=== PATIENT | female | born 1945 | race Caucasian/White ===

== ENCOUNTER 2019-05-28 02:42 | Emergency (ER) | payer MEDICARE ==
[2019-05-28 02:49] VITALS: BP 101/64; PULSE 94; RESP 16; TEMP 97.6
--- NOTE | 2019-05-28 02:57 | ED ---
General Adult HPI <Gwen Worthington - Last Filed: 05/28/19 04:07> - General Source: EMS Mode of arrival: EMS Limitations: physical limitation <Maria Del Rosario Caro - Last Filed: 05/28/19 04:51> - General Chief complaint: Extremity Injury, Lower Stated complaint: Back, lt hip pain Time Seen by Provider: 05/28/19 02:57 - History of Present Illness Initial comments: 73-year-old female patient presents to the emergency department today for evaluation of left lower back pain that radiates on the left leg. Patient states she has degenerative disc disease and multiple herniated disks. Does have a history of sciatica. Patient states her symptoms have been worsening over the last week. Patient does admit to driving from [place] 2 weeks ago. Patient was seen at urgent care and given a prescription for Robaxin and has been taking Aleve which has not been helping. Patient states the pain woke her from sleep and is very difficult to get out of bed. States that she does have numbness to the left lower leg but this is not new for her. She denies any saddle anesthesia or loss of bowel or bladder control. Denies any new injuries to the back. Patient states her symptoms are consistent with her chronic back pain but little worse than usual. She denies any fever or chills. Denies any calf pain or tenderness. Patient is currently being treated for urinary tract infection with Bactrim. Patient denies any recent rash, shortness breath, chest pain, abdominal pain, nausea, vomiting, diarrhea, constipation, back pain, numbness, tingling, dizziness, weakness, hematuria, dysuria, urinary urgency, urinary frequency, headache, visual changes, or any other complaints. (Daphney Worthington) - Related Data Home Medications Medication Instructions Recorded Confirmed Furosemide [Lasix] 20 mg PO DAILY 05/28/19 05/28/19 Methocarbamol [Robaxin] 1,000 mg PO QID 05/28/19 05/28/19 Omeprazole 20 mg PO 05/28/19 Sulfamethox-Tmp 800-160Mg [Bactrim 1 tab PO Q12HR 05/28/19 05/28/19 DS 800-160 mg] Previous Rx's Medication Instructions Recorded Fluconazole [Diflucan] 150 mg PO DAILY #2 tab 05/28/19 predniSONE 50 mg PO DAILY #5 tablet 05/28/19 Allergies Allergy/AdvReac Type Severity Reaction Status Date / Time No Known Allergies Allergy Verified 05/28/19 02:53 Review of Systems ROS Other: All systems not noted in ROS Statement are negative. <Gwen Worthington M - Last Filed: 05/28/19 04:07> ROS Other: All systems not noted in ROS Statement are negative. <Maria Del Rosario Caro P - Last Filed: 05/28/19 04:51> ROS Statement: Those systems with pertinent positive or pertinent negative responses have been documented in the HPI. Past Medical History Additional Past Medical History / Comment(s): BREAST CA History of Any Multi-Drug Resistant Organisms: None Reported Additional Past Surgical History / Comment(s): TONSILECTOMY, TUBAL LIGATION Smoking Status: Never smoker Past Alcohol Use History: Occasional Past Drug Use History: None Reported <Maria Del Rosario Caro - Last Filed: 05/28/19 04:51> General Exam General appearance: alert, in no apparent distress, other (Physical well- developed, well-nourished elderly female patient in no acute distress. Vital signs upon presentation are temperature 97.6F, pulse 94, respirations 16, blood pressure 101/64, pulse ox 95% on room air.) Eye exam: Present: normal appearance, PERRL, EOMI. Absent: scleral icterus, conjunctival injection, periorbital swelling ENT exam: Present: normal exam, normal oropharynx, mucous membranes moist Respiratory exam: Present: normal lung sounds bilaterally. Absent: respiratory distress, wheezes, rales, rhonchi, stridor Cardiovascular Exam: Present: regular rate, normal rhythm, normal heart sounds. Absent: systolic murmur, diastolic murmur, rubs, gallop, clicks GI/Abdominal exam: Present: soft, normal bowel sounds. Absent: distended, tenderness, guarding, rebound, rigid Extremities exam: Present: normal inspection, full ROM, normal capillary refill, other (Pedal pulses 2+ and equal bilaterally. Skin to the lower external is pink, warm, dry. No edema.). Absent: tenderness, pedal edema, joint swelling, calf tenderness Back exam: Present: normal inspection, tenderness (Left lower back tenderness). Absent: vertebral tenderness Neurological exam: Present: alert, oriented X3, CN II-XII intact Psychiatric exam: Present: normal affect, normal mood Skin exam: Present: warm, dry, intact, normal color. Absent: rash <Gwen Worthington - Last Filed: 05/28/19 04:07> Limitations: physical limitation <Maria Del Rosario Caro - Last Filed: 05/28/19 04:51> Course Vital Signs 05/28/19 02:44 Temperature 97.6 F Pulse Rate 94 Respiratory 16 Rate Blood Pressure 101/64 O2 Sat by Pulse 95 Oximetry Medical Decision Making <Gwen Worthington - Last Filed: 05/28/19 04:07> <Maria Del Rosario Caro P - Last Filed: 05/28/19 04:51> - Medical Decision Making 73-year-old female patient presented to the emergency department today for evaluation of left low back pain with radiation down the left leg. Patient is no concerning symptoms for cauda equina. She is neurologically intact with no focal deficits. Physical examination is otherwise unremarkable. Patient symptoms are consistent with acute on chronic low back pain with sciatica. Patient will be started on a steroid regimen for 5 days. She is urged to continue taking her anti-inflammatory muscle relaxer. She'll be given a starter pack for Tylenol with codeine. Patient is currently taking Bactrim for urinary tract infection. She is reporting symptoms of yeast infection, she'll be given a prescription for Diflucan. She is instructed to follow-up with her primary care physician for recheck as soon as possible. Return parameters were discussed in detail. She verbalizes understanding and agrees with this plan. (Gwen Worthington) I was available for consultation in the emergency department. The history and physical exam were done by the midlevel provider. I was consulted for this holly sorto's care. I reviewed the case with the midlevel provider and based on their presentation of the patient, I agree with the assessment, medical decision making and plan of care as documented. Chart was dictated using And[employer] dictation software. Attempts were made to correct any dictation errors however some typographical errors may persist. (Maria Del Rosario Caro) Disposition Is patient prescribed a controlled substance at d/c from ED?: No Time of Disposition: 03:25 <Gwen Worthington - Last Filed: 05/28/19 04:07> <Maria Del Rosario Caro P - Last Filed: 05/28/19 04:51> Clinical Impression: Acute exacerbation of chronic low back pain, Sciatica Disposition: HOME SELF-CARE Condition: Good Instructions (If sedation given, give patient instructions): Sciatica (ED), Chronic Back Pain (DC) Additional Instructions: Take medications as directed. Continue all medications as prescribed. Follow up with her primary care physician for recheck this as possible. Return to the emergency department immediately for any new, worsening, or concerning symptoms. Prescriptions: Fluconazole [Diflucan] 150 mg PO DAILY #2 tab predniSONE 50 mg PO DAILY #5 tablet Referrals: Nonstaff,Physician [Primary Care Provider] - 1-2 days
[2019-05-28] MEDS ORDERED: HYDROcodone/APAP 5-325MG 1 EACH TAB PO STA (03:23)
[2019-05-28] MEDS ORDERED: methylPREDNISolone SOD SUCCI 125 MG/2 ML VIAL IM ONE (03:23)
[2019-05-28] MEDS ORDERED: DIAZEPAM 5 MG/ML 2 ML INJ IM ONE (03:23)
[2019-05-28] MEDS ORDERED: ACET/COD 300 MG/30 MG STARTER PACK 6 TAB BTL PO STA (03:25)
== END 2019-05-28 04:10 | disposition home or self-care (01) ==
LOC: EC 02:42
DX: M54.42 Lumbago with sciatica, left side (principal); N39.0 Urinary tract infection, site not specified; B37.9 Candidiasis, unspecified; Z79.899 Other long term (current) drug therapy; Z85.3 Personal history of malignant neoplasm of breast; Z87.39 Personal history of other diseases of the musculoskeletal system and connective tissue
CPT/HCPCS: 99283; 96372 ×2; J2930; J3360

== ENCOUNTER 2019-05-29 11:48 | Inpatient (IN) | payer MEDICARE ==
[2019-05-29] MEDS ORDERED: ONDANSETRON 4 MG/2 ML VIAL IVP STA (12:16)
[2019-05-29] MEDS ORDERED: MORPHINE SULFATE 4 MG/ML SYRINGE IVP STA (12:16)
[2019-05-29 12:37] LABS: Basophils % (A) 0 %; Eosinophils # (A) 0.1 k/uL (0-0.7); Eosinophils % (A) 1 %; HGB 13.8 gm/dL (11.4-16.0); Lymphocytes # (A) 0.9 k/uL (1.0-4.8); Lymphocytes % (A) 8 %; MCH 32.7 pg (25.0-35.0); MCHC 32.9 g/dL (31.0-37.0); MCV 99.4 fL (80.0-100.0); Mean Platelet Volume 6.7; Monocytes # (A) 0.2 k/uL (0-1.0); Monocytes % (A) 2 %; Neutrophils # (A) 11.2 k/uL (1.3-7.7); Neutrophils % (A) 89 %; Platelet Count 382 k/uL (150-450); RBC 4.23 m/uL (3.80-5.40); RDW 14.3 % (11.5-15.5); WBC 12.6 k/uL (3.8-10.6)
[2019-05-29 12:47] LABS: Albumin 4.6 g/dL (3.5-5.0); Potassium 4.9 mmol/L (3.5-5.1); Total Bilirubin 0.7 mg/dL (0.2-1.3); Total Protein 7.2 g/dL (6.3-8.2)
--- NOTE | 2019-05-29 12:48 | ED ---
Back Pain HPI - General Chief Complaint: Back Pain/Injury Stated Complaint: BACK PAIN Time Seen by Provider: 05/29/19 12:06 Source: patient, EMS, RN notes reviewed Mode of arrival: EMS Limitations: physical limitation - History of Present Illness Initial Comments: 73-year-old female presents emergency Department with chief complaint of back pain. Patient has chronic back pain and which she's had MRI in October showing evidence of L3-L4 herniated disc. Patient was seen by a surgeon in [place] who did not recommend surgery given her age, weight. Patient states that she was placed on tramadol states that she did not like taking it was not helping so she just takes Aleve which helped just as much. She denies any bowel bladder incontinence or retention. Patient states that she has been up in [place] 4 almost 2 weeks and the pain started feeling days ago. Patient was seen in emergency room was given steroids, Valium and [place]. Patient was discharged and told codeine. Patient was also taking Robaxin from urgent care. She denies any abdominal pain this time. Patient does have leg swelling which she states she usually does but is slightly worsened usual. Patient is currently on Bactrim for UTI. She denies any fevers or chills. - Related Data Home Medications Medication Instructions Recorded Confirmed Furosemide [Lasix] 20 mg PO DAILY 05/28/19 05/28/19 Methocarbamol [Robaxin] 1,000 mg PO QID 05/28/19 05/28/19 Omeprazole 20 mg PO 05/28/19 Sulfamethox-Tmp 800-160Mg [Bactrim 1 tab PO Q12HR 05/28/19 05/28/19 DS 800-160 mg] Previous Rx's Medication Instructions Recorded Fluconazole [Diflucan] 150 mg PO DAILY #2 tab 05/28/19 predniSONE 50 mg PO DAILY #5 tablet 05/28/19 Allergies Allergy/AdvReac Type Severity Reaction Status Date / Time No Known Allergies Allergy Verified 05/29/19 12:02 Review of Systems ROS Statement: Those systems with pertinent positive or pertinent negative responses have been documented in the HPI. ROS Other: All systems not noted in ROS Statement are negative. Past Medical History Additional Past Medical History / Comment(s): BREAST CA, back pain History of Any Multi-Drug Resistant Organisms: None Reported Additional Past Surgical History / Comment(s): TONSILECTOMY, TUBAL LIGATION Past Psychological History: No Psychological Hx Reported Smoking Status: Never smoker Past Alcohol Use History: Occasional Past Drug Use History: None Reported General Exam Limitations: physical limitation General appearance: alert, in no apparent distress Head exam: Present: atraumatic, normocephalic, normal inspection Eye exam: Present: normal appearance, PERRL, EOMI. Absent: scleral icterus, conjunctival injection, periorbital swelling ENT exam: Present: normal exam, mucous membranes moist Neck exam: Present: normal inspection. Absent: tenderness, meningismus, lymphadenopathy Respiratory exam: Present: normal lung sounds bilaterally. Absent: respiratory distress, wheezes, rales, rhonchi, stridor Cardiovascular Exam: Present: regular rate, normal rhythm, normal heart sounds. Absent: systolic murmur, diastolic murmur, rubs, gallop, clicks GI/Abdominal exam: Present: soft, normal bowel sounds. Absent: distended, tenderness, guarding, rebound, rigid Extremities exam: Present: pedal edema, other (Pulses are equal bilaterally lower extremities full range of motion) Back exam: Present: tenderness, paraspinal tenderness, vertebral tenderness. Absent: full ROM Neurological exam: Present: alert, oriented X3, CN II-XII intact, reflexes normal. Absent: motor sensory deficit Skin exam: Present: warm, dry, intact, normal color. Absent: rash Course Vital Signs 05/29/19 11:59 Temperature 97.9 F Pulse Rate 110 H Respiratory 18 Rate Blood Pressure 141/64 O2 Sat by Pulse 97 Oximetry Medical Decision Making - Medical Decision Making 73-year-old female presented for low back pain, leg swelling, generalized not feeling well. Patient's found to have acute renal failure she reports no history of renal failure states that she's had normal daily function on her previous lab work. Patient has a GFR of 25, creatinine greater than 2. Patient does have a history of urinary tract infection recently placed on Bactrim. Patient will be discontinued off Bactrim placed on Rocephin. She'll be admitted for his nephrology consult, and control for her back. - Lab Data Result diagrams: 05/29/19 12:29 05/29/19 12:29 Lab Results 05/29/19 05/29/19 05/29/19 Range/Units 12:29 12:29 12:29 WBC 12.6 H (3.8-10.6) k/uL RBC 4.23 (3.80-5.40) m/uL Hgb 13.8 (11.4-16.0) gm/dL Hct 42.0 (34.0-46.0) % MCV 99.4 (80.0-100.0) fL MCH 32.7 (25.0-35.0) pg MCHC 32.9 (31.0-37.0) g/dL RDW 14.3 (11.5-15.5) % Plt Count 382 (150-450) k/uL Neutrophils % 89 % Lymphocytes % 8 % Monocytes % 2 % Eosinophils % 1 % Basophils % 0 % Neutrophils # 11.2 H (1.3-7.7) k/uL Lymphocytes # 0.9 L (1.0-4.8) k/uL Monocytes # 0.2 (0-1.0) k/uL Eosinophils # 0.1 (0-0.7) k/uL Basophils # 0.0 (0-0.2) k/uL Sodium 135 L (137-145) mmol/L Potassium 4.9 (3.5-5.1) mmol/L Chloride 100 (98-107) mmol/L Carbon Dioxide 16 L (22-30) mmol/L Anion Gap 19 mmol/L BUN 59 H (7-17) mg/dL Creatinine 2.22 H (0.52-1.04) mg/dL Est GFR (CKD-EPI)AfAm 24 (>60 ml/min/1.73 sqM) Est GFR (CKD-EPI)NonAf 21 (>60 ml/min/1.73 sqM) Glucose 205 H (74-99) mg/dL Calcium 10.0 (8.4-10.2) mg/dL Total Bilirubin 0.7 (0.2-1.3) mg/dL AST 54 H (14-36) U/L ALT 39 (9-52) U/L Alkaline Phosphatase 81 (38-126) U/L NT-Pro-B Natriuret Pep 209 pg/mL Total Protein 7.2 (6.3-8.2) g/dL Albumin 4.6 (3.5-5.0) g/dL Urine Color Urine Appearance (Clear) Urine pH (5.0-8.0) Ur Specific [place] (1.001-1.035) Urine Protein (Negative) Urine Glucose (UA) (Negative) Urine Ketones (Negative) Urine Blood (Negative) Urine Nitrite (Negative) Urine Bilirubin (Negative) Urine Urobilinogen (<2.0) mg/dL Ur Leukocyte Esterase (Negative) Urine RBC (0-5) /hpf Ur Squamous Epith Cells (0-4) /hpf Amorphous Sediment (None) /hpf Hyaline Casts (0-2) /lpf 05/29/19 Range/Units 14:48 WBC (3.8-10.6) k/uL RBC (3.80-5.40) m/uL Hgb (11.4-16.0) gm/dL Hct (34.0-46.0) % MCV (80.0-100.0) fL MCH (25.0-35.0) pg MCHC (31.0-37.0) g/dL RDW (11.5-15.5) % Plt Count (150-450) k/uL Neutrophils % % Lymphocytes % % Monocytes % % Eosinophils % % Basophils % % Neutrophils # (1.3-7.7) k/uL Lymphocytes # (1.0-4.8) k/uL Monocytes # (0-1.0) k/uL Eosinophils # (0-0.7) k/uL Basophils # (0-0.2) k/uL Sodium (137-145) mmol/L Potassium (3.5-5.1) mmol/L Chloride (98-107) mmol/L Carbon Dioxide (22-30) mmol/L Anion Gap mmol/L BUN (7-17) mg/dL Creatinine (0.52-1.04) mg/dL Est GFR (CKD-EPI)AfAm (>60 ml/min/1.73 sqM) Est GFR (CKD-EPI)NonAf (>60 ml/min/1.73 sqM) Glucose (74-99) mg/dL Calcium (8.4-10.2) mg/dL Total Bilirubin (0.2-1.3) mg/dL AST (14-36) U/L ALT (9-52) U/L Alkaline Phosphatase (38-126) U/L NT-Pro-B Natriuret Pep pg/mL Total Protein (6.3-8.2) g/dL Albumin (3.5-5.0) g/dL Urine Color Yellow Urine Appearance Cloudy H (Clear) Urine pH 6.5 (5.0-8.0) Ur Specific [place] 1.018 (1.001-1.035) Urine Protein Trace H (Negative) Urine Glucose (UA) Negative (Negative) Urine Ketones Negative (Negative) Urine Blood Negative (Negative) Urine Nitrite Negative (Negative) Urine Bilirubin Negative (Negative) Urine Urobilinogen <2.0 (<2.0) mg/dL Ur Leukocyte Esterase Large H (Negative) Urine RBC 3 (0-5) /hpf Ur Squamous Epith Cells 7 H (0-4) /hpf Amorphous Sediment Rare H (None) /hpf Hyaline Casts 7 H (0-2) /lpf Disposition Clinical Impression: Acute renal failure, Acute exacerbation of chronic low back pain, UTI (urinary tract infection) Disposition: ADMITTED IP TO THIS [facility] Condition: Fair Referrals: Raul Hannah MD [Primary Care Provider] - 1-2 days
--- NOTE | 2019-05-29 13:17 | XR ---
EXAMINATION TYPE: XR lumbosacral spine min 4V DATE OF EXAM: 05/29/2019 CLINICAL HISTORY: Acute on chronic low back pain TECHNIQUE: Frontal, lateral, and oblique images of the lumbar spine are obtained. COMPARISON: None FINDINGS: There is a mild dextroscoliosis of the lumbar spine. There are 5 lumbar type vertebral bod ies identified. Vertebral body heights are maintained of the lumbar spine. Grade 1 anterolisthesis is seen of L4 on L5 with multilevel intervertebral disc space narrowing, facet arthropathy, endplate sc lerosis, and anterior osteophytes. Extensive atherosclerosis of the abdominal aorta is incidentally s een as well as cholecystectomy clips. The oblique images demonstrate neural foraminal narrowing at L3-L4 and L4-5 on the right and at L2-L3 on the left, at least mild. IMPRESSION: 1. No acute fracture of the lumbar spine. 2. Grade 1 anterolisthesis of L4 on L5, dextroscoliosis, and advanced multilevel degenerative disc di sease of the lumbar spine.
[2019-05-29 15:02] LABS: Amorphous Sediment,Urine Rare /hpf; Appearance,Urine Cloudy (Clear); Bilirubin,Urine Negative (Negative); Blood,Urine Negative (Negative); Color,Urine Yellow; Glucose,Urine (UA) Negative (Negative); Hyaline Casts,Urine 7 /lpf (0-2); Ketones,Urine Negative (Negative); Leukocyte Esterase,Urine Large (Negative); Nitrite,Urine Negative (Negative); PH, Urine 6.5 (5.0-8.0); Protein,Urine Trace (Negative); RBC,Urine 3 /hpf (0-5); Specific Gravity,Urine 1.018 (1.001-1.035); Squamous Epithelial Cell,Urine 7 /hpf (0-4); Urobilinogen,Urine <2.0 mg/dL (<2.0); WBC,Urine 19 /hpf (0-5)
[2019-05-29] MEDS ORDERED: cefTRIAXone IN SWFI 1,000 MG/10 ML SYRINGE IVP STA (15:03)
[2019-05-29] MEDS ORDERED: ONDANSETRON 4 MG/2 ML VIAL IVP PRN (15:05)
[2019-05-29] MEDS ORDERED: NALOXONE 0.4 MG/ML 1 ML VIAL IV PRN (15:05)
[2019-05-29] MEDS ORDERED: ACETAMINOPHEN TAB 325 MG TAB PO PRN (15:05)
[2019-05-29] MEDS: SODIUM CHLORIDE 0.9% 1,000 ML IV SCH (15:16)
[2019-05-29] MEDS: MORPHINE SULFATE 4 MG/ML SYRINGE IV PRN ×2 (18:16→22:13)
[2019-05-29] MEDS ORDERED: DEXTROSE 5% IN WATER 1,000 ML with SODIUM BICARB (1 MEQ/ML) 150 ML IV ONE (19:27)
--- NOTE | 2019-05-29 20:46 | XR ---
EXAMINATION: XR chest 1V portable DATE AND TIME: 05/29/2019 8:35 PM CLINICAL INDICATION: PHH; B/L L/E edema TECHNIQUE: AP upright portable COMPARISON: None FINDINGS: The overlying soft tissues are prominent. Lungs appear to be clear. The pleural spaces are negative. The cardiac silhouette is not enlarged. The remainder of the mediastinal silhouette is unremarkable. The skeletal structures and soft tissues are negative for acute findings. IMPRESSION: NO ACUTE PROCESS.
[2019-05-29] MEDS ORDERED: NYSTAT-TRIAMCIN 100,000-0.1 UNIT/GM-% CREAM 30 GM TUBE TOPICAL SCH (21:00)
--- NOTE | 2019-05-29 21:50 | US ---
EXAMINATION TYPE: US kidneys/renal and bladder DATE OF EXAM: 05/29/2019 COMPARISON: NONE CLINICAL HISTORY: UTI. HTN. EXAM MEASUREMENTS: Right Kidney: 8.1 x 4.5 x 4.5 cm Left Kidney: 8.7 x 4.4 x 5.3 cm Limited due to body habitus and patient's inability to be in proper position during exam. Right Kidney: No hydronephrosis or masses seen Left Kidney: No hydronephrosis or masses seen Bladder: Limited. appears anechoic Bilateral Jets seen: no IMPRESSION: No acute process.
[2019-05-29] MEDS: TRIAMCINOLONE 0.1% CREAM 80 GM TUBE TOPICAL SCH (22:21)
[2019-05-29] MEDS: NYSTATIN 100,000UNIT/GM CREAM 30 GM TUBE TOPICAL SCH (22:21)
--- NOTE | 2019-05-29 23:00 | P.HPIM ---
History of Present Illness H&P Date: 05/29/19 Chief Complaint: Back pain Agent is a 73-year-old male with a known history of chronic lower back pain, L3- L4 or herniated disc, left-sided sciatic nerve pain, right breast cancer status post lumpectomy/radiation, hypertension and hyperlipidemia and obstructive sleep apnea came to ER with complaints of lower back pain. Patient also having trickling sensation with urination and feeling off urgency. Patient has been having headaches these symptoms since May 25 and was seen by her primary care physician Dr. Hannah. Patient was started on antibiotics in the form of Bactrim which is she has been taking since then. Patient is also having worsening leg swelling for the past 3 or 4 days. Denied any fever or chills. No complaints of abdominal pain. No nausea vomiting or diarrhea. Patient usually does have leg swelling which improves overnight after sleep but this time patient has been having leg swelling continuously. Denied any chest pain or shortness of breath. No headache or dizziness or lightheadedness. Denied any bladder or bowel incontinence. Patient lives in [place] and is visiting family in [place] currently. Patient has chronic back pain and which she's had MRI in October showing evidence of L3-L4 herniated disc. Patient was seen by a surgeon in [place] who did not recommend surgery given her age, weight. Patient states that she was pl aced on tramadol states that she did not like taking it was not helping so she just takes Aleve which helped just as much. Patient states that she was seen in the ER due to her back pain recently and was given steroids, Valium and [place]. She is also taking Robaxin from urgent care. Sodium 135 BUN 55 and creatinine 2.22 WBC 12.6. Urinalysis showed cloudy, large leukocyte esterase and 19 WBCs. Albumin 4.6 BNP 209 Chest x-ray, lumbar spine x-ray showed no acute process. No fracture or dislocation. Ultrasound kidneys showed no acute process. Review of Systems Constitutional: Patient denies any fever or chills . No generalized weakness or weight loss. Abdomen: Patient denied nausea vomiting and diarrhea and abdominal pain. Cardiovascular: Patient denies any chest pain or short of breath no palpitations. Leg swelling. Respiratory: patient denied any cough is from production. No shortness of breath Neurologic: Patient denied any numbness or tingling headache. Musculoskeletal: Patient denies any complaints of joint swelling or deformity. Lower back pain. Skin: Negative Psychiatric: Negative Endocrine: No heat or cold intolerance. No recent weight gain. Genitourinary: No dysuria or hematuria. All other 14 point ROS negative except the above Past Medical History Past Medical History: Cancer, GERD/Reflux, Hyperlipidemia, Hypertension, Osteoarthritis (OA) Additional Past Medical History / Comment(s): Chronic lower back pain, L3-L4 herniated disc, L sided sciatica, bilateral leg edema, current UTI, R breast cancer with lumpectomy/radiation, bronchitis, sinus problems, beginning of bilateral cataracts. History of Any Multi-Drug Resistant Organisms: None Reported Past Surgical History: Cholecystectomy, Tonsillectomy, Tubal Ligation Additional Past Surgical History / Comment(s): Colonoscopy Past Anesthesia/Blood Transfusion Reactions: No Reported Reaction Smoking Status: Never smoker - Past Family History Father Additional Family Medical History / Comment(s): Father at the age of 53 yrs from "broken heart" 6 weeks after the of his son. Mother Additional Family Medical History / Comment(s): Mother at the age of 61 pt believes from a brain tumor. Medications and Allergies Home Medications Medication Instructions Recorded Confirmed Type Furosemide [Lasix] 20 mg PO DAILY 05/28/19 05/29/19 History Omeprazole 20 mg PO DAILY 05/28/19 05/29/19 History Sulfamethox-Tmp 800-160Mg [Bactrim 1 tab PO Q12HR 05/28/19 05/29/19 History DS 800-160 mg] predniSONE 50 mg PO DAILY #5 tablet 05/28/19 05/29/19 Rx Allopurinol [Zyloprim] 300 mg PO DAILY 05/29/19 05/29/19 History Baclofen [Lioresal] 10 mg PO DAILY 05/29/19 05/29/19 History Fluconazole [Diflucan] 150 mg PO DIRECTED 05/29/19 05/29/19 History Lisinopril-Hctz 20-12.5 mg 1 tab PO DAILY 05/29/19 05/29/19 History [Zestoretic 20-12.5] Loratadine [Claritin] 10 mg PO DAILY 05/29/19 05/29/19 History Multivitamins, Thera [Multivitamin 1 tab PO DAILY 05/29/19 05/29/19 History (formulary)] NIFEdipine [Procardia XL] 60 mg PO DAILY 05/29/19 05/29/19 History [place]-Red 1 tab PO DAILY 05/29/19 05/29/19 History Allergies Allergy/AdvReac Type Severity Reaction Status Date / Time No Known Allergies Allergy Verified 05/29/19 15:18 Physical Exam Vitals: Vital Signs Temp Pulse Resp BP Pulse Ox 05/29/19 16:47 78 17 135/91 97 05/29/19 11:59 97.9 F 110 H 18 141/64 97 Intake and Output 05/29/19 05/29/19 05/29/19 06:59 14:59 22:59 Other: Weight 108.862 kg PHYSICAL EXAMINATION: Patient is lying in the bed comfortably, no acute distress, awake alert and oriented.. HEENT: Normocephalic. Neck is supple. Pupils reactive. Nostrils clear. Oral cavity is moist. Ears reveal no drainage. Neck reveals no JVD, carotid bruits, or thyromegaly. CHEST EXAMINATION: Trachea is central. Symmetrical expansion. Bibasilar diminished air entry. Lung love clear to auscultation and percussion. CARDIAC: Normal S1, S2 with no gallops. No murmurs ABDOMEN: Soft. Distended, obese. Bowel sounds normal. No organomegaly. No abdominal bruits. Extremities: 2+ bilateral edema. No clubbing or cyanosis Neurologically awake, alert, oriented x3 with well-coordinated movements. No focal deficits noted Skin: No rash or skin lesions. Psychiatric: Coperative. Nonsuicidal Musculoskeletal: No joint swelling or deformity. Normal range of motion. Results CBC & Chem 7: 05/29/19 12:29 05/29/19 12:29 Labs: Abnormal Lab Results - Last 24 Hours (Table) 05/29/19 05/29/19 05/29/19 Range/Units 12:29 12:29 14:48 WBC 12.6 H (3.8-10.6) k/uL Neutrophils # 11.2 H (1.3-7.7) k/uL Lymphocytes # 0.9 L (1.0-4.8) k/uL Sodium 135 L (137-145) mmol/L Carbon Dioxide 16 L (22-30) mmol/L BUN 59 H (7-17) mg/dL Creatinine 2.22 H (0.52-1.04) mg/dL Glucose 205 H (74-99) mg/dL AST 54 H (14-36) U/L Urine Appearance Cloudy H (Clear) Urine Protein Trace H (Negative) Ur Leukocyte Esterase Large H (Negative) Urine WBC 19 H (0-5) /hpf Ur Squamous Epith Cells 7 H (0-4) /hpf Amorphous Sediment Rare H (None) /hpf Hyaline Casts 7 H (0-2) /lpf Thrombosis Risk Factor Assmnt - DVT/VTE Prophylaxis DVT/VTE Prophylaxis: Pharmacologic Prophylaxis ordered - Choose All That Apply Any of the Below Risk Factors Present?: Yes Each Factor Represents 1 point: Obesity (BMI >25), Swollen legs (current) Other Risk Factors: Yes Each Risk Factor Represents 2 Points: Malignancy Each Risk Factor Represents 3 Points: Age 75 years or older Other congenital or acquired thrombophilia - If yes, enter type in comment: No Thrombosis Risk Factor Assessment Total Risk Factor Score: 7 Thrombosis Risk Factor Assessment Level: High Risk Assessment and Plan Assessment: Acute urinary tract infection. Failed outpatient therapy Acute kidney injury with possible underlying chronic kidney disease. Possible antibiotic/Bactrim related Anion gap Metabolic acidosis Chronic lower back pain and left sciatica no pain. On narcotic pain medications and recent steroid use as well. Bilateral lower extremity edema. Likely due to venous stasis. Rule out DVT. History of right breast cancer with lumpectomy/radiation Hypertension Hyperlipidemia Obstructive sleep apnea Osteoarthritis Gout Previous history of UTIs DVT prophylaxis with heparin subcu Plan: Patient will be continued on antibiotics the form of ceftriaxone. Bactrim has been discontinued. Continue with IV hydration. Monitor renal function and urine culture report. Continue with home medications and pain management. Nephrology service will be consulted. PT OT. Further recommendations based on the clinical course. Prognosis is guarded. Time with Patient: Greater than 30
[2019-05-30] MEDS: NYSTATIN 100,000UNIT/GM CREAM 30 GM TUBE TOPICAL SCH ×2 (07:45→21:30)
[2019-05-30] MEDS: BACLOFEN 10 MG TAB PO SCH (07:45)
[2019-05-30] MEDS: ALLOPURINOL 300 MG TAB PO SCH (07:45)
[2019-05-30] MEDS: TRIAMCINOLONE 0.1% CREAM 80 GM TUBE TOPICAL SCH ×2 (07:45→21:30)
--- NOTE | 2019-05-30 08:36 | US ---
EXAMINATION TYPE: US venous doppler duplex LE DATE OF EXAM: 05/30/2019 8:30 AM COMPARISON: NONE CLINICAL HISTORY: Leg swelling. Bilateral leg pain and swelling SIDE PERFORMED: Bilateral TECHNIQUE: The lower extremity deep venous system is examined utilizing real time linear array sonog christopher with graded compression, doppler sonography and color-flow sonography. VESSELS IMAGED: External Iliac Vein (EIV) Common Femoral Vein Deep Femoral Vein Greater Saphenous Vein * Femoral Vein Popliteal Vein Small Saphenous Vein * Proximal Calf Veins (* superficial vessels) Grayscale, color doppler, spectral doppler imaging performed of the deep veins of the lower extremiti es. There is normal flow, compressibility, vascular waveforms. Right Leg: Appears negative for DVT Left Leg: Appears negative for DVT IMPRESSION: No sonographic sequela of deep venous thrombosis.
--- NOTE | 2019-05-30 10:08 | CONS ---
CONSULTATION REASON FOR CONSULT: Renal failure. HISTORY OF PRESENT ILLNESS: The patient is a 73-year-old female who was admitted to the hospital with complaints of weakness, not feeling well. She is currently being treated for a urinary tract infection. The patient stated that she has noticed increased lower extremity swelling. She had also had significant back pain, which brought her into the hospital. The patient was not able to move her right lower extremity. She also complained of numbness in her right leg. Previous MRI in October showed evidence of L3-L4 herniated disc. The patient has been evaluated by Orthopedic Surgery previously. Patient denied any history of kidney diseases. Her serum creatinine was 2.2 mg/dL. We do not have any previous labs available. Patient did admit to using a Aleve 2 tablets twice a day for a long time for back pain. Her blood pressure has been slightly on the lower side. The patient has had good urine output. PAST MEDICAL HISTORY: Chronic back pain, osteoarthritis, hyperlipidemia, hypertension, gastroesophageal reflux disease, history of right breast cancer, status post lumpectomy, radiation therapy, chronic lower extremity edema, sciatica, herniated disc in lumbar area. PAST SURGICAL HISTORY: Cholecystectomy, tonsillectomy, tubal ligation, colonoscopy. SOCIAL HISTORY: Negative for smoking, drug abuse, alcohol abuse. MEDICATIONS: Medications at home prior to admission included Lasix, omeprazole, Bactrim, prednisone, Zyloprim, Diflucan, Zestoretic, Claritin, multivitamins, Procardia, omega-3, Aleve. ALLERGIES: None. REVIEW OF SYSTEMS: As per HPI. Other systems negative. PHYSICAL EXAMINATION: On examination, patient is comfortable, awake, alert, oriented x3, not in any acute distress. Blood pressure was 130/53, heart rate 82 per minute. She is afebrile. EXAMINATION OF THE HEART: S1, S2. EXAMINATION OF THE LUNGS: Bilateral breath sounds are heard. Abdomen is soft, nontender. Examination of lower extremities shows edema 1+ bilaterally, worse in the right leg. RN AMBULATORY exam shows patient has difficulty moving her right lower extremity. LABS: Labs show sodium 135, potassium 4.9, CO2 of 16, BUN 59, serum creatinine 2.2, hemoglobin of 13.8 g/dL. UA shows WBCs of 19, leukocyte esterase large, trace protein, no blood. Chest x-ray from yesterday showed no acute process. Venous Dopplers from last night show no evidence of DVT. ASSESSMENT: 1. Acute kidney injury secondary to use of nonsteroidal anti-inflammatory agents, currently nonoliguric. We will maintain patient off of NSAIDs. I will check labs today and we can likely discontinue the IV bicarb. 2. Metabolic acidosis secondary to renal failure. Repeat labs today and DC bicarb depending on the lab. 3. Pyuria, rule out urinary tract infection. 4. Chronic back pain with herniated lumbar disc. 5. Sciatica with decreased movement right leg with previous evaluation by Orthopedic Surgery. 6. Rule out chronic kidney disease. PLAN: Avoid NSAIDs. Check labs today. DC bicarb drip if labs are better. Check ultrasound of the kidneys. Thank you for this consultation. We will continue to follow the patient with you during her hospitalization. MMODL / IJN: [id number] /
[2019-05-30 10:14] LABS: Basophils % (A) 0 %; Eosinophils # (A) 0.1 k/uL (0-0.7); Eosinophils % (A) 1 %; HCT 39.9 % (34.0-46.0); HGB 12.9 gm/dL (11.4-16.0); Lymphocytes # (A) 3.2 k/uL (1.0-4.8); Lymphocytes % (A) 27 %; MCH 32.8 pg (25.0-35.0); MCHC 32.3 g/dL (31.0-37.0); MCV 101.6 fL (80.0-100.0); Macrocytosis Slight; Mean Platelet Volume 6.8; Monocytes # (A) 0.7 k/uL (0-1.0); Monocytes % (A) 6 %; Neutrophils # (A) 7.8 k/uL (1.3-7.7); Neutrophils % (A) 65 %; Platelet Count 326 k/uL (150-450); RBC 3.93 m/uL (3.80-5.40); RDW 14.3 % (11.5-15.5)
[2019-05-30 10:26] LABS: Calcium 9.5 mg/dL (8.4-10.2); Potassium 5.4 mmol/L (3.5-5.1)
[2019-05-30] MEDS: SODIUM CHLORIDE 0.9% 1,000 ML IV SCH (11:57)
[2019-05-30] MEDS: MORPHINE SULFATE 4 MG/ML SYRINGE IV PRN (12:00)
[2019-05-30] MEDS: SODIUM BICARBONATE TAB 650 MG TAB PO SCH (21:29)
--- NOTE | 2019-05-31 01:56 | P.PN ---
Subjective Progress Note Date: 05/30/19 Principal diagnosis: Acute urinary tract infection Acute kidney injury Patient is a 73-year-old male with a known history of chronic lower back pain, L3-L4 or herniated disc, left-sided sciatic nerve pain, right breast cancer status post lumpectomy/radiation, hypertension and hyperlipidemia and obstructive sleep apnea came to ER with complaints of lower back pain. Patient also having trickling sensation with urination and feeling off urgency. Patient has been having headaches these symptoms since May 25 and was seen by her primary care physician Dr. Hannah. Patient was started on antibiotics in the form of Bactrim which is she has been taking since then. Patient is also having worsening leg swelling for the past 3 or 4 days. Denied any fever or chills. No complaints of abdominal pain. No nausea vomiting or diarrhea. Patient usually does have leg swelling which improves overnight after sleep but this time patient has been having leg swelling continuously. Denied any chest pain or shortness of breath. No headache or dizziness or lightheadedness. Denied a ny bladder or bowel incontinence. Patient lives in [place] and is visiting family in [place] currently. Patient has chronic back pain and which she's had MRI in October showing evidence of L3-L4 herniated disc. Patient was seen by a surgeon in [place] who did not recommend surgery given her age, weight. Patient states that she was placed on tramadol states that she did not like taking it was not helping so she just takes Aleve which helped just as much. Patient states that she was seen in the ER due to her back pain recently and was given steroids, Valium and [place]. She is also taking Robaxin from urgent care. Sodium 135 BUN 55 and creatinine 2.22 WBC 12.6. Urinalysis showed cloudy, large leukocyte esterase and 19 WBCs. Albumin 4.6 BNP 209 Chest x-ray, lumbar spine x-ray showed no acute process. No fracture or dislocation. Ultrasound kidneys showed no acute process. 05/30/2019 Patient is more awake and oriented today. Bilateral leg swelling is improved. No complains of chest pain or shortness of breath. Still having left sciatic pain. Otherwise renal function improved to creatinine level I.57. Bicarb level is improved as well. Nephrology is on board. Renal ultrasound showed no acute process and bilateral lower extremity duplex scan showed no DVT. No fever no chills. Urine culture is pending at this time. Patient is trying to participate in physical therapy. Discussed with the patient and her family at bedside in detail. Current medications reviewed. Active Medications Generic Name Dose Route Start Last Admin Trade Name Freq PRN Reason Stop Dose Admin Acetaminophen 650 mg 05/29/19 15:05 Tylenol Tab PO Q6HR PRN Mild Pain or Fever > 100.5 Hydrocodone Bitart/Acetaminophen 1 each 05/29/19 15:05 [place] 5-325 PO Q4HR PRN Moderate Pain Allopurinol 300 mg 05/30/19 09:00 05/30/19 07:45 Zyloprim PO 300 mg DAILY LAVELLE Administration Baclofen 10 mg 05/30/19 09:00 05/30/19 07:45 Lioresal PO 10 mg DAILY LAVELLE Administration Sodium Chloride 1,000 mls @ 50 mls/hr 05/29/19 15:15 05/30/19 11:57 Saline 0.9% IV 50 mls/hr .Q20H LAVELLE Administration Ceftriaxone Sodium 1 gm/ 50 mls @ 100 mls/hr 05/30/19 09:00 05/30/19 07:45 Sodium Chloride IVPB 100 mls/hr Q24HR LAVELLE Administration Morphine Sulfate 4 mg 05/29/19 15:05 05/30/19 12:00 Morphine Sulfate (Inj) IV 4 mg Q4HR PRN Administration Severe Pain Naloxone HCl 0.2 mg 05/29/19 15:05 Narcan IV Q2M PRN Opioid Reversal Nystatin 1 applic 05/29/19 21:00 05/30/19 21:30 Mycostatin Cream TOPICAL 1 applic BID LAVELLE Administration Ondansetron HCl 4 mg 05/29/19 15:05 Zofran IVP Q8HR PRN Nausea And Vomiting Sodium Bicarbonate 650 mg 05/30/19 21:00 05/30/19 21:29 Sodium Bicarbonate Tab PO 650 mg BID LAVELLE Administration Triamcinolone Acetonide 1 applic 05/29/19 21:00 05/30/19 21:30 Kenalog TOPICAL 1 applic BID LAVELLE Administration Objective - Vital Signs Vital signs: Vital Signs Temp 98.1 F 05/30/19 20:35 Pulse 90 05/30/19 20:35 Resp 16 05/30/19 20:35 BP 122/74 05/30/19 20:35 Pulse Ox 95 05/30/19 20:35 Intake & Output 05/30/19 05/30/19 05/31/19 06:59 18:59 06:59 Intake Total 350 Balance 350 Intake: Oral 350 Other: Voiding Method Toilet # Voids 1 3 1 - Exam PHYSICAL EXAMINATION: Patient is lying in the bed comfortably, no acute distress, awake alert and oriented.. HEENT: Normocephalic. Neck is supple. Pupils reactive. Nostrils clear. Oral cavity is moist. Ears reveal no drainage. Neck reveals no JVD, carotid bruits, or thyromegaly. CHEST EXAMINATION: Trachea is central. Symmetrical expansion. Bibasilar diminished air entry. Lung love clear to auscultation and percussion. CARDIAC: Normal S1, S2 with no gallops. No murmurs ABDOMEN: Soft. Bowel sounds normal. No organomegaly. No abdominal bruits. Extremities: Bilateral 1+ edema. No clubbing or cyanosis Neurologically awake, alert, oriented x3 with well-coordinated movements. No focal deficits noted Skin: No rash or skin lesions. Psychiatric: Coperative. Nonsuicidal Musculoskeletal: No joint swelling or deformity. Normal range of motion. - Labs CBC & Chem 7: 05/30/19 09:09 05/30/19 09:09 Labs: Abnormal Lab Results - Last 24 Hours (Table) 05/30/19 05/30/19 Range/Units 09:09 09:09 WBC 12.0 H (3.8-10.6) k/uL MCV 101.6 H (80.0-100.0) fL Neutrophils # 7.8 H (1.3-7.7) k/uL Sodium 135 L (137-145) mmol/L Potassium 5.4 H (3.5-5.1) mmol/L Chloride 96 L (98-107) mmol/L BUN 48 H (7-17) mg/dL Creatinine 1.57 H (0.52-1.04) mg/dL Glucose 123 H (74-99) mg/dL Microbiology - Last 24 Hours (Table) 05/29/19 14:48 Urine Culture - Final Urine,Voided Assessment and Plan Assessment: Acute urinary tract infection. Failed outpatient therapy Acute kidney injury with possible underlying chronic kidney disease. Possible antibiotic/Bactrim and NSAID related Anion gap Metabolic acidosis. Secondary to acute kidney injury. Improving Chronic lower back pain and left sciatica no pain. On narcotic pain medications and recent steroid use as well. Bilateral lower extremity edema. Likely due to venous stasis. Improved now. Ruled out DVT. History of right breast cancer with lumpectomy/radiation Hypertension Hyperlipidemia Obstructive sleep apnea Osteoarthritis Gout Previous history of UTIs DVT prophylaxis with heparin subcu Plan: Patient will be continued on antibiotics the form of ceftriaxone. Bactrim has been discontinued. Avoid NSAID use. Continue with IV hydration. Monitor renal function and urine culture report. Continue with home medications and pain management. Nephrology service is following. PT OT. Urine culture is pending. Further recommendations based on the clinical course. Prognosis is guarded. Time with Patient: Greater than 30
[2019-05-31] MEDS: HYDROcodone/APAP 5-325MG 1 EACH TAB PO PRN ×3 (02:48→15:41)
[2019-05-31 08:11] LABS: Basophils % (A) 0 %; Eosinophils # (A) 0.1 k/uL (0-0.7); Eosinophils % (A) 1 %; HGB 13.5 gm/dL (11.4-16.0); Lymphocytes # (A) 2.5 k/uL (1.0-4.8); Lymphocytes % (A) 26 %; MCH 33.7 pg (25.0-35.0); MCHC 33.7 g/dL (31.0-37.0); MCV 100.1 fL (80.0-100.0); Macrocytosis Slight; Mean Platelet Volume 7.1; Monocytes # (A) 0.8 k/uL (0-1.0); Monocytes % (A) 8 %; Neutrophils # (A) 5.9 k/uL (1.3-7.7); Neutrophils % (A) 62 %; Platelet Count 246 k/uL (150-450); RDW 15.1 % (11.5-15.5); WBC 9.4 k/uL (3.8-10.6)
[2019-05-31 08:24] LABS: Calcium 9.4 mg/dL (8.4-10.2); Potassium 5.3 mmol/L (3.5-5.1)
[2019-05-31] MEDS: SODIUM BICARBONATE TAB 650 MG TAB PO SCH ×2 (08:51→20:59)
[2019-05-31] MEDS: ALLOPURINOL 300 MG TAB PO SCH (08:51)
[2019-05-31] MEDS: BACLOFEN 10 MG TAB PO SCH (08:51)
[2019-05-31] MEDS: TRIAMCINOLONE 0.1% CREAM 80 GM TUBE TOPICAL SCH ×2 (08:56→20:59)
[2019-05-31] MEDS: NYSTATIN 100,000UNIT/GM CREAM 30 GM TUBE TOPICAL SCH ×2 (08:56→20:59)
[2019-05-31] MEDS: SODIUM CHLORIDE 0.9% 1,000 ML IV SCH (08:57)
[2019-05-31] MEDS ORDERED: FUROSEMIDE 10 MG/ML 4 ML VIAL IV STA (12:15)
--- NOTE | 2019-05-31 12:57 | PN ---
PROGRESS NOTE The patient is seen for followup for acute kidney injury. Her serum creatinine has improved. It is down to 1.2 to 1.03. The patient received IV fluids initially. She was admitted with difficulty in moving the right leg and chronic back pain. There was suspicion for underlying UTI. However, urine culture does not show any significant growth. The patient is maintained on empiric antibiotics. IV fluids are running at about 50 mL an hour. PHYSICAL EXAMINATION: On examination, blood pressure this morning 115/69, heart rate 79 per minute. Patient is afebrile. EXAMINATION OF THE HEART: S1 and S2. EXAMINATION OF THE LUNGS: Bilateral breath sounds are heard. Abdomen is soft, nontender, obese. Examination of the lower extremities shows edema 1+ bilaterally. The patient is not able to move her right lower extremity as well as the left. LABS: Labs show sodium 133, potassium 5.3, BUN 30, serum creatinine 1.03, hemoglobin 13.5 g/dL. UA shows trace protein, large leukocyte esterase, WBCs of 19. ASSESSMENT: 1. Acute kidney injury secondary to NSAIDs, currently improved. I will discontinue the IV fluids. The patient does have evidence of mild volume overload. She is advised to continue to avoid the use of NSAIDs and we will repeat labs in a.m. I will give her a dose of IV Lasix as well today. 2. Chronic back pain with herniated lumbar disc. 3. Possible underlying chronic kidney disease. 4. Metabolic acidosis secondary to renal failure, currently improved. 5. Mild hyperkalemia associated with chronic kidney disease and use of NSAIDs. PLAN: Lasix 40 IV x1. Maintain patient on oral diuretics as well as. Consider holding off on the calcium channel alfonso as outpatient given her lower extremity edema. Blood pressure is currently not high. Repeat labs in a.m.. MMODL / IJN: [id number] /
[2019-06-01] MEDS: HYDROcodone/APAP 5-325MG 1 EACH TAB PO PRN ×3 (02:02→21:04)
[2019-06-01] MEDS: SODIUM CHLORIDE 0.9% 1,000 ML IV SCH (05:23)
--- NOTE | 2019-06-01 08:52 | P.CNOR ---
<Jose Still - Last Filed: 06/01/19 08:48> History of Present Illness - [facility] Consult date: 06/01/19 Requesting physician: Odalys Katz Consult reason: low back pain, other (Inability to ambulate due to weakness) History of present illness: Patient is a very pleasant 73-year-old female who is seen and examined at bedside for further evaluation in regards to low back pain and bilateral lower extremity weakness with radiculopathy. Patient states she lives in [place] and traveled to [place] on 05/17/2019 to visit family. She had planned to travel back home to [place] yesterday, 05/31/2019. During her trip to visit family she began to experience exacerbation of low back pain, bilateral lower extremity weakness greater on the left than the right, and numbness in the bilateral lower extremities. She also states she's been unable to tell when she is going to urinate since this past 05/28/2019. She states her symptoms began to worsen on 05/28/2019 without known injury. She presented to the emergency department for further evaluation on 05/29/2019. She states she has been unable to ambulate due to lower extremity weakness. She is unable to perform any significant active range of motion of the ankles bilaterally. She is able to perform some hip flexion but has significant weakness while doing so. She also experiences low back pain which she states is greater on the left than the right. She is not experiencing any groin pain bilaterally. She does have a history of previously undergoing an MRI while in [place] in October 2018. She was seen and examined by a spine surgeon at that time who was not recommending surgical intervention at that time. She has been following with pain management and recently had an injection at the L3-4 level which did provide some control of her symptoms. She states she was scheduled for another injection in [place] on 06/06/2019. She states she did have one injection in her left hip as well as it was felt her symptoms may be stemming from her hip but this injection did not provide any significant improvement of her symptoms. During her admission to the emergency department she was found to have some swelling of bilateral lower extremities and was also being treated for urinary tract infection at that time. She was failing outpatient treatment for urinary tract infection and is currently receiving Rocephin 1 g IV piggyback every 24 hours per medicine. She is also being treated for acute renal injury per medicine. Nursing states patient is planned to be discharged to a rehabilitation facility pending insurance approval. Medicine placed consultation for further evaluation prior to discharge to rehab given the patient's significant weakness and difficulty ambulation. Patient states prior to the exacerbation of her symptoms she did ambulate with the assistance of a walker or a shopping cart and was able to am bulate significantly better with an aid. She does have a medical history which includes hyperlipidemia, hypertension, current urinary tract infection, bilateral lower extremity edema, history of right-sided breast cancer with lumpectomy/radiation, and history of chronic low back pain with left lower extremity radiculopathy. Past Medical History Past Medical History: Cancer, GERD/Reflux, Hyperlipidemia, Hypertension, Osteoarthritis (OA) Additional Past Medical History / Comment(s): Chronic lower back pain, L3-L4 herniated disc, L sided sciatica, bilateral leg edema, current UTI, R breast cancer with lumpectomy/radiation, bronchitis, sinus problems, beginning of bilateral cataracts. History of Any Multi-Drug Resistant Organisms: None Reported Past Surgical History: Cholecystectomy, Tonsillectomy, Tubal Ligation Additional Past Surgical History / Comment(s): Colonoscopy Past Anesthesia/Blood Transfusion Reactions: No Reported Reaction Smoking Status: Never smoker - Past Family History Father Additional Family Medical History / Comment(s): Father at the age of 53 yrs from "broken heart" 6 weeks after the of his son. Mother Additional Family Medical History / Comment(s): Mother at the age of 61 pt believes from a brain tumor. Medications and Allergies Home Medications Medication Instructions Recorded Confirmed Type Furosemide [Lasix] 20 mg PO DAILY 05/28/19 05/29/19 History Omeprazole 20 mg PO DAILY 05/28/19 05/29/19 History Allopurinol [Zyloprim] 300 mg PO DAILY 05/29/19 05/29/19 History Baclofen [Lioresal] 10 mg PO DAILY 05/29/19 05/29/19 History Lisinopril-Hctz 20-12.5 mg 1 tab PO DAILY 05/29/19 05/29/19 History [Zestoretic 20-12.5] Loratadine [Claritin] 10 mg PO DAILY 05/29/19 05/29/19 History Multivitamins, Thera [Multivitamin 1 tab PO DAILY 05/29/19 05/29/19 History (formulary)] NIFEdipine [Procardia XL] 60 mg PO DAILY 05/29/19 05/29/19 History Penhook-Red 1 tab PO DAILY 05/29/19 05/29/19 History Allergies Allergy/AdvReac Type Severity Reaction Status Date / Time No Known Allergies Allergy Verified 05/29/19 15:18 Physical Examination Physical exam: Patient is awake, alert, and oriented 3 Vital signs stable Good chest excursion with deep inspiration and expiration Examination of lumbar spine reveals skin is intact with no abrasions, lacerations, or bruises; no erythema, purulence or signs of infection Significant pain with palpation along the midline of the lower lumbar spine and left lumbosacral spine Dorsiflexion, plantarflexion, and extensor hallucis longus significantly weak bilaterally; patient is unable to perform any active range of motion of the bilateral ankles and toes bilaterally Lower extremity strength significantly weak Patient is able to perform some hip flexion in bilateral lower extremities with weakness greater on the left than the right No lower extremity hyperreflexia bilaterally Straight leg test negative bilateral lower extremities Negative Lasegue's test bilaterally No signs or symptoms of DVT; no calf pain No pain with internal and external rotation of the hips bilaterally Neurovascularly intact Results Pertinent studies: X-rays lumbosacral spine taken on 05/29/2019: Severe degenerative disc disease L2-S1; significant left-sided osteophytic spurring; evidence of anterior oste ophytic spurring; L4-5 spondylolisthesis; no evidence of vertebral body compression fracture; multilevel facet arthropathy; clips from previous cholecystectomy; evidence of neural foraminal narrowing on oblique imaging; extensive arthrosclerosis of the abdominal aorta - Labs Labs: H & H 05/29/19 05/30/19 05/31/19 Range/Units 12:29 09:09 07:41 Hgb 13.8 12.9 13.5 (11.4-16.0) gm/dL Hct 42.0 39.9 40.0 (34.0-46.0) % Result Diagrams: 05/31/19 07:41 05/31/19 07:41 Assessment and Plan Assessment: Assessment: Acute on chronic low back pain Bilateral lower extremity weakness greater on the left than the right Bilateral lower extremity radiculopathy Lumbar degenerative disc disease and facet arthropathy throughout L4-5 spondylolisthesis Neuroforaminal narrowing Osteophytic spurring Inability to ambulate due to weakness Current urinary tract infection on IV antibiotics Acute kidney failure History of hyperlipidemia, hypertension, bilateral lower extremity edema, and history of right-sided breast cancer with lumpectomy/radiation (1) Spondylolisthesis at L4-L5 level Current Visit: Yes Status: Acute Code(s): M43.16 - SPONDYLOLISTHESIS, LUMBAR REGION SNOMED Code(s): 790219551 (2) Lumbar degenerative disc disease Current Visit: Yes Status: Acute Code(s): M51.36 - OTHER INTERVERTEBRAL DISC DEGENERATION, LUMBAR REGION SNOMED Code(s): 51874248 (3) Lumbar facet arthropathy Current Visit: Yes Status: Acute Code(s): M47.816 - SPONDYLOSIS W/O MYELOPATHY OR RADICULOPATHY, LUMBAR REGION SNOMED Code(s): 954483180 (4) Osteophyte determined by x-ray Current Visit: Yes Status: Acute Code(s): M25.70 - OSTEOPHYTE, UNSPECIFIED JOINT SNOMED Code(s): 050570860775233 (5) Weakness of lower extremity Current Visit: Yes Status: Acute Code(s): R29.898 - OTH SYMPTOMS AND SIGNS INVOLVING THE MUSCULOSKELETAL SYSTEM SNOMED Code(s): 951885306 (6) Unable to ambulate Current Visit: Yes Status: Acute Code(s): R26.2 - DIFFICULTY IN WALKING, NOT ELSEWHERE CLASSIFIED SNOMED Code(s): 262867555 (7) History of hypertension Current Visit: Yes Status: Acute Code(s): Z86.79 - PERSONAL HISTORY OF OTHER DISEASES OF THE CIRCULATORY SYSTEM SNOMED Code(s): 201586801 (8) History of hyperlipidemia Current Visit: Yes Status: Acute Code(s): Z86.39 - PERSONAL HISTORY OF ENDO, NUTRITIONAL AND METABOLIC DISEASE SNOMED Code(s): 793964233 (9) History of edema Current Visit: Yes Status: Acute Code(s): Z87.898 - PERSONAL HISTORY OF OTHER SPECIFIED CONDITIONS SNOMED Code(s): 116971371 (10) History of breast cancer Current Visit: Yes Status: Acute Code(s): Z85.3 - PERSONAL HISTORY OF MALIGNANT NEOPLASM OF BREAST SNOMED Code(s): 145570396 (11) Acute exacerbation of chronic low back pain Current Visit: Yes Status: Acute Code(s): M54.5 - LOW BACK PAIN; G89.29 - OTHER CHRONIC PAIN SNOMED Code(s): 701786338 (12) Acute renal failure Current Visit: Yes Status: Acute Code(s): N17.9 - ACUTE KIDNEY FAILURE, UNSPECIFIED SNOMED Code(s): 86739490 (13) UTI (urinary tract infection) Current Visit: Yes Status: Acute Code(s): N39.0 - URINARY TRACT INFECTION, SITE NOT SPECIFIED SNOMED Code(s): 38503096 Plan: Plan: 1. After physical examination of the patient, reviewing of imaging, and further discussion with the patient and her history, we'll currently plan to obtain an MRI of the lumbar spine for further evaluation. Patient is known to have previously undergone an MRI in [place] in October 2018. She sought further evaluation with a spine surgeon who was not recommending surgical intervention at that time. She has been following with pain management. Since traveling to [place] to visit family she's had a significant exacerbation of her symptoms since this past 05/28/2019, without known injury. She has experiencing significant difficulty with ambulation and mobility. She has significant weakness in the bilateral lower extremities with numbness in the lower extremities. She also is experiencing acute on chronic left-sided low back pain. Reviewing of imaging does show significant degenerative changes throughout the lumbar spine with degenerative disc disease, facet arthropathy, and osteophytic spurring. There is evidence of spondylolisthesis at the L4-5 level. At this time, we will plan to obtain the MRI for further evaluation. We'll plan to follow up following MRI results to discuss further treatment options including the possibility of consultation with pain management, physical therapy, or even the possibility of surgical intervention. 2. Patient will continue to be seen in exam by medicine for her other medical diagnoses including current urinary tract infection 3. Patient is encouraged to continue working with physical therapy to increase mobility and ambulation 4. Patient is currently waiting for insurance approval for discharge to a rehabilitation facility Time with Patient: Greater than 30 (Including obtaining history, physical examination, reviewing of imaging, and dictation.) <Ronnie Evans - Last Filed: 06/01/19 22:06> Physical Examination Osteopathic Statement: *. No significant issues noted on an osteopathic structural exam other than those noted in the History and Physical/Consult. Results - Labs Labs: Abnormal Lab Results - Last 24 Hours (Table) 06/01/19 Range/Units 10:50 Sodium 134 L (137-145) mmol/L Chloride 96 L (98-107) mmol/L BUN 26 H (7-17) mg/dL Glucose 122 H (74-99) mg/dL H & H 05/29/19 05/30/19 05/31/19 Range/Units 12:29 09:09 07:41 Hgb 13.8 12.9 13.5 (11.4-16.0) gm/dL Hct 42.0 39.9 40.0 (34.0-46.0) % Result Diagrams: 05/31/19 07:41 06/01/19 10:50 Assessment and Plan Plan: The patient is seen and examined at bedside this evening. I reviewed the MRI report as well as images. I agree with the above dictation. The patient has been having severe weakness at her lower extremities which is new for her over the past week. She has been having difficulty with her voiding is likely having urinary retention. Her MRI shows a massive disc herniation at L3 4 extending from L2 to L4. His causing severe extensive stenosis centrally and at the bilateral neural foramen. This finding correlates with her lower extremity weakness. She has profound weakness with dorsal flexion plantarflexion bilaterally in her lower extremities. She essentially 0 out of 45 strength with dorsi flexion plantarflexion bilaterally. She has 0 out of 5 strength at the right with knee extension. 2 out of 5 hip flexion on the right. 3 out of 5 hip flexion on the left and 2 out of 5 knee extension on the left. Her thighs and calves soft nontender. She has some paresthesias. The patient will need urgent decompression laminectomy and discectomy L2-3 and L3 4 for her disc ration and severe stenosis with lower extremity weakness and radiculopathy. I discussed the nature of the surgery with her at length and wit h her family at bedside. She has acute weakness due to the herniation and requires urgent decompression. She just had food and we'll plan for surgery in the morning. I discussed the risks of her issues with her. I discussed the risk of her permanent nerve damage. I discussed the permanent weakness. I discussed the risks of permanent changes in bowel or bladder function. These would all be due to the herniation and stenosis. I discussed the risks of surgery itself including but limited to risk of bleeding risk of infection risk and need for further surgery risk of decreased loss of motion loss of function nerve damage dural tear as well as the fact that surgery may not alleviate her s ymptoms and she understands. She wishes to proceed with surgery as soon as possible. We will obtain informed consent for decompressive laminectomy discectomy L2-3 and L3 4. She'll be nothing by mouth after midnight tonight.
[2019-06-01] MEDS: SODIUM BICARBONATE TAB 650 MG TAB PO SCH (09:09)
[2019-06-01] MEDS: ALLOPURINOL 300 MG TAB PO SCH (09:09)
[2019-06-01] MEDS: BACLOFEN 10 MG TAB PO SCH (09:09)
[2019-06-01] MEDS: FUROSEMIDE 40 MG TAB PO SCH (09:09)
[2019-06-01] MEDS: NYSTATIN 100,000UNIT/GM CREAM 30 GM TUBE TOPICAL SCH ×2 (09:10→21:06)
[2019-06-01] MEDS: TRIAMCINOLONE 0.1% CREAM 80 GM TUBE TOPICAL SCH ×2 (09:10→21:06)
[2019-06-01 11:34] LABS: Calcium 9.4 mg/dL (8.4-10.2); Potassium 4.6 mmol/L (3.5-5.1)
[2019-06-01] MEDS ORDERED: DOCUSATE 283 MG/5 ML ENEMA RECTAL STA (11:54)
[2019-06-01] MEDS ORDERED: DOCUSATE 283 MG/5 ML ENEMA RECTAL PRN (11:54)
[2019-06-01] MEDS: POLYETHYLENE GLYCOL 3350 17 GM POWD.PACK PO SCH (12:11)
--- NOTE | 2019-06-01 12:52 | PN ---
PROGRESS NOTE Patient is seen for followup for acute kidney injury secondary to NSAIDs. Her renal function has improved. Creatinine is today down to 0.97 from peak of 2.2 on initial admission. The patient was admitted to the hospital with back pain and decreased movement in her right lower extremity. She has a history of significant lumbar degenerative joint disease and herniated disc. PHYSICAL EXAMINATION: On examination today, patient is comfortable. Blood pressure was 118/72, heart rate 83 per minute. She is afebrile. EXAMINATION OF THE HEART: S1, S2. EXAMINATION OF THE LUNGS: Bilateral breath sounds are heard. Abdomen is soft, nontender. Examination of lower extremities shows edema 1+ bilaterally. LABS: Labs show sodium 134, potassium 4.6, BUN 26, serum creatinine 0.97. ASSESSMENT: 1. Acute kidney injury secondary to NSAIDs, currently significantly improved. The patient received IV fluids initially, currently the fluids are discontinued. I gave her a dose of Lasix yesterday. We can maintain her on oral loop diuretic for now. 2. Mild volume overload with significant edema bilaterally. Maintain patient on oral diuretics. 3. Chronic back pain with herniated lumbar disc. 4. Metabolic acidosis secondary to renal failure, currently resolved. 5. Mild hyperkalemia associated with acute kidney injury and use of NSAIDs, currently resolved. PLAN: Maintain patient on oral loop diuretics. I will discontinue the sodium bicarb. The patient is advised to continue to avoid use of any nonsteroidal anti-inflammatory agents. MMODL / IJN: [id number] /
--- NOTE | 2019-06-01 18:55 | MR ---
EXAMINATION TYPE: MR lumbar spine wo con DATE OF EXAM: 06/01/2019 COMPARISON: HISTORY: Lower extremity weakness, LBP, Radiculopathy TECHNIQUE: Multiplanar, multisequence images of the lumbar spine were acquired. Lumbar vertebra have fairly normal alignment. There is degenerative disc space narrowing throughout t he lumbar spine. There is a large extradural mass in the spinal canal at the L3 level and L4 level an teriorly. This appears to be a large sequestered an extruded disc herniation from L4-5. The mass filemon ures 4.5 x 1.3 cm. There is resultant severe spinal stenosis. There is essentially complete occlusion of the spinal canal due to the large extruded disc herniation. There is mild posterior disc bulging at L3-4. There is moderate posterior disc herniation at L1 to on the left side and a lateral componen t of disc herniation with some mild impingement on the left-sided neural foramen at L2-3. There is al so bilateral neural foraminal narrowing at L3-4 due to disc space narrowing and disc bulging and fac et arthropathy. There is small posterior central disc herniation at L5-S1. There is rudimentary disc at S1-S2. S1 vertebra is transitional.: Impression This significant abnormality is a very large sequestered an extruded disc herniation in the spinal ca nal posterior to L4 and L3 vertebra with resultant severe spinal stenosis. There is multilevel sand system operator ior lumbar disc herniation as above.
--- NOTE | 2019-06-02 00:32 | P.PN ---
Subjective Progress Note Date: 05/31/19 Principal diagnosis: Acute urinary tract infection Acute kidney injury Patient is a 73-year-old male with a known history of chronic lower back pain, L3-L4 or herniated disc, left-sided sciatic nerve pain, right breast cancer status post lumpectomy/radiation, hypertension and hyperlipidemia and obstructive sleep apnea came to ER with complaints of lower back pain. Patient also having trickling sensation with urination and feeling off urgency. Patient has been having headaches these symptoms since May 25 and was seen by her primary care physician Dr. Hannah. Patient was started on antibiotics in the form of Bactrim which is she has been taking since then. Patient is also having worsening leg swelling for the past 3 or 4 days. Denied any fever or chills. No complaints of abdominal pain. No nausea vomiting or diarrhea. Patient usually does have leg swelling which improves overnight after sleep but this time patient has been having leg swelling continuously. Denied any chest pain or shortness of breath. No headache or dizziness or lightheadedness. Denied a ny bladder or bowel incontinence. Patient lives in [place] and is visiting family in [place] currently. Patient has chronic back pain and which she's had MRI in October showing evidence of L3-L4 herniated disc. Patient was seen by a surgeon in [place] who did not recommend surgery given her age, weight. Patient states that she was placed on tramadol states that she did not like taking it was not helping so she just takes Aleve which helped just as much. Patient states that she was seen in the ER due to her back pain recently and was given steroids, Valium and [place]. She is also taking Robaxin from urgent care. Sodium 135 BUN 55 and creatinine 2.22 WBC 12.6. Urinalysis showed cloudy, large leukocyte esterase and 19 WBCs. Albumin 4.6 BNP 209 Chest x-ray, lumbar spine x-ray showed no acute process. No fracture or dislocation. Ultrasound kidneys showed no acute process. 05/30/2019 Patient is more awake and oriented today. Bilateral leg swelling is improved. No complains of chest pain or shortness of breath. Still having left sciatic pain. Otherwise renal function improved to creatinine level I.57. Bicarb level is improved as well. Nephrology is on board. Renal ultrasound showed no acute process and bilateral lower extremity duplex scan showed no DVT. No fever no chills. Urine culture is pending at this time. Patient is trying to participate in physical therapy. Discussed with the patient and her family at bedside in detail. 05/31/2019 Patient denied any complaints of chest pain or shortness of breath. Renal function is much improved. Denied any complaints of dysuria or hematuria. Urine culture showed normal frantz. Patient is being continued on antibiotics the form of ceftriaxone. Otherwise patient is complaining of back pain and unable to get out of bed or stand. Patient says that she did have an MRI in 2018. Orthopedic surgery was consulted for evaluation. PTOT on board. Current medications reviewed. Active Medications Generic Name Dose Route Start Last Admin Trade Name Freq PRN Reason Stop Dose Admin Acetaminophen 650 mg 05/29/19 15:05 Tylenol Tab PO Q6HR PRN Mild Pain or Fever > 100.5 Hydrocodone Bitart/Acetaminophen 1 each 05/29/19 15:05 [place] 5-325 PO Q4HR PRN Moderate Pain Allopurinol 300 mg 05/30/19 09:00 05/30/19 07:45 Zyloprim PO 300 mg DAILY LAVELLE Administration Baclofen 10 mg 05/30/19 09:00 05/30/19 07:45 Lioresal PO 10 mg DAILY LAVELLE Administration Sodium Chloride 1,000 mls @ 50 mls/hr 05/29/19 15:15 05/30/19 11:57 Saline 0.9% IV 50 mls/hr .Q20H LAVELLE Administration Ceftriaxone Sodium 1 gm/ 50 mls @ 100 mls/hr 05/30/19 09:00 05/30/19 07:45 Sodium Chloride IVPB 100 mls/hr Q24HR LAVELLE Administration Morphine Sulfate 4 mg 05/29/19 15:05 05/30/19 12:00 Morphine Sulfate (Inj) IV 4 mg Q4HR PRN Administration Severe Pain Naloxone HCl 0.2 mg 05/29/19 15:05 Narcan IV Q2M PRN Opioid Reversal Nystatin 1 applic 05/29/19 21:00 05/30/19 21:30 Mycostatin Cream TOPICAL 1 applic BID LAVELLE Administration Ondansetron HCl 4 mg 05/29/19 15:05 Zofran IVP Q8HR PRN Nausea And Vomiting Sodium Bicarbonate 650 mg 05/30/19 21:00 05/30/19 21:29 Sodium Bicarbonate Tab PO 650 mg BID LAVELLE Administration Triamcinolone Acetonide 1 applic 05/29/19 21:00 05/30/19 21:30 Kenalog TOPICAL 1 applic BID LAVELLE Administration Objective - Vital Signs Vital signs: Vital Signs Temp 97.6 F 05/31/19 15:00 Pulse 91 05/31/19 15:00 Resp 16 05/31/19 15:15 BP 150/82 05/31/19 15:00 Pulse Ox 95 05/31/19 15:00 Intake & Output 05/30/19 05/31/19 05/31/19 18:59 06:59 18:59 Output Total 600 Balance -600 Output: Urine 600 Other: Voiding Method Toilet # Voids 3 3 - Exam PHYSICAL EXAMINATION: Patient is lying in the bed comfortably, no acute distress, awake alert and oriented.. HEENT: Normocephalic. Neck is supple. Pupils reactive. Nostrils clear. Oral cavity is moist. Ears reveal no drainage. Neck reveals no JVD, carotid bruits, or thyromegaly. CHEST EXAMINATION: Trachea is central. Symmetrical expansion. Bibasilar diminished air entry. Lung love clear to auscultation and percussion. CARDIAC: Normal S1, S2 with no gallops. No murmurs ABDOMEN: Soft. Bowel sounds normal. No organomegaly. No abdominal bruits. Extremities: Bilateral 1+ edema. No clubbing or cyanosis Neurologically awake, alert, oriented x3 with well-coordinated movements. No focal deficits noted Skin: No rash or skin lesions. Psychiatric: Coperative. Nonsuicidal Musculoskeletal: No joint swelling or deformity. Normal range of motion. - Labs CBC & Chem 7: 05/31/19 07:41 06/01/19 10:50 Labs: Abnormal Lab Results - Last 24 Hours (Table) 05/31/19 05/31/19 Range/Units 07:41 07:41 MCV 100.1 H (80.0-100.0) fL Sodium 133 L (137-145) mmol/L Potassium 5.3 H (3.5-5.1) mmol/L Chloride 96 L (98-107) mmol/L BUN 30 H (7-17) mg/dL Glucose 109 H (74-99) mg/dL Microbiology - Last 24 Hours (Table) 05/29/19 14:48 Urine Culture - Final Urine,Voided Assessment and Plan Assessment: Acute on chronic lower back pain. Acute urinary tract infection. Failed outpatient therapy. Culture showed normal frantz. Patient is already on Bactrim at home. Acute kidney injury with possible underlying chronic kidney disease. Possible antibiotic/Bactrim and NSAID related. Improved now Anion gap Metabolic acidosis. Secondary to acute kidney injury. Improving Chronic lower back pain and left sciatica no pain. On narcotic pain medications and recent steroid use as well. Bilateral lower extremity edema. Likely due to venous stasis. Improved now. Ruled out DVT. History of right breast cancer with lumpectomy/radiation Hypertension Hyperlipidemia Obstructive sleep apnea Osteoarthritis Gout Previous history of UTIs DVT prophylaxis with heparin subcu Plan: Patient will be continued on antibiotics the form of ceftriaxone. Bactrim has been discontinued. Avoid NSAID use. Continue with IV hydration. Monitor renal function and urine culture report. Orthopedic surgery was consulted due to lower back pain and patient is unable to get out of the bed. Continue with home medications and pain management. Nephrology service is following. PT OT. Urine culture is pending. Further recommendations based on the clinical course. Prognosis is guarded. Time with Patient: Greater than 30
--- NOTE | 2019-06-02 00:34 | P.PN ---
Subjective Progress Note Date: 06/01/19 Principal diagnosis: Acute urinary tract infection Acute kidney injury Patient is a 73-year-old male with a known history of chronic lower back pain, L3-L4 or herniated disc, left-sided sciatic nerve pain, right breast cancer status post lumpectomy/radiation, hypertension and hyperlipidemia and obstructive sleep apnea came to ER with complaints of lower back pain. Patient also having trickling sensation with urination and feeling off urgency. Patient has been having headaches these symptoms since May 25 and was seen by her primary care physician Dr. Hannah. Patient was started on antibiotics in the form of Bactrim which is she has been taking since then. Patient is also having worsening leg swelling for the past 3 or 4 days. Denied any fever or chills. No complaints of abdominal pain. No nausea vomiting or diarrhea. Patient usually does have leg swelling which improves overnight after sleep but this time patient has been having leg swelling continuously. Denied any chest pain or shortness of breath. No headache or dizziness or lightheadedness. Denied a ny bladder or bowel incontinence. Patient lives in [place] and is visiting family in [place] currently. Patient has chronic back pain and which she's had MRI in October showing evidence of L3-L4 herniated disc. Patient was seen by a surgeon in [place] who did not recommend surgery given her age, weight. Patient states that she was placed on tramadol states that she did not like taking it was not helping so she just takes Aleve which helped just as much. Patient states that she was seen in the ER due to her back pain recently and was given steroids, Valium and [place]. She is also taking Robaxin from urgent care. Sodium 135 BUN 55 and creatinine 2.22 WBC 12.6. Urinalysis showed cloudy, large leukocyte esterase and 19 WBCs. Albumin 4.6 BNP 209 Chest x-ray, lumbar spine x-ray showed no acute process. No fracture or dislocation. Ultrasound kidneys showed no acute process. 05/30/2019 Patient is more awake and oriented today. Bilateral leg swelling is improved. No complains of chest pain or shortness of breath. Still having left sciatic pain. Otherwise renal function improved to creatinine level I.57. Bicarb level is improved as well. Nephrology is on board. Renal ultrasound showed no acute process and bilateral lower extremity duplex scan showed no DVT. No fever no chills. Urine culture is pending at this time. Patient is trying to participate in physical therapy. Discussed with the patient and her family at bedside in detail. 05/31/2019 Patient denied any complaints of chest pain or shortness of breath. Renal function is much improved. Denied any complaints of dysuria or hematuria. Urine culture showed normal frantz. Patient is being continued on antibiotics the form of ceftriaxone. Otherwise patient is complaining of back pain and unable to get out of bed or stand. Patient says that she did have an MRI in 2018. Orthopedic surgery was consulted for evaluation. PTOT on board. 06/01/2019 Patient denied any compressive abdominal pain. Patient does have constipation and no bowel movement for the past 4 days. Stool softeners and laxatives will be added. Otherwise patient is unable to use bedpan or sit on the commode due to severe low back pain. MRI of the lumbar spine was ordered as per orthopedic surgery. Denied nausea vomiting or abdominal pain. renal function normalizes otherwise. urine culture showed no growth. Current medications reviewed. Active Medications Generic Name Dose Route Start Last Admin Trade Name Gregor PRN Reason Stop Dose Admin Acetaminophen 650 mg 05/29/19 15:05 Tylenol Tab PO Q6HR PRN Mild Pain or Fever > 100.5 Hydrocodone Bitart/Acetaminophen 1 each 05/29/19 15:05 [place] 5-325 PO Q4HR PRN Moderate Pain Allopurinol 300 mg 05/30/19 09:00 05/30/19 07:45 Zyloprim PO 300 mg DAILY LAVELLE Administration Baclofen 10 mg 05/30/19 09:00 05/30/19 07:45 Lioresal PO 10 mg DAILY LAVELLE Administration Sodium Chloride 1,000 mls @ 50 mls/hr 05/29/19 15:15 05/30/19 11:57 Saline 0.9% IV 50 mls/hr .Q20H LAVELLE Administration Ceftriaxone Sodium 1 gm/ 50 mls @ 100 mls/hr 05/30/19 09:00 05/30/19 07:45 Sodium Chloride IVPB 100 mls/hr Q24HR LAVELLE Administration Morphine Sulfate 4 mg 05/29/19 15:05 05/30/19 12:00 Morphine Sulfate (Inj) IV 4 mg Q4HR PRN Administration Severe Pain Naloxone HCl 0.2 mg 05/29/19 15:05 Narcan IV Q2M PRN Opioid Reversal Nystatin 1 applic 05/29/19 21:00 05/30/19 21:30 Mycostatin Cream TOPICAL 1 applic BID LAVELLE Administration Ondansetron HCl 4 mg 05/29/19 15:05 Zofran IVP Q8HR PRN Nausea And Vomiting Sodium Bicarbonate 650 mg 05/30/19 21:00 05/30/19 21:29 Sodium Bicarbonate Tab PO 650 mg BID LAVELLE Administration Triamcinolone Acetonide 1 applic 05/29/19 21:00 05/30/19 21:30 Kenalog TOPICAL 1 applic BID LAVELLE Administration Objective - Vital Signs Vital signs: Vital Signs Temp 97.4 F L 06/01/19 13:36 Pulse 90 06/01/19 13:36 Resp 18 06/01/19 15:09 BP 126/76 06/01/19 13:36 Pulse Ox 96 06/01/19 13:36 Intake & Output 05/31/19 06/01/19 06/01/19 18:59 06:59 18:59 Output Total 600 700 900 Balance -600 -700 -900 Output: Urine 600 700 900 Other: Voiding Method Incontinent # Voids 0 # Bowel Movements 0 - Exam PHYSICAL EXAMINATION: Patient is lying in the bed comfortably, no acute distress, awake alert and oriented.. HEENT: Normocephalic. Neck is supple. Pupils reactive. Nostrils clear. Oral cavity is moist. Ears reveal no drainage. Neck reveals no JVD, carotid bruits, or thyromegaly. CHEST EXAMINATION: Trachea is central. Symmetrical expansion. Bibasilar diminished air entry. Lung love clear to auscultation and percussion. CARDIAC: Normal S1, S2 with no gallops. No murmurs ABDOMEN: Soft. Bowel sounds normal. No organomegaly. No abdominal bruits. Extremities: Bilateral 1+ edema. No clubbing or cyanosis Neurologically awake, alert, oriented x3 with well-coordinated movements. No focal deficits noted Skin: No rash or skin lesions. Psychiatric: Coperative. Nonsuicidal Musculoskeletal: No joint swelling or deformity. Normal range of motion. - Labs CBC & Chem 7: 05/31/19 07:41 06/01/19 10:50 Labs: Abnormal Lab Results - Last 24 Hours (Table) 06/01/19 Range/Units 10:50 Sodium 134 L (137-145) mmol/L Chloride 96 L (98-107) mmol/L BUN 26 H (7-17) mg/dL Glucose 122 H (74-99) mg/dL Assessment and Plan Assessment: Acute on chronic lower back pain. Acute urinary tract infection. Failed outpatient therapy. Culture showed normal frantz. Patient is already on Bactrim at home. Acute kidney injury with possible underlying chronic kidney disease. Possible antibiotic/Bactrim and NSAID related. Improved now Anion gap Metabolic acidosis. Secondary to acute kidney injury. Improving Chronic lower back pain and left sciatica no pain. On narcotic pain medications and recent steroid use as well. Bilateral lower extremity edema. Likely due to venous stasis. Improved now. Ruled out DVT. History of right breast cancer with lumpectomy/radiation Hypertension Hyperlipidemia Obstructive sleep apnea Osteoarthritis Gout Previous history of UTIs DVT prophylaxis with heparin subcu Plan: Patient will be continued on antibiotics the form of ceftriaxone. Bactrim has been discontinued. Avoid NSAID use. Continue with IV hydration. Monitor renal function and urine culture report. Orthopedic surgery was consulted due to lower back pain and patient is unable to get out of the bed. Continue with home medications and pain management. Nephrology service is following. PT OT. Urine culture is pending. Further recommendations based on the clinical course. Prognosis is guarded. Time with Patient: Greater than 30
[2019-06-02] MEDS: MORPHINE SULFATE 4 MG/ML SYRINGE IV PRN (05:49)
[2019-06-02] MEDS ORDERED: BACITRACIN 50,000 UNIT, POLYMYXIN B 500,000 UNIT in SODIUM CHLORIDE 0.9% IRRIGATIO 1,00... IRRIGATION ONE (07:00)
[2019-06-02] MEDS ORDERED: ceFAZolin 3 GM in SODIUM CHLORIDE 0.9% 100 ML IVPB ONE (07:00)
[2019-06-02] MEDS: TRIAMCINOLONE 0.1% CREAM 80 GM TUBE TOPICAL SCH ×2 (07:10→21:26)
[2019-06-02] MEDS: FUROSEMIDE 40 MG TAB PO SCH (07:10)
[2019-06-02] MEDS: ALLOPURINOL 300 MG TAB PO SCH (07:10)
[2019-06-02] MEDS: NYSTATIN 100,000UNIT/GM CREAM 30 GM TUBE TOPICAL SCH ×2 (07:10→21:26)
[2019-06-02] MEDS: BACLOFEN 10 MG TAB PO SCH (07:10)
[2019-06-02] MEDS: POLYETHYLENE GLYCOL 3350 17 GM POWD.PACK PO SCH (07:10)
[2019-06-02] MEDS ORDERED: SUCCINYLCHOLINE CHLORIDE 100 MG/5 ML SYR IV ONE (10:02)
[2019-06-02] MEDS ORDERED: PHENYLEPHRINE-0.9% NACL SYG 1 MG/10 ML SYRINGE ONE (10:02)
[2019-06-02] MEDS ORDERED: fentaNYL (PF) 50 MCG/ML 2 ML AMP ONE (10:02)
[2019-06-02] MEDS ORDERED: PROPOFOL 10 MG/ML 20 ML VIAL IV ONE (10:02)
[2019-06-02] MEDS ORDERED: MIDAZOLAM 2 MG/2 ML VIAL ONE (10:02)
[2019-06-02] MEDS ORDERED: IV FLUID CONTINUATION 500 ML IV ONE (10:05)
--- NOTE | 2019-06-02 10:12 | P.PN ---
Subjective Patient is a 73-year-old male with a known history of chronic lower back pain, L3-L4 or herniated disc, left-sided sciatic nerve pain, right breast cancer status post lumpectomy/radiation, hypertension and hyperlipidemia and obstructive sleep apnea came to ER with complaints of lower back pain. Patient also having trickling sensation with urination and feeling off urgency. Patient has been having headaches these symptoms since May 25 and was seen by her primary care physician Dr. Hannah. Patient was started on antibiotics in the form of Bactrim which is she has been taking since then. Patient is also having worsening leg swelling for the past 3 or 4 days. Denied any fever or chills. No complaints of abdominal pain. No nausea vomiting or diarrhea. Patient usually does have leg swelling which improves overnight after sleep but this time patient has been having leg swelling continuously. Denied any chest pain or shortness of breath. No headache or dizziness or lightheadedness. Denied any bladder or bowel incontinence. Patient lives in [place] and is visiting family in [place] currently. Patient has chronic back pain and which she's had MRI in October showing evidence of L3-L4 herniated disc. Patient was seen by a surgeon in [place] who did not recommend surgery given her age, weight. Patient states that she was placed on tramadol states that she did not like taking it was not helping so she just takes Aleve which helped just as much. Patient states that she was seen in the ER due to her back pain recently and was given steroids, Valium and [place]. She is also taking Robaxin from urgent care. Sodium 135 BUN 55 and creatinine 2.22 WBC 12.6. Urinalysis showed cloudy, large leukocyte esterase and 19 WBCs. Albumin 4.6 BNP 209 Chest x-ray, lumbar spine x-ray showed no acute process. No fracture or disloc ation. Ultrasound kidneys showed no acute process. 05/30/2019 Patient is more awake and oriented today. Bilateral leg swelling is improved. No complains of chest pain or shortness of breath. Still having left sciatic pain. Otherwise renal function improved to creatinine level I.57. Bicarb level is improved as well. Nephrology is on board. Renal ultrasound showed no acute process and bilateral lower extremity duplex scan showed no DVT. No fever no chills. Urine culture is pending at this time. Patient is trying to participate in physical therapy. Discussed with the patient and her family at bedside in detail. 05/31/2019 Patient denied any complaints of chest pain or shortness of breath. Renal function is much improved. Denied any complaints of dysuria or hematuria. Urine culture showed normal frantz. Patient is being continued on antibiotics the form of ceftriaxone. Otherwise patient is complaining of back pain and unable to get out of bed or stand. Patient says that she did have an MRI in 2018. Orthopedic surgery was consulted for evaluation. PTOT on board. 06/01/2019 Patient denied any compressive abdominal pain. Patient does have constipation and no bowel movement for the past 4 days. Stool softeners and laxatives will be added. Otherwise patient is unable to use bedpan or sit on the commode due to severe low back pain. MRI of the lumbar spine was ordered as per orthopedic surgery. Denied nausea vomiting or abdominal pain. renal function normalizes otherwise. urine culture showed no growth. 06/02/2019 Patient is still complaining of from weakness in her both lower extremity for 2 days prior to admission to the hospital. She moved to [place] about 2 weeks ago in which she was walking using her walker, while bending forward. She had MRI of the lumbar spine showing spinal mass at L3 to L4 with disease and neuro foraminal encroachment. There is a pleasant spinal stenosis. Discussed the case with orthopedic team, patient is going for surgery today. She is hemodynamically stable, labs from today showing no leukocytosis with WBC 9.5K, hemoglobin 13.5. Platelets within normal limits at 246. Sodium 134, creatinine 0.9. Her liver enzymes not elevated. UA is suspicious for infection and patient is to ceftriaxone, however her urinalysis culture showing only normal frantz. Continue with pain management Review of systemsCONSTITUTIONAL: No fever, no malaise, no fatigue. HEENT: No recent visual problems or hearing problems. Denied any sore throat. CARDIOVASCULAR: No orthopnea, PND, no palpitations, no syncope. PULMONARY: No shortness of breath, no cough, no hemoptysis. GASTROINTESTINAL: No diarrhea, no nausea, no vomiting, no abdominal pain. Normoactive bowel sounds. -NEUROLOGICAL: No headaches, no numbness. She has weakness in both legs as above HEMATOLOGICAL: Denies any bleeding or petechiae. GENITOURINARY: Denies any burning micturition, frequency, or urgency. MUSCULOSKELETAL/RHEUMATOLOGICAL: Denies any joint pain, swelling. ENDOCRINE: Denies any polyuria or polydipsia. Medication: Tylenol 650 mg, or perineural 300 mg, baclofen 10 mg, ceftriaxone 1 g, Colace 283 mg, Lasix 40 mg, [place] 5-325 mg, morphine sulfate 4 mg, nystatin topical, Zofran 4 mg, MiraLAX 17 g, triamcinolone topical. Objective - Vital Signs Vital signs: Vital Signs Temp 97.8 F 06/02/19 05:30 Pulse 80 06/02/19 05:30 Resp 18 06/02/19 05:30 BP 97/59 06/02/19 05:30 Pulse Ox 98 06/02/19 05:30 Intake & Output 06/01/19 06/02/19 06/02/19 18:59 06:59 18:59 Intake Total 400 Output Total 900 2500 Balance -900 -2100 Intake: Oral 400 Output: Urine 900 2500 Uretheral (Lauren) 1200 Other: Voiding Method Incontinent Incontinent Indwelling Catheter # Voids 0 # Bowel Movements 0 1 - Exam GENERAL: The patient is alert and oriented x3, not in any acute distress. Well developed, well nourished. HEENT: Pupils are round and equally reacting to light. EOMI. No scleral icterus. No conjunctival pallor. Normocephalic, atraumatic. No pharyngeal erythema. No thyromegaly. CARDIOVASCULAR: S1 and S2 present. No murmurs, rubs, or gallops. PULMONARY: Chest is clear to auscultation, no wheezing or crackles. ABDOMEN: Soft, nontender, nondistended, normoactive bowel sounds. No palpable organomegaly. MUSCULOSKELETAL: No joint swelling or deformity. EXTREMITIES: No cyanosis, clubbing, or pedal edema. -NEUROLOGICAL: Gross neurological examination did not reveal any focal deficits. Bilateral lower extremity weakness, more on the right side. SKIN: No rashes. - Labs CBC & Chem 7: 05/31/19 07:41 06/01/19 10:50 Labs: Abnormal Lab Results - Last 24 Hours (Table) 06/01/19 Range/Units 10:50 Sodium 134 L (137-145) mmol/L Chloride 96 L (98-107) mmol/L BUN 26 H (7-17) mg/dL Glucose 122 H (74-99) mg/dL Assessment and Plan Assessment: Acute on chronic lower back pain. Preop evaluation for patient is going for decompression surgery and laminectomy by orthopedic team. Acute urinary tract infection. Failed outpatient therapy. Culture showed normal frantz. Patient is already on antibiotic Acute kidney injury with possible underlying chronic kidney disease. Possible antibiotic/Bactrim and NSAID related. Improved now Anion gap Metabolic acidosis. Secondary to acute kidney injury. Improving Chronic lower back pain and left sciatica no pain. On narcotic pain medications and recent steroid use as well. Bilateral lower extremity edema. Likely due to venous stasis. Improved now. Ruled out DVT. History of right breast cancer with lumpectomy/radiation Hypertension Hyperlipidemia Obstructive sleep apnea Osteoarthritis Gout Previous history of UTIs DVT prophylaxis with heparin subcu Plan: This is a pleasant 73 years old female who presents with lower extremity weakness and back pain. Secondary to spinal masses. Patient is going for surgery as per orthopedic team. Patient is moderate risk for this surgery. Patient will be continued on antibiotics the form of ceftriaxone. Bactrim has been discontinued. Avoid NSAID use. Continue with IV hydration. Monitor renal function and urine culture report. Continue with home medications and pain management. Nephrology service is following. Labs and medication were reviewed.. Continue same treatment. Continue with symptomatic treatment. Resume home medication. Monitor lytes and vitals. DVT and GI prophylaxis. Further recommendations of the clinical course of the patient DVT prophylaxis: No anticoagulation in view of patient is going for surgery. GI Prophylaxis: Pepcid PT/OT: Pending Prognosis is guarded
[2019-06-02] MEDS ORDERED: LIDOCAINE 0.5%-EPI 1:200,000 50 ML VIAL SQ ONE (10:34)
[2019-06-02] MEDS ORDERED: GELATIN SPONGE,ABSORB (LARGE) 1 EACH SPONGE TOPICAL ONE (10:36)
[2019-06-02] MEDS ORDERED: BUPIVACAINE (PF) 0.25% 30 ML VIAL SQ ONE (10:37)
[2019-06-02] MEDS ORDERED: methylPREDNISolone ACETATE 80 MG/ML 1 ML VIAL MISCELLANE ONE ×2 (10:38→11:47)
--- NOTE | 2019-06-02 11:09 | FL ---
EXAMINATION TYPE: FL guidance operating room, XR lumbar spine 1V DATE OF EXAM: 06/02/2019 CLINICAL HISTORY: Low back pain. TECHNIQUE: Fluoroscopy. Lumbar spine intraoperative one view. COMPARISON: MRI lumbar spine from yesterday.. FINDINGS: Fluoroscopic guidance was provided during lumbar spine laminectomy procedure performed by Dr. Evans. A total of 6 seconds of fluoroscopic time was utilized during the procedure and single sp ot fluoroscopic intraoperative image is acquired. Single image acquired shows advancement of surgical hardware posteriorly difficulty to accurately loc lita level due to body habitus and overlying bowel gas. IMPRESSION: As Above.
[2019-06-02] MEDS ORDERED: LACTATED RINGERS 1,000 ML IV ONE (11:14)
[2019-06-02] MEDS ORDERED: HYDROmorphone 1 MG/ML 1 ML SYRINGE IVP PRN (12:06)
[2019-06-02] MEDS ORDERED: MAGNESIUM HYDROXIDE 2,400 MG/10 ML CUP PO PRN (12:06)
[2019-06-02] MEDS ORDERED: BENZOCAINE/MENTHOL LOZENG 1 EACH LOZENGE MUCOUS MEM PRN (12:06)
--- NOTE | 2019-06-02 12:20 | P.OP ---
Date of Procedure: 06/02/19 Preoperative Diagnosis: Massive disc herniation L2-3 L3 4, Acute lower extremity weakness bilaterally Lower extremity radiculopathy bilaterally Inability to ambulate Severe spinal stenosis due to disc herniation Degenerative disc disease Low back pain Degenerative scoliosis Postoperative Diagnosis: Same Anesthesia: GETA Pathology: none sent Condition: stable Disposition: PACU Description of Procedure: BRIEF OPERATIVE NOTE Preoperative Diagnosis:Massive disc herniation L2-3 L3 4, Acute severe lower extremity weakness bilaterally Lower extremity radiculopathy bilaterally Inability to ambulate Severe spinal stenosis due to disc herniation Degenerative disc disease Low back pain Degenerative scoliosis Postoperative Diagnosis: Same Procedure: Laminectomy and decompression L3 4 L2-3 Discectomy for decompression L3 4 L2-3 Surgeon: Dr. Evans Director Of Child Welfare Services: Jose DODSON who is present throughout the entire the case persist ence during positioning, dissection, exposure, visualization, and all crucial elements of the case as well as closure. Anesthesia: General anesthesia per Dr. Garcia Estimated blood loss: Approximately 250 mL Complications: None apparent Components implanted: None Disposition: To recovery room in good stable condition. OPERATIVE INDICATIONS The patient has been having issues in their lower back and lower extremities, for extended period but had acute worsening over the past 5 days. She actually lives in [place] and had treatment for her back just earlier this spring. She had undergone an MRI of her lumbar spine which showed some diffuse disc herniation with some bilateral foraminal stenosis and facet arthrosis degenerative change and degenerative scoliosis which coiled with her back pain and some lower extremity radiculopathy. She has under going interventional pain management and had epidural steroid injections in February and March with some mild relief. The patient was able to travel here to [place] where she was visiting her family. She was able to drive and walk on her own quite well. However a Aditi 5 days. Started having severe worsening. She has had chronic numbness at her left lower extremity but she was developing worsening numbness tingling and pain in bilateral lower extremities along with severe profound weakness at her bilateral lower extremities. She was unable to move her right leg she is unable to move her left leg significantly. She is unable to walk. She is unable get in and out of bed on her own over the past few days. She started having difficulty with her urination and was unsure if she was able to urinate. She had be on a Lauren catheter. She was found have possibly urinary tract infection and urinary insufficiency with renal insufficiency and was treated medically. We're asked to see the patient in regards to her lower extremity weakness and inability to ambulate and ordered an MRI which revealed a massive disc herniations at L2-3 and L3 4 which correlated with her low back and lower extremity symptoms. She is having profound weakness and with the massive change in her MRI and the disc herniation we felt that her treatment would be best managed with surgical intervention for her lumbar spine. The patient has been through conservative treatment in the past but was not having the acute profound weakness that she was having currently. We discussed various treatment options including surgery, and the patient wishes to proceed with surgery We discussed the risk, patient's alternatives and benefits of surgery including but not limited to, risk of bleeding risk of infection, risk of need for further surgery, risk of decreased, loss of motion, loss of function, nerve damage, paralysis, heart attack, blindness and . I discussed the need for surgery and the issues involving her chronic issues at her lower back and her new issues at her spine and lower extremities. I felt that doing decompression would be best treatment for her given her age and new acute symptoms and the new disc herniation. I was able to speak with the MRI department and [place] where she had her MRI in October and it did not show evidence of the large disc herniation that we were able to find on her new MRI done here in May. With his acute change I thought that surgical intervention with decompression and discectomy at L2-3 and L3 4 was her best option for treatment. OPERATIVE SUMMARY After discussing all the risks, patient alternatives and benefits at length, the patient elected to proceed with surgical intervention, signed informed consent, and presented for their procedure. The patient was seen and examined in the preoperative holding area and the surgical site was marked. The patient was given antibiotics and brought to the operating room. The patient was sedated and intubated by anesthesia in standard fashion. The patient was positioned on to the operating room table in a prone position on the appropriate frame which was well-padded and well molded. We were careful to pad any bony prominences and pressure points. We were careful to maintain the patient's cervical spine and good neutral alignment and position throughout. The patient was prepped and draped in a normal standard fashion. An appropriate timeout and keystone protocol performed. We were able to proceed with the surgery. Fluoroscopy was utilized to establish the appropriate level. The local wound area was infiltrated with local anesthetic. An incision was made at the midline longitudinally over the appropriate levels from L2 to L4. Dissection was taken down subcutaneously to the level of the fascia which was split midline. Dissection was taken over the lamina. Intraoperative fluoroscopy was taken which showed a marker at the appropriate level at L2-3 interspace porting to the L3 pedicle. With the appropriate level positively confirmed, we were able to proceed with laminectomy, starting at the L2-3 and then moving to L3 4. The wound was copiously irrigated and suctioned dry as had been done periodically throughout the case. I performed a laminectomy with a combination of curettes and a high-speed bur and Kerrison rongeurs. At L2-3 I performed central and bilateral laminectomy and foraminotomy with partial medial facetectomy. At L3 4 I performed a left sided laminectomy with foraminotomies and partial medial facetectomy. A small medial facetectomy was performed again further access. A partial foraminotomy was also performed. Portions of the ligamentum flavum were taken down to expose the dura and traversing nerve root. I was able to mobilize the traversing nerve root and gain access to the disc space. Note was made of obvious compression from the disc. There were obvious multiple large fragments of extruded disc material causing the distortion and tension at the first nerve roots and along the canal. I was able to remove more than a dozen large fragments of disc material that had extruded into the epidural space and causing for compression of the neurologic structures. Protecting the soft tissue structures, a small annulotomy was established. I was able to perform discectomy and remove any extruded disc fragments and any loose fragments from within the disc itself. There is some severe disc desiccation noted. I tried to preserve the disc annulus that appeared stable. I perform this first at L23 and then at L3 4. There further loose fragments and L3 4 of disc material which were removed as well. I did this bilaterally at L2-3 were large fragments of disc material were removed. Removal of the extruded fragments gave excellent decompression sent note centrally and at the bilateral neural foramen at L2-3 and L3 4. As able to palpate and was unable to find it further extruded disks or fragments. There were no further extruded fragments noted. There is no evidence of dural tear or leak. She had some epidural bleeding which I was able to cauterize and Not with Gelfoam and cottonoids. Good hemostasis maintained. The wound was copiously irrigated and suctioned dry. Good decompression and discectomy was noted at L2-3 and at L3 4. We were able to proceed with closure. The fascia was closed for a watertight closure. The subcuticular tissue was closed with absorbable suture. The wound was cleaned and dried and dressed with the appropriate dressing. The drapes were broken down. The patient was gently rolled back onto their hospital bed being careful to maintain their cervical spine and good neutral alignment and position. They were woken up by anesthesia, extubated, and brought to the recovery room in good stable condition. The patient will be admitted to the hospital for observation and for appropriate postoperative care, medical management and monitoring. We will continue to follow them closely about the postoperative course.
[2019-06-02] MEDS: SODIUM CHLORIDE 0.9% 1,000 ML IV SCH (13:25)
[2019-06-02] MEDS: HYDROmorphone 0.5 MG/0.5 ML SYRINGE IVP PRN (16:19)
[2019-06-02] MEDS: ceFAZolin 3 GM in SODIUM CHLORIDE 0.9% 100 ML IVPB SCH (17:03)
[2019-06-02] MEDS: HYDROcodone/APAP 5-325MG 1 EACH TAB PO PRN (21:25)
[2019-06-03] MEDS: SODIUM CHLORIDE 0.9% 1,000 ML IV SCH ×2 (03:04→06:56)
[2019-06-03] MEDS: ceFAZolin 3 GM in SODIUM CHLORIDE 0.9% 100 ML IVPB SCH (03:05)
[2019-06-03] MEDS: HYDROcodone/APAP 5-325MG 1 EACH TAB PO PRN ×3 (04:58→16:58)
[2019-06-03] MEDS: BACLOFEN 10 MG TAB PO SCH (06:54)
[2019-06-03] MEDS: SENNOSIDES-DOCUSATE SODIUM 1 EACH TAB PO SCH (06:54)
[2019-06-03] MEDS: ALLOPURINOL 300 MG TAB PO SCH (06:54)
[2019-06-03] MEDS: NYSTATIN 100,000UNIT/GM CREAM 30 GM TUBE TOPICAL SCH ×2 (06:55→20:26)
[2019-06-03] MEDS: FUROSEMIDE 40 MG TAB PO SCH (06:55)
[2019-06-03] MEDS: TRIAMCINOLONE 0.1% CREAM 80 GM TUBE TOPICAL SCH ×2 (06:55→20:26)
[2019-06-03] MEDS: POLYETHYLENE GLYCOL 3350 17 GM POWD.PACK PO SCH (06:55)
--- NOTE | 2019-06-03 08:33 | P.PN ---
Subjective Patient is a 73-year-old male with a known history of chronic lower back pain, L3-L4 or herniated disc, left-sided sciatic nerve pain, right breast cancer status post lumpectomy/radiation, hypertension and hyperlipidemia and obstructive sleep apnea came to ER with complaints of lower back pain. Patient also having trickling sensation with urination and feeling off urgency. Patient has been having headaches these symptoms since May 25 and was seen by her primary care physician Dr. Hannah. Patient was started on antibiotics in the form of Bactrim which is she has been taking since then. Patient is also having worsening leg swelling for the past 3 or 4 days. Denied any fever or chills. No complaints of abdominal pain. No nausea vomiting or diarrhea. Patient usually does have leg swelling which improves overnight after sleep but this time patient has been having leg swelling continuously. Denied any chest pain or shortness of breath. No headache or dizziness or lightheadedness. Denied any bladder or bowel incontinence. Patient lives in [place] and is visiting family in [place] currently. Patient has chronic back pain and which she's had MRI in October showing evidence of L3-L4 herniated disc. Patient was seen by a surgeon in [place] who did not recommend surgery given her age, weight. Patient states that she was placed on tramadol states that she did not like taking it was not helping so she just takes Aleve which helped just as much. Patient states that she was seen in the ER due to her back pain recently and was given steroids, Valium and Pierce. She is also taking Robaxin from urgent care. Sodium 135 BUN 55 and creatinine 2.22 WBC 12.6. Urinalysis showed cloudy, large leukocyte esterase and 19 WBCs. Albumin 4.6 BNP 209 Chest x-ray, lumbar spine x-ray showed no acute process. No fracture or disloc ation. Ultrasound kidneys showed no acute process. 05/30/2019 Patient is more awake and oriented today. Bilateral leg swelling is improved. No complains of chest pain or shortness of breath. Still having left sciatic pain. Otherwise renal function improved to creatinine level I.57. Bicarb level is improved as well. Nephrology is on board. Renal ultrasound showed no acute process and bilateral lower extremity duplex scan showed no DVT. No fever no chills. Urine culture is pending at this time. Patient is trying to participate in physical therapy. Discussed with the patient and her family at bedside in detail. 05/31/2019 Patient denied any complaints of chest pain or shortness of breath. Renal function is much improved. Denied any complaints of dysuria or hematuria. Urine culture showed normal frantz. Patient is being continued on antibiotics the form of ceftriaxone. Otherwise patient is complaining of back pain and unable to get out of bed or stand. Patient says that she did have an MRI in 2018. Orthopedic surgery was consulted for evaluation. PTOT on board. 06/01/2019 Patient denied any compressive abdominal pain. Patient does have constipation and no bowel movement for the past 4 days. Stool softeners and laxatives will be added. Otherwise patient is unable to use bedpan or sit on the commode due to severe low back pain. MRI of the lumbar spine was ordered as per orthopedic surgery. Denied nausea vomiting or abdominal pain. renal function normalizes otherwise. urine culture showed no growth. 06/02/2019 Patient is still complaining of from weakness in her both lower extremity for 2 days prior to admission to the hospital. She moved to [place] about 2 weeks ago in which she was walking using her walker, while bending forward. She had MRI of the lumbar spine showing spinal mass at L3 to L4 with disease and neuro foraminal encroachment. There is a pleasant spinal stenosis. Discussed the case with orthopedic team, patient is going for surgery today. She is hemodynamically stable, labs from today showing no leukocytosis with WBC 9.5K, hemoglobin 13.5. Platelets within normal limits at 246. Sodium 134, creatinine 0.9. Her liver enzymes not elevated. UA is suspicious for infection and patient is to ceftriaxone, however her urinalysis culture showing only normal frantz. Continue with pain management 06/03/2019 Patient is status post laminectomy and decompression of L3 to L4 and L2 to L3. Today is postop day #1. Patient feels much better. Her back pain is controlled. Dressing on the scar is in place. She can move her lower extremity better than before except for the toes. Orthopedic team R following the case. Vitals are stable. Patient might benefit from ECF upon discharge for inpatient rehab Objective - Vital Signs Vital signs: Vital Signs Temp 98.1 F 06/03/19 05:00 Pulse 72 06/03/19 05:00 Resp 18 06/03/19 05:00 BP 145/68 06/03/19 05:00 Pulse Ox 99 06/03/19 05:00 Intake & Output 06/02/19 06/03/19 06/03/19 18:59 06:59 18:59 Intake Total 1401 350 Output Total 650 600 Balance 751 -250 Intake: IV 1401 Oral 350 Output: Urine 400 600 Estimated Blood Loss 250 Other: Voiding Method Indwelling Catheter Indwelling Catheter Indwelling Catheter # Voids 0 - Exam GENERAL: The patient is alert and oriented x3, not in any acute distress. Well developed, well nourished. HEENT: Pupils are round and equally reacting to light. EOMI. No scleral icterus. No conjunctival pallor. Normocephalic, atraumatic. No pharyngeal erythema. No thyromegaly. CARDIOVASCULAR: S1 and S2 present. No murmurs, rubs, or gallops. PULMONARY: Chest is clear to auscultation, no wheezing or crackles. ABDOMEN: Soft, nontender, nondistended, normoactive bowel sounds. No palpable organomegaly. MUSCULOSKELETAL: No joint swelling or deformity. EXTREMITIES: No cyanosis, clubbing, or pedal edema. -NEUROLOGICAL: Gross neurological examination did not reveal any focal deficits. Bilateral lower extremity weakness, more on the right side. SKIN: No rashes. - Labs CBC & Chem 7: 05/31/19 07:41 06/01/19 10:50 Assessment and Plan Assessment: Acute on chronic lower back pain. Status post decompression surgery and laminectomy of L2-3 and L3-4 Bilateral lower extremity weakness. Secondary to above. Improving Acute urinary tract infection. Failed outpatient therapy. Culture showed normal frantz. Patient is already on antibiotic Acute kidney injury with possible underlying chronic kidney disease. Possible antibiotic/Bactrim and NSAID related. Improved now Anion gap Metabolic acidosis. Secondary to acute kidney injury. Improving Chronic lower back pain and left sciatica no pain. On narcotic pain medications and recent steroid use as well. Bilateral lower extremity edema. Likely due to venous stasis. Improved now. Ruled out DVT. History of right breast cancer with lumpectomy/radiation Hypertension Hyperlipidemia Obstructive sleep apnea Osteoarthritis Gout Previous history of UTIs DVT prophylaxis with heparin subcu Plan: This is a pleasant 73 years old female who presents with lower extremity we akness and back pain. No spinal masses was mentioned in the procedure. Patient can move her extremity better after surgery. However she went benefit from ECF upon discharge as she may need some physical therapy. Patient will be continued on antibiotics the form of ceftriaxone. Bactrim has been discontinued. Avoid NSAID use. Continue with IV hydration. Monitor renal function and urine culture report. Continue with home medications and pain management. Nephrology team input is appreciated.. Labs and medication were reviewed.. Continue same treatment. Continue with symptomatic treatment. Resume home medication. Monitor lytes and vitals. DVT and GI prophylaxis. Further recommendations of the clinical course of the patient DVT prophylaxis: No anticoagulation in view of patient is going for surgery. GI Prophylaxis: Pepcid PT/OT: Pending Prognosis is guarded
[2019-06-03 09:02] LABS: Basophils % (A) 0 %; Eosinophils # (A) 0.1 k/uL (0-0.7); Eosinophils % (A) 1 %; HCT 34.7 % (34.0-46.0); HGB 10.9 gm/dL (11.4-16.0); Lymphocytes # (A) 1.1 k/uL (1.0-4.8); Lymphocytes % (A) 10 %; MCH 32.7 pg (25.0-35.0); MCHC 31.4 g/dL (31.0-37.0); MCV 104.1 fL (80.0-100.0); Macrocytosis Slight; Mean Platelet Volume 7.1; Monocytes # (A) 0.4 k/uL (0-1.0); Monocytes % (A) 4 %; Neutrophils # (A) 8.9 k/uL (1.3-7.7); Neutrophils % (A) 84 %; Platelet Count 197 k/uL (150-450); RBC 3.34 m/uL (3.80-5.40); WBC 10.6 k/uL (3.8-10.6)
[2019-06-03 09:16] LABS: Calcium 8.3 mg/dL (8.4-10.2); Potassium 4.6 mmol/L (3.5-5.1)
--- NOTE | 2019-06-03 10:09 | P.PN ---
Progress Note - Text Progress Note Date: 06/03/19 Postoperative day #1 status post laminectomy decompression with discectomy L2-3 L3-4 for cauda equina syndrome Patient is seen and examined today at bedside. The patient has some pain around the surgical site as expected. Pain is being controlled with medication. She feels her legs have had some improvement of her motion around her knees and hips. She is able to move her legs in bed. She is unable to do any dorsiflexion of her ankles feet and toes. She has a Lauren intact. Apparently she had a bowel movement today but was unaware that she was having any bowel movement. Physical Exam Afebrile with stable vital signs Abdomen is soft nontender. Chest has good excursion deep and space expiration The incision site is clean dry and intact. No erythema there is no purulence. There is some small bloody drainage at the inferior aspect of the dressing but it is stable. There is no active drainage currently. She has positive saddle paresthesias. She has limited motion at her lower extremities but is able to flex her hips and extend her knees to about 2 out of 5 strength bilaterally. She essentially has 0 out of 5 5 dorsiflexion and EHL in bilateral lower extremities. This is some mild improvement from her preoperative status at her hips and knees Calves and thighs were soft nontender without evidence of DVT. Assessment/Plan Cauda equina syndrome due to massive disc herniation L2-3 L3 4 Profound bilateral lower extremity weakness, acute Status post laminectomy decompression and discectomy for decompression L2 3 through L3 4 Postoperative day #1 status post laminectomy decompression and discectomy for decompression L2-3 L3 4 for her cauda equina syndrome with massive disc pronation C3 L3 4 Patient is progressing as expected from the surgery. She has made some improvement in her overall leg motion are on her hips and knees but as far as not had significant improvement in her ankles and feet. She will likely have foot drop bilaterally and chronically and we will order AFO braces for her bilateral lower extremities. With her profound weakness patient will likely need acute inpatient rehab and we will case management evaluated her for this as well as physical medicine and rehab consultation. We will continue to increase the patient's mobilization with therapy. We will continue pain control with oral or IV medications. I had a long discussion with the patient today in regards to her issues with her weakness at her lower extremities her inability to void and have bowel movements on her own and issues with cauda equina syndrome. I tried to inform her of the gravity of her situation and the fact that her symptoms may not improve significantly despite our aggressive and appropriate treatment and care and surgical intervention. This will be a long course in terms of rehabilitation which will take months or even over a year to determine how well her nerves respond and if they can in fact make progress with healing to return her to a more independent state. We had a long discussion about this and she seems to understand the long-term nature of her issues particularly in regards to her lower extremity weakness and bowel and bladder function. We will continue to encourage her rehab, mobilization and bowel or bladder function habits. We'll continue to follow patient closely.
[2019-06-03] MEDS: HYDROmorphone 0.5 MG/0.5 ML SYRINGE IVP PRN (20:22)
[2019-06-04] MEDS: HYDROmorphone 0.5 MG/0.5 ML SYRINGE IVP PRN (02:21)
[2019-06-04] MEDS: SODIUM CHLORIDE 0.9% 1,000 ML IV SCH ×2 (05:45→17:56)
[2019-06-04] MEDS: BACLOFEN 10 MG TAB PO SCH (08:47)
[2019-06-04] MEDS: SENNOSIDES-DOCUSATE SODIUM 1 EACH TAB PO SCH (08:47)
[2019-06-04] MEDS: POLYETHYLENE GLYCOL 3350 17 GM POWD.PACK PO SCH (08:48)
[2019-06-04] MEDS: NYSTATIN 100,000UNIT/GM CREAM 30 GM TUBE TOPICAL SCH ×2 (08:48→20:52)
[2019-06-04] MEDS: FUROSEMIDE 40 MG TAB PO SCH (08:48)
[2019-06-04] MEDS: ALLOPURINOL 300 MG TAB PO SCH (08:48)
[2019-06-04] MEDS: TRIAMCINOLONE 0.1% CREAM 80 GM TUBE TOPICAL SCH ×2 (08:49→20:52)
[2019-06-04] MEDS: HYDROcodone/APAP 5-325MG 1 EACH TAB PO PRN ×4 (08:55→23:25)
--- NOTE | 2019-06-04 09:00 | P.PN ---
Progress Note - Text Progress Note Date: 06/04/19 Patient is a pleasant 73-year-old female who is seen sitting at the bedside for follow-up evaluation after undergoing L2-3 and L3-4 laminectomy decompression with discectomy on 06/02/2019. Patient says she has had some improvement in some lower extremity strength most specifically with knee extension bilaterally. She continues to have difficulty with hip flexion bilaterally specifically on the left. She continues to be unable to perform any active dorsiflexion or plantarflexion bilaterally. She is unable to wiggle her toes bilaterally. She continues to have a Lauren catheter intact. She is unable to tell when she urinates or has a bowel movement. She feels better today and is currently sitting upright in bed. She states she has been working with physical therapy. She states due to her significant symptoms and recent surgical intervention she feels she would need to remain in the [place] area for further treatment at discharge from the hospital. She lives in [place] but states her family resides here in [place]. She states she is already been seen by social work who is discussing discharged to [facility] rehabilitation [facility]. She feels this is a good plan of care. Consultation has been placed with Dr. Lockett in pain management for cauda equina with status post decompression. Patient has not been yet evaluated by Dr. Lockett. AFO braces have also been ordered for her bilateral lower extremities due to bilateral foot drop. These have not been delivered yet. She is eating without difficulty. Physical exam: Patient is awake, alert, and oriented 3 Vital signs stable Good chest excursion with deep inspiration and expiration Examination of lumbar spine reveals skin is intact with no abrasions, lacerations, or bruises; no erythema, purulence or signs of infection Dressing over the surgical site remains dry and intact with some dried blood at the inferior portion of the dressing No significant pain with palpation around the surgical site Dorsiflexion, plantarflexion, and extensor hallucis longus with profound weakness bilaterally with strength 0/5 Patient is unable to perform any active range of motion of the bilateral ankles and toes bilaterally Lower extremity strength significantly weak Patient is able to perform some hip flexion in bilateral lower extremities with weakness greater on the left than the right Patient is able to perform knee extension bilaterally No lower extremity hyperreflexia bilaterally Straight leg test negative bilateral lower extremities No signs or symptoms of DVT; no calf pain No pain with internal and external rotation of the hips bilaterally Neurovascularly intact Lauren catheter intact Pertinent studies: MRI lumbar spine taken on 06/01/2019: L2-3 and L3-4 massive disc herniation resulting in severe spinal canal stenosis with essentially complete occlusion of the spinal canal; degenerative disc disease throughout the lumbar spine X-rays lumbosacral spine taken on 05/29/2019: Severe degenerative disc disease L2-S1; significant left-sided osteophytic spurring; evidence of anterior osteophytic spurring; L4-5 spondylolisthesis; no evidence of vertebral body compression fracture; multilevel facet arthropathy; clips from previous cholecystectomy; evidence of neural foraminal narrowing on oblique imaging; extensive arthrosclerosis of the abdominal aorta Assessment: Cauda equina syndrome due to massive disc herniation at L2-3 and L3-4 Profound bilateral lower extremity weakness, acute Acute on chronic low back pain Bilateral lower extremity radiculopathy Lumbar degenerative disc disease and facet arthropathy throughout L4-5 spondylolisthesis Osteophytic spurring Inability to ambulate due to weakness Current urinary tract infection on IV antibiotics Acute kidney failure History of hyperlipidemia, hypertension, bilateral lower extremity edema, and history of right-sided breast cancer with lumpectomy/radiation Plan: 1. Patient is progressing as expected postoperatively but continues to have significant profound weakness of bilateral lower extremities. She will continue working with physical therapy to increase mobility and ambulation. We will plan for discharge to a rehabilitation facility. Patient has been seen by social work planning for discharge to [facility]. Prescriptions have been written for AFO braces for the bilateral lower extremities and provided to case management. These braces have not yet been delivered. We have also placed consultation with Dr. Lockett in pain management for further treatment and evaluation for cauda equina syndrome with status post decompression. Patient does have other medical conditions and continues be seen and examined by medicine. We discussed patient will continue to remain in the hospital until approved for discharge to rehabilitation facility, until she is able to obtain AFO braces for the bilateral lower extremities, until after further evaluation by Dr. Lockett, and until cleared by medicine. We will continue to follow patient closely. We again discussed her significant weakness in the bilateral lower extremities in detail along with her inability to void on her own and unable to sense voiding and bowel movements. We discussed the symptoms may be permanent and damage. We also discussed the importance of rehabilitation and that long-term rehabilitation provide the best opportunity to have some improvement of her symptoms. Patient is on fluoroscopy with working through rehabilitation and today states she is eager to do so. 2. Medicine will continue seeing and examined the patient and follow her for her other medical diagnoses 3. Patient currently waiting for consultation with Dr. Lockett in pain management
--- NOTE | 2019-06-04 12:55 | P.PN ---
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 Patient also having trickling sensation with urination and feeling off urgency. Patient has been having headaches these symptoms since May 25 and was seen by her primary care physician Dr. Hannah. Patient was started on antibiotics in the form of Bactrim which is she has been taking since then. Patient is also having worsening leg swelling for the past 3 or 4 days. Denied any fever or chills. No complaints of abdominal pain. No nausea vomiting or diarrhea. Patient usually does have leg swelling which improves overnight after sleep but this time patient has been having leg swelling continuously. Denied any chest pain or shortness of breath. No headache or dizziness or lightheadedness. Denied any bladder or bowel incontinence. Patient lives in [place] and is visiting family in [place] currently. Patient has chronic back pain and which she's had MRI in October showing evidence of L3-L4 herniated disc. Patient was seen by a surgeon in [place] who did not recommend surgery given her age, weight. Patient states that she was pl aced on tramadol states that she did not like taking it was not helping so she just takes Aleve which helped just as much. Patient states that she was seen in the ER due to her back pain recently and was given steroids, Valium and [place]. She is also taking Robaxin from urgent care. 06/04/2019 Patient had surgery done by Dr. Dean for large herniated disc in the lumbar region and she had laminectomy and lumbar decompression. She is postop day 2 today. She says that she's feeling better but she still has some decreased sensation in her feet. She otherwise does not complain of any chest pain or racing heart, no cough no shortness of breath, no abdominal pain, and that she still incontinent of her bowels and has a Lauren catheter. Objective - Vital Signs Vital signs: Vital Signs Temp 97.5 F L 06/04/19 05:07 Pulse 71 06/04/19 05:07 Resp 18 06/04/19 08:00 BP 159/64 06/04/19 05:07 Pulse Ox 97 06/04/19 05:07 Intake & Output 06/03/19 06/04/19 06/04/19 18:59 06:59 18:59 Output Total 700 600 Balance -700 -600 Output: Urine 700 600 Other: Voiding Method Indwelling Catheter Indwelling Catheter Indwelling Catheter - Exam GENERAL: The patient is alert and oriented x3, not in any acute distress. Well developed, well nourished. HEENT: Pupils are round and equally reacting to light. EOMI. No scleral icterus. No conjunctival pallor. Normocephalic, atraumatic. No pharyngeal erythema. No thyromegaly. CARDIOVASCULAR: S1 and S2 present. No murmurs, rubs, or gallops. PULMONARY: Chest is clear to auscultation, no wheezing or crackles. ABDOMEN: Soft, nontender, nondistended, normoactive bowel sounds. No palpable organomegaly. MUSCULOSKELETAL: No joint swelling or deformity. EXTREMITIES: No cyanosis, clubbing, or pedal edema. -NEUROLOGICAL: Gross neurological examination did not reveal any focal deficits. Bilateral lower extremity weakness, more on the right side. He said that she has loss of sensation in her foot more than the right side. she still has bowel incontinence SKIN: No rashes. - Labs CBC & Chem 7: 06/03/19 08:22 06/03/19 08:22 Assessment and Plan Assessment: Acute on chronic lower back pain. Status post decompression surgery and laminectomy of L2-3 and L3-4 Bilateral lower extremity weakness. Secondary to above. Improving Acute urinary tract infection. Failed outpatient therapy. Culture showed normal frantz. Patient is already on antibiotic Acute kidney injury with possible underlying chronic kidney disease. Possible antibiotic/Bactrim and NSAID related. Improved now Anion gap Metabolic acidosis. Secondary to acute kidney injury. Improving Chronic lower back pain and left sciatica no pain. On narcotic pain medications and recent steroid use as well. Bilateral lower extremity edema. Likely due to venous stasis. Improved now. Ruled out DVT. History of right breast cancer with lumpectomy/radiation Hypertension Hyperlipidemia Obstructive sleep apnea Osteoarthritis Gout Previous history of UTIs Plan - Patient says his she is able to move her extremities better but she is having decreased sensations in her foot. - Continue antibiotics for now - Patient to go to rehab depending pain management consult and pending delivery of the brace - We'll continue rest of the medical care - Continue to follow the patient
[2019-06-05] MEDS: HYDROcodone/APAP 5-325MG 1 EACH TAB PO PRN ×3 (04:34→22:13)
[2019-06-05] MEDS: SODIUM CHLORIDE 0.9% 1,000 ML IV SCH ×2 (05:32→20:17)
[2019-06-05] MEDS: ASPIRIN 325 MG TAB PO SCH (08:53)
[2019-06-05] MEDS: SENNOSIDES-DOCUSATE SODIUM 1 EACH TAB PO SCH (08:53)
[2019-06-05] MEDS: BACLOFEN 10 MG TAB PO SCH (08:53)
[2019-06-05] MEDS: ALLOPURINOL 300 MG TAB PO SCH (08:53)
[2019-06-05] MEDS: FUROSEMIDE 40 MG TAB PO SCH (08:53)
[2019-06-05] MEDS: NYSTATIN 100,000UNIT/GM CREAM 30 GM TUBE TOPICAL SCH ×2 (08:54→20:17)
[2019-06-05] MEDS: POLYETHYLENE GLYCOL 3350 17 GM POWD.PACK PO SCH (08:55)
[2019-06-05] MEDS: TRIAMCINOLONE 0.1% CREAM 80 GM TUBE TOPICAL SCH ×2 (08:55→20:17)
--- NOTE | 2019-06-05 08:56 | P.PN ---
Progress Note - Text Progress Note Date: 06/05/19 Patient is a pleasant 73-year-old female who is seen sitting at the bedside for follow-up evaluation after undergoing L2-3 and L3-4 laminectomy decompression with discectomy on 06/02/2019. Patient into needs to say she has had some improvement in some lower extremity strength most specifically with knee extension bilaterally. She continues to have difficulty with hip flexion bilaterally specifically on the left. She continues to be unable to perform any active dorsiflexion or plantarflexion bilaterally. She is unable to wiggle her toes bilaterally. She continues to have a Lauren catheter intact. She is unable to tell when she urinates or has a bowel movement. She feels better today and is currently sitting upright in bed. She states she has been working with physical therapy. She states due to her significant symptoms and recent surgical intervention she feels she would need to remain in the [place] area for further treatment at discharge from the hospital. She lives in [place] but states her family resides here in [place]. She states she is already been seen by social work who is discussing discharged to [facility]. Nursing states patient may be planned for discharge today. Consultation has been placed with Dr. Lockett in pain management for cauda equina with status post decompression who may plan to see the patient today. AFO braces have also been ordered for her bilateral lower extremities due to bilateral foot drop. Molds have been made for these braces yesterday but the braces have not been delivered yet. She is eating without difficulty. Physical exam: Postoperative day #3 Patient is awake, alert, and oriented 3 Vital signs stable Good chest excursion with deep inspiration and expiration Examination of lumbar spine reveals skin is intact with no abrasions, lacerations, or bruises; no erythema, purulence or signs of infection Dressing over the surgical site remains dry and intact with some dried blood at the inferior portion of the dressing No significant pain with palpation around the surgical site Dorsiflexion, plantarflexion, and extensor hallucis longus with profound weakness bilaterally with strength 0/5 Patient is unable to perform any active range of motion of the bilateral ankles and toes bilaterally Lower extremity strength significantly weak Patient is able to perform some hip flexion in bilateral lower extremities with weakness greater on the left than the right Patient is able to perform knee extension bilaterally No lower extremity hyperreflexia bilaterally Straight leg test negative bilateral lower extremities No signs or symptoms of DVT; no calf pain No pain with internal and external rotation of the hips bilaterally Neurovascularly intact Lauren catheter intact Pertinent studies: MRI lumbar spine taken on 06/01/2019: L2-3 and L3-4 massive disc herniation resulting in severe spinal canal stenosis with essentially complete occlusion of the spinal canal; degenerative disc disease throughout the lumbar spine X-rays lumbosacral spine taken on 05/29/2019: Severe degenerative disc disease L2-S1; significant left-sided osteophytic spurring; evidence of anterior osteophytic spurring; L4-5 spondylolisthesis; no evidence of vertebral body compression fracture; multilevel facet arthropathy; clips from previous cholecystectomy; evidence of neural foraminal narrowing on oblique imaging; extensive arthrosclerosis of the abdominal aorta Assessment: Cauda equina syndrome due to massive disc herniation at L2-3 and L3-4 Profound bilateral lower extremity weakness, acute Acute on chronic low back pain Bilateral lower extremity radiculopathy Lumbar degenerative disc disease and facet arthropathy throughout L4-5 spondylolisthesis Osteophytic spurring Inability to ambulate due to weakness Current urinary tract infection on IV antibiotics Acute kidney failure History of hyperlipidemia, hypertension, bilateral lower extremity edema, and history of right-sided breast cancer with lumpectomy/radiation Plan: 1. Patient is progressing as expected postoperatively but continues to have significant profound weakness of bilateral lower extremities. She will continue working with physical therapy to increase mobility and ambulation. We will plan for discharge to a rehabilitation facility. Patient has been seen by social work planning for discharge to [facility]. Patient may be discharged today. We discussed from an orthopedic spine standpoint patient is clear for discharge. Prescriptions have been written for AFO braces for the bilateral lower extremities and provided to case management. Molds have been made for these braces but they have not yet been delivered. We have also placed consultation with Dr. Lockett in pain management for further treatment and evaluation for cauda equina syndrome with status post decompression who may plan to see the patient today. Patient does have other medical conditions and continues be seen and examined by medicine. We discussed she could be discharged to a rehabilitation facility without her AFO braces in the braces should be able to be delivered to her while at the rehabilitation facility. Patient's Lauren catheter continues to be intact. We could attempt weaning down process with a goal of being able to discontinue her Lauren if she is able to void on her own prior to discharge to a rehabilitation facility. If she is unable to void on her own, it is okay for the patient to be discharged to [facility] with her Lauren catheter intact. Patient is clear for discharge from an orthopedic spine standpoint. Patient may follow-up with Jose Still PA-C or Dr. Casey Evans at [facility] in 2 weeks following discharge. We again discussed her significant weakness in the bilateral lower extremities in detail along with her inability to void on her own and unable to sense voiding and bowel movements. We discussed the symptoms may be permanent and damage. We also discussed the importance of rehabilitation and that long-term rehabilitation provide the best opportunity to have some improvement of her symptoms. Patient is on fluoroscopy with working through rehabilitation and today states she is eager to do so. 2. Medicine will continue seeing and examined the patient and follow her for her other medical diagnoses 3. Patient currently waiting for consultation with Dr. Lockett in pain management 4. Patient currently waiting for delivery and fitting of AFO braces bilaterally
[2019-06-05 09:53] LABS: HCT 33.1 % (34.0-46.0); HGB 10.7 gm/dL (11.4-16.0); MCH 33.2 pg (25.0-35.0); MCHC 32.3 g/dL (31.0-37.0); MCV 102.9 fL (80.0-100.0); Macrocytosis Slight; Mean Platelet Volume 6.7; Platelet Count 218 k/uL (150-450); RBC 3.21 m/uL (3.80-5.40); RDW 14.2 % (11.5-15.5); WBC 8.2 k/uL (3.8-10.6)
[2019-06-05 10:04] LABS: African American GFR (CKD) >90 (>60 ml/min/1.73 sqM); Anion Gap 8 mmol/L; Blood Urea Nitrogen 20 mg/dL (7-17); Calcium 8.7 mg/dL (8.4-10.2); Carbon Dioxide 25 mmol/L (22-30); Chloride 102 mmol/L (98-107); Glucose 155 mg/dL (74-99); Non-African American GFR(CKD) 88 (>60 ml/min/1.73 sqM); Potassium 4.5 mmol/L (3.5-5.1); Sodium 135 mmol/L (137-145)
[2019-06-05 13:51] VITALS: BMI 43.9
--- NOTE | 2019-06-05 14:17 | P.DS ---
Providers Date of admission: 05/29/19 15:24 Expected date of discharge: 06/05/19 Attending physician: Marlen Hurley Consults: 05/29/19 15:07 Consult Physician Urgent Consulting Provider: Rhianna Scales Consult Reason/Comments: Acute renal failure Do you want consulting provider notified?: Yes 05/31/19 16:44 Consult Physician Routine Consulting Provider: Ronnie Evans Consult Reason/Comments: unable to bear weight, legs numb Do you want consulting provider notified?: Already Contacted 06/03/19 10:09 Consult Physician Routine Consulting Provider: Gamal Lockett Consult Reason/Comments: Cauda equina syndrome status post decompression, Do you want consulting provider notified?: Yes Primary care physician: Brielle Carter Hospital Course: Discharge diagnosis Acute on chronic lower back pain. Status post decompression surgery and laminectomy of L2-3 and L3-4 Bilateral lower extremity weakness. Secondary to above. Improving Acute urinary tract infection. Failed outpatient therapy. Culture showed normal frantz. Patient is already on antibiotic. Patient has a course of Rocephin Acute kidney injury with possible underlying chronic kidney disease. Possible antibiotic/Bactrim and NSAID related. Improved now Anion gap Metabolic acidosis. Secondary to acute kidney injury. Improved Chronic lower back pain and left sciatica no pain. On narcotic pain medications and recent steroid use as well. Bilateral lower extremity edema. Likely due to venous stasis. Improved now. Ruled out DVT. History of right breast cancer with lumpectomy/radiation Hypertension Hyperlipidemia Obstructive sleep apnea Osteoarthritis Gout Previous history of UTIs Hospital course 73-year-old male with a known history of chronic lower back pain, L3-L4 or herniated disc, left-sided sciatic nerve pain, right breast cancer status post lumpectomy/radiation, hypertension and hyperlipidemia and obstructive sleep apnea came to ER with complaints of lower back pain. Patient also having trickling sensation with urination and feeling off urgency. Patient has been having headaches these symptoms since May 25 and was seen by her primary care physician Dr. Hannah. Patient was started on antibiotics in the form of Bactrim which is she has been taking since then. Patient is also having worsening leg swelling for the past 3 or 4 days. Denied any fever or chills. No complaints of abdominal pain. No nausea vomiting or diarrhea. Patient usually does have leg swelling which improves overnight after sleep but this time patient has been having leg swelling continuously. Denied any chest pain or shortness of breath. No headache or dizziness or lightheadedness. Denied any bladder or bowel incontinence. Patient lives in [place] and is visiting family in [place] currently. Patient has chronic back pain and which she's had MRI in October showing evidence of L3-L4 herniated disc. Patient was seen by a surgeon in [place] who did not recommend surgery given her age, weight. Patient states that she was placed on tramadol states that she did not like taking it was not helping so she just takes Aleve which helped just as much. Patient states that she was seen in the ER due to her back pain recently and was given steroids, Valium and [place]. She is also taking Robaxin from urgent care. Patient had decompressive surgery and laminectomy done by Dr. Evans. Status post procedure the patient says that she's doing better. She is complaining of loss of sensation in the right lower extremity which is slowly getting back. She states that she still feeling bowel incontinent and she has Lauren catheter still. On 06/05/2019 GENERAL: The patient is alert and oriented x3, not in any acute distress. Well developed, well nourished. HEENT: Pupils are round and equally reacting to light. EOMI. No scleral icterus. No conjunctival pallor. Normocephalic, atraumatic. No pharyngeal erythema. No thyromegaly. CARDIOVASCULAR: S1 and S2 present. No murmurs, rubs, or gallops. PULMONARY: Chest is clear to auscultation, no wheezing or crackles. ABDOMEN: Soft, nontender, nondistended, normoactive bowel sounds. No palpable organomegaly. MUSCULOSKELETAL: No joint swelling or deformity. EXTREMITIES: No cyanosis, clubbing, or pedal edema. -NEUROLOGICAL: Gross neurological examination did not reveal any focal deficits. Bilateral lower extremity weakness, more on the right side. He said that she has loss of sensation in her foot more on the right side. she still has bowel incontinence SKIN: No rashes. The patient will be discharged if cleared by orthopedic surgery and Dr. Lockett from pain management who is yet to see the patient Patient will have indwelling Lauren catheter. Patient can follow up with urology as an outpatient if still has urinary incontinence. Patient to follow with Dr. Evans as an outpatient and with the PCP as an outpatient at the days discussed below in the patient's summary Patient Condition at Discharge: Fair Plan - Discharge Summary Discharge Rx Participant: Yes New Discharge Prescriptions: New Polyethylene Glycol 3350 [Miralax] 17 gm PO DAILY #15 powd.pack Nystatin 100,000Unit/gm Cream [Mycostatin Cream] 1 applic TOPICAL BID #1 tube HYDROcodone/APAP 5-325MG [[place] 5-325] 2 each PO Q4HR PRN #12 tab PRN Reason: Moderate Pain Sennosides-Docusate Sodium [Senokot-S] 1 each PO DAILY tab Continue Furosemide [Lasix] 20 mg PO DAILY Omeprazole 20 mg PO DAILY [place]-Red 1 tab PO DAILY Baclofen [Lioresal] 10 mg PO DAILY Multivitamins, Thera [Multivitamin (formulary)] 1 tab PO DAILY Loratadine [Claritin] 10 mg PO DAILY Lisinopril-Hctz 20-12.5 mg [Zestoretic 20-12.5] 1 tab PO DAILY Allopurinol [Zyloprim] 300 mg PO DAILY NIFEdipine [Procardia XL] 60 mg PO DAILY Discontinued Sulfamethox-Tmp 800-160Mg [Bactrim DS 800-160 mg] 1 tab PO Q12HR predniSONE 50 mg PO DAILY #5 tablet Fluconazole [Diflucan] 150 mg PO DIRECTED Discharge Medication List Furosemide [Lasix] 20 mg PO DAILY 05/28/19 [History] Omeprazole 20 mg PO DAILY 05/28/19 [History] Allopurinol [Zyloprim] 300 mg PO DAILY 05/29/19 [History] Baclofen [Lioresal] 10 mg PO DAILY 05/29/19 [History] Lisinopril-Hctz 20-12.5 mg [Zestoretic 20-12.5] 1 tab PO DAILY 05/29/19 [History] Loratadine [Claritin] 10 mg PO DAILY 05/29/19 [History] Multivitamins, Thera [Multivitamin (formulary)] 1 tab PO DAILY 05/29/19 [History] NIFEdipine [Procardia XL] 60 mg PO DAILY 05/29/19 [History] [place]-Red 1 tab PO DAILY 05/29/19 [History] HYDROcodone/APAP 5-325MG [[place] 5-325] 2 each PO Q4HR PRN #12 tab 06/05/19 [Rx] Nystatin 100,000Unit/gm Cream [Mycostatin Cream] 1 applic TOPICAL BID #1 tube 06/05/19 [Rx] Polyethylene Glycol 3350 [Miralax] 17 gm PO DAILY #15 powd.pack 06/05/19 [Rx] Sennosides-Docusate Sodium [Senokot-S] 1 each PO DAILY tab 06/05/19 [Rx] Follow up Appointment(s)/Referral(s): Raul Hannah MD [Primary Care Provider] - 1-2 days Jose Still PAC [PHYSICIAN [employer]M [employer] P[employer]ER] - 2 Weeks (Patient may follow-up with Jose Still PA-C or Dr. Casey Evans at [facility] in 2 weeks following discharge. ) Activity/Diet/Wound Care/Special Instructions: 1. Patient may shower with Tegaderm dressing intact. 2. Patient may remove Tegaderm dressing in 3 days and shower without a dressing at that time. 3. Patient should keep Steri-Strips intact and allow them to fall off naturally. 4. Patient is encouraged to use AFO braces to aid in ambulation for the bilateral lower extremities 5. Patient may work with physical therapy while at rehabilitation facility prior to the delivery and fitting of her AFO braces bilaterally 6. Patient is encouraged to use other walking aids while working with physical therapy to aid in mobility as needed 7. Patient should avoid excessive bending, twisting, and lifting; no lifting greater than 10 pounds 8. Take medications as prescribed 9. Do not soak in tub Discharge Disposition: TRANSFER TO SNF/ECF
--- NOTE | 2019-06-05 15:11 | CDI ---
Documentation Clarification Form Date: 06/05/2019 3:02:08 PM From: Ngoc Turk CCS, CCDS Admit Date: 05/29/2019 3:24:00 PM Patient Name: Luma Jackson Visit Number: [id number] Discharge Date: ATTENTION: The Clinical Documentation Specialists (CDI) and [facility] Coding Staff appreciate your assistance in clarifying documentation. Please respond to the clarification below the line at the bottom and electronically sign. The CDI & [facility] Coding staff will review the response and follow-up if needed. Please note: Queries are made part of the Legal Health Record. If you have any questions, please contact the author of this message via ITS. Dr. Rhianna Scales: Per the 05/30 nephrology consult: "Rule out chronic kidney disease". Per the subsequent progress notes: Possible underlying chronic kidney disease. History/Risk Factors: Chronic low back pain, L3-L4 herniated disc, Left side sciatic nerve pain, right breast CA status post lumpectomy & radiation, hypertension, hyperlipidemia & ESDRAS. Clinical Indicators: Presented to the ER complaining of back pain, leg swelling. Diagnosed with UTI, acute kidney injury, metabolic acidosis & chronic low back pain & left sciatica. LAB: BUN: 59 - 30 - 20; Creatinine: 2.22^, 1.57^, 0.97, 0.64; GFR: 21 - 53 - 73 - 88 Baseline: no previous labs available per documentation. Treatment: IV Ms, IV Zofran, IV Rocephin, IV fluid rate 50, IV Dextrose/Water w/Na Bicarb, IV Lasix x1 Procedure: Laminectomy & decompression L3-4 L2-3 In order to capture the severity of condition, please clarify if the condition signifies: CKD Stage 1 (GFR > 90) CKD Stage 2 (GFR 60-89) CKD Stage 3 (GFR 30-59) CKD Stage 4 (GFR 15-29) CKD Stage 5 (GFR <15) CKD ruled out Other, please specify Unable to determine (Last Revision: February 2018) MTDD
--- NOTE | 2019-06-05 19:04 | P.CONS ---
History of Present Illness - Reason for Consult Consult date: 06/05/19 - Chief Complaint can't walk - History of Present Illness Thank you Dr. Evans for allowing me to participate in the care of Ms. Jackson. 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 Prior to admission she was able to drive and was modified independent for ADLs and IADLs using a walker or single-point cane in the community. Ms. Jackson states one morning she woke up during the night with inability to walk. She states she has a history of chronic back pain and also explains that she feels she had incontinence since 05/28/2019. On 05/29/2019 she presented to the emergency department via ambulance because she was unable to walk due to her lower extremity weakness. She previously was getting epidural steroid injections to control her back pain and radicular complaints. After evaluation in ED she was found have a urinary tract infection and MRI of the lumbar spine revealed massive disc herniation at L2-L3 and L3-L4. On 06/02/2019 she underwent laminectomy and decompression at L2-L3 and L3-L4. Postoperatively she has minimal pain however is still incontinent of bowel and still has a Lauren catheter. She states she feels sensation in her legs okay but they are very weak. She states she is willing to do whatever it takes for the best outcome. Review of Systems 10 point review of system was performed and is significant for incontinence of bowel and bladder, back pain remainder was normal Past Medical History Past Medical History: Cancer, GERD/Reflux, Hyperlipidemia, Hypertension, Osteoa rthritis (OA), Sleep Apnea/CPAP/BIPAP Additional Past Medical History / Comment(s): Chronic lower back pain, L3-L4 herniated disc, L sided sciatica, bilateral leg edema, current UTI, R breast cancer with lumpectomy/radiation, bronchitis, sinus problems, beginning of bilateral cataracts. History of Any Multi-Drug Resistant Organisms: None Reported Past Surgical History: Cholecystectomy, Tonsillectomy, Tubal Ligation Additional Past Surgical History / Comment(s): Colonoscopy Past Anesthesia/Blood Transfusion Reactions: No Reported Reaction Smoking Status: Never smoker - Past Family History Father Additional Family Medical History / Comment(s): Father at the age of 53 yrs from "broken heart" 6 weeks after the of his son. Mother Additional Family Medical History / Comment(s): Mother at the age of 61 pt believes from a brain tumor. Medications and Allergies Home Medications Medication Instructions Recorded Confirmed Type Furosemide [Lasix] 20 mg PO DAILY 05/28/19 05/29/19 History Omeprazole 20 mg PO DAILY 05/28/19 05/29/19 History Allopurinol [Zyloprim] 300 mg PO DAILY 05/29/19 05/29/19 History Baclofen [Lioresal] 10 mg PO DAILY 05/29/19 05/29/19 History Lisinopril-Hctz 20-12.5 mg 1 tab PO DAILY 05/29/19 05/29/19 History [Zestoretic 20-12.5] Loratadine [Claritin] 10 mg PO DAILY 05/29/19 05/29/19 History Multivitamins, Thera [Multivitamin 1 tab PO DAILY 05/29/19 05/29/19 History (formulary)] NIFEdipine [Procardia XL] 60 mg PO DAILY 05/29/19 05/29/19 History [place]-Red 1 tab PO DAILY 05/29/19 05/29/19 History HYDROcodone/APAP 5-325MG [[place] 2 each PO Q4HR PRN #12 tab 06/05/19 Rx 5-325] Nystatin 100,000Unit/gm Cream 1 applic TOPICAL BID #1 tube 06/05/19 Rx [Mycostatin Cream] Polyethylene Glycol 3350 [Miralax] 17 gm PO DAILY #15 powd.pack 06/05/19 Rx Sennosides-Docusate Sodium 1 each PO DAILY tab 06/05/19 Rx [Senokot-S] Allergies Allergy/AdvReac Type Severity Reaction Status Date / Time No Known Allergies Allergy Verified 05/29/19 15:18 Physical Exam Osteopathic Statement: *. No significant issues noted on an osteopathic structural exam other than those noted in the History and Physical/Consult. Vitals: Vital Signs Temp Pulse Resp BP Pulse Ox 06/05/19 14:12 98.2 F 74 18 126/69 97 06/05/19 06:12 97.7 F 57 L 16 127/61 97 06/05/19 00:00 16 06/04/19 22:14 97.9 F 69 16 119/66 96 Intake and Output 06/05/19 06/05/19 06/05/19 06:59 14:59 22:59 Output Total 450 2000 Balance -450 -1999 Output: Urine 450 1999 Other: Voiding Method Indwelling Catheter Indwelling Catheter Indwelling Catheter # Voids 0 Weight 108.862 kg Gen.: Alert and oriented not in acute distress HEENT: Normocephalic atraumatic extraocular muscles intact Respiratory: No accessory muscle use was noted breathing was nonlabored Cardiovascular: Heart regular rate and rhythm 1+ lower extremity edema noted Abdomen: soft tender nondistended Musculoskeletal examination: Shoulder abduction, elbow flexion, elbow extension, wrist extension, finger extension, finger abduction 5/5 bilaterally, line locator strength 5/5 right 4/5 left, hip range of motion normal, hip flexion 2/5 bilaterally, knee extension 4/5 right 5/5 left, dorsi flexion EHL and plantar flexion 0/5 bilaterally Neurologic examination: Patellar and Achilles reflexes 0/4 bilaterally no ankle clonus was noted, no increased tone at the ankles, sensation to pinprick intact bilaterally L1-L3 decreased on the right at L4 absent L5 through S5 right, pinprick decreased on the left L5 and S1 and absent S2 to S5, voluntary anal contraction was negative. Results Results: Venous Doppler performed 05/30/2019 was negative for DVT MRI of the lumbar spine obtained on 06/01/2019 revealed large extradural mass in the spinal canal at L3-L4 anteriorly large sequestered extruded disc herniation from L4-L5 with resultant severe spinal stenosis complete occlusion of the spinal canal, disc bulging L3-L4 moderate disc herniation at L1 towards the left left neural foraminal narrowing at L2, L3 bilateral neural foraminal narrowing at L4 with facet arthrosis small posterior central disc herniation L5-S1, S1 vertebra transitional. CBC & Chem 7: 06/05/19 09:08 06/05/19 09:08 Labs: Abnormal Lab Results - Last 24 Hours (Table) 06/05/19 06/05/19 Range/Units 09:08 09:08 RBC 3.21 L (3.80-5.40) m/uL Hgb 10.7 L (11.4-16.0) gm/dL Hct 33.1 L (34.0-46.0) % MCV 102.9 H (80.0-100.0) fL Sodium 135 L (137-145) mmol/L BUN 20 H (7-17) mg/dL Glucose 155 H (74-99) mg/dL Assessment and Plan Assessment: Cauda equina syndrome secondary to disc herniation L1 GAVINO A Immobility/gait impairment due to lower extremity weakness secondary to #1 Impaired ADLs and IADLs Neurogenic bowel Neurogenic bladder (1) Lumbar disc herniation with myelopathy Current Visit: Yes Status: Acute Code(s): M51.06 - INTERVERTEBRAL DISC DISORDERS WITH MYELOPATHY, LUMBAR REGION SNOMED Code(s): 718467112 (2) Spinal stenosis of lumbar region with radiculopathy Current Visit: Yes Status: Acute Code(s): M48.061 - SPINAL STENOSIS, LUMBAR REGION WITHOUT NEUROGENIC ROSANA; M54.16 - RADICULOPATHY, LUMBAR REGION SNOMED Code(s): 55048666 (3) Cauda equina syndrome Current Visit: Yes Status: Acute Code(s): G83.4 - CAUDA EQUINA SYNDROME SNOMED Code(s): 098788564 (4) Neurogenic bladder Current Visit: Yes Status: Acute Code(s): N31.9 - NEUROMUSCULAR DYSFUNCTION OF BLADDER, UNSPECIFIED SNOMED Code(s): 010199074 (5) Neurogenic bowel Current Visit: Yes Status: Acute Code(s): K59.2 - NEUROGENIC BOWEL, NOT ELSEWHERE CLASSIFIED SNOMED Code(s): 693657753 (6) Gait difficulty Current Visit: Yes Status: Acute Code(s): R26.9 - UNSPECIFIED ABNORMALITIES OF GAIT AND MOBILITY SNOMED Code(s): 03233760 (7) Immobility Current Visit: Yes Status: Acute Code(s): Z74.09 - OTHER REDUCED MOBILITY SNOMED Code(s): 433304990 (8) Immobility syndrome (paraplegic) Current Visit: Yes Status: Acute Code(s): M62.3 - IMMOBILITY SYNDROME (PARAPLEGIC) SNOMED Code(s): 86511136 (9) Impaired sensation Current Visit: Yes Status: Acute Code(s): R20.1 - HYPOESTHESIA OF SKIN SNOMED Code(s): 861608574 Plan: At this time I feel is in the patient's best interest to be transferred to the rehabilitation [facility] for inpatient spinal cord rehabilitation. The patient has significant paraplegia with neurogenic bowel and bladder. She has inability to participate in physical and occupational therapies 3 hours a day 5 days a week with goals of returning to home modified independent at a wheelchair or walker level. She will require ongoing nursing care and physician management for her neurogenic bladder and bowel management. She will require nursing for medication administration in helping her change position every 2 hours to avoid skin breakdown, intermittent catheterization. She will require DVT prophylaxis also floating her heels to avoid skin breakdown. She will require ongoing physician evaluation of her progress and management of her blood pressure, acute postoperative pain control and ongoing management of her acute renal failure. Time with Patient: Greater than 30
[2019-06-05] MEDS: DOCUSATE 100 MG CAP PO SCH (20:16)
[2019-06-05] MEDS: HEPARIN SODIUM,PORCINE 5,000 UNIT/ML 1 ML VIAL SQ SCH (20:16)
[2019-06-05 22:05] LABS: Basophils # (A) 0.1 k/uL (0-0.2); Basophils % (A) 1 %; Eosinophils # (A) 0.1 k/uL (0-0.7); Eosinophils % (A) 2 %; HCT 32.9 % (34.0-46.0); Lymphocytes # (A) 2.4 k/uL (1.0-4.8); Lymphocytes % (A) 28 %; MCH 33.6 pg (25.0-35.0); MCHC 33.3 g/dL (31.0-37.0); MCV 100.7 fL (80.0-100.0); Macrocytosis Slight; Mean Platelet Volume 7.6; Monocytes # (A) 0.5 k/uL (0-1.0); Monocytes % (A) 5 %; Neutrophils # (A) 5.4 k/uL (1.3-7.7); Neutrophils % (A) 63 %; Platelet Count 224 k/uL (150-450); RBC 3.26 m/uL (3.80-5.40); RDW 15.1 % (11.5-15.5); WBC 8.7 k/uL (3.8-10.6)
[2019-06-06] MEDS: ALLOPURINOL 300 MG TAB PO SCH (08:30)
[2019-06-06] MEDS: ASPIRIN 325 MG TAB PO SCH (08:30)
[2019-06-06] MEDS: FUROSEMIDE 40 MG TAB PO SCH (08:30)
[2019-06-06] MEDS: BACLOFEN 10 MG TAB PO SCH (08:30)
[2019-06-06] MEDS: HEPARIN SODIUM,PORCINE 5,000 UNIT/ML 1 ML VIAL SQ SCH ×2 (08:30→22:08)
[2019-06-06] MEDS: DOCUSATE 100 MG CAP PO SCH ×2 (08:30→22:05)
[2019-06-06] MEDS: NYSTATIN 100,000UNIT/GM CREAM 30 GM TUBE TOPICAL SCH ×2 (08:31→23:14)
[2019-06-06] MEDS: TRIAMCINOLONE 0.1% CREAM 80 GM TUBE TOPICAL SCH ×2 (08:31→23:14)
--- NOTE | 2019-06-06 10:03 | P.PN ---
Progress Note - Text Progress Note Date: 06/06/19 Patient is a pleasant 73-year-old female who is seen sitting at the bedside for follow-up evaluation after undergoing L2-3 and L3-4 laminectomy decompression with discectomy on 06/02/2019. Patient continues to say she has had some improvement in some lower extremity strength most specifically with knee extension bilaterally but her symptoms have remained consistent over the past couple days. She continues to have difficulty with hip flexion bilaterally specifically on the left. She continues to be unable to perform any active dorsiflexion or plantarflexion bilaterally. She is unable to wiggle her toes bilaterally. She continues to have a Lauren catheter intact. She is unable to tell when she urinates or has a bowel movement. She is happy and is currently sitting upright in bed. She states she has been working with physical therapy. She states due to her significant symptoms and recent surgical intervention she feels she would need to remain in the [place] area for further treatment at discharge from the hospital. She lives in [place] but states her family res ides here in [place]. She has been seen and examined by Dr. Lockett in pain management yesterday. He is recommending discharged to [facility] for spinal cord rehabilitation. Patient has been discussed in detail case management who has sent all the appropriate paperwork to [facility]. Pending approval, patient may be transferred there today. Patient is eager for transfer to rehab. AFO braces have also been ordered for her bilateral lower extremities due to bilateral foot drop. Molds have been made for these braces yesterday but the braces have not been delivered yet. She is eating without difficulty. Physical exam: Postoperative day #4 Patient is awake, alert, and oriented 3 Vital signs stable Good chest excursion with deep inspiration and expiration Examination of lumbar spine reveals skin is intact with no abrasions, lacerations, or bruises; no erythema, purulence or signs of infection Dressing over the surgical site remains dry and intact with some dried blood at the inferior portion of the dressing Dressing is removed and reapplied No significant pain with palpation around the surgical site Dorsiflexion, plantarflexion, and extensor hallucis longus with profound weakness bilaterally with strength 0/5 Patient is unable to perform any active range of motion of the bilateral ankles and toes bilaterally Lower extremity strength significantly weak Patient is able to perform some hip flexion in bilateral lower extremities with weakness greater on the left than the right Patient is able to perform knee extension bilaterally No lower extremity hyperreflexia bilaterally Straight leg test negative bilateral lower extremities No signs or symptoms of DVT; no calf pain No pain with internal and external rotation of the hips bilaterally Neurovascularly intact Lauren catheter intact Pertinent studies: MRI lumbar spine taken on 06/01/2019: L2-3 and L3-4 massive disc herniation resulting in severe spinal canal stenosis with essentially complete occlusion of the spinal canal; degenerative disc disease throughout the lumbar spine X-rays lumbosacral spine taken on 05/29/2019: Severe degenerative disc disease L2-S1; significant left-sided osteophytic spurring; evidence of anterior osteophytic spurring; L4-5 spondylolisthesis; no evidence of vertebral body compression fracture; multilevel facet arthropathy; clips from previous cholecystectomy; evidence of neural foraminal narrowing on oblique imaging; extensive arthrosclerosis of the abdominal aorta Assessment: Cauda equina syndrome due to massive disc herniation at L2-3 and L3-4 Profound bilateral lower extremity weakness, acute Acute on chronic low back pain Bilateral lower extremity radiculopathy Lumbar degenerative disc disease and facet arthropathy throughout L4-5 spondylolisthesis Osteophytic spurring Inability to ambulate due to weakness Current urinary tract infection on IV antibiotics Acute kidney failure History of hyperlipidemia, hypertension, bilateral lower extremity edema, and history of right-sided breast cancer with lumpectomy/radiation Plan: 1. Patient is progressing as expected postoperatively but continues to have significant profound weakness of bilateral lower extremities. She will continue working with physical therapy to increase mobility and ambulation. We will plan for discharge to a rehabilitation facility. Patient has been seen and examined by Dr. Lockett who is recommending discharged to [facility]. All appropriate paperwork has been sent to [facility] and upon approval patient may be transferred there today. We discussed from an orthopedic spine standpoint patient is clear for discharge. Prescriptions have been written for AFO braces for the bilateral lower extremities and provided to case management. Molds have been made for these braces but they have not yet been delivered. If patient is transferred to [facility] prior to delivery of the AFO braces, we'll plan to discontinue the order for the AFO braces and then a plan to proceed with bracing as necessary while at [facility]. Patient does have other medical conditions and continues be seen and examined by medic ine. Patient's Lauren catheter continues to be intact. Patient may be discharged to [facility] with her indwelling catheter intact. Patient is clear for discharge from an orthopedic spine standpoint. Patient may follow-up with Jose Still PA-C or Dr. Casey Evans at [facility] in 2 weeks following discharge. We again discussed her significant weakness in the bilateral lower extremities in detail along with her inability to void on her own and unable to sense voiding and bowel movements. We discussed the symptoms may be permanent and dam age. We also discussed the importance of rehabilitation and that long-term rehabilitation provide the best opportunity to have some improvement of her symptoms. Patient is on fluoroscopy with working through rehabilitation and today states she is eager to do so. 2. Medicine will continue seeing and examined the patient and follow her for her other medical diagnoses 3. If approved, patient will be discharged to [facility] pending medical clearance
[2019-06-06] MEDS: SODIUM CHLORIDE 0.9% 1,000 ML IV SCH ×2 (13:24→23:15)
[2019-06-06] MEDS: HYDROcodone/APAP 5-325MG 1 EACH TAB PO PRN (19:12)
[2019-06-06] MEDS: SENNOSIDES 8.6 MG TAB PO SCH (22:03)
--- NOTE | 2019-06-06 22:06 | P.PN ---
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 Patient also having trickling sensation with urination and feeling off urgency. Patient has been having headaches these symptoms since May 25 and was seen by her primary care physician Dr. Hannah. Patient was started on antibiotics in the form of Bactrim which is she has been taking since then. Patient is also having worsening leg swelling for the past 3 or 4 days. Denied any fever or chills. No complaints of abdominal pain. No nausea vomiting or diarrhea. Patient usually does have leg swelling which improves overnight after sleep but this time patient has been having leg swelling continuously. Denied any chest pain or shortness of breath. No headache or dizziness or lightheadedness. Denied any bladder or bowel incontinence. Patient lives in [place] and is visiting family in [place] currently. Patient has chronic back pain and which she's had MRI in October showing evidence of L3-L4 herniated disc. Patient was seen by a surgeon in [place] who did not recommend surgery given her age, weight. Patient states that she was pl aced on tramadol states that she did not like taking it was not helping so she just takes Aleve which helped just as much. Patient states that she was seen in the ER due to her back pain recently and was given steroids, Valium and [place]. She is also taking Robaxin from urgent care. 06/04/2019 Patient had surgery done by Dr. Dean for large herniated disc in the lumbar region and she had laminectomy and lumbar decompression. She is postop day 2 today. She says that she's feeling better but she still has some decreased sensation in her feet. She otherwise does not complain of any chest pain or racing heart, no cough no shortness of breath, no abdominal pain, and that she still incontinent of her bowels and has a Lauren catheter. 06/06/2019 [facility] No new complains Still no BM Having good bowel sounds Objective - Vital Signs Vital signs: Vital Signs Temp 97.8 F 06/06/19 15:17 Pulse 79 06/06/19 15:17 Resp 16 06/06/19 16:00 BP 131/76 06/06/19 15:17 Pulse Ox 94 L 06/06/19 15:17 Intake & Output 06/06/19 06/06/19 06/07/19 06:59 18:59 06:59 Intake Total 320 Output Total 600 1500 Balance -600 -1180 Intake: Oral 320 Output: Urine 600 1500 Uretheral (Lauren) 600 1500 Other: Voiding Method Indwelling Catheter - Exam GENERAL: The patient is alert and oriented x3, not in any acute distress. Well developed, well nourished. HEENT: Pupils are round and equally reacting to light. EOMI. No scleral icterus. No conjunctival pallor. Normocephalic, atraumatic. No pharyngeal erythema. No thyromegaly. CARDIOVASCULAR: S1 and S2 present. No murmurs, rubs, or gallops. PULMONARY: Chest is clear to auscultation, no wheezing or crackles. ABDOMEN: Soft, nontender, nondistended, normoactive bowel sounds. No palpable organomegaly. MUSCULOSKELETAL: No joint swelling or deformity. EXTREMITIES: No cyanosis, clubbing, or pedal edema. -NEUROLOGICAL: Gross neurological examination did not reveal any focal deficits. Bilateral lower extremity weakness, more on the right side. He said that she has loss of sensation in her foot more than the right side. she still has bowel incontinence SKIN: No rashes. - Labs CBC & Chem 7: 06/05/19 19:38 06/05/19 09:08 Labs: Abnormal Lab Results - Last 24 Hours (Table) 06/05/19 Range/Units 19:38 RBC 3.26 L (3.80-5.40) m/uL Hgb 11.0 L (11.4-16.0) gm/dL Hct 32.9 L (34.0-46.0) % MCV 100.7 H (80.0-100.0) fL Assessment and Plan Assessment: Acute on chronic lower back pain. Status post decompression surgery and laminectomy of L2-3 and L3-4 Bilateral lower extremity weakness. Secondary to above. Improving Acute urinary tract infection. Failed outpatient therapy. Culture showed normal frantz. Patient is already on antibiotic Acute kidney injury with possible underlying chronic kidney disease. Possible antibiotic/Bactrim and NSAID related. Improved now Anion gap Metabolic acidosis. Secondary to acute kidney injury. Improving Chronic lower back pain and left sciatica no pain. On narcotic pain medications and recent steroid use as well. Bilateral lower extremity edema. Likely due to venous stasis. Improved now. Ruled out DVT. History of right breast cancer with lumpectomy/radiation Hypertension Hyperlipidemia Obstructive sleep apnea Osteoarthritis Gout Previous history of UTIs Plan - Patient says his she is able to move her extremities better but she is having decreased sensations in her foot. - Continue antibiotics for now - Patient to go to rehab depending pain management consult and pending delivery of the brace - We'll continue rest of the medical care - Continue to follow the patient 06/06/2019 - Will try to give her a dulcolas suppository for her constiaption. For now she is haing bowel sounds and is having no belly pain. - Continue rest of the medical care - Will f/u with her
[2019-06-07] MEDS: HYDROcodone/APAP 5-325MG 1 EACH TAB PO PRN ×3 (01:02→22:42)
[2019-06-07] MEDS: DOCUSATE 100 MG CAP PO SCH ×2 (08:24→20:31)
[2019-06-07] MEDS: FUROSEMIDE 40 MG TAB PO SCH (08:24)
[2019-06-07] MEDS: ASPIRIN 325 MG TAB PO SCH (08:24)
[2019-06-07] MEDS: HEPARIN SODIUM,PORCINE 5,000 UNIT/ML 1 ML VIAL SQ SCH ×2 (08:24→20:31)
[2019-06-07] MEDS: ALLOPURINOL 300 MG TAB PO SCH (08:24)
[2019-06-07] MEDS: BACLOFEN 10 MG TAB PO SCH (08:24)
[2019-06-07] MEDS: TRIAMCINOLONE 0.1% CREAM 80 GM TUBE TOPICAL SCH ×2 (08:25→20:32)
[2019-06-07] MEDS: NYSTATIN 100,000UNIT/GM CREAM 30 GM TUBE TOPICAL SCH ×2 (08:25→20:31)
--- NOTE | 2019-06-07 10:42 | P.PN ---
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 Patient also having trickling sensation with urination and feeling off urgency. Patient has been having headaches these symptoms since May 25 and was seen by her primary care physician Dr. Hannah. Patient was started on antibiotics in the form of Bactrim which is she has been taking since then. Patient is also having worsening leg swelling for the past 3 or 4 days. Denied any fever or chills. No complaints of abdominal pain. No nausea vomiting or diarrhea. Patient usually does have leg swelling which improves overnight after sleep but this time patient has been having leg swelling continuously. Denied any chest pain or shortness of breath. No headache or dizziness or lightheadedness. Denied any bladder or bowel incontinence. Patient lives in [place] and is visiting family in [place] currently. Patient has chronic back pain and which she's had MRI in October showing evidence of L3-L4 herniated disc. Patient was seen by a surgeon in [place] who did not recommend surgery given her age, weight. Patient states that she was pl aced on tramadol states that she did not like taking it was not helping so she just takes Aleve which helped just as much. Patient states that she was seen in the ER due to her back pain recently and was given steroids, Valium and [place]. She is also taking Robaxin from urgent care. 06/04/2019 Patient had surgery done by Dr. Dean for large herniated disc in the lumbar region and she had laminectomy and lumbar decompression. She is postop day 2 today. She says that she's feeling better but she still has some decreased sensation in her feet. She otherwise does not complain of any chest pain or racing heart, no cough no shortness of breath, no abdominal pain, and that she still incontinent of her bowels and has a Lauren catheter. 06/06/2019 Pt awaiting [facility] No new complains Still no BM Having good bowel sounds 06/07/2019 Still waiting for insurance approval No bowel movement yet but no abdominal pain, she is having bowel sounds and is passing gases now Objective - Vital Signs Vital signs: Vital Signs Temp 97.4 F L 06/07/19 05:00 Pulse 64 06/07/19 05:00 Resp 18 06/07/19 08:00 BP 159/71 06/07/19 05:00 Pulse Ox 100 06/07/19 05:00 Intake & Output 06/06/19 06/07/19 06/07/19 18:59 06:59 18:59 Intake Total 320 Output Total 1500 1300 Balance -1180 -1300 Intake: Oral 320 Output: Urine 1500 1300 Straight 800 Uretheral (Lauren) 1500 Other: # Voids 0 - Exam GENERAL: The patient is alert and oriented x3, not in any acute distress. Well developed, well nourished. HEENT: Pupils are round and equally reacting to light. EOMI. No scleral icterus. No conjunctival pallor. Normocephalic, atraumatic. No pharyngeal erythema. No thyromegaly. CARDIOVASCULAR: S1 and S2 present. No murmurs, rubs, or gallops. PULMONARY: Chest is clear to auscultation, no wheezing or crackles. ABDOMEN: Soft, nontender, nondistended, normoactive bowel sounds. No palpable organomegaly. MUSCULOSKELETAL: No joint swelling or deformity. EXTREMITIES: No cyanosis, clubbing, or pedal edema. -NEUROLOGICAL: Gross neurological examination did not reveal any focal deficits. Bilateral lower extremity weakness, more on the right side. He said that she has loss of sensation in her foot more than the right side. she still has bowel incontinence SKIN: No rashes. - Labs CBC & Chem 7: 06/05/19 19:38 06/05/19 09:08 Assessment and Plan Assessment: Acute on chronic lower back pain. Status post decompression surgery and laminectomy of L2-3 and L3-4 Bilateral lower extremity weakness. Secondary to above. Improving Acute urinary tract infection. Failed outpatient therapy. Culture showed normal frantz. Patient is already on antibiotic Acute kidney injury with possible underlying chronic kidney disease. Possible antibiotic/Bactrim and NSAID related. Improved now Anion gap Metabolic acidosis. Secondary to acute kidney injury. Improving Chronic lower back pain and left sciatica no pain. On narcotic pain medications and recent steroid use as well. Bilateral lower extremity edema. Likely due to venous stasis. Improved now. Ruled out DVT. History of right breast cancer with lumpectomy/radiation Hypertension Hyperlipidemia Obstructive sleep apnea Osteoarthritis Gout Previous history of UTIs Plan - Patient says his she is able to move her extremities better but she is having decreased sensations in her foot. - Continue antibiotics for now - Patient to go to rehab depending pain management consult and pending delivery of the brace - We'll continue rest of the medical care - Continue to follow the patient 06/06/2019 - Will try to give her a dulcolas suppository for her constiaption. For now she is haing bowel sounds and is having no belly pain. - Continue rest of the medical care - Will f/u with her 06/07/2019 - We'll wait to see the results from duplex suppository for constipation. She still having good bowel sounds and no belly pain and is passing gases - Continue pain control - Continue PT OT and mobility - We'll follow with her. Patient can be discharged when bed available
[2019-06-07] MEDS: SODIUM CHLORIDE 0.9% 1,000 ML IV SCH (11:53)
[2019-06-07] MEDS: BISACODYL 10 MG SUPP RECTAL PRN (14:36)
[2019-06-07] MEDS: SENNOSIDES 8.6 MG TAB PO SCH (20:31)
[2019-06-08] MEDS: SODIUM CHLORIDE 0.9% 1,000 ML IV SCH ×2 (03:42→13:57)
[2019-06-08] MEDS: ASPIRIN 325 MG TAB PO SCH (07:59)
[2019-06-08] MEDS: HEPARIN SODIUM,PORCINE 5,000 UNIT/ML 1 ML VIAL SQ SCH ×2 (07:59→20:52)
[2019-06-08] MEDS: DOCUSATE 100 MG CAP PO SCH ×2 (07:59→20:52)
[2019-06-08] MEDS: ALLOPURINOL 300 MG TAB PO SCH (07:59)
[2019-06-08] MEDS: BISACODYL 10 MG SUPP RECTAL PRN (07:59)
[2019-06-08] MEDS: BACLOFEN 10 MG TAB PO SCH (07:59)
[2019-06-08] MEDS: FUROSEMIDE 40 MG TAB PO SCH (07:59)
[2019-06-08] MEDS: TRIAMCINOLONE 0.1% CREAM 80 GM TUBE TOPICAL SCH ×2 (08:00→20:53)
[2019-06-08] MEDS: NYSTATIN 100,000UNIT/GM CREAM 30 GM TUBE TOPICAL SCH ×2 (08:00→21:52)
[2019-06-08] MEDS: HYDROcodone/APAP 5-325MG 1 EACH TAB PO PRN ×2 (15:29→21:52)
[2019-06-08] MEDS: SENNOSIDES 8.6 MG TAB PO SCH (20:52)
[2019-06-09] MEDS: SODIUM CHLORIDE 0.9% 1,000 ML IV SCH ×2 (05:36→17:43)
[2019-06-09] MEDS: HYDROcodone/APAP 5-325MG 1 EACH TAB PO PRN ×3 (06:07→23:40)
[2019-06-09] MEDS: BACLOFEN 10 MG TAB PO SCH (09:24)
[2019-06-09] MEDS: DOCUSATE 100 MG CAP PO SCH ×2 (09:24→21:03)
[2019-06-09] MEDS: HEPARIN SODIUM,PORCINE 5,000 UNIT/ML 1 ML VIAL SQ SCH ×2 (09:24→21:03)
[2019-06-09] MEDS: FUROSEMIDE 40 MG TAB PO SCH (09:24)
[2019-06-09] MEDS: ALLOPURINOL 300 MG TAB PO SCH (09:24)
[2019-06-09] MEDS: ASPIRIN 325 MG TAB PO SCH (09:24)
[2019-06-09] MEDS: NYSTATIN 100,000UNIT/GM CREAM 30 GM TUBE TOPICAL SCH ×2 (09:27→23:41)
[2019-06-09] MEDS: TRIAMCINOLONE 0.1% CREAM 80 GM TUBE TOPICAL SCH ×2 (09:28→23:41)
--- NOTE | 2019-06-09 12:20 | P.PN ---
Subjective Patient is a 73-year-old male with a known history of chronic lower back pain, L3-L4 or herniated disc, left-sided sciatic nerve pain, right breast cancer status post lumpectomy/radiation, hypertension and hyperlipidemia and obstructive sleep apnea came to ER with complaints of lower back pain. Patient also having trickling sensation with urination and feeling off urgency. Patient has been having headaches these symptoms since May 25 and was seen by her primary care physician Dr. Hannah. Patient was started on antibiotics in the form of Bactrim which is she has been taking since then. Patient is also having worsening leg swelling for the past 3 or 4 days. Denied any fever or chills. No complaints of abdominal pain. No nausea vomiting or diarrhea. Patient usually does have leg swelling which improves overnight after sleep but this time patient has been having leg swelling continuously. Denied any chest pain or shortness of breath. No headache or dizziness or lightheadedness. Denied any bladder or bowel incontinence. Patient lives in [place] and is visiting family in [place] currently. Patient has chronic back pain and which she's had MRI in October showing evidence of L3-L4 herniated disc. Patient was seen by a surgeon in [place] who did not recommend surgery given her age, weight. Patient states that she was placed on tramadol states that she did not like taking it was not helping so she just takes Aleve which helped just as much. Patient states that she was seen in the ER due to her back pain recently and was given steroids, Valium and [place]. She is also taking Robaxin from urgent care. 06/09/2019 Patient is status post laminectomy and decompression of L3 to L4 and L2 to L3 on 06/02/2019. Today is postop day #7. Patient feels much better. Her back pain is controlled. Dressing on back wound is in place. She can move her lower extremity better than before. Orthopedic team R cleared the patient for discharge Vitals are stable. Patient will need orthopedic follow-up in 2 weeks. Patient might benefit from ECF upon discharge for inpatient rehab. Pending insurance approval. Patient is recommended to have intermittent catheterization and change positions every 2 hours. Objective - Vital Signs Vital signs: Vital Signs Temp 97.7 F 06/09/19 04:57 Pulse 74 06/09/19 04:57 Resp 18 06/09/19 04:57 BP 112/48 06/09/19 04:57 Pulse Ox 95 06/09/19 04:57 Intake & Output 06/08/19 06/09/19 06/09/19 18:59 06:59 18:59 Output Total 1800 800 Balance -1800 -800 Output: Urine 1800 800 Straight 1800 800 Other: Voiding Method Indwelling Catheter Self-Catheterization Self-Catheterization # Voids 1 # Bowel Movements 2 - Exam GENERAL: The patient is alert and oriented x3, not in any acute distress. HEENT: Pupils are round and equally reacting to light. EOMI. No scleral icterus. No conjunctival pallor. Normocephalic, atraumatic. No pharyngeal erythema. No thyromegaly. CARDIOVASCULAR: S1 and S2 present. No murmurs, rubs, or gallops. PULMONARY: Chest is clear to auscultation, no wheezing or crackles. ABDOMEN: Soft, nontender, nondistended, normoactive bowel sounds. No palpable organomegaly. MUSCULOSKELETAL: No joint swelling or deformity. EXTREMITIES: No cyanosis, clubbing, or pedal edema. -NEUROLOGICAL: Gross cranial nerves examination did not reveal any focal deficits. Bilateral lower extremity weakness, improving. Some tingling and numbness in the lower extremity. SKIN: No rashes. - Labs CBC & Chem 7: 06/05/19 19:38 06/05/19 09:08 Assessment and Plan Assessment: Acute on chronic lower back pain. Status post decompression surgery and laminectomy of L2-3 and L3-4 Bilateral lower extremity weakness. Secondary to above. Improving Acute urinary tract infection. Failed outpatient therapy. Culture showed normal frantz. Patient is already been treated with antibiotic Acute kidney injury with possible underlying chronic kidney disease. Possible antibiotic/Bactrim and NSAID related. Improved now Anion gap Metabolic acidosis. Secondary to acute kidney injury. Improving Chronic lower back pain and left sciatica no pain. On narcotic pain medications and recent steroid use as well. Bilateral lower extremity edema. Likely due to venous stasis. Improved now. Ruled out DVT. History of right breast cancer with lumpectomy/radiation Hypertension Hyperlipidemia Obstructive sleep apnea Osteoarthritis Gout Previous history of UTIs DVT prophylaxis with heparin subcu Plan: This is a pleasant 73 years old female who presents with lower extremity weakness and back pain. No spinal masses was mentioned in the procedure. Patient can move her extremity better after surgery. However she went benefit from ECF upon discharge as she may need some physical therapy. Patient is pending insurance approval. Continue with home medications and pain management. Nephrology team input is appreciated.. Labs and medication were reviewed.. Continue same treatment. Continue with symptomatic treatment. Resume home medication. Monitor lytes and vitals. DVT and GI prophylaxis. Further recommendations of the clinical course of the patient DVT prophylaxis: Patient is already on subcutaneous heparin. GI Prophylaxis: Pepcid Prognosis is guarded
--- NOTE | 2019-06-09 12:43 | P.PN ---
Subjective Progress Note Date: 06/09/19 Principal diagnosis: Cauda equina syndrome Ms. Jackson is seen today she is in good spirits she is hopeful that she can go to inpatient rehabilitation. She states her pain is well controlled and that she is eating. She denies fevers chills nausea vomiting or chest pain. She st ates that when her bladder is full she does feel some pressure. She thinks that she has gained a little more hip strength. 10 point review of systems is performed and is positive for lower extremity weakness. Objective - Vital Signs Vital signs: Vital Signs Temp 97.7 F 06/09/19 04:57 Pulse 74 06/09/19 04:57 Resp 18 06/09/19 04:57 BP 112/48 06/09/19 04:57 Pulse Ox 95 06/09/19 04:57 Intake & Output 06/08/19 06/09/19 06/09/19 18:59 06:59 18:59 Output Total 1800 800 Balance -1800 -800 Output: Urine 1800 800 Straight 1800 800 Other: Voiding Method Indwelling Catheter Self-Catheterization Self-Catheterization # Voids 1 # Bowel Movements 2 - Exam Gen.: Alert and oriented not in acute distress HEENT: Normocephalic atraumatic extraocular muscles intact Respiratory: No accessory muscle use was noted breathing was nonlabored Cardiovascular: Heart regular rate and rhythm 1+ lower extremity edema noted Abdomen: soft tender nondistended Musculoskeletal examination: Shoulder abduction, elbow flexion, elbow extension, wrist extension, finger extension, finger abduction 5/5 bilaterally, experience design director strength 5/5 right 4/5 left, hip range of motion normal, hip flexion 2+/5 bilaterally, knee extension 4/5 right 5/5 left, dorsi flexion EHL and plantar flexion 0/5 bilaterally Neurologic examination: Patellar and Achilles reflexes 0/4 bilaterally no ankle clonus was noted, no increased tone at the ankles, sensation to pinprick intact bilaterally L1-L3 decreased on the right at L4 absent L5 through S5 right, pinprick decreased on the left L5 and S1 and absent S2 to S5, voluntary anal contraction was negative. Following examination patient was able to assist nursing staff helping her to sit up to bedside Review of physical therapy notes from 06/08/2019 patient was maximum assist for bathing supervision for upper body dressing total assist for lower dressing modified independent for grooming and eating, toileting total assist transfer total assist bed mobility mod assist patient tolerated therapy well with improving bed mobility therapist agrees with transfer to [facility] - Labs CBC & Chem 7: 06/05/19 19:38 06/05/19 09:08 Assessment and Plan Assessment: Cauda equina syndrome secondary to disc herniation L1 GAVINO A Immobility/gait impairment due to lower extremity weakness secondary to #1 Impaired ADLs and IADLs Neurogenic bowel Neurogenic bladder (1) Lumbar disc herniation with myelopathy Current Visit: Yes Status: Acute Code(s): M51.06 - INTERVERTEBRAL DISC DISORDERS WITH MYELOPATHY, LUMBAR REGION SNOMED Code(s): 922889635 (2) Spinal stenosis of lumbar region with radiculopathy Current Visit: Yes Status: Acute Code(s): M48.061 - SPINAL STENOSIS, LUMBAR REGION WITHOUT NEUROGENIC ROSANA; M54.16 - RADICULOPATHY, LUMBAR REGION SNOMED Code(s): 11940722 (3) Cauda equina syndrome Current Visit: Yes Status: Acute Code(s): G83.4 - CAUDA EQUINA SYNDROME SNOMED Code(s): 516966029 (4) Neurogenic bladder Current Visit: Yes Status: Acute Code(s): N31.9 - NEUROMUSCULAR DYSFUNCTION OF BLADDER, UNSPECIFIED SNOMED Code(s): 244790886 (5) Neurogenic bowel Current Visit: Yes Status: Acute Code(s): K59.2 - NEUROGENIC BOWEL, NOT ELSEWHERE CLASSIFIED SNOMED Code(s): 207570603 (6) Gait difficulty Current Visit: Yes Status: Acute Code(s): R26.9 - UNSPECIFIED ABNORMALITIES OF GAIT AND MOBILITY SNOMED Code(s): 99575753 (7) Immobility Current Visit: Yes Status: Acute Code(s): Z74.09 - OTHER REDUCED MOBILITY SNOMED Code(s): 924589712 (8) Immobility syndrome (paraplegic) Current Visit: Yes Status: Acute Code(s): M62.3 - IMMOBILITY SYNDROME (PARAPLEGIC) SNOMED Code(s): 98063877 (9) Impaired sensation Current Visit: Yes Status: Acute Code(s): R20.1 - HYPOESTHESIA OF SKIN SNOMED Code(s): 599206893 Plan: At this time I still feel is in the patient's best interest to be transferred to the rehabilitation [facility] for inpatient spinal cord rehabilitation. The patient has significant parapareis with neurogenic bowel and bladder. She has the ability to participate in physical and occupational therapies 3 hours a day 5 days a week with goals of returning to home modified independent at a wheelchair or walker level. She will require ongoing nursing care and physician management for her neurogenic bladder and bowel management. She will require nursing for medication administration in helping her change position every 2 hours to avoid skin breakdown, intermittent catheterization. She will require DVT prophylaxis also floating her heels to avoid skin breakdown. She will require ongoing physician evaluation of her progress and management of her blood pressure, acute postoperative pain control and ongoing management of her acute renal failure. Will continue bladder scans every 5 hours and catheterize if volume greater than 500 mL We will continue bowel management with senna daily, Colace twice daily suppository every other day We'll add SCDs for further DVT prophylaxis. We will order a venous Doppler ultrasound prior to transfer to [facility]. Case was discussed today with physician reviewer who said he would approve inpatient rehabilitation. Time with Patient: Greater than 30
[2019-06-09] MEDS: BISACODYL 10 MG SUPP RECTAL SCH (13:54)
--- NOTE | 2019-06-09 14:11 | US ---
EXAMINATION TYPE: US venous doppler duplex LE BI DATE OF EXAM: 06/09/2019 12:45 PM COMPARISON: NONE CLINICAL HISTORY: evaluate for DVT prior to transfer. SIDE PERFORMED: TECHNIQUE: The lower extremity deep venous system is examined utilizing real time linear array sonog christopher with graded compression, doppler sonography and color-flow sonography. VESSELS IMAGED: External Iliac Vein (EIV) Common Femoral Vein Deep Femoral Vein Greater Saphenous Vein * Femoral Vein Popliteal Vein Small Saphenous Vein * Proximal Calf Veins (* superficial vessels) Patient of large body habitus, unable to well move to cooperate with examiner. Right Leg: Negative for DVT Left Leg: Negative for DVT Examiner unable to augment due to patient position. IMPRESSION: No evidence of deep venous thrombosis in both legs.
[2019-06-09] MEDS ORDERED: FAMOTIDINE 20 MG/2 ML VIAL IV SCH (21:00)
[2019-06-09] MEDS: SENNOSIDES 8.6 MG TAB PO SCH (21:03)
[2019-06-09] MEDS: FAMOTIDINE 20 MG TAB PO SCH (23:39)
[2019-06-10] MEDS: HYDROcodone/APAP 5-325MG 1 EACH TAB PO PRN ×3 (04:26→23:35)
[2019-06-10 08:14] LABS: Basophils % (A) 1 %; Eosinophils # (A) 0.2 k/uL (0-0.7); Eosinophils % (A) 3 %; HCT 34.8 % (34.0-46.0); Lymphocytes # (A) 2.1 k/uL (1.0-4.8); Lymphocytes % (A) 33 %; MCH 32.3 pg (25.0-35.0); MCHC 31.7 g/dL (31.0-37.0); MCV 101.6 fL (80.0-100.0); Macrocytosis Slight; Mean Platelet Volume 6.5; Monocytes # (A) 0.4 k/uL (0-1.0); Monocytes % (A) 6 %; Neutrophils # (A) 3.5 k/uL (1.3-7.7); Neutrophils % (A) 55 %; Platelet Count 310 k/uL (150-450); RBC 3.42 m/uL (3.80-5.40); RDW 14.9 % (11.5-15.5); WBC 6.4 k/uL (3.8-10.6)
[2019-06-10 08:33] LABS: Calcium 9.1 mg/dL (8.4-10.2); Potassium 4.9 mmol/L (3.5-5.1)
--- NOTE | 2019-06-10 08:58 | P.PN ---
Subjective Patient is a 73-year-old male with a known history of chronic lower back pain, L3-L4 or herniated disc, left-sided sciatic nerve pain, right breast cancer status post lumpectomy/radiation, hypertension and hyperlipidemia and obstructive sleep apnea came to ER with complaints of lower back pain. Patient also having trickling sensation with urination and feeling off urgency. Patient has been having headaches these symptoms since May 25 and was seen by her primary care physician Dr. Hannah. Patient was started on antibiotics in the form of Bactrim which is she has been taking since then. Patient is also having worsening leg swelling for the past 3 or 4 days. Denied any fever or chills. No complaints of abdominal pain. No nausea vomiting or diarrhea. Patient usually does have leg swelling which improves overnight after sleep but this time patient has been having leg swelling continuously. Denied any chest pain or shortness of breath. No headache or dizziness or lightheadedness. Denied any bladder or bowel incontinence. Patient lives in [place] and is visiting family in [place] currently. Patient has chronic back pain and which she's had MRI in October showing evidence of L3-L4 herniated disc. Patient was seen by a surgeon in [place] who did not recommend surgery given her age, weight. Patient states that she was placed on tramadol states that she did not like taking it was not helping so she just takes Aleve which helped just as much. Patient states that she was seen in the ER due to her back pain recently and was given steroids, Valium and [place]. She is also taking Robaxin from urgent care. 06/09/2019 Patient is status post laminectomy and decompression of L3 to L4 and L2 to L3 on 06/02/2019. Today is postop day #7. Patient feels much better. Her back pain is controlled. Dressing on back wound is in place. She can move her lower extremity better than before. Orthopedic team R cleared the patient for discharge Vitals are stable. Patient will need orthopedic follow-up in 2 weeks. Patient might benefit from ECF upon discharge for inpatient rehab. Pending insurance approval. Patient is recommended to have intermittent catheterization and change positions every 2 hours. 06/10/2019 Patient keep improving, her back pain is down to 6/10, she feels better and can improve her legs to larger extent than yesterday and she is happy about that. She can hold her fluids up, she still have tingling in her legs. On exam she can move her both legs with left more than right. Patient states she does not need stool softeners. She has bladder scan was done for her early this morning. Vitals and labs were reviewed and looks stable. Orthopedic input is appreciated. Still pending insurance approval for placement. Objective - Vital Signs Vital signs: Vital Signs Temp 97.4 F L 06/10/19 04:37 Pulse 72 06/10/19 04:37 Resp 16 06/10/19 04:37 BP 142/79 06/10/19 04:37 Pulse Ox 96 06/10/19 04:37 Intake & Output 06/09/19 06/10/19 06/10/19 18:59 06:59 18:59 Intake Total 200 Output Total 850 500 Balance -650 -500 Intake: Oral 200 Output: Urine 850 500 Straight 850 500 Other: Voiding Method Self-Catheterization Self-Catheterization - Exam GENERAL: The patient is alert and oriented x3, not in any acute distress. HEENT: Pupils are round and equally reacting to light. EOMI. No scleral icterus. No conjunctival pallor. Normocephalic, atraumatic. No pharyngeal erythema. No thyromegaly. CARDIOVASCULAR: S1 and S2 present. No murmurs, rubs, or gallops. PULMONARY: Chest is clear to auscultation, no wheezing or crackles. ABDOMEN: Soft, nontender, nondistended, normoactive bowel sounds. No palpable organomegaly. MUSCULOSKELETAL: No joint swelling or deformity. EXTREMITIES: No cyanosis, clubbing, or pedal edema. -NEUROLOGICAL: Gross cranial nerves examination did not reveal any focal deficits. Bilateral lower extremity weakness, left better than right, improving. Some tingling and numbness in the lower extremity. SKIN: No rashes. - Labs CBC & Chem 7: 06/10/19 07:47 06/10/19 07:47 Labs: Abnormal Lab Results - Last 24 Hours (Table) 06/10/19 06/10/19 Range/Units 07:47 07:47 RBC 3.42 L (3.80-5.40) m/uL Hgb 11.0 L (11.4-16.0) gm/dL MCV 101.6 H (80.0-100.0) fL Carbon Dioxide 34 H (22-30) mmol/L BUN 19 H (7-17) mg/dL Glucose 102 H (74-99) mg/dL Assessment and Plan Assessment: Acute on chronic lower back pain. Status post decompression surgery and laminectomy of L2-3 and L3-4 Bilateral lower extremity weakness. Secondary to above. Improving Acute urinary tract infection. Failed outpatient therapy. Culture showed normal frantz. Patient is already been treated with antibiotic Acute kidney injury with possible underlying chronic kidney disease. Possible antibiotic/Bactrim and NSAID related. Improved now Anion gap Metabolic acidosis. Secondary to acute kidney injury. Improving Chronic lower back pain and left sciatica no pain. On narcotic pain medications and recent steroid use as well. Bilateral lower extremity edema. Likely due to venous stasis. Improved now. Ruled out DVT. History of right breast cancer with lumpectomy/radiation Hypertension Hyperlipidemia Obstructive sleep apnea Osteoarthritis Gout Previous history of UTIs DVT prophylaxis with heparin subcu Plan: This is a pleasant 73 years old female who presents with lower extremity weakness and back pain. No spinal masses was mentioned in the procedure. Patient can move her extremity better after surgery. However she went benefit from ECF upon discharge as she may need some physical therapy. Patient is pending insurance approval. Continue with home medications and pain management. Nephrology team input is appreciated.. Labs and medication were reviewed.. Continue same treatment. Continue with symptomatic treatment. Resume home medication. Monitor lytes and vitals. DVT and GI prophylaxis. Further recommendations of the clinical course of the patient DVT prophylaxis: Patient is already on subcutaneous heparin. GI Prophylaxis: Pepcid Prognosis is guarded
[2019-06-10] MEDS: FUROSEMIDE 40 MG TAB PO SCH (09:35)
[2019-06-10] MEDS: FAMOTIDINE 20 MG TAB PO SCH ×2 (09:36→20:24)
[2019-06-10] MEDS: HEPARIN SODIUM,PORCINE 5,000 UNIT/ML 1 ML VIAL SQ SCH ×2 (09:36→20:23)
[2019-06-10] MEDS: ASPIRIN 325 MG TAB PO SCH (09:36)
[2019-06-10] MEDS: ALLOPURINOL 300 MG TAB PO SCH (09:36)
[2019-06-10] MEDS: BACLOFEN 10 MG TAB PO SCH (09:37)
[2019-06-10] MEDS: SODIUM CHLORIDE 0.9% 1,000 ML IV SCH ×2 (09:38→20:25)
[2019-06-10] MEDS: DOCUSATE 100 MG CAP PO SCH ×2 (09:38→20:24)
[2019-06-10] MEDS: TRIAMCINOLONE 0.1% CREAM 80 GM TUBE TOPICAL SCH ×2 (09:41→20:24)
[2019-06-10] MEDS: NYSTATIN 100,000UNIT/GM CREAM 30 GM TUBE TOPICAL SCH ×2 (09:41→20:25)
[2019-06-10] MEDS: SENNOSIDES 8.6 MG TAB PO SCH (20:24)
[2019-06-11] MEDS: ALLOPURINOL 300 MG TAB PO SCH (07:25)
[2019-06-11] MEDS: NYSTATIN 100,000UNIT/GM CREAM 30 GM TUBE TOPICAL SCH (07:25)
[2019-06-11] MEDS: TRIAMCINOLONE 0.1% CREAM 80 GM TUBE TOPICAL SCH (07:25)
[2019-06-11] MEDS: ASPIRIN 325 MG TAB PO SCH (07:26)
[2019-06-11] MEDS: FUROSEMIDE 40 MG TAB PO SCH (07:26)
[2019-06-11] MEDS: BACLOFEN 10 MG TAB PO SCH (07:26)
[2019-06-11] MEDS: HEPARIN SODIUM,PORCINE 5,000 UNIT/ML 1 ML VIAL SQ SCH (07:26)
[2019-06-11] MEDS: SODIUM CHLORIDE 0.9% 1,000 ML IV SCH (07:26)
[2019-06-11] MEDS: DOCUSATE 100 MG CAP PO SCH (07:26)
[2019-06-11] MEDS: FAMOTIDINE 20 MG TAB PO SCH (07:26)
--- NOTE | 2019-06-11 07:56 | P.DS ---
Providers Date of admission: 05/29/19 15:24 Attending physician: Marlen Hurley Consults: 05/29/19 15:07 Consult Physician Urgent Consulting Provider: Rhianna Scales Consult Reason/Comments: Acute renal failure Do you want consulting provider notified?: Yes 05/31/19 16:44 Consult Physician Routine Consulting Provider: Ronnie Evans Consult Reason/Comments: unable to bear weight, legs numb Do you want consulting provider notified?: Already Contacted 06/03/19 10:09 Consult Physician Routine Consulting Provider: Gamal Lockett Consult Reason/Comments: Cauda equina syndrome status post decompression, Do you want consulting provider notified?: Yes Primary care physician: Brielle Carter Hospital Course: Discharge diagnosis Acute on chronic lower back pain. Status post decompression surgery and laminectomy of L2-3 and L3-4 Bilateral lower extremity weakness. Secondary to above. Improving Acute urinary tract infection. Failed outpatient therapy. Culture showed normal frantz. Patient is already on antibiotic. Patient has a course of Rocephin Acute kidney injury with possible underlying chronic kidney disease. Possible antibiotic/Bactrim and NSAID related. Improved now Anion gap Metabolic acidosis. Secondary to acute kidney injury. Improved Chronic lower back pain and left sciatica no pain. On narcotic pain medications and recent steroid use as well. Bilateral lower extremity edema. Likely due to venous stasis. Improved now. Ruled out DVT. History of right breast cancer with lumpectomy/radiation Hypertension Hyperlipidemia Obstructive sleep apnea Osteoarthritis Gout Previous history of UTIs Hospital course 73-year-old male with a known history of chronic lower back pain, L3-L4 herniated disc, left-sided sciatic nerve pain, right breast cancer status post lumpectomy/radiation, hypertension and hyperlipidemia and obstructive sleep apnea came to ER with complaints of lower back pain. Patient also having trickling sensation with urination difficulty and feeling of urgency. Patient lives in [place] and is visiting family in [place] currently. She had weakness in her both lower extremity for 2 days prior to admission to the hospital. She moved to [place] about 2 weeks prior to admission in which she was walking using her walker, while bending forward. She had MRI of the lumbar spine showing spinal stenosis at L3 to L4 with disease and neuro foraminal encroachment. Patient is status post laminectomy and decompression of L3 to L4 and L2 to L3 on 06/02/2019. Today is postop day #9. After the surgery patient had improvement in her both legs movement, better on the right side. And other symptoms improved. She still have tingling in her lower extremity. Orthopedic team recommended self-catheterization every 5 hour, however the change in accomm odation Lauren catheter has been placed for urinary retention. Recommend outpatient follow-up with urologist and orthopedic team. Patient was happy with her improvement and she felt eager to be discharged. Patient was kept over the weekend in the hospital for insurance approval. Patient denies other symptoms like denying chest pain or dyspnea. She is tolerating diet well. Patient was cleared by orthopedic team for discharge Problems and management plan were discussed with the patient and he verbalized understanding and acceptance Patient was found stable and can be discharged home however he needs follow-up as an outpatient. Patient was instructed to follow up with her PCP in one week. Also to follow up with urology and orthopedic. Patient agrees with the appointments made for her with orthopedic team Gen: patient is a AAOx3, no distress CVS: S1-S2, RRR, no murmur Lungs: B/L CTA, no wheezing -Abdomen: soft, no distention, no tenderness, positive bowel sounds. Lauren catheter is in a Place Extremity: no leg edema or induration -Neuro: Alert awake oriented. Cranial nerves are grossly intact. Improving lower extremity weakness, right side better than left. Still have tingling in her lower extremity. Time spent more than 35 minutes Patient Condition at Discharge: Fair Plan - Discharge Summary Discharge Rx Participant: Yes New Discharge Prescriptions: New Polyethylene Glycol 3350 [Miralax] 17 gm PO DAILY #15 powd.pack Nystatin 100,000Unit/gm Cream [Mycostatin Cream] 1 applic TOPICAL BID #1 tube HYDROcodone/APAP 5-325MG [[place] 5-325] 2 each PO Q4HR PRN #12 tab PRN Reason: Moderate Pain Sennosides-Docusate Sodium [Senokot-S] 1 each PO DAILY tab Continue Furosemide [Lasix] 20 mg PO DAILY Omeprazole 20 mg PO DAILY [place]-Red 1 tab PO DAILY Baclofen [Lioresal] 10 mg PO DAILY Multivitamins, Thera [Multivitamin (formulary)] 1 tab PO DAILY Loratadine [Claritin] 10 mg PO DAILY Lisinopril-Hctz 20-12.5 mg [Zestoretic 20-12.5] 1 tab PO DAILY Allopurinol [Zyloprim] 300 mg PO DAILY NIFEdipine [Procardia XL] 60 mg PO DAILY Discontinued Sulfamethox-Tmp 800-160Mg [Bactrim DS 800-160 mg] 1 tab PO Q12HR predniSONE 50 mg PO DAILY #5 tablet Fluconazole [Diflucan] 150 mg PO DIRECTED Discharge Medication List Furosemide [Lasix] 20 mg PO DAILY 05/28/19 [History] Omeprazole 20 mg PO DAILY 05/28/19 [History] Allopurinol [Zyloprim] 300 mg PO DAILY 05/29/19 [History] Baclofen [Lioresal] 10 mg PO DAILY 05/29/19 [History] Lisinopril-Hctz 20-12.5 mg [Zestoretic 20-12.5] 1 tab PO DAILY 05/29/19 [History] Loratadine [Claritin] 10 mg PO DAILY 05/29/19 [History] Multivitamins, Thera [Multivitamin (formulary)] 1 tab PO DAILY 05/29/19 [History] NIFEdipine [Procardia XL] 60 mg PO DAILY 05/29/19 [History] [place]-Red 1 tab PO DAILY 05/29/19 [History] HYDROcodone/APAP 5-325MG [[place] 5-325] 2 each PO Q4HR PRN #12 tab 06/05/19 [Rx] Nystatin 100,000Unit/gm Cream [Mycostatin Cream] 1 applic TOPICAL BID #1 tube 06/05/19 [Rx] Polyethylene Glycol 3350 [Miralax] 17 gm PO DAILY #15 powd.pack 06/05/19 [Rx] Sennosides-Docusate Sodium [Senokot-S] 1 each PO DAILY tab 06/05/19 [Rx] Follow up Appointment(s)/Referral(s): Raul Hannah MD [Primary Care Provider] - (Once discharged, follow up with Jose Meneses PAC [PHYSICIAN GRINDER MACHINE SETTER] - 2 Weeks (Patient may follow-up with Jose Still PA-C or Dr. Casey Eavns at [facility] in 2 weeks following discharge. ) [employer] [NON-STAFF] - ([facility] will deliver bilateral AFO braces next week.) Activity/Diet/Wound Care/Special Instructions: 1. Patient may shower with Tegaderm dressing intact. 2. Patient may remove Tegaderm dressing in 3 days and shower without a dressing at that time. 3. Patient should keep Steri-Strips intact and allow them to fall off naturally. 4. Patient is encouraged to use AFO braces or other braces as instructed to aid in ambulation for the bilateral lower extremities 5. Patient may work with physical therapy while at rehabilitation facility prior to the delivery and fitting of her AFO braces bilaterally 6. Patient is encouraged to use other walking aids while working with physical therapy to aid in mobility as needed 7. Patient should avoid excessive bending, twisting, and lifting; no lifting greater than 10 pounds 8. Take medications as prescribed 9. Do not soak in tub Discharge Disposition: TRANSFER TO SNF/ECF
--- NOTE | 2019-06-11 08:47 | P.PN ---
Progress Note - Text Progress Note Date: 06/11/19 Patient is a pleasant 73-year-old female who is seen sitting at the bedside for follow-up evaluation after undergoing L2-3 and L3-4 laminectomy decompression with discectomy on 06/02/2019. Patient continues to say she has had some improvement in some lower extremity strength most specifically with knee extension bilaterally but her symptoms have remained consistent over the past couple days. She continues to have difficulty with hip flexion bilaterally specifically on the left. She continues to be unable to perform any active dorsiflexion or plantarflexion bilaterally. She is unable to wiggle her toes bilaterally. She continues to have a Lauren catheter intact. She is unable to tell when she urinates or has a bowel movement. She is happy and is currently sitting upright in bed. She states she has been working with physical therapy. She states due to her significant symptoms and recent surgical intervention she feels she would need to remain in the [place] area for further treatment at discharge from the hospital. She lives in [place] but states her family resides here in [place]. She has been seen and examined by Dr. Lockett in pain management yesterday. He is recommending discharged to [facility] for spinal cord rehabilitation. Patient has been discussed in detail case management who has sent all the appropriate paperwork to [facility]. There was some delay in insurance approval but approval has been received. Patient is planning to be discharged to [facility] today. Patient is eager for transfer to rehab. Physical exam: Postoperative day #9 Patient is awake, alert, and oriented 3 Vital signs stable Good chest excursion with deep inspiration and expiration Examination of lumbar spine reveals skin is intact with no abrasions, lacerations, or bruises; no erythema, purulence or signs of infection Dressing over the surgical site remains dry and intact with some dried blood at the inferior portion of the dressing Dressing is removed and reapplied with nonstick Telfa and Tegaderm No significant pain with palpation around the surgical site Dorsiflexion, plantarflexion, and extensor hallucis longus with profound weakness bilaterally with strength 0/5 Patient is unable to perform any active range of motion of the bilateral ankles and toes bilaterally Lower extremity strength significantly weak Patient is able to perform some hip flexion in bilateral lower extremities with weakness greater on the left than the right Patient is able to perform knee extension bilaterally No lower extremity hyperreflexia bilaterally Straight leg test negative bilateral lower extremities No signs or symptoms of DVT; no calf pain No pain with internal and external rotation of the hips bilaterally Neurovascularly intact Lauren catheter intact Pertinent studies: MRI lumbar spine taken on 06/01/2019: L2-3 and L3-4 massive disc herniation resulting in severe spinal canal stenosis with essentially complete occlusion of the spinal canal; degenerative disc disease throughout the lumbar spine X-rays lumbosacral spine taken on 05/29/2019: Severe degenerative disc disease L2-S1; significant left-sided osteophytic spurring; evidence of anterior osteophytic spurring; L4-5 spondylolisthesis; no evidence of vertebral body compression fracture; multilevel facet arthropathy; clips from previous cholecystectomy; evidence of neural foraminal narrowing on oblique imaging; extensive arthrosclerosis of the abdominal aorta Assessment: Cauda equina syndrome due to massive disc herniation at L2-3 and L3-4 Profound bilateral lower extremity weakness, acute Acute on chronic low back pain Bilateral lower extremity radiculopathy Lumbar degenerative disc disease and facet arthropathy throughout L4-5 spondylolisthesis Osteophytic spurring Inability to ambulate due to weakness Current urinary tract infection on IV antibiotics Acute kidney failure History of hyperlipidemia, hypertension, bilateral lower extremity edema, and history of right-sided breast cancer with lumpectomy/radiation Plan: 1. We will continue with plan as previously set forth. Patient is progressing as expected postoperatively but continues to have significant profound weakness of bilateral lower extremities. She will continue working with physical therapy to increase mobility and ambulation. We will plan for discharge to a rehabilitation facility. Patient has been seen and examined by Dr. Lockett who is recommending discharged to [facility]. All appropriate paperwork has been sent to [facility] and upon approval patient may be transferred there today. We discussed from an orthopedic spine standpoint patient is clear for discharge. Prescriptions have been written for AFO braces for the bilateral lower extremities and provided to case management. Molds have been made for these braces but they have not yet been delivered. If patient is transferred to [facility] prior to delivery of the AFO braces, we'll plan to discontinue the order for the AFO braces and then a plan to proceed with bracing as necessary while at [facility]. Patient does have other medical conditions and continues be seen and examined by medicine. Patient's Lauren catheter continues to be intact. Patient may be discharged to [facility] with her indwelling catheter intact. Patient is clear for discharge from an orthopedic spine standpoint. Patient may follow-up with Jose Still PA-C or Dr. Casey Evans at [facility] in 2 weeks following discharge. We again discussed her significant weakness in the bilateral lower extremities in detail along with her inability to void on her own and unable to sense voiding and bowel movements. We discussed the symptoms may be permanent and damage. We also discussed the importance of rehabilitation and that long-term rehabilitation provide the best opportunity to have some improvement of her symptoms. Patient is on fluoroscopy with working through rehabilitation and today states she is eager to do so. 2. Medicine will continue seeing and examined the patient and follow her for her other medical diagnoses 3. After approval, patient is planning to be discharged to [facility] today.
[2019-06-11] MEDS: BISACODYL 10 MG SUPP RECTAL SCH (11:11)
[2019-06-11] MEDS: HYDROcodone/APAP 5-325MG 1 EACH TAB PO PRN (11:42)
[2019-06-11 14:34] VITALS: BP 136/74; PULSE 84; RESP 16; TEMP 97.9
== END 2019-06-11 14:34 | DRG 519 ==
LOC: EC 11:48 → 4MS4W 15:24
PROVIDERS: ADMIT Hospitalist; ATTEND Hospitalist
PROC: 01NB0ZZ Release Lumbar Nerve, Open Approach (ICD-10-PCS; principal; 2019-06-02 09:30)
PROC: 0SB20ZZ Excision of Lumbar Vertebral Disc, Open Approach (ICD-10-PCS; principal; 2019-06-02 09:30)
DX: M51.16 Intervertebral disc disorders with radiculopathy, lumbar region (principal); E87.2 Acidosis; G83.4 Cauda equina syndrome; K59.2 Neurogenic bowel, not elsewhere classified; M51.06 Intervertebral disc disorders with myelopathy, lumbar region; N17.9 Acute kidney failure, unspecified; N39.0 Urinary tract infection, site not specified; E78.5 Hyperlipidemia, unspecified; E87.5 Hyperkalemia; E87.70 Fluid overload, unspecified; G47.33 Obstructive sleep apnea (adult) (pediatric); R20.2 Paresthesia of skin; G89.29 Other chronic pain; I87.8 Other specified disorders of veins; K21.9 Gastro-esophageal reflux disease without esophagitis; M10.9 Gout, unspecified; M21.371 Foot drop, right foot; M21.372 Foot drop, left foot; M41.86 Other forms of scoliosis, lumbar region; M43.16 Spondylolisthesis, lumbar region; M46.86 Other specified inflammatory spondylopathies, lumbar region; M48.061 Spinal stenosis, lumbar region without neurogenic claudication; I12.9 Hypertensive chronic kidney disease with stage 1 through stage 4 chronic kidney disease, or unspecified chronic kidney disease; M47.26 Other spondylosis with radiculopathy, lumbar region; M62.3 Immobility syndrome (paraplegic); N18.9 Chronic kidney disease, unspecified; T39.395A Adverse effect of other nonsteroidal anti-inflammatory drugs [NSAID], initial encounter; Z79.899 Other long term (current) drug therapy; Z85.3 Personal history of malignant neoplasm of breast; Z87.440 Personal history of urinary (tract) infections
CPT/HCPCS: 36415; 71045; 72020; 72110; 72148; 76770; 80048; 80053; 81001; 83880; 85025; 85027; 87086; 93970; 96372; 96374; 96375; 99283; 99284

== ENCOUNTER 2019-08-07 09:32 | Emergency (ER) | payer MEDICARE ==
[2019-08-07 09:41] VITALS: RESP 16
[2019-08-07] MEDS ORDERED: MORPHINE SULFATE 4 MG/ML SYRINGE IVP STA ×2 (10:06→13:29)
[2019-08-07] MEDS ORDERED: SODIUM CHLORIDE 0.9% 500 ML 500 ML IV ONE (10:06)
[2019-08-07] MEDS ORDERED: DEXAMETHASONE SOD PHOSPHATE 4 MG/ML 1 ML VIAL IV STA (10:08)
--- NOTE | 2019-08-07 10:34 | ED ---
Back Pain [facility] - General Chief Complaint: Back Pain/Injury Stated Complaint: Back pain Time Seen by Provider: 08/07/19 09:50 Source: patient Limitations: no limitations - History of Present Illness Initial Comments: 73-year-old female with history of chronic back pain, chronic bilateral lower extremity weakness, chronic bladder and fecal incontinence, hypertension, recently diagnosed with a left-sided brain tumor, chronic tingling the upper extremities and lower Shoney's bilaterally, breast cancer presents emergency department for evaluation of increasing low back pain and right leg weakness from peak baseline x 13 hours. Patient states around 8 PM last night she began experiencing increasing lumbar back pain with slight increase in weakness of the right leg and comparison with her baseline lower extremity weakness. Patient states she is currently at [facility] for physical therapy as she has had bilateral low back or extremity weakness since her spinal decompression performed in May 2019. Patient states she began experiencing back pain approximately one year ago beginning after she bent over she states there is no injury or trauma. She states she did physical therapy from June to August. Patient states she had a MRI in October the travel specialist out of state where she was told she had disc herniation at that time they decided to medically manage patient with injections. Patient states she moved to [place] in April 2019 where she was okay at this time walking with a walker and was able to walk up and down stairs. She states that she had deterioration of her back in May 2019 when she came home from [facility] when she used the bathroom bent over and then her legs wouldn't work. She states she presents emergency department and was sent home. Patient states she returned the next day because her lower extremities were not strong and she had an MRI performed was admitted to Dr. Kahn and had a spinal decompression surgery performed on 06/02/2009. Patient states she was then sent to [facility] in [facility] for physical therapy during her stay there she had a pulmonary embolism as well as bilateral DVTs. Patient states she has been on eliquis sense. Patient denies any new leg swelling chest pain shortness of breath or similar symptoms to when she had the constipation in the past. Patient states that since she was discharged from the [facility] she has been [facility] for physical therapy. She states that she also was diagnosed with a brain tumor last several brain they're not sure if this is contributing to the weakness, and are repeating the MRI in 2019 to differentiate if this is benign or malignant. Patient states her pain has been chronically between a 5 and 7 out of 10 dull aching since she has been at [facility] however last night increased to 10 out of 10. She states is sharp and radiates up towards the thoracic spine midline. She states movement aggravates the pain. Denies any alleviating factors that she is only getting Tylenol for pain. She denies any fevers. Patient states she had an MRI last week and provided disc. Remaining review systems negative patient denies any speech changes sensation deficits facial drop or changes in cognition. Patient denies falls or trauma. Has jackson catheter in place chronically. - Related Data Home Medications Medication Instructions Recorded Confirmed Allopurinol [Zyloprim] 300 mg PO DAILY 05/29/19 08/07/19 Baclofen [Lioresal] 10 mg PO HS 05/29/19 08/07/19 Multivitamins, Thera [Multivitamin 1 tab PO DAILY@1700 05/29/19 08/07/19 (formulary)] Acetaminophen Tab [Tylenol Tab] 500 - 1,000 mg PO Q4H PRN 08/07/19 08/07/19 Apixaban [Eliquis] 5 mg PO BID 08/07/19 08/07/19 Bisacodyl [Dulcolax] 10 mg RECTAL DAILY PRN 08/07/19 08/07/19 Ergocalciferol (Vitamin D2) 50,000 unit PO WE 08/07/19 08/07/19 [Drisdol] Famotidine [Pepcid] 20 mg PO DAILY 08/07/19 08/07/19 Lisinopril [Prinivil] 10 mg PO DAILY 08/07/19 08/07/19 Magnesium Hydroxide [Milk of 2,400 mg PO DAILY PRN 08/07/19 08/07/19 Magnesia] Magnesium Oxide [Mag-Ox] 400 mg PO BID@0800,1700 08/07/19 08/07/19 Mineral Oil [Fleet Mineral Oil] 133 ml RECTAL DAILY PRN 08/07/19 08/07/19 Sennosides-Docusate Sodium 1 tab PO DAILY 08/07/19 08/07/19 [Senokot-S] Allergies Allergy/AdvReac Type Severity Reaction Status Date / Time No Known Allergies Allergy Verified 08/07/19 09:43 Review of Systems ROS Statement: Those systems with pertinent positive or pertinent negative responses have been documented in the HPI. ROS Other: All systems not noted in ROS Statement are negative. Past Medical History Past Medical History: Cancer, GERD/Reflux, Hyperlipidemia, Hypertension, Osteoa rthritis (OA), Sleep Apnea/CPAP/BIPAP Additional Past Medical History / Comment(s): Chronic lower back pain, L3-L4 herniated disc, L sided sciatica, bilateral leg edema, current UTI, R breast cancer with lumpectomy/radiation, bronchitis, sinus problems, beginning of bilateral cataracts. History of Any Multi-Drug Resistant Organisms: None Reported Past Surgical History: Cholecystectomy, Tonsillectomy, Tubal Ligation Additional Past Surgical History / Comment(s): Colonoscopy Past Anesthesia/Blood Transfusion Reactions: No Reported Reaction Past Psychological History: No Psychological Hx Reported Smoking Status: Never smoker - Past Family History Father Additional Family Medical History / Comment(s): Father at the age of 53 yrs from "broken heart" 6 weeks after the of his son. Mother Additional Family Medical History / Comment(s): Mother at the age of 61 pt believes from a brain tumor. General Exam - General Exam Comments Initial Comments: General: The patient is awake and alert, in no distress, morbidly obese Eye: +3 mm pupils are equal, round and reactive to light, extra-ocular movements are intact. No nystagmus. There is normal conjunctiva bilaterally. No signs of icterus. Ears, nose, mouth and throat: There are moist mucous membranes and no oral lesions. Neck: The neck is supple, there is no tenderness or JVD. Cardiovascular: There is a regular rate and rhythm. No murmur, rub or gallop is appreciated. Respiratory: Lungs are clear to auscultation, respirations are non-labored, breath sounds are equal. No wheezes, stridor, rales, or rhonchi. Gastrointestinal: Soft, non-distended, non-tender abdomen without masses or organomegaly noted. There is no rebound or guarding present. Musculoskeletal: Normal ROM, no tenderness. Strength 4/5 of the left LE the right appears more weak in comparison to the right however patient is able to li ft leg against gravity but with greater difficulty. Sensation intact of the LE b/l. DP pulses equal bilaterally 2+. Negative Cleo bilaterally. No tenderness to palpation posterior calf. No pitting edema of the lower extremity bilaterally. Neurological: A&O x 3. CN II-XII intact, Coordination appears grossly intact. Speech is normal. Skin: Skin is warm and dry and no rashes or lesions are noted. Psychiatric: Cooperative, appropriate mood & affect, normal judgment. Limitations: no limitations Course Vital Signs 08/07/19 08/07/19 09:35 11:52 Temperature 97.6 F Pulse Rate 70 Respiratory 16 Rate Blood Pressure 117/68 130/59 O2 Sat by Pulse 98 98 Oximetry Medical Decision Making - Medical Decision Making 73-year-old female presented for increasing low back pain and increased from baseline right leg weakness. Patient has no other focalized neurological defici ts. Family states patient is at baseline. Patient states she feels the cause is the lumbar spine. Patient is baseline incontinent to bowel and bladder. Patient CT brain wo contrast (-). Patient CT by contrast revealed a large anterior spinal fluid collection. [place] less likely to be abscess. The MRI from 07/30/19 outpatient was read by our radiologist who felt there was significant spinal cord stenosis from possible herniated disc fragments, causing irritation of the cauda equina. After speaking with radiologist immediately consult to patient's headache surgeon Dr. Nathan rushing with physician patient care assistant. He then reviewed the imaging studies with his attending provider, or Aliceil callback recommended transfer to [facility] via EMS. He was given Decadron and pain medications the emergency department. Patient is agreeable to transfer. Patient transferred in stable condition. Accepting provider at [facility] was Dr. Lambert , no further orders. Discussed throughout patient's course in the emergency Department by attending provider Dr. Paz who was agreeable with care plan and transfer. - Lab Data Result diagrams: 08/07/19 10:45 08/07/19 10:45 Lab Results 08/07/19 08/07/19 08/07/19 Range/Units 10:45 10:45 10:45 WBC 9.1 (3.8-10.6) k/uL RBC 3.85 (3.80-5.40) m/uL Hgb 12.9 (11.4-16.0) gm/dL Hct 38.9 (34.0-46.0) % MCV 101.0 H D (80.0-100.0) fL MCH 33.5 (25.0-35.0) pg MCHC 33.2 (31.0-37.0) g/dL RDW 14.1 (11.5-15.5) % Plt Count 279 (150-450) k/uL Neutrophils % 73 % Lymphocytes % 17 % Monocytes % 6 % Eosinophils % 2 % Basophils % 1 % Neutrophils # 6.6 (1.3-7.7) k/uL Lymphocytes # 1.5 (1.0-4.8) k/uL Monocytes # 0.6 (0-1.0) k/uL Eosinophils # 0.2 (0-0.7) k/uL Basophils # 0.1 (0-0.2) k/uL Macrocytosis Slight Sodium 139 (137-145) mmol/L Potassium 4.2 (3.5-5.1) mmol/L Chloride 105 (98-107) mmol/L Carbon Dioxide 24 (22-30) mmol/L Anion Gap 10 mmol/L BUN 15 (7-17) mg/dL Creatinine 0.69 (0.52-1.04) mg/dL Est GFR (CKD-EPI)AfAm >90 (>60 ml/min/1.73 sqM) Est GFR (CKD-EPI)NonAf 86 (>60 ml/min/1.73 sqM) Glucose 98 (74-99) mg/dL Calcium 9.6 (8.4-10.2) mg/dL Total Bilirubin 0.7 (0.2-1.3) mg/dL AST 28 (14-36) U/L ALT 26 (9-52) U/L Alkaline Phosphatase 74 (38-126) U/L Total Protein 6.2 L (6.3-8.2) g/dL Albumin 3.7 (3.5-5.0) g/dL Urine Color Yellow Urine Appearance Turbid H (Clear) Urine pH 8.5 H (5.0-8.0) Ur Specific [place] 1.020 (1.001-1.035) Urine Protein 1+ H (Negative) Urine Glucose (UA) Negative (Negative) Urine Ketones Negative (Negative) Urine Blood Trace H (Negative) Urine Nitrite Positive H (Negative) Urine Bilirubin Negative (Negative) Urine Urobilinogen <2.0 (<2.0) mg/dL Ur Leukocyte Esterase Large H (Negative) Urine WBC 3 (0-5) /hpf Triple Phos Crystals Few H (None) /hpf Amorphous Sediment Rare H (None) /hpf Urine Bacteria Moderate H (None) /hpf Urine Mucus Occasional H (None) /hpf Disposition Clinical Impression: Spinal cord compression, Acute exacerbation of chronic low back pain, Right leg weakness Disposition: OTHER INSTITUTION NOT DEFINED Condition: Serious Is patient prescribed a controlled substance at d/c from ED?: No Referrals: Kirlil Harris DO [Primary Care Provider] - 1-2 days Time of Disposition: 13:34 - Out of Hospital Transfer - Req. Specs Out of Hospital Transfer - Requested Specifics: Other Emergency Center (Dr. Petra Gerber)
[2019-08-07 11:01] LABS: Basophils # (A) 0.1 k/uL (0-0.2); Basophils % (A) 1 %; Eosinophils # (A) 0.2 k/uL (0-0.7); Eosinophils % (A) 2 %; HCT 38.9 % (34.0-46.0); HGB 12.9 gm/dL (11.4-16.0); Lymphocytes # (A) 1.5 k/uL (1.0-4.8); Lymphocytes % (A) 17 %; MCH 33.5 pg (25.0-35.0); MCHC 33.2 g/dL (31.0-37.0); Macrocytosis Slight; Mean Platelet Volume 6.5; Monocytes # (A) 0.6 k/uL (0-1.0); Monocytes % (A) 6 %; Neutrophils # (A) 6.6 k/uL (1.3-7.7); Neutrophils % (A) 73 %; Platelet Count 279 k/uL (150-450); RBC 3.85 m/uL (3.80-5.40); RDW 14.1 % (11.5-15.5); WBC 9.1 k/uL (3.8-10.6)
[2019-08-07 11:10] LABS: ALT 26 U/L (9-52); AST 28 U/L (14-36); African American GFR (CKD) >90 (>60 ml/min/1.73 sqM); Albumin 3.7 g/dL (3.5-5.0); Alkaline Phosphatase 74 U/L (38-126); Anion Gap 10 mmol/L; Blood Urea Nitrogen 15 mg/dL (7-17); Calcium 9.6 mg/dL (8.4-10.2); Carbon Dioxide 24 mmol/L (22-30); Chloride 105 mmol/L (98-107); Glucose 98 mg/dL (74-99); Potassium 4.2 mmol/L (3.5-5.1); Sodium 139 mmol/L (137-145); Total Bilirubin 0.7 mg/dL (0.2-1.3); Total Protein 6.2 g/dL (6.3-8.2)
[2019-08-07 11:11] LABS: Amorphous Sediment,Urine Rare /hpf; Appearance,Urine Turbid (Clear); Bacteria,Urine Moderate /hpf; Bilirubin,Urine Negative (Negative); Blood,Urine Trace (Negative); Color,Urine Yellow; Glucose,Urine (UA) Negative (Negative); Ketones,Urine Negative (Negative); Leukocyte Esterase,Urine Large (Negative); Mucus,Urine Occasional /hpf; Nitrite,Urine Positive (Negative); PH, Urine 8.5 (5.0-8.0); Protein,Urine 1+ (Negative); Triple Phosphate Crystal,Urine Few /hpf; Urobilinogen,Urine <2.0 mg/dL (<2.0); WBC,Urine 3 /hpf (0-5)
--- NOTE | 2019-08-07 11:59 | CT ---
EXAMINATION TYPE: CT brain wo con DATE OF EXAM: 08/07/2019 COMPARISON: None HISTORY: 73-year-old female Left leg weakness, history of brain tumor TECHNIQUE: Examination was done in axial plane without intravenous contrast. Coronal and sagittal r econstructions performed. CT DLP: 1099.4 mGycm Automated exposure control for dose reduction was used. FINDINGS: There is no evidence of acute intracranial hemorrhage, acute ischemic changes, mass, mass-effect, or extra-axial fluid collection. There is no effacement of cerebral sulci or basal subarachnoid cister ns. There is no hydrocephalus. There is no midline shift. Perry-white matter distinction is preserv ed. Mild bifrontal atrophy. Atherosclerotic calcifications within the carotid siphons. Visualized paranasal sinuses and mastoid air cells appear clear. Visualized orbits and globes appear intact. IMPRESSION: Bifrontal atrophy without acute intracranial abnormality seen.
--- NOTE | 2019-08-07 12:09 | CT ---
EXAMINATION TYPE: CT lumbar spine w con DATE OF EXAM: 08/07/2019 COMPARISON: None HISTORY: 73-year-old female Left leg weakness, history of brain tumor TECHNIQUE: Contiguous axial scanning of the lumbar spine performed with IV Contrast, patient injected with 100 mL of Isovue 300. Coronal/sagittal reconstructions performed. CT DLP: 1491.4 mGycm Automated exposure control for dose reduction was used. FINDINGS: Osteopenia. Transitional lumbosacral segment noted as a sacralized L5. Vascular disease with degenerative thinning of the interspinous ligaments in abutment of the spinous processes. Advanced hypertrophic facet arthropathy mid to lower lumbar spine. Very prior lumbar surgery. There seems to be some scar tissue formation posteriorly in the mid lumbar midline without fluid density measuring approximately 3.4 cm AP by 1.4 cm wide by 4.1 cm craniocauda l. This seems to extend into the interspinous region of L2-L3. The right L2 inferior facet appears di minutive or truncated, refer to sagittal image 27. Suspect left-sided laminotomy change at L4. Severe degenerative disc disease at L2-L3, L3-L4, and moderate at L4-L5. Disc bulges are present like ly contributing to mild, possibly more advanced spinal canal stenosis at these levels, particularly a t L2-L3 and L3-L4. On the left, changes result in moderate neural foraminal stenoses at L2-L3 and L3-L4 and mild at L4-L 5 and L1-L2. On the right, changes result in moderate neuroforaminal stenoses at L2-L3, L3-L4, and L4-L5. IMPRESSION: 1. QUERY PRIOR SURGERY ALONG THE MID LUMBAR SPINE. THERE SEEMS TO BE SOME SCARRING ALONG THE POSTERIO R MIDLINE AND SOME FLUID DENSITY MEASURING 3.4 X 1.4 X 4.1 CM EXTENDING INTO THE INTERSPINOUS REGION OF L2-L3. POSTOPERATIVE SEROMA, CHRONIC HEMATOMA, AND ABSCESS ARE IN THE DIFFERENTIAL. 2. THE RIGHT L2 INFERIOR FACET APPEARS DIMINUTIVE AND MAY BE ERODED OR SURGERIZED. 3. THERE ALSO SEEMS TO BE A LEFT L4 LAMINOTOMY. 4. SEVERE DEGENERATIVE DISC DISEASE FROM L2-L4 LEVELS WITH AT LEAST MILD, POSSIBLY MORE SIGNIFICANT S KEITH CANAL STENOSIS AT L2-L3 AND L3-L4. 5. VARIABLE MODERATE NEURAL FORAMINAL STENOSES OUTLINED ABOVE. 6. BAASTRUP'S DISEASE.
[2019-08-07 14:39] VITALS: BP 138/76; PULSE 75; TEMP 98
== END 2019-08-07 14:37 | disposition short-term general hospital (02) ==
LOC: EC 09:32
DX: G95.20 Unspecified cord compression (principal); M48.061 Spinal stenosis, lumbar region without neurogenic claudication; N39.0 Urinary tract infection, site not specified; K21.9 Gastro-esophageal reflux disease without esophagitis; I10 Essential (primary) hypertension; G89.29 Other chronic pain; G47.30 Sleep apnea, unspecified; Z79.01 Long term (current) use of anticoagulants; Z79.899 Other long term (current) drug therapy; Z85.3 Personal history of malignant neoplasm of breast; Z92.3 Personal history of irradiation; Z99.89 Dependence on other enabling machines and devices; Z96.0 Presence of urogenital implants; Z98.890 Other specified postprocedural states
CPT/HCPCS: 36415; 80053; 85025; 81001; 72132; 70450; 99285; 96365; 96366 ×2; 96375 ×2; 96376; 96361; J2270; J1100; J0696; Q9967

== ENCOUNTER 2019-08-28 10:54 | Emergency (ER) | payer MEDICARE ==
[2019-08-28 11:07] VITALS: TEMP 97.6
--- NOTE | 2019-08-28 12:44 | ED ---
Fall HPI - General Chief Complaint: Fall Stated Complaint: back pain, fall Time Seen by Provider: 08/28/19 11:20 Source: patient, RN notes reviewed, old records reviewed Mode of arrival: EMS Limitations: no limitations - History of Present Illness Initial Comments: This is a 73-year-old female the ER for Status post fall. Patient was at rehabilitation today. She is at rehab for recent back surgery. Patient has dropfoot both legs. Patient was doing some rehabilitation trying to change her splints became off balance the wheelchair did slip from behind her and she had upon ground she is complaining some back pain but tox pain and bilateral hip pain. Patient denies hitting her head no loss of consciousness not currently complaining of anything aside from back pain. She did take to her alcohol prior to arrival. MD Complaint: fall Fall From: standing When Fall Occurred: 1 hour [employer] Fall Witnessed: yes, by family Place Fall Occurred: home Loss of Consciousness: none Prolonged Down Time?: no Symptoms Prior to Fall: none Location: back, abdomen Severity: moderate Severity scale (1-10): 3 Quality: burning Context: tripped/slipped Associated Symptoms: denies - Related Data Home Medications Medication Instructions Recorded Confirmed RX: Allopurinol [Zyloprim] 300 mg PO DAILY@0800 05/29/19 08/28/19 RX: Multivitamins, Thera 1 tab PO DAILY@1700 05/29/19 08/28/19 [Multivitamin (formulary)] Acetaminophen Tab [Tylenol Tab] 500 - 1,000 mg PO Q4H PRN 08/07/19 08/28/19 Apixaban [Eliquis] 5 mg PO BID@0800,1700 08/07/19 08/28/19 Ergocalciferol (Vitamin D2) 50,000 unit PO WE@17008/07/19 08/28/19 [Drisdol] Famotidine [Pepcid] 20 mg PO DAILY@0800 08/07/19 08/28/19 Lisinopril [Prinivil] 10 mg PO DAILY@0800 08/07/19 08/28/19 Magnesium Hydroxide [Milk of 2,400 mg PO DAILY PRN 08/07/19 08/28/19 Magnesia] Magnesium Oxide [Mag-Ox] 400 mg PO BID@0800,1700 08/07/19 08/28/19 RX: Bisacodyl [Dulcolax] 10 mg RECTAL DAILY PRN 08/07/19 08/28/19 Bisacodyl Enema 10mg/30ml 1 applic RECTAL DAILY PRN 08/28/19 08/28/19 Na Phos,M-B/Na Phos,Di-Ba [Fleet 113 ml RECTAL DAILY PRN 08/28/19 08/28/19 Adult] RX: HYDROcodone/APAP 10-325MG 1 - 2 tab PO Q4H PRN 08/28/19 08/28/19 [[place] 10-325] RX: Methocarbamol [Robaxin] 750 mg PO Q6H PRN 08/28/19 08/28/19 Sennosides [Senna] 8.6 mg PO DAILY@0800 08/28/19 08/28/19 Allergies Allergy/AdvReac Type Severity Reaction Status Date / Time No Known Allergies Allergy Verified 08/28/19 12:57 Review of Systems ROS Statement: Those systems with pertinent positive or pertinent negative responses have been documented in the HPI. ROS Other: All systems not noted in ROS Statement are negative. Past Medical History Past Medical History: Cancer, GERD/Reflux, Hyperlipidemia, Hypertension, Osteoarthritis (OA), Sleep Apnea/CPAP/BIPAP Additional Past Medical History / Comment(s): Chronic lower back pain, L3-L4 herniated disc, L sided sciatica, bilateral leg edema, current UTI, R breast cancer with lumpectomy/radiation, bronchitis, sinus problems, beginning of bilateral cataracts. History of Any Multi-Drug Resistant Organisms: None Reported Past Surgical History: Cholecystectomy, Tonsillectomy, Tubal Ligation Additional Past Surgical History / Comment(s): Colonoscopy Past Anesthesia/Blood Transfusion Reactions: No Reported Reaction Past Psychological History: No Psychological Hx Reported Smoking Status: Never smoker Past Alcohol Use History: None Reported Past Drug Use History: None Reported - Past Family History Father Additional Family Medical History / Comment(s): Father at the age of 53 yrs from "broken heart" 6 weeks after the of his son. Mother Additional Family Medical History / Comment(s): Mother at the age of 61 pt believes from a brain tumor. General Exam - General Exam Comments Initial Comments: Patient is able to lift up both legs on exam Surgical site is evaluated, clean dry and intact Limitations: physical limitation General appearance: alert, in no apparent distress Head exam: Present: atraumatic, normocephalic, normal inspection Eye exam: Present: normal appearance, PERRL, EOMI. Absent: scleral icterus, conjunctival injection, periorbital swelling ENT exam: Present: normal exam, mucous membranes moist Neck exam: Present: normal inspection. Absent: tenderness, meningismus, lymphadenopathy Respiratory exam: Present: normal lung sounds bilaterally. Absent: respiratory distress, wheezes, rales, rhonchi, stridor Cardiovascular Exam: Present: regular rate, normal rhythm, normal heart sounds. Absent: systolic murmur, diastolic murmur, rubs, gallop, clicks GI/Abdominal exam: Present: soft, normal bowel sounds. Absent: distended, tenderness, guarding, rebound, rigid Extremities exam: Present: normal inspection, full ROM, normal capillary refill. Absent: tenderness, pedal edema, joint swelling, calf tenderness Back exam: Present: normal inspection Neurological exam: Present: alert, oriented X3, CN II-XII intact Psychiatric exam: Present: normal affect, normal mood Skin exam: Present: warm, dry, intact, normal color. Absent: rash Course Vital Signs 08/28/19 11:04 Temperature 97.6 F Pulse Rate 74 Respiratory 19 Rate Blood Pressure 116/59 O2 Sat by Pulse 98 Oximetry - Reevaluation(s) Reevaluation #1: 08/28/19 12:44 medical record is reviewed Reevaluation #2: 08/28/19 14:30 Patient's pain is controlled Medical Decision Making - Medical Decision Making 73 female status post fall will mechanism of injury follow-up trying to bend over and legs.[email or web address] - Radiology Data Radiology results: report reviewed (X-ray pelvis x-ray lumbosacral spine negative for traumatic injury), image reviewed Disposition Clinical Impression: Fall, Unable to ambulate, Immobility, Back pain Disposition: HOME SELF-CARE Condition: Good Instructions (If sedation given, give patient instructions): Fall Prevention for Older Adults (ED) Is patient prescribed a controlled substance at d/c from ED?: No Referrals: Kirill Harris DO [Primary Care Provider] - 1-2 days
--- NOTE | 2019-08-28 13:43 | XR ---
AP pelvis HISTORY: Trauma and pain Single frontal view of the pelvis submitted. Degenerative disc changes are present in the visualized spine, there is laminectomy change in the low er lumbar spine. Bone mineralization is reduced. Osteoarthritic changes are noted within the hips. Al ignment is maintained. IMPRESSION: No acute fracture or dislocation. Degenerative disc disease and postop changes.
--- NOTE | 2019-08-28 13:45 | XR ---
EXAMINATION TYPE: XR lumbar spine 2 or 3V DATE OF EXAM: 08/28/2019 CLINICAL HISTORY: Back pain TECHNIQUE: Frontal and lateral images of the lumbar spine are obtained. COMPARISON: CT lumbar spine dated 08/07/2019 and x-ray dated 05/29/2019. FINDINGS: There are 5 lumbar type vertebral bodies identified. There is very mild dextroscoliosis of the lumbar spine. Posterior element removal has been performed from L3 through L5. Multilevel facet arthropathy remains. Posterior projecting osteophyte is seen at L3-L4. Extensive atherosclerosis of t he abdominal aorta. Grade 1 anterolisthesis of L4 on L5 as seen on the prior of 05/29/2019. Cholecystec starr clips are seen. No dilated overlying bowel. Diffuse osseous demineralization. IMPRESSION: Stable malalignment of the lumbar spine with grade 1 anterolisthesis of L4 on L5. Postsur gical change of L3-L5. Moderate degenerative disc disease remains. No new vertebral body height loss or new malalignment.
[2019-08-28] MEDS ORDERED: HYDROmorphone 1 MG/ML 1 ML SYRINGE IM STA (14:19)
[2019-08-28 15:47] VITALS: BP 124/73; PULSE 69; RESP 18
== END 2019-08-28 17:09 | disposition home or self-care (01) ==
LOC: EC 10:54
DX: M54.9 Dorsalgia, unspecified (principal); R26.2 Difficulty in walking, not elsewhere classified; M25.551 Pain in right hip; M25.552 Pain in left hip; M21.372 Foot drop, left foot; M21.371 Foot drop, right foot; K21.9 Gastro-esophageal reflux disease without esophagitis; I10 Essential (primary) hypertension; G47.30 Sleep apnea, unspecified; Z79.01 Long term (current) use of anticoagulants; Z79.899 Other long term (current) drug therapy; Z85.3 Personal history of malignant neoplasm of breast; Z87.39 Personal history of other diseases of the musculoskeletal system and connective tissue; Z92.3 Personal history of irradiation; Z98.890 Other specified postprocedural states; Z99.89 Dependence on other enabling machines and devices; W05.0XXA Fall from non-moving wheelchair, initial encounter; Y93.89 Activity, other specified; Y92.099 Unspecified place in other non-institutional residence as the place of occurrence of the external cause
CPT/HCPCS: 72100; 72170; 99284; 96372; J1170

== ENCOUNTER → 2021-05-20 | Outpatient (CLI) | payer MEDICARE, OTHER ==
--- NOTE | 2021-05-21 17:09 | CT ---
EXAMINATION TYPE: CT ChestAbdPelvis w con DATE OF EXAM: 05/20/2021 INDICATION: New right breast lump. History of breast cancer. COMPARISON: None CT DLP: 2441.7 mGycm CONTRAST: Performed with Oral Contrast and with IV Contrast, patient injected with 80ml mL of Isovue 300. TECHNIQUE: Axial images at 5 mm thick sections. Reconstructed images in the coronal plane. Delayed images through the kidneys. FINDINGS: CT CHEST: There is a 3.6 x 2.3 cm irregular density within the lateral right breast. Series 3 image 21. No susp icious axillary adenopathy is evident on either side. There are some fat-containing lymph nodes on th e left. Portion of the thyroid visualized is normal. No suspicious lung nodules or focal infiltrates are present. No enlarged mediastinal or hilar adenopathy is evident. The ascending aorta diameter at the level of the main pulmonary artery is 3.3 cm. The main pulmonary artery diameter at the bifurcation is 3.[address] ABDOMEN: Liver: Normal Spleen: Normal Pancreas: Normal Adrenal glands: The adrenal glands are normal. Gallbladder: Surgically absent Kidneys: No masses are evident. No hydronephrosis is present. No cysts are present. Delayed images were obtained through the kidneys, which remain unremarkable. Aorta: Vascular calcification is within the aorta. Inferior vena cava: Normal. CT PELVIS: Loops of bowel within the abdomen and pelvis are normal. There are loops of bowel which are incom pletely distended or lack oral contrast limiting their evaluation. Appendix: Normal as visualized. Urinary bladder: Normal. Genitourinary structures: Uterus is normal. Adnexal regions appear normal. Osseous structures: No suspicious lytic or sclerotic lesions. Sacroiliac joint degenerative changes a re present. Facet degenerative changes are within the lumbar spine. IMPRESSIONS: 1. Irregular nodular density lateral right breast. Additional workup is recommended. 2. No changes to suggest metastatic disease.
== END | disposition home or self-care (01) ==
LOC: RADCTMAIN 12:13
PROVIDERS: ATTEND Internal Medicine Hematology & Oncology
DX: N63.10 Unspecified lump in the right breast, unspecified quadrant (principal); Z85.3 Personal history of malignant neoplasm of breast
CPT/HCPCS: 82565; 84520; 71260; 74177; 36415; Q9967

== ENCOUNTER → 2021-05-21 | Outpatient (CLI) | payer MEDICARE ==
[2021-05-21 11:26] VITALS: RESP 18
[2021-05-21 11:39] VITALS: BP 132/88; PULSE 59; TEMP 97.6
--- NOTE | 2021-05-21 11:46 | P.GSHP ---
History of Present Illness H&P Date: 05/21/21 Chief Complaint: recurrent right breast cancer Kinsey is a 75 year old white female who noted a skin lesion in her right breast about two months ago. She was seen by Dr. Walden and a biopsy was done which was consistent with metastatic breast cancer. She was diagnosed with early stage right breast cancer in 2000 in [place]. She was treated with a lumpectomy/axillary node dissection/adjuvant radiation and 5 years of tamoxifen. Her last mammogram was in 2018. She came to visit from [place] and [facility] and her back. She subsequently has had 2 back surgeries. It has not returned [place]. Secondary to the injury in her back she has paralysis and both legs and is incontinent of urine and stool. She presently lives at [facility]. She had a complicated postoperative course from her back surgery via DVT and pulmonary embolism. She did have a laminectomy in July 2019. She has been seen by Dr. Porter in 2018 regarding a questionable lesion on her brain which resolved. The patient is able to ambulate with assistance, and a walker. She is incontinent of urine. She wears pull-ups. Caffeine: 2 cups/day; 20oz ice tea daily/pop: seldom nicotine: patient never; secondhand: (5 years) hormones: 16 years; prempro stopped in 2000 Family History: patient: breast cancer Hormonal History: menarche: 9 G0 menopause: 46 hormones: 16 years Prempro stopped in 2000 Tubal ligation at the age of 40 BCP: none Surgical history: 1. Tubal ligation 2. Right breast lumpectomy and Node dissection 3. 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 HTN 3. back injury as above 4. GERD Social History: smoke: as above alcohol: occasional stopped / 1986 drugs: none - Constitutional Constitutional: Reports sweats, Denies chills, Denies fever - EENT Eyes: denies blurred vision, denies pain Ears: bilateral: decreased hearing, deny: tinnitus Ears, nose, mouth and throat: Denies headache, Denies sore throat - Breasts Breasts: bilateral: as per HPI - Cardiovascular Cardiovascular: Denies chest pain, Denies shortness of breath - Respiratory Respiratory: Reports cough - Gastrointestinal Comment: incontinent Gastrointestinal: Denies abdominal pain, Denies diarrhea, Denies nausea, Denies vomiting - Genitourinary (Female) Comment: incontient Genitourinary: Reports as per HPI - Menstruation Menstruation: Reports postmenopausal - Musculoskeletal Musculoskeletal: Reports muscle weakness - Integumentary Integumentary: Reports as per HPI - Neurological Comment: back herniated disc Neurological: Reports as per HPI - Psychiatric Psychiatric: Denies anxiety, Denies depression - Endocrine Endocrine: Denies fatigue, Denies weight change - Hematologic/Lymphatic Comment: none - Allergic/Immunologic Allergic/Immunologic: Reports as per HPI Past Medical History Past Medical History: Cancer, GERD/Reflux, Hyperlipidemia, Hypertension, Osteoarthritis (OA), Sleep Apnea/CPAP/BIPAP Additional Past Medical History / Comment(s): Chronic lower back pain, L3-L4 herniated disc, L sided sciatica, bilateral leg edema, current UTI, R breast c ancer with lumpectomy/radiation, bronchitis, sinus problems, beginning of bilateral cataracts. History of Any Multi-Drug Resistant Organisms: None Reported Past Surgical History: Back Surgery, Cholecystectomy, Tonsillectomy, Tubal Ligation Additional Past Surgical History / Comment(s): Colonoscopy. BACK SURGERY X2 Past Anesthesia/Blood Transfusion Reactions: No Reported Reaction Past Psychological History: No Psychological Hx Reported Additional Psychological History / Comment(s): She uses a walker prn. She drives. Smoking Status: Never smoker Past Alcohol Use History: None Reported Past Drug Use History: None Reported - Past Family History Father Additional Family Medical History / Comment(s): Father at the age of 53 yrs from "broken heart" 6 weeks after the of his son. Mother Additional Family Medical History / Comment(s): Mother at the age of 61 pt believes from a brain tumor. Medications and Allergies Home Medications Medication Instructions Recorded Confirmed Type Multivitamins, Thera [Multivitamin 1 tab PO DAILY@1700 05/29/19 04/09/21 History (formulary)] allopurinoL [Zyloprim] 300 mg PO DAILY@0800 05/29/19 04/09/21 History Acetaminophen Tab [Tylenol Tab] 500 - 1,000 mg PO Q4H PRN 08/07/19 04/09/21 History Ergocalciferol (Vitamin D2) 50,000 unit PO We@1700 08/07/19 04/09/21 History [Drisdol] Lisinopril [Prinivil] 10 mg PO DAILY@0800 08/07/19 04/09/21 History Magnesium Hydroxide [Milk of 2,400 mg PO DAILY PRN 08/07/19 04/09/21 History Magnesia] Magnesium Oxide [Mag-Ox] 400 mg PO BID@0800,1700 08/07/19 04/09/21 History bisacodyL [Dulcolax] 10 mg RECTAL DAILY PRN 08/07/19 04/09/21 History Bisacodyl Enema 10mg/30ml 1 applic RECTAL DAILY PRN 08/28/19 04/09/21 History HYDROcodone/APAP 10-325MG [[place] 1 - 2 tab PO Q4H PRN 08/28/19 04/09/21 History 10-325] Na Phos,M-B/Na Phos,Di-Ba [Fleet 113 ml RECTAL DAILY PRN 08/28/19 04/09/21 History Adult] Sennosides [Senna] 8.6 mg PO DAILY@0800 08/28/19 04/09/21 History methocarbamoL [Robaxin] 750 mg PO Q6H PRN 08/28/19 04/09/21 History Benzocaine/Menthol [Cepacol Sore 1 each MM DIRECTED PRN 12/18/20 04/09/21 History Throat Lozenge] Furosemide [Lasix] 20 mg PO DIRECTED 12/18/20 04/09/21 History Menthol [Biofreeze] 1 applic TOPICAL TID PRN 12/18/20 04/09/21 History Pregabalin [Lyrica] 100 mg PO BID 12/18/20 04/09/21 History guaiFENesin [Diabetic Tussin Ex] 0 mg PO Q4HR PRN 12/18/20 04/09/21 History Naloxegol Oxalate [Movantik] 12.5 mg PO DAILY 02/10/21 04/09/21 History Allergies Allergy/AdvReac Type Severity Reaction Status Date / Time No Known Allergies Allergy Verified 04/09/21 08:53 Surgical - Exam BMI 46.1 - General no distress - Eyes normal ocular movement - ENT normal nares - Neck no masses, trachea midline - Respiratory normal expansion - Cardiovascular Rhythm: regular Heart Sounds: normal: S1, S2 - Abdomen Abdomen: soft - Integumentary skin lesion right breast/ UOQ 1 cm in size with a biopsy change in center - Musculoskeletal in a wheel chair - Psychiatric oriented to time, oriented to person, oriented to place, speech is normal, memory intact Breast exam: BRA: 44 C Inspection: Surgical changes and radiation changes right breast Palpation: Right breast: Fullness at the prior lumpectomy site/skin change approximately 1 cm upper outer quadrant right breast with biopsy changes associated in that Right axilla: No adenopathy of concern Left breast: No dominant masses or nodules of concern Left axilla: No adenopathy of concern Results Computed tomography scan results pending Mammogram results pending/ to be done June 02; ultrasound also to be done of the right breast Assessment and Plan Assessment: Impression: 1. Patient with a history of right breast cancer/status post lumpectomy, axillary node dissection, and 5 years of tamoxifen diagnosed in 2000 2. Metastatic breast cancer to the skin as per biopsy done by Dr. Elliot MACK 3. Patient is had a CAT scan done to rule out metastatic disease results pending 4. Mammogram and ultrasound right breast to be done June 02 5. Injury/herniated disc patient incontinent of urine/stool 6. Prior history of DVT and PE Plan: 1. Await results of mammogram and ultrasound 2. Fullness in right breast would recommend core biopsy depending on results of radiographic findings 3. Review computed tomography scan results
== END ==
LOC: WWCWWP 10:27
PROVIDERS: ATTEND Surgery
DX: C79.2 Secondary malignant neoplasm of skin (principal); M51.26 Other intervertebral disc displacement, lumbar region; I10 Essential (primary) hypertension; E78.5 Hyperlipidemia, unspecified; M19.90 Unspecified osteoarthritis, unspecified site; Z86.711 Personal history of pulmonary embolism; Z86.718 Personal history of other venous thrombosis and embolism; Z79.899 Other long term (current) drug therapy

== ENCOUNTER → 2021-05-22 | Outpatient (CLI) | payer MEDICARE ==
--- NOTE | 2021-06-03 12:04 | USB ---
EXAMINATION TYPE: US breast limited BILAT DATE OF EXAM: 05/27/2021 COMPARISON: Mammogram same date CLINICAL HISTORY: Z85.3 PERSONAL HX BREAST CA,N63 BREAST LUMP/MASS. Findings: The right breast was scanned with ultrasound in the upper outer quadrant, retroareolar region and axi lla. In the right breast at 10:00 in the region of the scar 5 cm from the nipple, there is a 1.7 x 0.6 x 1 .5 cm irregular hypoechoic mass which corresponds well in size, location and morphology to the mass s een on mammogram and ultrasound-guided biopsy is recommended. In the right breast at 11:00 10 cm from the nipple, there is a 0.3 x 0.3 x 0.3 cm ovoid hypoechoic le joe which is probably benign and management is dependent upon biopsy results. In the right breast at 10:00 5 cm from the nipple, there is a coarse calcification with shadowing. In the right axilla, there is a 1.0 x 0.5 x 0.8 cm hypoechoic structure which likely represents a lym ph node with asymmetric cortical thickening and ultrasound-guided biopsy is recommended. The left breast was scanned with ultrasound from 12-3 o'clock and in the axilla. There is a normal-ap pearing lymph node in the left axilla. IMPRESSION: 1. Ultrasound-guided biopsy is recommended for the 1.7 cm mass in the right breast at 10:00 5 cm from the nipple within the surgical scar. 2. There is no definite sonographic correlate to the asymmetry in the retroareolar right upper outer breast and management is dependent upon biopsy results and clinical scenario. If biopsy results are b enign or if patient requests breast conserving treatment for malignancy, stereotactic biopsy is recom mended for the asymmetry in the right upper outer retroareolar breast. 3. Ultrasound-guided biopsy of the right axillary lymph node with asymmetric cortical thickening is r ecommended. BI-RADS 5, highly suspicious
--- NOTE | 2021-06-08 08:52 | MM ---
Reason for exam: clinical finding. Last mammogram was performed 20 years and 11 months ago. History: Patient is postmenopausal, has history of breast cancer at age 55, and is nulliparous. Lumpectomy of the right breast. Radiation therapy of the right breast. Took estrogen for 7 years. Took progesterone for 7 years. Took antineoplastic for 5 years beginning at age 55. Physical Findings: Nurse Summary: 3cm nodule in the right breast at 10 o'clock (nurse chrissy). MG 3D Diag Mammo W/Cad LALA Bilateral CC and MLO view(s) were taken. Prior study comparison: November 11, 2018, mammogram, performed at [place]. October 19, 2017, mammogram, performed at [place]. There are scattered fibroglandular densities. There is a new mass associated with the right upper outer quadrant lumpectomy scar measuring 2.1cm which corresponds with palpable and ultrasound is recommended. There is asymmetry in the retro upper outer rightbreast and ultrasound is recommended. These results were verbally communicated with the patient on 06/05/21. ASSESSMENT: Incomplete: need additional imaging evaluation, BI-RAD 0 RECOMMENDATION: Ultrasound of the right breast.
== END | disposition home or self-care (01) ==
LOC: RADMAMWWP 09:30
PROVIDERS: ATTEND Internal Medicine Hematology & Oncology
DX: N63.12 Unspecified lump in the right breast, upper inner quadrant (principal); Z85.3 Personal history of malignant neoplasm of breast
CPT/HCPCS: 77066; 76642; G0279; 77062

== ENCOUNTER → 2021-06-15 | Day surgery (SDC) | payer MEDICARE ==
[2021-06-15 09:46] VITALS: RESP 16
[2021-06-15 11:48] VITALS: BP 117/81; PULSE 60; TEMP 98.1
--- NOTE | 2021-06-15 17:43 | USB ---
EXAMINATION TYPE: US biopsy breast VAD RT, US biopsy breast add'l VAD RT, US biopsy breast add'l VAD RT MG postbiopsy diagnostic mammo right wo CAD, DATE OF EXAM: 06/15/2021 CLINICAL HISTORY: 75-year-old female with previous history of right breast cancer. R92.8 ABNORMAL MAMMOGRAM. Recent right-sided skin biopsy was positive for malignancy. TECHNIQUE: Ultrasound guided core biopsy of the right breast, 3 sites COMPARISON: 05/22/2021 FINDINGS: The procedure of ultrasound guided core biopsy was explained to the patient. Benefits, alternatives, and risks were discussed. An informed consent was then obtained. The patient was placed in supine positioning for imaging and for the procedure. The overlying skin was prepped and draped in usual sterile fashion. Lidocaine was used as anesthetic into the skin at each site international marketing specialist. Site 1, axilla, rounded but nonenlarged hypoechoic lymph node: Under ultrasound guidance, a 13-gauge vacuum-assisted mammotome Elite biopsy gun was used to obtain 3 core samples. Following this, a Hydromark clip was left in lesion. Site 2, 10:00, away from nipple, large shadowing mass deep to the scar: Under ultrasound guidance, a 13-gauge vacuum-assisted mammotome Elite biopsy gun was used to obtain 5 core samples. Following this, a ribbon clip was left in lesion. Site 3, 11:00, close to the nipple, smaller irregular mass: Under ultrasound guidance, a 13-gauge vacuum-assisted mammotome Elite biopsy gun was used to obtain 7 core samples. Following this, a wing clip was left in lesion. The patient tolerated the procedure well without any immediate complication. The patient was kept in the radiology department for short stay after the procedure and then discharged home in stable condition. Post procedure mammogram was performed and shows the wing clip at a smaller focal asymmetry closer to the nipple at 11:00 and the ribbon clip at the dominant upper outer quadrant posterior mass. The Hydromark clip is outside the field of view. IMPRESSION: Successful, uncomplicated 3 site ultrasound guided right breast biopsy Site 1, round but nonenlarged hypoechoic axillary lymph node, equivocal Site 2, 10:00 large shadowing upper outer quadrant, posterior mass highly suggestive of malignancy Site 3, 11:00 smaller anterior mass closer to the nipple, highly suggestive of malignancy Note that the small round lesion also at the 10 to 11:00 position just deep to the skin biopsy site was not sampled. We note that the skin biopsy was positive for malignancy. Full pathology results to follow. Pathology Results: Malignant A. RIGHT AXILLARY LYMPH NODES, CORE BIOPSY: Lymphoid tissue and fibroadipose tissue negative for metastatic carcinoma. CK7 and ALIE stains, both with appropriate controls, negative for metastatic carcinoma cells. B. RIGHT BREAST AT 10:00 SITE A, CORE BIOPSY: Invasive ductal carcinoma, grade 2 (see Surgical Pathology Cancer Case Summary and comment). C. RIGHT BREAST AT 11:00 SITE B, CORE BIOPSY: Invasive ductal carcinoma, grade 2 (see Surgical Pathology Cancer Case Summary and comment). Recommendation Surgical consult of the right breast. Axilla lymph node negative, felt to be concordant. 10:00 and 11:00 right breast sites positive for malignancy. Note a 5.5cm distance between the clips on post procedure mammogram indicating multifocal disease. Also note the third small suspicious 11:00 3mm lesion was not sampled as it was located directly deep to the positive skin biopsy site. MTDD
== END ==
LOC: RADUSWWP 08:38
PROVIDERS: ATTEND Surgery
DX: C50.411 Malignant neoplasm of upper-outer quadrant of right female breast (principal)
CPT/HCPCS: 88305; 88342; 88341; 77066; 19083; 19084; A4648; J2001; 77065

== ENCOUNTER → 2021-06-25 | Outpatient (CLI) | payer MEDICARE ==
[2021-06-25 07:27] VITALS: BP 122/62; PULSE 68; RESP 18; TEMP 98.3
--- NOTE | 2021-06-25 08:29 | P.PN ---
Subjective Progress Note Date: 06/25/21 Principal diagnosis: Right breast invasive ductal carcinoma/stage Ib if this skin lesion is not considered to be a T4 or IIIB if the skin lesion is a T4 Kinsey is a 75 year old white female who noted a skin lesion in her right breast about two months ago. She was seen by Dr. Walden and a biopsy was done which was consistent with metastatic breast cancer. She was diagnosed with early stage right breast cancer in 2000 in [place]. She was treated with a lumpectomy/axillary node dissection/adjuvant radiation and 5 years of tamoxifen. Her last mammogram was in 2018. She came to visit from [place] in 2019, in May 2019 she had back surgery. She subsequently had a second back surgery in June of 2019. She has not returned [place]. Secondary to the injury in her back she has paralysis and both legs and is incontinent of urine and stool. She presently lives at [facility]. She had a complicated postoperative course from her back surgery as she had a DVT and pulmonary embolism. She did have a laminectomy in July 2019. She has been seen by Dr. Porter in 2018 regarding a questionable lesion on her brain which resolved. She had a bilateral mammogram performed on . This revealed a mass in the right breast. No lesions were identified in the left breast. She subsequently had an ultrasound-guided core biopsy of the right breast on [id number]. This revealed at 10:00 invasive ductal carcinoma grade 2, and at 11:00 invasive duct al carcinoma grade 2. Right axillary lymph nodes were biopsied which were negative for metastatic cancer. She underwent a metastatic workup which included a [place] [id number] which was negative for metastatic disease. The The patient's case was presented at tumor Board. The recommendation was for a mastectomy. This has been discussed with the patient. We would recommend a mastectomy with an attempted sentinel node biopsy. The patient understands and wishes to proceed with this. The patient is able to ambulate with assistance, and a walker. She is incontinent of urine. She wears pull-ups. Caffeine: 2 cups/day; 20oz ice tea daily/pop: seldom nicotine: patient never; secondhand: (5 years) hormones: 16 years; prempro stopped in 2000 Family History: patient: breast cancer Hormonal History: menarche: 9 G0 menopause: 46 hormones: 16 years Prempro stopped in 2000 Tubal ligation at the age of 40 BCP: none Surgical history: 1. Tubal ligation 2. Right breast lumpectomy and Node dissection 3. 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 HTN 3. back injury as above 4. GERD Social History: smoke: as above alcohol: occasional stopped / 1986 drugs: none - Constitutional Constitutional: Reports sweats, Denies chills, Denies fever - EENT Eyes: denies blurred vision, denies pain Ears: bilateral: decreased hearing, deny: tinnitus Ears, nose, mouth and throat: Denies headache, Denies sore throat - Breasts Breasts: bilateral: as per HPI - Cardiovascular Cardiovascular: Denies chest pain, Denies shortness of breath - Respiratory Respiratory: Reports cough - Gastrointestinal Comment: incontinent Gastrointestinal: Denies abdominal pain, Denies diarrhea, Denies nausea, Denies vomiting - Genitourinary (Female) Comment: incontient Genitourinary: Reports as per HPI - Menstruation Menstruation: Reports postmenopausal - Musculoskeletal Musculoskeletal: Reports muscle weakness - Integumentary Integumentary: Reports as per HPI - Neurological Comment: back herniated disc Neurological: Reports as per HPI - Psychiatric Psychiatric: Denies anxiety, Denies depression - Endocrine Endocrine: Denies fatigue, Denies weight change - Hematologic/Lymphatic Comment: none - Allergic/Immunologic Allergic/Immunologic: Reports as per HPI Objective - Vital Signs Vital signs: Vital Signs Temp 98.3 F 06/25/21 07:22 Pulse 68 06/25/21 07:22 Resp 18 06/25/21 07:22 BP 122/62 06/25/21 07:22 Pulse Ox 96 06/25/21 07:22 Intake & Output 06/24/21 06/25/21 06/25/21 18:59 06:59 18:59 Weight 113.852 kg - Constitutional General appearance: Present: cooperative - EENT Eyes: Present: EOMI ENT: Present: hearing grossly normal - Neck Neck: Present: normal ROM - Respiratory Respiratory: bilateral: CTA - Cardiovascular Rhythm: regular Heart sounds: normal: S1, S2 - Gastrointestinal General gastrointestinal: Present: soft - Integumentary Integumentary: Present: normal turgor - Musculoskeletal Musculoskeletal Comment(s): in a wheel chair - Psychiatric Psychiatric: Present: A&O x's 3, appropriate affect, intact judgment & insight - Additional findings Additional findings: Breast exam: Inspection: Asymmetry of the breast right breast changes from surgery and radiation Palpation: Right breast: Examination of the right breast fullness at the lateral aspect of the right breast, well-healed scar from prior lumpectomy Right axilla: No adenopathy of concern Left breast: No dominant masses or nodules of concern Left axilla: No adenopathy of concern Assessment and Plan Assessment: Impression: 1. Invasive ductal carcinoma right breast recurrent versus second primary/skin lesion consistent with invasive ductal carcinoma of the right breast 2. Lymph node biopsy. Axilla negative 3. Wheelchair dependent 4. Status post DVT 5. Morbid obesity 6. Hypertension 7. GERD 8. Metastatic workup CT chest abdomen and pelvis negative Plan: 1. Case was presented at tumor board recommendation was for right breast mastectomy and attempted sentinel node biopsy, patient is not interested in reconstruction 2. Patient wishes for right mastectomy 3. Preoperative clearance from Dr. Harris Risks and benefits of the procedure were discussed with the patient. Risks include but are not limited to bleeding, infection, reaction to the anesthetic. Additionally the patient understands that secondary to the location of the skin lesion on the right it may necessitate a separate incision for resection. [place] node biopsy will be attempted after radioactive substance injected in radiology however if this is unsuccessful to localize the sentinel node we will use methylene blue. Additionally she understands that we may not be able to find a sentinel node as she has had axillary surgery with her previous cancer. Patient was given the option seen a plastic surgeon and declined.
== END | disposition home or self-care (01) ==
LOC: WWCWWP 07:09
PROVIDERS: ATTEND Surgery
DX: Z53.9 Procedure and treatment not carried out, unspecified reason (principal)

== ENCOUNTER 2021-07-21 08:49 | Day surgery (SDC) | payer MEDICARE ==
[2021-07-15 09:08] VITALS: BMI 44.6
[~2021-07-21 08:49] MED LIST: DEXAMETHASONE SOD PHOSPHATE 4 MG/ML 1 ML VIAL IV ONE; HEPARIN SODIUM,PORCINE/PF 5,000 UNIT/0.5 ML SYRINGE SQ PRN; HYDROmorphone 0.5 MG/0.5 ML SYRINGE IVP PRN; LACTATED RINGERS 1,000 ML IV SCH; MIDAZOLAM 2 MG/2 ML VIAL IV PRN; ONDANSETRON 4 MG/2 ML VIAL IVP ONE; Pre Op ABX Message 1 EACH MISC MISCELLANE ONE
[2021-07-21] MEDS ORDERED: ALPRAZolam 0.25 MG TAB ONE (10:06)
[2021-07-21] MEDS ORDERED: LIDOCAINE 1% (10MG/ML) FOR IV START INTRADERMA ONE (10:25)
--- NOTE | 2021-07-21 12:00 | NM ---
EXAMINATION TYPE: NM sentinel node injection DATE OF EXAM: 07/21/2021 COMPARISON: NONE INDICATION: Abnormal mammogram. Informed consent was obtained. A timeout was performed. The area around the right nipple was cleansed with alcohol. In a single dose, a total of 515 uCi Te chnetium 99m Tilmanocept was injected. The patient tolerated the procedure very well. IMPRESSIONS: 1. Successful injection for sentinel node evaluation.
[2021-07-21] MEDS ORDERED: MIDAZOLAM 2 MG/2 ML VIAL ONE (12:35)
[2021-07-21] MEDS ORDERED: LIDOCAINE 1% INJ 10MG/ML (20 ML MDV) ONE (12:35)
[2021-07-21] MEDS ORDERED: HYDROmorphone (PF) 1 MG/ML ONE (12:35)
[2021-07-21] MEDS ORDERED: PROPOFOL 10 MG/ML 20 ML VIAL IV ONE (12:35)
[2021-07-21] MEDS ORDERED: GLYCOPYRROLATE 0.2 MG/ML 2 ML VIAL ONE (12:35)
[2021-07-21] MEDS ORDERED: NEOSTIGMINE 1 MG/ML 10 ML VIAL ONE (12:35)
[2021-07-21] MEDS ORDERED: ePHEDrine SULFATE/0.9% NACL/PF 50 MG/5 ML SYRINGE IV ONE (12:35)
[2021-07-21] MEDS ORDERED: ROCURONIUM 10 MG/ML (5 ML VIAL) IV ONE (12:35)
[2021-07-21] MEDS ORDERED: fentaNYL (PF) 50 MCG/ML 2 ML AMP ONE (12:35)
[2021-07-21] MEDS ORDERED: METHYLENE BLUE 10 MG/ML (10 ML VIAL) INJ ONE (13:08)
[2021-07-21] MEDS ORDERED: LACTATED RINGERS 1,000 ML IV ONE ×2 (13:54→14:16)
--- NOTE | 2021-07-21 15:08 | P.NAPBC ---
NAPBC Queries - NAPBC Queries Was patient's case review presented at [facility] tumor board? If no, comment.: Yes Was patient's pathology reviewed at [facility]? If no, comment.: Yes Was breast conservation surgery offered? If no, comment.: No (recurrent cancer in radiated breast) Was sentinel node biopsy offered? If no, comment.: Yes (we will do attempt at [facility]) Was diagnosis confirmed by percutaneous core biopsy? If no, comment.: Yes Is patient mastectomy patient?: Yes Was a preop referral to reconstructive surgeon offered?: Yes Clinical Stage: !B vs IIIB depending on skin lesion
[2021-07-21] MEDS ORDERED: ONDANSETRON 4 MG/2 ML VIAL IVP PRN (15:21)
[2021-07-21] MEDS ORDERED: HYDROmorphone 1 MG/ML 1 ML SYRINGE IVP PRN (15:21)
[2021-07-21] MEDS ORDERED: NALOXONE 0.4 MG/ML 1 ML VIAL IV PRN (15:21)
--- NOTE | 2021-07-21 15:21 | P.OP ---
Date of Procedure: 07/21/21 Preoperative Diagnosis: Right breast recurrent/new invasive ductal carcinoma Postoperative Diagnosis: Same Procedure(s) Performed: Right mastectomy with sentinel node mapping and excision of palpable lower axillary lymph nodes Anesthesia: SUSANA Surgeon: Candy Barrera Estimated Blood Loss (ml): 25 IV fluids (ml): 900 Pathology: other (Breast tissue, axillary contents) Condition: stable Disposition: floor Indications for Procedure: Recurrent/new right breast invasive ductal carcinoma Operative Findings: Radiated/dense right breast tissue, probable radiation changes axillary tissue with scarring Description of Procedure: Luma is a 75-year-old white female who is status post a right breast lumpectomy and radiation therapy with axillary sampling in [place] in 2000. 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 Her case was presented at tumor Board and it was recommended that she undergo a mastectomy with an attempt at a sentinel biopsy. The patient was injected in the preoperative area with radioactive isotope i the periaerolar area. In the operating room following induction of anesthesia the neoprobe was used to interrogate the axilla. No increased radioactive uptake was identified. 5 mL of half-strength methylene blue were injected in the periareolar area and the breast was massaged for approximately 5 minutes. Following this the right breast and axilla were prepped and draped in a sterile fashion. The superior skin flap was developed using the electrocautery device. Following this the inferior skin flap was developed. The dissection was performed from the chest wall on the pectoralis major muscle medially to the axilla. Interrogation with the neoprobe did not reveal increased radioactivity in the axilla. Likewise there was no noticible blue dye. The axillary contents appeared to have palpable nodes present and a low-level axillary dissection was performed. The tissue was dissected superiorly to the area of the axillary vein and was swept inferiorly being careful to identify and preserve the thoracodorsal and long thoracic nerves. What appeared to be konrad tissue was identified and sent to pathology to confirm that the palpable abnormal tissue represented lymph nodes. This was confirmed. The tissue in the axilla was scarred and appeared to have radiation changes. After we were assured that hemostasis was attained the wound was well irrigated. Surgicel in powder form was placed. 2 EMILY drains were placed. One drain in the axilla and one under the flaps. The deep tissues were closed using 3-0 Vicryl suture. The skin was closed using elvis. The drains were secured using nylon drains. The patient tolerated the procedure in stable condition. All instrument and sponge counts were correct at the end of the case.
[2021-07-21 15:31] VITALS: RESP 16
[2021-07-21] MEDS: SODIUM CHLORIDE 0.45% 1,000 ML IV SCH (17:14)
[2021-07-21] MEDS: HEPARIN SODIUM,PORCINE/PF 5,000 UNIT/0.5 ML SYRINGE SQ SCH (17:18)
[2021-07-21] MEDS ORDERED: bisacodyL 10 MG SUPP RECTAL PRN (17:59)
[2021-07-21] MEDS ORDERED: METHYL SALICYLATE/MENTHOL CREAM 5 OZ TOPICAL PRN (17:59)
[2021-07-21] MEDS ORDERED: polyethylene glycoL 3350 17 GM POWD.PACK PO PRN (17:59)
--- NOTE | 2021-07-21 21:42 | P.CONS ---
History of Present Illness - Reason for Consult Consult date: 07/21/21 Medical management Requesting physician: Candy Barrera - Chief Complaint Right breast surgery - History of Present Illness This is a very pleasant 75-year-old patient who follows with Dr. Harris and is a resident of [facility]. Chronic stable medical conditions include history of remote DVT and PE following along car drive, GERD, hypertension, hyperlipidemia, osteoarthritis, obstructive sleep apnea does not use a CPAP machine currently, chronic lower back pain from L3-L4 100 discs, bilateral foot drop and wears braces, sometimes uses a walker for very short distances otherwise mostly to the chair, urinary incontinence, has had prior back surgery 2 years ago. In 1999 patient had right breast cancer and was treated with radiation treatment. Patient is having annual mammograms. Patient moved from [place] in 2018 and did not have a mammogram last year. Patient is found to have us skin mass and biopsy did confirm malignancy and further testing did show right breast tumor. Patient has now undergone right mastectomy with lymph node removal. Postpro cedure pain is controlled. No nausea vomiting. No chest pain or shortness of breath. Review of systems: GEN.: None EYES: None HEENT: None NECK: None RESPIRATORY: None CARDIOVASCULAR: None GASTROINTESTINAL: None GENITOURINARY: Urinary incontinence MUSCULOSKELETAL: Joint pains LYMPHATICS: None HEMATOLOGICAL: None PSYCHIATRY: None NEUROLOGICAL: Bilateral foot drop Past medical history to include: Right breast cancer previously treated with radiation treatment, remote history of DVT and PE, GERD, hypertension, hyperlipidemia, osteoarthritis, obstructive sleep apnea does not use CPAP, chronic low back pain from L3-L4 100 this followed by surgery, bilateral foot drop is braces, hemorrhoids, urinary incontinence Social history: No smoking. Alcohol rarely. Uses a wheelchair. Barely walker. Long-term resident of [facility] Family history: Cancer. Father at age of 53 from broken heart., After the of his son Physical examination: VITAL SIGNS: 97.5, 50, 16, 1 33 x 63, 96% room air GENERAL: BMI 45.1, declining in bed, awake, comfortable. EYES: Pupils equal. Conjunctiva normal. HEENT: External appearance of nose and ears normal, oral cavity grossly normal. NECK: JVD not raised; masses not palpable. HEART: First and second heart sounds are normal; no edema. LUNGS: Respiratory rate normal; clear to auscultation CHEST wall: Dressing over the right mastectomy site with Sander wrap. ABDOMEN: Soft, nontender, liver spleen not palpable, no masses palpable. PSYCH: Alert and oriented x3; mood and affect normal. NEUROLOGICAL: [Cranial nerves grossly intact; no facial asymmetry, bilateral foot drop LYMPHATICS: No lymph nodes palpable in the neck INVESTIGATIONS, reviewed in the clinical context: [07/01/2021] WBC 5.1 hemoglobin 12.9 platelets 214 potassium 5.2 BUN 22 creatinine 1 Assessment and plan: -Right breast invasive ductal carcinoma with a prior history in 1999-2 right breastlumpectomy and radiation treatment. Patient currently has undergone right mastectomy with sentinel node mapping and excision of palpable lower axillary lymph node -Morbid obesity BMI 45.1 Weight loss measures -GERD -Hyperlipidemia -Essential hypertension -Primary osteoarthritis -Mcdowell sleep apnea, patient does not use a CPAP machine For outpatient further workup of the same -Chronic low back pain from L3-L4 100 discs are prior history of lower back surgery -Bilateral foot drop Patient is bed braces -Chronic dysfunction multifactorial Uses a walker for short distances, otherwise uses a wheelchair -Chronic urinary incontinence wears pull ups care was discussed with the patient. Home medications resumed. Pain control in place. Venodyne boots for DVT prophylaxis. Care was discussed with the patient. Questions answered. Diet as tolerated. Thank you Dr. Gallagher Past Medical History Past Medical History: Cancer, Deep Vein Thrombosis (DVT), GERD/Reflux, Hyperlipidemia, Hypertension, Osteoarthritis (OA), Pulmonary Embolus (PE), Sleep Apnea/CPAP/BIPAP Additional Past Medical History / Comment(s): Chronic lower back pain, L3-L4 herniated disc, L sided sciatica, bilateral foot drop-wears braces, uses walker prn but states mostly in wheelchair.., Hx R breast cancer with lumpectomy/radiation, bronchitis, sinus problems., hemorrhoid, wears pull-ups for urine leakage., hx DVT & PE after back surgery., resides at [facility] since her back surgery 2 years ago. History of Any Multi-Drug Resistant Organisms: None Reported Past Surgical History: Back Surgery, Cholecystectomy, Tonsillectomy, Tubal Ligation Additional Past Surgical History / Comment(s): Colonoscopy, right breast lumpectomy and axillary node disection. BACK SURGERY X2, rt breast mastectomy with lumpectomy Past Anesthesia/Blood Transfusion Reactions: No Reported Reaction Past Psychological History: No Psychological Hx Reported Smoking Status: Never smoker, Second hand smoke exposure Past Alcohol Use History: Rare Past Drug Use History: None Reported - Past Family History Father Additional Family Medical History / Comment(s): Father at the age of 53 yrs from "broken heart" 6 weeks after the of his son. Mother Family Medical History: Cancer Additional Family Medical History / Comment(s): Mother at the age of 61 pt believes from a brain tumor. Medications and Allergies Home Medications Medication Instructions Recorded Confirmed Type Multivitamins, Thera [Multivitamin 1 tab PO DAILY 05/29/19 07/15/21 History (formulary)] allopurinoL [Zyloprim] 300 mg PO DAILY 05/29/19 07/21/21 History Lisinopril [Prinivil] 10 mg PO DAILY 08/07/19 07/15/21 History Magnesium Hydroxide [Milk of 30 ml PO DAILY PRN 08/07/19 07/15/21 History Magnesia] Magnesium Oxide [Mag-Ox] 400 mg PO BID 08/07/19 07/21/21 History bisacodyL [Dulcolax] 10 mg RECTAL DAILY PRN 08/07/19 07/21/21 History HYDROcodone/APAP 10-325MG [Nye 1 - 2 tab PO Q4H PRN 08/28/19 07/21/21 History 10-325] Sennosides [Senna] 8.6 mg PO DAILY 08/28/19 07/21/21 History methocarbamoL [Robaxin] 750 mg PO Q6H PRN 08/28/19 07/21/21 History Furosemide [Lasix] 20 mg PO Q48H 12/18/20 07/21/21 History Pregabalin [Lyrica] 100 mg PO BID 12/18/20 07/15/21 History guaiFENesin [Diabetic Tussin Ex] 10 ml PO Q4HR PRN 12/18/20 07/21/21 History Menthol [Biofreeze] 1 applic TOPICAL TID PRN 06/10/21 07/21/21 History polyethylene glycoL 3350 [Miralax] 17 gm PO DAILY PRN 06/10/21 07/21/21 History Acetaminophen [Tylenol] 1,000 mg PO Q4HR PRN 07/15/21 07/21/21 History Benzocaine/Menthol [Cepacol Sore 1 each MM DIRECTED PRN 07/15/21 07/21/21 History Throat Lozenge] Biacodyl Enema 1 dose RECTAL DIRECTED PRN 07/15/21 History Cefuroxime Axetil [Ceftin] 500 mg PO BID 07/15/21 07/21/21 History Ergocalciferol (Vitamin D2) 1,250 mcg PO WEEKLY 07/15/21 07/21/21 History [Drisdol (50,000 Iu)] Na Phos,M-B/Na Phos,Di-Ba [Fleet 133 ml RECTAL ONCE PRN 07/15/21 07/21/21 History Adult] Saliva Stimulant Agents Comb.3 1 tab PO DIRECTED 07/15/21 07/15/21 History [Biotene Moisturizing Mouth] Allergies Allergy/AdvReac Type Severity Reaction Status Date / Time No Known Allergies Allergy Verified 07/15/21 08:34 Physical Exam Vitals: Vital Signs Temp Pulse Pulse Resp BP BP BP 07/21/21 20:00 97.5 F L 50 L 16 133/63 07/21/21 16:33 49 L 16 131/62 07/21/21 16:18 48 L 16 140/63 07/21/21 16:04 66 16 129/61 07/21/21 15:49 64 16 141/61 07/21/21 15:34 48 L 16 128/60 07/21/21 15:19 96.8 F L 65 16 134/60 07/21/21 09:54 98.7 F 56 L 18 118/53 Pulse Ox 07/21/21 20:00 96 07/21/21 16:33 94 L 07/21/21 16:18 92 L 07/21/21 16:04 95 07/21/21 15:49 97 07/21/21 15:34 92 L 07/21/21 15:19 95 07/21/21 09:54 97 Intake and Output 07/21/21 07/21/21 07/21/21 06:59 14:59 22:59 Intake Total 1250 100 Output Total 25 Balance 1250 75 Intake: IV 1250 100 Output: Estimated Blood Loss 25 Other: Weight 111.8 kg 111.8 kg Results CBC & Chem 7: 07/21/21 10:11 Labs: Abnormal Lab Results - Last 24 Hours (Table) 07/21/21 Range/Units 10:11 Potassium 5.4 H (3.5-5.1) mmol/L
[2021-07-21] MEDS: MAGNESIUM OXIDE 400 MG TAB PO SCH (22:21)
[2021-07-21] MEDS: PREGABALIN 100 MG CAP PO SCH (22:22)
[2021-07-22] MEDS: HEPARIN SODIUM,PORCINE/PF 5,000 UNIT/0.5 ML SYRINGE SQ SCH ×2 (00:20→09:18)
[2021-07-22] MEDS: SODIUM CHLORIDE 0.45% 1,000 ML IV SCH ×2 (03:15→11:19)
[2021-07-22 08:50] LABS: Basophils % (A) 0 %; Eosinophils % (A) 0 %; HCT 37.9 % (34.0-46.0); HGB 13.1 gm/dL (11.4-16.0); Lymphocytes # (A) 1.7 k/uL (1.0-4.8); Lymphocytes % (A) 22 %; MCH 36.2 pg (25.0-35.0); MCHC 34.6 g/dL (31.0-37.0); MCV 104.6 fL (80.0-100.0); Macrocytosis Moderate; Mean Platelet Volume 8.4; Monocytes # (A) 0.5 k/uL (0-1.0); Monocytes % (A) 6 %; Neutrophils # (A) 5.3 k/uL (1.3-7.7); Neutrophils % (A) 70 %; Platelet Count 228 k/uL (150-450); RBC 3.62 m/uL (3.80-5.40); RDW 14.2 % (11.5-15.5); WBC 7.6 k/uL (3.8-10.6)
[2021-07-22] MEDS ORDERED: MULTIVITAMINS, THERA 1 EACH TAB PO SCH (09:00)
[2021-07-22] MEDS ORDERED: lisinopriL 10 MG TAB PO SCH (09:00)
[2021-07-22] MEDS ORDERED: SENNOSIDES 8.6 MG TAB PO SCH (09:00)
[2021-07-22] MEDS ORDERED: allopurinoL 300 MG TAB PO SCH (09:00)
[2021-07-22] MEDS ORDERED: FUROSEMIDE 20 MG TAB PO SCH (09:00)
[2021-07-22] MEDS: MAGNESIUM OXIDE 400 MG TAB PO SCH (09:05)
[2021-07-22] MEDS: PREGABALIN 100 MG CAP PO SCH (09:06)
--- NOTE | 2021-07-22 11:29 | P.PN ---
Subjective Progress Note Date: 07/22/21 Principal diagnosis: Postop day #1 right mastectomy with axillary node dissection Luma is a 75-year-old white female postop day #1 right mastectomy and axillary node dissection. She is doing well postoperatively. She is tolerating diet without difficulty. She was admitted from a senior living facility. Her potassium preoperatively was noted to be 5.4 this is being followed by medicine and is being repeated. Postoperative her hemoglobin is 13.1 and white count is 7.6. Objective - Vital Signs Vital signs: Vital Signs Temp 97.6 F 07/22/21 06:43 Pulse 95 07/22/21 06:43 Resp 16 07/22/21 06:43 BP 100/61 07/22/21 06:43 Pulse Ox 95 07/22/21 06:43 Intake & Output 07/21/21 07/22/21 07/22/21 18:59 06:59 18:59 Intake Total 1350 600 Output Total 25 15 655 Balance 1325 585 -655 Weight 111.8 kg Intake: IV 1350 Oral 600 Output: Drainage 15 30 Left 0 Right 15 30 Urine 625 Estimated Blood Loss 25 Other: Voiding Method External Catheter - Constitutional General appearance: Present: cooperative - EENT Eyes: Present: EOMI ENT: Present: hearing grossly normal - Neck Neck: Present: normal ROM - Respiratory Respiratory: bilateral: CTA - Cardiovascular Heart sounds: normal: S1, S2 - Integumentary Integumentary Comment(s): Incision clean and dry, no evidence of infection EMILY drain serous, left EMILY: 0 Right EMILY: 30 mL serosanguineous - Psychiatric Psychiatric: Present: A&O x's 3, appropriate affect, intact judgment & insight - Labs CBC & Chem 7: 07/22/21 07:21 07/21/21 10:11 Labs: Abnormal Lab Results - Last 24 Hours (Table) 07/22/21 Range/Units 07:21 RBC 3.62 L (3.80-5.40) m/uL MCV 104.6 H (80.0-100.0) fL MCH 36.2 H (25.0-35.0) pg Assessment and Plan Assessment: Impression: 1. Postop day #1 right mastectomy and axillary node dissection, patient doing well from a surgical standpoint 2. Preoperative elevated potassium 5.4 being followed by medicine 3. Patient presented from the senior living facility secondary to difficulty with ambulation Plan: 1. From a surgical standpoint patient is ready for discharge back to senior living facility 2. Await clearance from medicine 3. Assure that nursing facility is able to care for the patient/EMILY drain output to be measured and recorded
--- NOTE | 2021-07-22 11:32 | P.DS ---
Providers Attending physician: Candy Barrera Consults: 07/21/21 15:23 Consult Physician Routine Consulting Provider: Andrea Boyd Consult Reason/Comments: medical managmnet Do you want consulting provider notified?: Yes Primary care physician: Kirill Harris Plan - Discharge Summary Discharge Rx Participant: No New Discharge Prescriptions: Continue Multivitamins, Thera [Multivitamin (formulary)] 1 tab PO DAILY allopurinoL [Zyloprim] 300 mg PO DAILY bisacodyL [Dulcolax] 10 mg RECTAL DAILY PRN PRN Reason: Constipation Magnesium Oxide [Mag-Ox] 400 mg PO BID Magnesium Hydroxide [Milk of Magnesia] 30 ml PO DAILY PRN PRN Reason: Constipation Sennosides [Senna] 8.6 mg PO DAILY methocarbamoL [Robaxin] 750 mg PO Q6H PRN PRN Reason: Spasms Furosemide [Lasix] 20 mg PO Q48H polyethylene glycoL 3350 [Miralax] 17 gm PO DAILY PRN PRN Reason: Constipation Menthol [Biofreeze] 1 applic TOPICAL TID PRN PRN Reason: Pain Saliva Stimulant Agents Comb.3 [Biotene Moisturizing Mouth] 1 tab PO DIRECTED Ergocalciferol (Vitamin D2) [Drisdol (50,000 Iu)] 1,250 mcg PO WEEKLY Cefuroxime Axetil [Ceftin] 500 mg PO BID Pregabalin [Lyrica] 100 mg PO BID #6 cap Acetaminophen [Tylenol] 1,000 mg PO Q4HR PRN PRN Reason: Pain Biacodyl Enema 1 dose RECTAL DIRECTED PRN PRN Reason: Constipation Benzocaine/Menthol [Cepacol Sore Throat Lozenge] 1 each MM DIRECTED PRN PRN Reason: Sore Throat Changed HYDROcodone/APAP 10-325MG [Gerton 10-325] 1 tab PO Q4H PRN #18 tab PRN Reason: Pain Discontinued Lisinopril [Prinivil] 10 mg PO DAILY guaiFENesin [Diabetic Tussin Ex] 10 ml PO Q4HR PRN PRN Reason: Cough Na Phos,M-B/Na Phos,Di-Ba [Fleet Adult] 133 ml RECTAL ONCE PRN PRN Reason: Constipation Discharge Medication List Multivitamins, Thera [Multivitamin (formulary)] 1 tab PO DAILY 05/29/19 [History] allopurinoL [Zyloprim] 300 mg PO DAILY 05/29/19 [History] Magnesium Hydroxide [Milk of Magnesia] 30 ml PO DAILY PRN 08/07/19 [History] Magnesium Oxide [Mag-Ox] 400 mg PO BID 08/07/19 [History] bisacodyL [Dulcolax] 10 mg RECTAL DAILY PRN 08/07/19 [History] Sennosides [Senna] 8.6 mg PO DAILY 08/28/19 [History] methocarbamoL [Robaxin] 750 mg PO Q6H PRN 08/28/19 [History] Furosemide [Lasix] 20 mg PO Q48H 12/18/20 [History] Menthol [Biofreeze] 1 applic TOPICAL TID PRN 06/10/21 [History] polyethylene glycoL 3350 [Miralax] 17 gm PO DAILY PRN 06/10/21 [History] Acetaminophen [Tylenol] 1,000 mg PO Q4HR PRN 07/15/21 [History] Benzocaine/Menthol [Cepacol Sore Throat Lozenge] 1 each MM DIRECTED PRN 07/15/21 [History] Biacodyl Enema 1 dose RECTAL DIRECTED PRN 07/15/21 [History] Cefuroxime Axetil [Ceftin] 500 mg PO BID 07/15/21 [History] Ergocalciferol (Vitamin D2) [Drisdol (50,000 Iu)] 1,250 mcg PO WEEKLY 07/15/21 [History] Saliva Stimulant Agents Comb.3 [Biotene Moisturizing Mouth] 1 tab PO DIRECTED 07/15/21 [History] HYDROcodone/APAP 10-325MG [Gerton 10-325] 1 tab PO Q4H PRN #18 tab 07/22/21 [Rx] Pregabalin [Lyrica] 100 mg PO BID #6 cap 07/22/21 [Rx] Follow up Appointment(s)/Referral(s): Kirill Harris DO [Primary Care Provider] - 1-2 Days Candy Barrera MD [STAFF PHYSICIAN] - 07/30/21 9:20 am Stephanie Estrella [NON-STAFF] - As Needed Activity/Diet/Wound Care/Special Instructions: 1. Drain and record EMILY output daily and as needed, keep EMILY drains to suction 2. Patient may shower after 48 hours from surgery 3. Ambulation as per senior living facility Discharge Disposition: TRANSFER TO SNF/ECF Plan of Treatment: Teach patient drain care
[2021-07-22 12:32] VITALS: BP 102/55; PULSE 66; TEMP 97.9
[2021-07-22 13:19] LABS: African American GFR (CKD) 78 (>60 ml/min/1.73 sqM); Anion Gap 11 mmol/L; Blood Urea Nitrogen 19 mg/dL (7-17); Calcium 8.7 mg/dL (8.4-10.2); Carbon Dioxide 20 mmol/L (22-30); Chloride 105 mmol/L (98-107); Glucose 117 mg/dL (74-99); Non-African American GFR(CKD) 67 (>60 ml/min/1.73 sqM); Sodium 136 mmol/L (137-145)
--- NOTE | 2021-07-22 17:55 | P.PN ---
Progress Note - Text Progress Note Date: 07/22/21 - Chief Complaint Right breast surgery - History of Present Illness This is a very pleasant 75-year-old patient who follows with Dr. Harris and is a resident of [facility]. Chronic stable medical conditions include history of remote DVT and PE following along car drive, GERD, hypertension, hyperlipidemia, osteoarthritis, obstructive sleep apnea does not use a CPAP machine currently, chronic lower back pain from L3-L4 herniated discs, bilateral foot drop and wears braces, sometimes uses a walker for very short distances otherwise mostly to the chair, urinary incontinence, has had prior back surgery 2 years ago. In 1999 patient had right breast cancer and was treated with radiation treatment. Patient is having annual mammograms. Patient moved from [place] in 2018 and did not have a mammogram last year. Patient is found to have us skin mass and biopsy did confirm malignancy and further testing did show right breast tumor. Patient has now undergone right mastectomy with lymph node removal. Postprocedure pain is controlled. No nausea vomiting. No chest pain or shortness of breath. July 22: Laying in bed. Pain control. EMILY drain output noted. Oral intake fair. Patient's potassium this morning was 5.4. Repeated. Return came back at 5. Patient blood pressure running on the lower side. Has lisinopril discontinued. Patient wants to stay in the hospital as she is concerned about the staffing ratio [facility]. Did discuss with her to Dr. Julio christopher, that it is safe for patient to rehab as she is medically stable. Review of systems: Was done for constitutional, cardiovascular, GI, pulmonary. relevant finding as above Current medications reviewed in today's electronic records Past medical history to include: Right breast cancer previously treated with radiation treatment, remote history of DVT and PE, GERD, hypertension, hyperlipidemia, osteoarthritis, obstructive sleep apnea does not use CPAP, chronic low back pain from L3-L4 100 this followed by surgery, bilateral foot drop is braces, hemorrhoids, urinary incontinence Social history: No smoking. Alcohol rarely. Uses a wheelchair. Barely walker. Long-term resident of [facility] Family history: Cancer. Father at age of 53 from broken heart., After the of his son Physical examination: VITAL SIGNS: 97.9, 76, 16, 10 2 x 55, 93% room air GENERAL: Reclining in bed, awake, comfortable. EYES: Pupils equal. Conjunctiva normal. NECK: JVD not raised; masses not palpable. HEART: First and second heart sounds are normal; no edema. LUNGS: Respiratory rate normal; clear to auscultation CHEST wall: Dressing over the right mastectomy site with Sander wrap. ABDOMEN: Soft, nontender, liver spleen not palpable, no masses palpable. PSYCH: Alert and oriented x3; mood and affect normal. NEUROLOGICAL: bilateral foot drop INVESTIGATIONS, reviewed in the clinical context: July 22: Potassium 5. Coronavirus [PCF]: Not detected [07/01/2021] WBC 5.1 hemoglobin 12.9 platelets 214 potassium 5.2 BUN 22 creatinine 1 Assessment and plan: -Right breast invasive ductal carcinoma with a prior history in 1999-11/22 right breastlumpectomy and radiation treatment. Patient currently has undergone right mastectomy with sentinel node mapping and excision of palpable lower axillary lymph node -Morbid obesity BMI 45.1 Weight loss measures -GERD Tums when necessary -Hyperlipidemia -Essential hypertension Discontinue lisinopril as blood pressure lower side. Follow -Hyperkalemia Discontinue lisinopril -Primary osteoarthritis Pain medications as needed -Winn sleep apnea, patient does not use a CPAP machine For outpatient further workup of the same -Chronic low back pain from L3-L4 100 discs are prior history of lower back surgery -Bilateral foot drop Patient is bed braces -Chronic dysfunction multifactorial Uses a walker for short distances, otherwise uses a wheelchair -Chronic urinary incontinence wears pull ups DC lisinopril. Medically stable to return to ECF. Discussed with patient and Dr. Julio Christopher Thank you Dr. [id number]
== END 2021-07-22 14:40 ==
LOC: OR 08:49 → 4SSUR 16:46 → OR 07-22 14:40
PROVIDERS: ATTEND Surgery
DX: C50.411 Malignant neoplasm of upper-outer quadrant of right female breast (principal); Z20.822 Contact with and (suspected) exposure to COVID-19; R32 Unspecified urinary incontinence; I10 Essential (primary) hypertension; E78.5 Hyperlipidemia, unspecified; Z86.718 Personal history of other venous thrombosis and embolism; Z86.711 Personal history of pulmonary embolism; M54.5 Low back pain; M19.90 Unspecified osteoarthritis, unspecified site; Z79.899 Other long term (current) drug therapy; Z80.9 Family history of malignant neoplasm, unspecified; K21.9 Gastro-esophageal reflux disease without esophagitis; Z99.3 Dependence on wheelchair; E66.01 Morbid (severe) obesity due to excess calories
CPT/HCPCS: 80048; 84132; 85025; 87635; 38792; 19307; A9520; J1100; J0690 ×2; J2405; Q9968; J1170 ×2; J1644 ×2

== ENCOUNTER → 2021-07-31 | Outpatient (CLI) | payer MEDICARE ==
[2021-07-31 15:35] VITALS: BP 129/57; PULSE 62; RESP 18; TEMP 98.1
--- NOTE | 2021-07-31 16:10 | P.PN ---
Progress Note - Text Progress Note Date: 07/31/21 Luma is a 75-year-old white female status post right breast mastectomy and sentinel node biopsy on 830 121. Pathology revealed no nodes positive and the lesion in the breast was approximately 2.4 cm with some skin involvement. The patient post procedure is doing well. She has [address] One drain has minimal output and that will be removed. The drainage is uncertain as to the output and this will be recorded over the next week. Physical exam: Lungs: Clear Heart: Regular rate and rhythm Incision: Clean and dry EMILY drains one to be removed secondarily till next week Impression/Plan: 1. Recurrent right breast cancer status post mastectomy sentinel node biopsy 2. Appointment with medical oncology 3. Follow-up. Next week CC: Dr. Harris
== END ==
LOC: WWCWWP 15:18
PROVIDERS: ATTEND Surgery
DX: C50.911 Malignant neoplasm of unspecified site of right female breast (principal); Z90.11 Acquired absence of right breast and nipple

== ENCOUNTER → 2021-08-06 | Outpatient (CLI) | payer MEDICARE ==
[2021-08-06 12:42] VITALS: BP 126/71; PULSE 65; RESP 18; TEMP 97.8
--- NOTE | 2021-08-06 13:23 | P.PN ---
Progress Note - Text Progress Note Date: 08/06/21 Luma is a 75 year old white female status post right mastectomy and sentinel node biopsy. Mastectomy revealed multifocal recurrent invasive ductal carcinoma grade 3. All margins were negative. Lymph nodes 2 lymph nodes negative for cancer. There was a satellite skin focus of invasive carcinoma. The patient post procedure is doing well. She is ready for elvis and drain to be removed today. Physical examination: Incision: Clean and dry Lungs: Clear Heart: S1-S2 Impression: 1. Patient status post mastectomy and axillary node resection Plan: 1. Follow-up with medical oncology 2. Follow-up here in 3 months, sooner if any questions or concerns. CC: Dr. Harris
== END ==
LOC: WWCWWP 12:21
PROVIDERS: ATTEND Surgery
DX: Z08 Encounter for follow-up examination after completed treatment for malignant neoplasm (principal); Z90.11 Acquired absence of right breast and nipple; Z85.3 Personal history of malignant neoplasm of breast

== ENCOUNTER → 2021-08-24 | Outpatient (CLI) | payer MEDICARE ==
--- NOTE | 2021-08-24 19:20 | BD ---
EXAMINATION TYPE: Axial Bone Density DATE OF EXAM: 08/24/2021 COMPARISON: NONE CLINICAL HISTORY: 75 YR OLD FEMALE.....IN A WHEELCHAIR....ICD-10 CODE: 050.411 BR CANCER, Z79.890 P [address] [place] Height: 60.6 Weight: 273 FRAX RISK QUESTIONS: History of Fracture in Adulthood: YES RISK FACTORS HISTORY OF: HX OR RT HAND AND WRIST FX History of Wrist Fracture: RT Surgery to Spine FOR HERNIATED DISC IN LUMBAR SPINE, THEN POSSIBLE FUSION Diet low in dairy products/other sources of calcium: YES Postmenopausal woman: YES, IN HER 50s Take estrogen and/or progesterone medications: YES, FOR ABOUT 3 YRS, DEVELOPED BREAST CANCER, NOW ON TOMOXIN, ANASTROZOLE, How long: FOR ABOUT 3-4 YRS Lost more than 2 inches in height since high school: YES Frequent falls: YES, DROP FEET FROM HERNIATED DISC. Hyperparathyroidism: NO Adrenal Insufficiency: NO MEDICATIONS: Additional Medications: ARTHRITIS, DROP FOOT BILAT, HX OF BR CANCER WITH RADIATION, 2ND ROUND NO RAD IATION, BP MEDS, REFLUX MEDS, STATIN FOR CHOLESTEROL, CALCIUM AND VIT D, POTASSIUM Additional History: ARTHRITIS, DROP FOOT BILAT, HX OF BR CANCER , REFLUX , CHOLESTEROL, HYPERTENSION, EXAM MEASUREMENTS: Bone mineral densitometry was performed using the [employer] System. SPINAL FUSION, LUMBAR Bone mineral density about the R hip (g/cm2): 0.837 Bone mineral density about the L hip (g/cm2): 0.824 T Score values are as follows: -----R Neck: -1.6 -----L Neck: -2.4 -----R Total: -1.4 -----L Total: -1.5 Bone mineral density FIRST DEXA AT [facility] FRAX%s: THERE IS A 20.3% CHANCE FOR A MAJOR OSTEOPOROTIC FX AND A 5.5% FOR HIP......PROBABILITY FO R FX IN 10 YRS TIME Bone mineral density about the L Wrist (g/cm2): 0.581 T Score values are as follows: -----Dist. R+U: 1.3 -----Prox. R+U: -0.8 -----Radius total: -0.9 Bone mineral density FIRST AT [facility] IMPRESSION: Osteopenia (T Score between -2.5 and -1). There is slightly increased risk of fracture and the patient may be considered for treatment. Re-Screen 2-5 years. NOTE: T-SCORE=SD OF THE YOUNG ADULT MEAN.
== END | disposition home or self-care (01) ==
LOC: RADBDWWP 09:50
PROVIDERS: ATTEND Internal Medicine Hematology & Oncology
DX: M85.89 Other specified disorders of bone density and structure, multiple sites (principal); Z78.0 Asymptomatic menopausal state
CPT/HCPCS: 77080

== ENCOUNTER → 2021-11-06 | Outpatient (CLI) | payer MEDICARE ==
[2021-11-06 12:09] VITALS: BP 128/72; PULSE 61; RESP 18; TEMP 98
--- NOTE | 2021-11-06 12:43 | P.PN ---
Subjective Progress Note Date: 11/06/21 Principal diagnosis: right breast invasive ductal cancer Right breast invasive ductal carcinoma/stage Ib if this skin lesion is not considered to be a T4 or IIIB if the skin lesion is a T4 Kinsey is a 76 year old white female who noted a skin lesion in her right breast about two months ago. She was seen by Dr. Walden and a biopsy was done which was consistent with metastatic breast cancer. She was diagnosed with early stage right breast cancer in 2000 in [place]. She was treated with a lumpectomy/axillary node dissection/adjuvant radiation and 5 years of tamoxifen. Her last mammogram was in 2018. She came to visit from [place] in 2018, in May 2019 she had back surgery. She subsequently had a second back surgery in June of 2019. She has not returned [place]. Secondary to the injury in her back she has paralysis and both legs and is incontinent of urine and stool. She presently lives at [facility]. She had a complicated postoperative course from her back surgery as she had a DVT and pulmonary embolism. She did have a laminectomy in July 2019. She has been seen by Dr. Porter in 2018 regarding a questionable lesion on her brain which resolved. She had a bilateral mammogram performed on 7220. This revealed a mass in the right breast. No lesions were identified in the left breast. She subsequently had an ultrasound-guided core biopsy of the right breast on . This revealed at 10:00 invasive ductal carcinoma grade 2, and at 11:00 invasive ductal carcinoma grade 2. Right axillary lymph nodes were biopsied which were negative for metastatic cancer. She underwent a metastatic workup which included a computed tomography scan of the chest abdomen and pelvis on which was negative for metastatic disease. The The patient's case was presented at tumor Board. The recommendation was for a mastectomy. This has been discussed with the patient. We would recommend a mastectomy with an attempted sentinel node biopsy. The patient understands and wishes to proceed with this. The patient is able to ambulate with assistance, and a walker. She is incontinent of urine. She wears pull-ups. On 07-21-21 she underwent a right breast matectomy and axillary node resection. Pathology revealed all nodes negative and multifocal and recurrent invasive ductal cancer in the right breast, all margins negative. She did not have any radiation or chemotherapy. She is taking aromisin. She is tolerating this without difficulty. Caffeine: 2 cups/day; 20oz ice tea daily/pop: seldom nicotine: patient never; secondhand: (5 years) hormones: 16 years; prempro stopped in 2000 Family History: patient: breast cancer Hormonal History: menarche: 9 G0 menopause: 46 hormones: 16 years Prempro stopped in 2000 Tubal ligation at the age of 40 BCP: none Surgical history: 1. Tubal ligation 2. Right breast lumpectomy and Node dissection 3. 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 HTN 3. back injury as above 4. GERD Social History: smoke: as above alcohol: occasional stopped / 1985 drugs: none - Constitutional Constitutional: Reports sweats, Denies chills, Denies fever - EENT Eyes: denies blurred vision, denies pain Ears: bilateral: decreased hearing, deny: tinnitus Ears, nose, mouth and throat: Denies headache, Denies sore throat - Breasts Breasts: bilateral: as per HPI - Cardiovascular Cardiovascular: Denies chest pain, Denies shortness of breath - Respiratory Respiratory: Reports cough - Gastrointestinal Comment: incontinent Gastrointestinal: Denies abdominal pain, Denies diarrhea, Denies nausea, Denies vomiting - Genitourinary (Female) Comment: incontient Genitourinary: Reports as per HPI - Menstruation Menstruation: Reports postmenopausal - Musculoskeletal Musculoskeletal: Reports muscle weakness - Integumentary Integumentary: Reports as per HPI - Neurological Comment: back herniated disc Neurological: Reports as per HPI - Psychiatric Psychiatric: Denies anxiety, Denies depression - Endocrine Endocrine: Denies fatigue, Denies weight change - Hematologic/Lymphatic Comment: none - Allergic/Immunologic Allergic/Immunologic: Reports as per HPI Objective - Vital Signs Vital signs: Vital Signs Temp 98.0 F 11/06/21 12:06 Pulse 61 11/06/21 12:06 Resp 18 11/06/21 12:06 BP 128/72 11/06/21 12:06 Pulse Ox 97 11/06/21 12:06 - Constitutional General appearance: Present: cooperative - EENT Eyes: Present: EOMI ENT: Present: hearing grossly normal - Neck Neck: Present: normal ROM - Respiratory Respiratory: bilateral: CTA - Cardiovascular Heart sounds: normal: S1, S2 - Gastrointestinal General gastrointestinal: Present: soft - Musculoskeletal Musculoskeletal Comment(s): uses a walker and in a wheel chair - Psychiatric Psychiatric: Present: A&O x's 3, appropriate affect, intact judgment & insight - Additional findings Additional findings: Breast exam: right chest wall seroma/ left breast grade 3 ptosis palpation: Chest wall: Seroma Right axilla: No adenopathy of concern Left breast: No dominant masses or nodules of concern Left axilla: No adenopathy of concern Assessment and Plan Assessment: Impression: 1. 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 HTN 3. back injury as above 4. GERD 5. seroma right chest wall 6. no evidence of recurrent cancer : 1. Follow-up with medical oncology 2. Aspiration of seroma 3. Left breast mammogram May 2022 with appointment CC: Dr. Hendrickson
--- NOTE | 2021-11-06 12:54 | P.PCN ---
Date of Procedure: 11/06/21 Preoperative Diagnosis: Seroma right chest wall Postoperative Diagnosis: Same Procedure(s) Performed: Aspiration of seroma Surgeon: Candy Barrera Condition: stable Disposition: same day Indications for Procedure: Enlarging seroma right chest wall Description of Procedure: The area of concern in the right chest was prepped using alcohol. An 18-gauge needle on a 20 mL syringe was inserted into the area of concern. This was then changed to a 60 mL syringe. A total of 335 mL of serous fluid which appeared to be old blood tinged most likely from an old hematoma was aspirated. There was complete resolution of the seroma. The patient tolerated this without difficulty. Impression: Aspiration of seroma Plan: Patient is to call if the area starts to repeat her in the near future otherwise will see the patient again in approximately 2 weeks
== END ==
LOC: WWCWWP 11:18
PROVIDERS: ATTEND Surgery
DX: M96.843 Postprocedural seroma of a musculoskeletal structure following other procedure (principal); I10 Essential (primary) hypertension; K21.9 Gastro-esophageal reflux disease without esophagitis; S39.92XD Unspecified injury of lower back, subsequent encounter; Z86.718 Personal history of other venous thrombosis and embolism; Z86.711 Personal history of pulmonary embolism; Z85.3 Personal history of malignant neoplasm of breast

== ENCOUNTER → 2021-11-27 | Outpatient (CLI) | payer MEDICARE ==
[2021-11-27 11:39] VITALS: BP 135/60; PULSE 67; RESP 16; TEMP 97.4
--- NOTE | 2021-11-27 12:02 | P.PN ---
Progress Note - Text Progress Note Date: 11/27/21 right breast invasive ductal cancer Right breast invasive ductal carcinoma/stage Ib if this skin lesion is not considered to be a T4 or IIIB if the skin lesion is a T4 Kinsey is a 76 year old white female who noted a skin lesion in her right breast about two months ago. She was seen by Dr. Walden and a biopsy was done which was consistent with metastatic breast cancer. She was diagnosed with early stage right breast cancer in 2000 in [place]. She was treated with a lumpectomy/axillary node dissection/adjuvant radiation and 5 years of tamoxifen. Her last mammogram was in 2018. She came to visit from [place] in 2018, in May 2019 she had back surgery. She subsequently had a second back surgery in June of 2019. She has not returned [place]. Secondary to the injury in her back she has paralysis and both legs and is incontinent of urine and stool. She presently lives at [facility]. She had a complicated postoperative course from her back surgery as she had a DVT and pulmonary embolism. She did have a laminectomy in July 2019. She has been seen by Dr. Porter in 2018 regarding a questionable lesion on her brain which resolved. She had a bilateral mammogram performed on 7220. This revealed a mass in the right breast. No lesions were identified in the left breast. She subsequently had an ultrasound-guided core biopsy of the right breast on . This revealed at 10:00 invasive ductal carcinoma grade 2, and at 11:00 invasive ductal carcinoma grade 2. Right axillary lymph nodes were biopsied which were negative for metastatic cancer. She underwent a metastatic workup which included a computed tomography scan of the chest abdomen and pelvis on which was negative for metastatic disease. The The patient's case was presented at tumor Board. The recommendation was for a mastectomy. This has been discussed with the patient. We would recommend a mastectomy with an attempted sentinel node biopsy. The patient understands and wishes to proceed with this. The patient is able to ambulate with assistance, and a walker. She is incontinent of urine. She wears pull-ups. On 07-21-21 she underwent a right breast matectomy and axillary node resection. Pathology revealed all nodes negative and multifocal and recurrent invasive ductal cancer in the right breast, all margins negative. She did not have any radiation or chemotherapy. She is taking aromisin. She is tolerating this without difficulty. On the patient's last visit she was noted to have a seroma on the right chest wall. This was aspirated for 335 cc of serous fluid. She returns on today's visit to the evaluate the seroma. The seroma has recurred but is much smaller in size. The patient has lower body weakness and uses her upper extremities to move about in her wheelchair. The seroma is not bothering her at this time. Caffeine: 2 cups/day; 20oz ice tea daily/pop: seldom nicotine: patient never; secondhand: (5 years) hormones: 16 years; prempro stopped in 2000 Family History: patient: breast cancer Hormonal History: menarche: 9 G0 menopause: 46 hormones: 16 years Prempro stopped in 2000 Tubal ligation at the age of 40 BCP: none Surgical history: 1. Tubal ligation 2. Right breast lumpectomy and Node dissection 3. 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 HTN 3. back injury as above 4. GERD Social History: smoke: as above alcohol: occasional stopped / 1986 drugs: none - Constitutional Constitutional: Reports sweats, Denies chills, Denies fever - EENT Eyes: denies blurred vision, denies pain Ears: bilateral: decreased hearing, deny: tinnitus Ears, nose, mouth and throat: Denies headache, Denies sore throat - Breasts Breasts: bilateral: as per HPI - Cardiovascular Cardiovascular: Denies chest pain, Denies shortness of breath - Respiratory Respiratory: Reports cough - Gastrointestinal Comment: incontinent Gastrointestinal: Denies abdominal pain, Denies diarrhea, Denies nausea, Denies vomiting - Genitourinary (Female) Comment: incontient Genitourinary: Reports as per HPI - Menstruation Menstruation: Reports postmenopausal - Musculoskeletal Musculoskeletal: Reports muscle weakness - Integumentary Integumentary: Reports as per HPI - Neurological Comment: back herniated disc Neurological: Reports as per HPI - Psychiatric Psychiatric: Denies anxiety, Denies depression - Endocrine Endocrine: Denies fatigue, Denies weight change - Hematologic/Lymphatic Comment: none - Allergic/Immunologic Allergic/Immunologic: Reports as per HPI Examination: right chest wall seroma which is now bothering the patient at this time Impression: DVT/PE in the past Hypertension Back injury as noted GERD Recurrent seroma right chest wall No evidence of recurrent cancer Plan: Continue follow-up with medical oncology Continue close surveillance of seroma, we have discussed the aspiration today however as it is now bothering the patient we are going to follow this conser vatively Left breast mammogram May 2022 Follow-up here to follow seroma in 1 month Cc: Dr. Hendrickson
== END ==
LOC: WWCWWP 11:17
PROVIDERS: ATTEND Surgery
DX: N64.89 Other specified disorders of breast (principal); I10 Essential (primary) hypertension; K21.9 Gastro-esophageal reflux disease without esophagitis; S39.92XD Unspecified injury of lower back, subsequent encounter; Z85.3 Personal history of malignant neoplasm of breast; Z86.718 Personal history of other venous thrombosis and embolism; Z86.711 Personal history of pulmonary embolism; Z79.899 Other long term (current) drug therapy

== ENCOUNTER 2021-12-09 13:27 | Emergency (ER) | payer MEDICARE ==
[2021-12-09] MEDS ORDERED: SODIUM CHLORIDE 0.9% 1,000 ML IV STA (13:39)
[2021-12-09] MEDS ORDERED: GLUCAGON 1 MG/ML VIAL IVP STA (13:56)
[2021-12-09] MEDS ORDERED: METOCLOPRAMIDE 5 MG/ML 2 ML VIAL IVP STA (13:57)
[2021-12-09 14:19] LABS: Basophils % (A) 1 %; Eosinophils # (A) 0.1 k/uL (0-0.7); Eosinophils % (A) 2 %; HCT 43.1 % (34.0-46.0); HGB 14.1 gm/dL (11.4-16.0); Lymphocytes # (A) 1.5 k/uL (1.0-4.8); Lymphocytes % (A) 25 %; MCH 34.1 pg (25.0-35.0); MCHC 32.8 g/dL (31.0-37.0); Macrocytosis Slight; Mean Platelet Volume 7.5; Monocytes # (A) 0.5 k/uL (0-1.0); Monocytes % (A) 9 %; Neutrophils # (A) 3.6 k/uL (1.3-7.7); Neutrophils % (A) 61 %; Platelet Count 292 k/uL (150-450); RBC 4.14 m/uL (3.80-5.40); RDW 14.2 % (11.5-15.5)
[2021-12-09 14:23] VITALS: RESP 18
[2021-12-09 14:26] LABS: Albumin 4.1 g/dL (3.5-5.0); Potassium 4.2 mmol/L (3.5-5.1); Total Bilirubin 0.9 mg/dL (0.2-1.3)
--- NOTE | 2021-12-09 14:52 | ED ---
Abdominal Pain HPI - General Chief Complaint: Abdominal Pain Stated Complaint: Dehydration Time Seen by Provider: 12/09/21 13:31 Source: patient, EMS, RN notes reviewed Mode of arrival: EMS Limitations: no limitations - History of Present Illness Initial Comments: This a 76-year-old female presents emergency from via EMS chief complaint of mild headache, abdominal discomfort, diarrhea and nausea. Patient states that he will be a drink and wants cut she's been upset stomach. Denies any localized pain this time. Patient states that she is concerned she may have COVID-19. Patient denies any no fever no severe cough congestion. Just notes that she had some difficulty eating drinking milligrams swallow but she was able to. Patient denies any reflux no other complaints. - Related Data Home Medications Medication Instructions Recorded Confirmed Multivitamins, Thera [Multivitamin 1 tab PO QAM 05/29/19 11/27/21 (formulary)] allopurinoL [Zyloprim] 300 mg PO QAM 05/29/19 11/27/21 Magnesium Hydroxide [Milk of 30 ml PO DAILY PRN 08/07/19 11/27/21 Magnesia] Magnesium Oxide [Mag-Ox] 400 mg PO BID 08/07/19 11/27/21 bisacodyL [Dulcolax] 10 mg RECTAL DAILY PRN 08/07/19 11/27/21 Sennosides [Senna] 8.6 mg PO QAM 08/28/19 11/27/21 methocarbamoL [Robaxin] 750 mg PO Q6H PRN 08/28/19 11/27/21 Furosemide [Lasix] 20 mg PO Q48H 12/18/20 11/27/21 Menthol [Biofreeze] 1 applic TOPICAL TID PRN 06/10/21 11/27/21 polyethylene glycoL 3350 [Miralax] 17 gm PO DAILY PRN 06/10/21 11/27/21 Acetaminophen [Tylenol] 1,000 mg PO Q4HR PRN 07/15/21 11/27/21 Benzocaine/Menthol [Cepacol Sore 1 each MM DIRECTED PRN 07/15/21 11/27/21 Throat Lozenge] Biacodyl Enema 1 dose RECTAL DIRECTED PRN 07/15/21 11/27/21 Ergocalciferol (Vitamin D2) 1,250 mcg PO WEEKLY 07/15/21 11/27/21 [Drisdol (50,000 Iu)] Previous Rx's Medication Instructions Recorded HYDROcodone/APAP 10-325MG [[place] 1 tab PO Q4H PRN #18 tab 07/22/21 10-325] Pregabalin [Lyrica] 100 mg PO BID #6 cap 07/22/21 Omeprazole [PriLOSEC] 40 mg PO DAILY #14 cap 12/09/21 Allergies Allergy/AdvReac Type Severity Reaction Status Date / Time No Known Allergies Allergy Verified 11/27/21 11:28 Review of Systems ROS Statement: Those systems with pertinent positive or pertinent negative responses have been documented in the HPI. ROS Other: All systems not noted in ROS Statement are negative. Past Medical History Past Medical History: Cancer, Deep Vein Thrombosis (DVT), GERD/Reflux, Hyperlipidemia, Hypertension, Osteoarthritis (OA), Pulmonary Embolus (PE), Sleep Apnea/CPAP/BIPAP Additional Past Medical History / Comment(s): Chronic lower back pain, L3-L4 herniated disc, L sided sciatica, bilateral foot drop-wears braces, uses walker prn but states mostly in wheelchair.., Hx R breast cancer with lumpectomy/radiation, bronchitis, sinus problems., hemorrhoid, wears pull-ups for urine leakage., hx DVT & PE after back surgery., resides at [facility] since her back surgery 2 years ago. History of Any Multi-Drug Resistant Organisms: None Reported Past Surgical History: Back Surgery, Cholecystectomy, Tonsillectomy, Tubal Ligation Additional Past Surgical History / Comment(s): Colonoscopy, right breast lumpectomy and axillary node disection. BACK SURGERY X2 Past Anesthesia/Blood Transfusion Reactions: No Reported Reaction Past Psychological History: No Psychological Hx Reported Smoking Status: Never smoker, Second hand smoke exposure Past Alcohol Use History: Rare Past Drug Use History: None Reported - Past Family History Father Additional Family Medical History / Comment(s): Father at the age of 53 yrs from "broken heart" 6 weeks after the of his son. Mother Additional Family Medical History / Comment(s): Mother at the age of 61 pt believes from a brain tumor. General Exam Limitations: no limitations General appearance: alert, in no apparent distress Head exam: Present: atraumatic, normocephalic, normal inspection Eye exam: Present: normal appearance, PERRL, EOMI. Absent: scleral icterus, conjunctival injection, periorbital swelling ENT exam: Present: normal exam, mucous membranes moist Neck exam: Present: normal inspection. Absent: tenderness, meningismus, lymphadenopathy Respiratory exam: Present: normal lung sounds bilaterally. Absent: respiratory distress, wheezes, rales, rhonchi, stridor Cardiovascular Exam: Present: regular rate, normal rhythm, normal heart sounds. Absent: systolic murmur, diastolic murmur, rubs, gallop, clicks GI/Abdominal exam: Present: soft, tenderness, normal bowel sounds. Absent: distended, guarding, rebound, rigid Back exam: Absent: CVA tenderness (R), CVA tenderness (L) Course Vital Signs 12/09/21 12/09/21 13:28 14:22 Temperature 98.6 F Pulse Rate 70 71 Respiratory 20 18 Rate Blood Pressure 134/79 145/81 O2 Sat by Pulse 97 100 Oximetry Medical Decision Making - Medical Decision Making patient CT shows evidence of esophagitis. Patient is unremarkable. Patient is ttolerating oral intake though she states is occasionally discomfort. Patient will be discharged on omeprazole follow-up with - Lab Data Result diagrams: 12/09/21 14:03 12/09/21 14:03 Lab Results 12/09/21 12/09/21 12/09/21 Range/Units 14:03 14:03 14:03 WBC 6.0 (3.8-10.6) k/uL RBC 4.14 (3.80-5.40) m/uL Hgb 14.1 (11.4-16.0) gm/dL Hct 43.1 (34.0-46.0) % MCV 104.0 H (80.0-100.0) fL MCH 34.1 (25.0-35.0) pg MCHC 32.8 (31.0-37.0) g/dL RDW 14.2 (11.5-15.5) % Plt Count 292 (150-450) k/uL MPV 7.5 Neutrophils % 61 % Lymphocytes % 25 % Monocytes % 9 % Eosinophils % 2 % Basophils % 1 % Neutrophils # 3.6 (1.3-7.7) k/uL Lymphocytes # 1.5 (1.0-4.8) k/uL Monocytes # 0.5 (0-1.0) k/uL Eosinophils # 0.1 (0-0.7) k/uL Basophils # 0.0 (0-0.2) k/uL Macrocytosis Slight Sodium 139 (137-145) mmol/L Potassium 4.2 (3.5-5.1) mmol/L Chloride 105 (98-107) mmol/L Carbon Dioxide 28 (22-30) mmol/L Anion Gap 6 mmol/L BUN 22 H (7-17) mg/dL Creatinine 0.93 (0.52-1.04) mg/dL Est GFR (CKD-EPI)AfAm 69 (>60 ml/min/1.73 sqM) Est GFR (CKD-EPI)NonAf 60 (>60 ml/min/1.73 sqM) Glucose 122 H (74-99) mg/dL Plasma Lactic Acid Jamie 1.2 (0.7-2.0) mmol/L Calcium 9.0 (8.4-10.2) mg/dL Total Bilirubin 0.9 (0.2-1.3) mg/dL AST 44 H (14-36) U/L ALT 34 (4-34) U/L Alkaline Phosphatase 80 (38-126) U/L Total Protein 7.0 (6.3-8.2) g/dL Albumin 4.1 (3.5-5.0) g/dL Amylase 62 (30-110) U/L Lipase 53 (23-300) U/L Coronavirus (PCR) (Not Detectd) 12/09/21 Range/Units 14:03 WBC (3.8-10.6) k/uL RBC (3.80-5.40) m/uL Hgb (11.4-16.0) gm/dL Hct (34.0-46.0) % MCV (80.0-100.0) fL MCH (25.0-35.0) pg MCHC (31.0-37.0) g/dL RDW (11.5-15.5) % Plt Count (150-450) k/uL MPV Neutrophils % % Lymphocytes % % Monocytes % % Eosinophils % % Basophils % % Neutrophils # (1.3-7.7) k/uL Lymphocytes # (1.0-4.8) k/uL Monocytes # (0-1.0) k/uL Eosinophils # (0-0.7) k/uL Basophils # (0-0.2) k/uL Macrocytosis Sodium (137-145) mmol/L Potassium (3.5-5.1) mmol/L Chloride (98-107) mmol/L Carbon Dioxide (22-30) mmol/L Anion Gap mmol/L BUN (7-17) mg/dL Creatinine (0.52-1.04) mg/dL Est GFR (CKD-EPI)AfAm (>60 ml/min/1.73 sqM) Est GFR (CKD-EPI)NonAf (>60 ml/min/1.73 sqM) Glucose (74-99) mg/dL Plasma Lactic Acid Jamie (0.7-2.0) mmol/L Calcium (8.4-10.2) mg/dL Total Bilirubin (0.2-1.3) mg/dL AST (14-36) U/L ALT (4-34) U/L Alkaline Phosphatase (38-126) U/L Total Protein (6.3-8.2) g/dL Albumin (3.5-5.0) g/dL Amylase (30-110) U/L Lipase (23-300) U/L Coronavirus (PCR) Not Detected (Not Detectd) Disposition Clinical Impression: Esophagitis, Viral enteritis Disposition: HOME SELF-CARE Condition: Stable Instructions (If sedation given, give patient instructions): Esophagitis (ED) Additional Instructions: Please return to the Emergency Department if symptoms worsen or any other concerns. Prescriptions: Omeprazole [PriLOSEC] 40 mg PO DAILY #14 cap Is patient prescribed a controlled substance at d/c from ED?: No Referrals: John Hendrickson MD [Primary Care Provider] - 1-2 days Jinny Mcgrath MD [STAFF PHYSICIAN] - 1-2 days Time of Disposition: 16:41
[2021-12-09] MEDS ORDERED: IOPAMIDOL CONTRAST (ORAL USE) VIAL PO PRN (15:34)
[2021-12-09] MEDS ORDERED: MAG HYDROX/AL HYDROX/SIMETH 30 ML, HYOSCYAMINE ELIXIR 10 ML, LIDOCAINE VISCOUS 2% 10 ML PO STA ×3 (15:36)
--- NOTE | 2021-12-09 16:27 | CT ---
EXAMINATION TYPE: CT abdomen pelvis w con DATE OF EXAM: 12/09/2021 COMPARISON: CT 05/20/2021 HISTORY: Epigastric abdominal pain. CT DLP: 2211.4 mGycm Automated exposure control for dose reduction was used. TECHNIQUE: Helical acquisition of images from the lung bases through the pelvis have been completed. CONTRAST: Performed with Oral Contrast and with IV Contrast, patient injected with 80ml mL of Isovue 300. FINDINGS: Distal esophagus shows a somewhat thickened appearance prepped progressed compared to prior exam LUNG BASES: No significant abnormality is appreciated. AORTA: No significant abnormality is appreciated. LIVER/GB: Liver is enlarged and shows low-attenuation likely due to hepatic steatosis, patient is pos t cholecystectomy. PANCREAS: No significant abnormality is seen. SPLEEN: No significant abnormality is seen. ADRENALS: No significant abnormality is seen. KIDNEYS: No significant abnormality is seen. REPRODUCTIVE ORGANS: No significant abnormality is seen BOWEL: Scattered diverticula associated with the colon Appendix is normal, there is no bowel obstruc tion evident FREE AIR: No Free Air visible. ASCITES: None visible. PELVIC ADENOPATHY: None visualized. RETROPERITONEAL ADENOPATHY: No Retroperitoneal Adenopathy visible. URINARY BLADDER: No significant abnormality is seen. OSSEOUS STRUCTURES: Postop changes noted, multilevel laminectomies are present, anterolisthesis grad e 1 L3-4, multilevel facet arthropathy is present. There is a spinal curvature. IMPRESSION: CORRELATE FOR HEPATIC STEATOSIS. THERE IS HEPATOMEGALY. POSTOP CHANGE. DIVERTICULOSIS. CONSIDER ESOPH AGITIS, DIRECT VISUALIZATION INDICATED.
[2021-12-09] MEDS ORDERED: HYDROcodone/APAP 5-325MG 1 EACH TAB PO STA (16:38)
[2021-12-09] MEDS ORDERED: methocarbamoL 500 MG TAB PO STA (16:38)
[2021-12-09] MEDS ORDERED: PANTOPRAZOLE 40 MG/10 ML VIAL IVP STA (16:40)
[2021-12-09 18:52] VITALS: BP 151/84; PULSE 75; TEMP 98
== END 2021-12-09 18:45 | disposition home or self-care (01) ==
LOC: EC 13:27
DX: A08.4 Viral intestinal infection, unspecified (principal); K20.90 Esophagitis, unspecified without bleeding; I10 Essential (primary) hypertension; Z77.22 Contact with and (suspected) exposure to environmental tobacco smoke (acute) (chronic); Z20.822 Contact with and (suspected) exposure to COVID-19; Z79.899 Other long term (current) drug therapy
CPT/HCPCS: 36415; 80053; 82150; 83605; 83690; 85025; 87635; 74177; 99284; 96374; 96375; 96361; J1610; J2765; C9113; Q9967

== ENCOUNTER → 2022-01-01 | Outpatient (CLI) | payer MEDICARE ==
[2022-01-01 10:42] VITALS: BP 136/79; PULSE 60; RESP 18; TEMP 98
--- NOTE | 2022-01-01 10:47 | P.PN ---
Subjective Progress Note Date: 01/01/22 right breast invasive ductal cancer Right breast invasive ductal carcinoma/stage Ib if this skin lesion is not considered to be a T4 or IIIB if the skin lesion is a T4 Kinsey is a 76 year old white female who noted a skin lesion in her right breast about two months ago. She was seen by Dr. Walden and a biopsy was done which was consistent with metastatic breast cancer. She was diagnosed with early stage right breast cancer in 2000 in [place]. She was treated with a lumpectomy/axillary node dissection/adjuvant radiation and 5 years of tamoxifen. Her last mammogram was in 2018. She came to visit from [place] in 2019, in May 2019 she had back surgery. She subsequently had a second back surgery in June of 2019. She has not returned [place]. Secondary to the injury in her back she has paralysis and both legs and is incontinent of urine and stool. She presently lives at [facility]. She had a complicated postoperative course from her back surgery as she had a DVT and pulmonary embolism. She did have a laminectomy in July 2019. She has been seen by Dr. Porter in 2018 regarding a questionable lesion on her brain which resolved. She had a bilateral mammogram performed on 7220. This revealed a mass in the right breast. No lesions were identified in the left breast. She subsequently had an ultrasound-guided core biopsy of the right breast on . This revealed at 10:00 invasive ductal carcinoma grade 2, and at 11:00 invasive ductal carcinoma grade 2. Right axillary lymph nodes were biopsied which were negative for metastatic cancer. She underwent a metastatic workup which included a computed tomography scan of the chest abdomen and pelvis on which was negative for metastatic disease. The The patient's case was presented at tumor Board. The recommendation was for a mastectomy. This has been discussed with the patient. We would recommend a mastectomy with an attempted sentinel node biopsy. The patient understands and wishes to proceed with this. The patient is able to ambulate with assistance, and a walker. She is in continent of urine. She wears pull-ups. On 07-21-21 she underwent a right breast matectomy and axillary node resection. Pathology revealed all nodes negative and multifocal and recurrent invasive d uctal cancer in the right breast, all margins negative. She did not have any radiation or chemotherapy. She is taking aromisin. She is tolerating this without difficulty. On the patient's last visit she was noted to have a seroma on the right chest wall. This was aspirated for 335 cc of serous fluid. She returns on today's visit to the evaluate the seroma. The seroma has recurred but is much smaller in size. The patient has lower body weakness and uses her upper extremities to move about in her wheelchair. The seroma is not bothering her at this time. 01-01-22 The patient returns for reevaluation of seroma right chest wall. She states the areas not wearing her at this time, however it has recurred. Caffeine: 2 cups/day; 20oz ice tea daily/pop: seldom nicotine: patient never; secondhand: (5 years) hormones: 16 years; prempro stopped in 2000 Family History: patient: breast cancer Hormonal History: menarche: 9 G0 menopause: 46 hormones: 16 years Prempro stopped in 2000 Tubal ligation at the age of 40 BCP: none Surgical history: 1. Tubal ligation 2. Right breast lumpectomy and Node dissection 3. 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 HTN 3. back injury as above 4. GERD Social History: smoke: as above alcohol: occasional stopped / 1986 drugs: none - Constitutional Constitutional: Reports sweats, Denies chills, Denies fever - EENT Eyes: denies blurred vision, denies pain Ears: bilateral: decreased hearing, deny: tinnitus Ears, nose, mouth and throat: Denies headache, Denies sore throat - Breasts Breasts: bilateral: as per HPI - Cardiovascular Cardiovascular: Denies chest pain, Denies shortness of breath - Respiratory Respiratory: Reports cough - Gastrointestinal Comment: incontinent Gastrointestinal: Denies abdominal pain, Denies diarrhea, Denies nausea, Denies vomiting - Genitourinary (Female) Comment: incontient Genitourinary: Reports as per HPI - Menstruation Menstruation: Reports postmenopausal - Musculoskeletal Musculoskeletal: Reports muscle weakness - Integumentary Integumentary: Reports as per HPI - Neurological Comment: back herniated disc Neurological: Reports as per HPI - Psychiatric Psychiatric: Denies anxiety, Denies depression - Endocrine Endocrine: Denies fatigue, Denies weight change - Hematologic/Lymphatic Comment: none - Allergic/Immunologic Allergic/Immunologic: Reports as per HPI Objective - Constitutional General appearance: Present: cooperative - EENT Eyes: Present: EOMI ENT: Present: hearing grossly normal - Neck Neck: Present: normal ROM - Respiratory Respiratory: bilateral: CTA - Cardiovascular Rhythm: regular Heart sounds: normal: S1, S2 - Integumentary Integumentary: Present: normal turgor - Musculoskeletal Musculoskeletal Comment(s): uses a wheel chair - Psychiatric Psychiatric: Present: A&O x's 3, appropriate affect, intact judgment & insight - Additional findings Additional findings: Breast exam: BRA: 3X Inspection: Right mastectomy seroma on chest wall, left grade 3 ptosis Palpation: Right chest wall seroma Right axilla: No adenopathy of concern Left breast: Multiple position on exam fibrocystic changes no dominant masses or nodules of concern Left axilla: No adenopathy of concern Assessment and Plan Assessment: Impression: DVT/PE in the past Hypertension Back injury GERD Recurrent seroma right chest wall No evidence of recurrent right breast cancer Plan: Aspiration seroma Left breast mammogram in May 2022 with appointment at that time Cc: Dr. Hendrickson
--- NOTE | 2022-01-01 11:00 | P.PCN ---
Date of Procedure: 01/01/22 Preoperative Diagnosis: Seroma right chest wall Postoperative Diagnosis: Loculated seroma right chest wall Procedure(s) Performed: Aspiration seroma Surgeon: Candy Barrera Condition: stable Disposition: same day Indications for Procedure: Seroma right chest wall increased in size from last visit Operative Findings: Serous fluid Description of Procedure: The area of seroma in the right chest wall was prepped using alcohol. An 18- gauge needle on a 60 mL syringe was inserted into the area. This was loculated and approximately 15 mL of fluid was removed however upon withdrawing the needle additional fluid extruded from the puncture site. This was able to be expressed and a proximally 60 mL of serous fluid was removed. The area of seroma was decreased but not completely resolved. The patient tolerated the procedure in stable condition. Impression: Loculated seroma right chest wall Plan: Follow patient conservatively at this time is not causing the patient a distress she will be seen again in May and must this bothers her that she will be seen sooner
== END ==
LOC: WWCWWP 09:36
PROVIDERS: ATTEND Surgery
DX: L76.34 Postprocedural seroma of skin and subcutaneous tissue following other procedure (principal); K21.9 Gastro-esophageal reflux disease without esophagitis; Z85.3 Personal history of malignant neoplasm of breast; Z90.11 Acquired absence of right breast and nipple; I10 Essential (primary) hypertension; S39.002A Unspecified injury of muscle, fascia and tendon of lower back, initial encounter

== ENCOUNTER → 2022-03-24 | Outpatient (CLI) | payer MEDICARE ==
[2022-03-24 09:29] VITALS: BP 147/90; PULSE 65; RESP 18; TEMP 97.5
--- NOTE | 2022-03-24 09:41 | P.CON ---
Consult Note - . Consult date: 03/24/22 Assessment/Plan:: HISTORY OF PRESENT ILLNESS: 76 -year-old female as a referral from Dr. Evans presents today with lower back pain secondary to anterolisthesis, bulges, neuroforaminal stenoses, spinal stenosis, facet arthropathy and left L2 encroachment for evaluation. She states her lower back pain does not bother her as much as the shooting lower extremity pain. Pain level is 6 out of 10 in intensity, sharp, shooting, throbbing, constant but waxes and wanes in intensity based on activity. It is greater on the left than the right. Pain is relieved with medications ([place], antispasmodic), topicals, heat, physical therapy from October 2021 2 present, use of a wheelchair and walker for ambulation and rest Past Medical History: Cancer, Deep Vein Thrombosis (DVT), GERD/Reflux, Hyperlipidemia, Hypertension, Osteoarthritis (OA), Pulmonary Embolus (PE), Sleep Apnea/CPAP/BIPAP Past Surgical History: Lumbar Decompression surgery, Lumbar L4-L5 Fusion, Cholecystectomy, Tonsillectomy, Tubal Ligation, Colonoscopy, Axillary Node Dissection, R Breast Lumpectomy s/p Breast CA diagnosis Social History: Non smoker, rare ETOH use, no illicit drug use. Resides at [facility]. Wheelchair for ambulatory assistance Family History: Father- at age 53 yrs from "broken heart" 6 weeks after the of his son. Mother- at the age of 61 pt believes from a brain tumor. All: NKDA Meds: See list REVIEW OF ORGAN SYSTEMS: CONSTITUTIONAL: No fevers or chills. No recent weight loss. HEENT: No visual acuity loss, eye pain, difficulties with hearing. No nosebleeds. No difficulty swallowing. RESPIRATORY: Denies any troubles with breathing or dyspnea on exertion. CARDIOVASCULAR: Denies any chest pain, palpitations, or recent heart attacks. GASTROINTESTINAL: Denies fatty food intolerance. Has change in bowel habits and gas bloat. GENITOURINARY: Denies any blood in urine. Has increased urinary frequency. NEUROLOGICAL: + numbness and tingling along the distal extremities. No seizure disorders or headaches. MUSCULOSKELETAL: + back pain SKIN: No skin cancer. No rash. PSYCHIATRIC: Denies current depression or suicidal thoughts. ENDOCRINE: Denies current thyroid disorders. Denies any bl ood sugar glucose intolerance. HEME/LYMPHATIC: Denies any lumps and bumps around the neck. History of deep venous thrombosis. ALLERGY/IMMUNOLOGY: No immunoglobulin therapy. No immune deficiencies. BREAST: Denies current breast lumps, pain or nipple discharge. Physical Examinations : Constitutional : Cooperative , not in acute distress . HEENT: Neck supple. No Lymphadenopathy. Normal thyroid size . Eyes no ptosis , no icterus, no photophobia . Hearing intact. Normal oropharynx. No Thrush. Respiratory : Chest clear to auscultations bilaterally. No wheezing. No rhonchi. Cardiovascular : Regular rate and rhythm , S1 / S2. No S3 . No S4. Gastrointestinal : Abdomen soft. No tenderness. Bowel sounds x 4. No organomegaly . Genitourinary : Deferred. Neurologic : Cranial nerve II to XII intact. No focal neurological deficits. Psychiatric : alert & oriented x 3. Matching mood & appropriate affect. Judgment & insight intact. Lymphatic No Lymphadenopathy. Musculoskeletal : Cervical Spine Motor strength in the deltoid and biceps: Normal right side. Normal Left side Motor strength biceps and the wrist extensors: Normal right side . Normal left side Motor strength in the triceps muscle: Normal right side. Normal left side Deep tendon reflexes: Normal at the biceps. Normal at Brachioradialis. Normal at triceps Cervical facet loading test: positive bilaterally Spurling test: positive bilaterally Neck distraction test: positive bilaterally Dolores sign: positive bilaterally Lumbar spine Motor strength lower extremities ,thigh and legs 5/5 Right side , 5/5 Left side Deep tendon reflexes : Normal Knee Jerk. Normal Ankle Jerk Vertebral body tenderness over Lumbar facet Loading Test: positive Right / positive Left Range of motion of the lumbar spine Flexion 30 degrees, extension 10 degrees Straight Leg Raise test: Left/ Right positive at degree Mariam test: positive right / positive left. Severe tenderness over the Sacroiliac joint on the Right / Left sides Gaenslen test: positive bilaterally Seated flexion test: positive bilaterally. Imaging: MRI without contrast of the Lumbar spine from 03/08/22 reviewed Assessment/ Plan : Lumbar spondylosis, Lumbar DDD, Lumbar Facet Arthropathy Recommendation of BL facet block of the medial branches L4-L5, L5-S1 #1. May need a series of injections, up until RFA, for optimal pain relief. Risks, benefits of procedure discussed and pt verbalized understanding. Denies aspirin or anti- coagulant use or medical history of diabetes. All questions answered. I have spent greater than 50 minutes on patient care today. Dr Garcia was available by phone for the evaluation of this patient. The time was used to review the medical records including relevant urine studies and Prescription history (MAPs), review of the available imaging, evaluation and examination of the patient, coordination of care with the medical staff and if applicable referring physicians, as well as creation of the medical record PQRS Measure Charge Sheet Mode of Arrival: Ambulatory, Wheelchair - Pain Location Bilateral Lower Back Non-Pharmacological Interventions: Heat, Inactivity, Physical Therapy, Position/Reposition, Sitting Pharmacological Interventions: Scheduled Medication, Topical Medication PQRS Narrative: Smoking Status Never smoker Blood Pressure 147/90 Pain Intensity [Bilateral 6 Lower Back] Scale Used Numeric (1 - 10) Home Medications: Ambulatory Orders Multivitamins, Thera [Multivitamin (formulary)] 1 tab PO QAM 05/29/19 allopurinoL [Zyloprim] 300 mg PO QAM 05/29/19 Magnesium Hydroxide [Milk of Magnesia] 30 ml PO DAILY PRN 08/07/19 Magnesium Oxide [Mag-Ox] 400 mg PO BID 08/07/19 bisacodyL [Dulcolax] 10 mg RECTAL DAILY PRN 08/07/19 Sennosides [Senna] 8.6 mg PO QAM 08/28/19 methocarbamoL [Robaxin] 750 mg PO Q6H PRN 08/28/19 Furosemide [Lasix] 20 mg PO Q48H 12/18/20 Menthol [Biofreeze] 1 applic TOPICAL TID PRN 06/10/21 polyethylene glycoL 3350 [Miralax] 17 gm PO DAILY PRN 06/10/21 Acetaminophen [Tylenol] 1,000 mg PO Q4HR PRN 07/15/21 Benzocaine/Menthol [Cepacol Sore Throat Lozenge] 1 each MM DIRECTED PRN 07/15/21 Biacodyl Enema 1 dose RECTAL DIRECTED PRN 07/15/21 Ergocalciferol (Vitamin D2) [Drisdol (50,000 Iu)] 1,250 mcg PO WEEKLY 07/15/21 HYDROcodone/APAP 10-325MG [[place] 10-325] 1 tab PO Q4H PRN #18 tab 07/22/21 Pregabalin [Lyrica] 100 mg PO BID #6 cap 07/22/21 Omeprazole [PriLOSEC] 40 mg PO DAILY #14 cap 12/09/21
== END ==
LOC: PNWHC3 08:43
PROVIDERS: ATTEND Specialist
DX: M51.36 Other intervertebral disc degeneration, lumbar region (principal); M47.816 Spondylosis without myelopathy or radiculopathy, lumbar region; Z86.718 Personal history of other venous thrombosis and embolism; E78.5 Hyperlipidemia, unspecified; I10 Essential (primary) hypertension; M19.90 Unspecified osteoarthritis, unspecified site
CPT/HCPCS: 99211

== ENCOUNTER → 2022-04-26 | Outpatient (CLI) | payer MEDICARE ==
[2022-04-26 14:18] VITALS: BP 154/81; PULSE 65; RESP 18; TEMP 98.2
--- NOTE | 2022-04-26 14:58 | P.PN ---
Subjective Progress Note Date: 04/26/22 Principal diagnosis: A 76 yr old female with a history of severe and chronic low back pain secondary to lumbar degenerative disc diseases and lumbar spondylosis with facet arthropathy presents today for evaluation. She admits to mild lower lumbar/tailbone tenderness to palpation. Pain level is 7/10 in intensity in the lateral BLEs and feet. Pain is constant, throbbing in character with shooting pain down to the lateral aspects of LEs and feet. Pain is provoked by cold weat her, walking for periods of 5 min or more and other weight bearing activity. Pain is alleviated with PT currently twice a week x 6 mo while a resident at [facility], medications ([place], Aspercreme), ice, home based stretching regimen, repositioning and rest. She admits to lumbar surgery in 2019 and was told she is no longer a surgical candidate. Patient is currently on [place] Patient denies any side effects of the medication(s), denies excessive drowsiness or sleepiness, denies suicidal ideation and reports that the current pain medication is helping to control the pain and improve activities of daily living. Patient denies any motor or sensory deficits. Patient denies any fever or night sweats, denies any change in the bowel movements or urination. Physical Examination: -Constitutional: Cooperative. Not in acute distress . -HEENT: Neck is supple. No lymphadenopathy. No thyromegaly. Normal thyroid size. Eyes: No ptosis , no icterus, no photophobia. ENT: No auditory deficits. Normal oropharynx. No Thrush. - Respiratory: Chest clear to auscultations bilaterally. No wheezing. No rhonchi. - Cardiovascular: Regular rate and rhythm. S1 / S2 , no S3 , no S4. - Gastrointestinal: Abdomen soft no tenderness. Bowel sounds positive in all four quadrants. No organomegaly. - Genitourinary: Deferred. - Neurologic: Cranial nerve II to XII intact. No focal neurological deficits. - Psychatric: Alert & oriented x 3. Matching mood & appropriate affect. Judgment and insight intact. - Lymphatic: No Lymphadenopathy. - Musculoskeletal: Cervical spine: Muscle bulk/ tone/ strength in the bilateral upper extremities normal Vertebral body tenderness to palpation over Facet loading test positive Thoracic spine Muscle bulk / tone/ strength in the bilateral paraspinal muscles normal Vertebral body tender to palpation over Facet loading test positive Lumbar spine: Motor bulk/ tone/ strength lower extremities , thigh and legs : 5/5 Deep tendon reflexes : Normal Knee Jerk. Normal Ankle Jerk . Vertebral body tenderness to palpation over L5, S1 Lumbar Facet Loading Test positive Straight Leg Raise: positive at 30 degrees right side/ left side Gaenslen's Test positive Sacral spine : Severe tenderness over the Sacroiliac joint: right side / left side Range of motion: Flexion of the lumbar spine <60 degrees Range of motion: Extension of the lumbar spine <20 degrees Gaenslen's Test positive Villa's Test positive Mariam test: positive right side / left side Thigh Thrust Test Sacral Thrust Test Assessment and plan: Chronic low back pain secondary to lumbar degenerative disc disease , lumbar spondylosis with facet arthropathy without myelopathy Recommendation of caudal GUS with lysis. Pt has no SI joint tenderness to palpation, negative Mariam, negative Gaenslen's and negative thigh thrust tests. Risks, benefits of procedure discussed and pt verbalized understanding. Denies anticoagulant use or medical history of diabetes. All patient questions answered MAPS reviewed and it was appropriate. I have spent 31 minutes on patient care today. Dr Garcia was available by phone for the evaluation of this patient. The time was used to review the medical records including relevant urine studies and Prescription history (MAPs), review of the available imaging, evaluation and examination of the patient, coordination of care with the medical staff and if applicable referring physicians, as well as creation of the medical record Objective - Vital Signs Vital signs: Vital Signs Temp 98.2 F 04/26/22 14:08 Pulse 65 04/26/22 14:08 Resp 18 04/26/22 14:08 BP 154/81 04/26/22 14:08 Pulse Ox 95 04/26/22 14:08 FiO2 Intake & Output 04/25/22 04/26/22 04/26/22 18:59 06:59 18:59 Weight 111.584 kg PQRS Measure Charge Sheet Mode of Arrival: Wheelchair - Pain Location Bilateral Leg Non-Pharmacological Interventions: Ice, Inactivity Pharmacological Interventions: Scheduled Medication, Topical Medication Bilateral Upper Back Non-Pharmacological Interventions: Ice, Inactivity Pharmacological Interventions: Scheduled Medication, Topical Medication Bilateral Lower Back Non-Pharmacological Interventions: Ice, Inactivity, Physical Therapy Pharmacological Interventions: Scheduled Medication, Topical Medication PQRS Narrative: Smoking Status Never smoker Blood Pressure 154/81 Pain Intensity [Bilateral 7 Lower Back] Pain Intensity [Bilateral 7 Upper Back] Pain Intensity [Bilateral Leg] 7 Scale Used Numeric (1 - 10) Home Medications: Ambulatory Orders Multivitamins, Thera [Multivitamin (formulary)] 1 tab PO QAM 05/29/19 allopurinoL [Zyloprim] 300 mg PO QAM 05/29/19 Magnesium Hydroxide [Milk of Magnesia] 30 ml PO DAILY PRN 08/07/19 Magnesium Oxide [Mag-Ox] 400 mg PO BID 08/07/19 bisacodyL [Dulcolax] 10 mg RECTAL DAILY PRN 08/07/19 Sennosides [Senna] 8.6 mg PO QAM 08/28/19 methocarbamoL [Robaxin] 750 mg PO Q6H PRN 08/28/19 Furosemide [Lasix] 20 mg PO Q48H 12/18/20 Menthol [Biofreeze] 1 applic TOPICAL TID PRN 06/10/21 polyethylene glycoL 3350 [Miralax] 17 gm PO DAILY PRN 06/10/21 Acetaminophen [Tylenol] 1,000 mg PO Q4HR PRN 07/15/21 Benzocaine/Menthol [Cepacol Sore Throat Lozenge] 1 each MM DIRECTED PRN 07/15/21 Biacodyl Enema 1 dose RECTAL DIRECTED PRN 07/15/21 Ergocalciferol (Vitamin D2) [Drisdol (50,000 Iu)] 1,250 mcg PO WEEKLY 07/15/21 HYDROcodone/APAP 10-325MG [[place] 10-325] 1 tab PO Q4H PRN #18 tab 07/22/21 Pregabalin [Lyrica] 100 mg PO BID #6 cap 07/22/21 Omeprazole [PriLOSEC] 40 mg PO DAILY #14 cap 12/09/21
== END ==
LOC: PNWHC3 13:22
PROVIDERS: ATTEND Specialist
DX: M51.36 Other intervertebral disc degeneration, lumbar region (principal); M47.816 Spondylosis without myelopathy or radiculopathy, lumbar region; G89.29 Other chronic pain
CPT/HCPCS: 99211

== ENCOUNTER → 2022-05-25 | Outpatient (CLI) | payer MEDICARE ==
--- NOTE | 2022-05-25 11:03 | MM ---
Reason for Exam: Hx of breast cancer, mastectomy. Last screening mammogram was performed 12 month(s) ago. Patient History: Menarche at age 8. Patient has no children. Postmenopausal. Breast cancer, right, age 75. Previous chest radiation therapy at age 56. Patient used Estrogen for 7 years. Patient used Progesterone for 7 years. 07/21/2021, Mastectomy on the Right side. Lumpectomy on the Right side. 06/15/2021, Malignant Core Biopsy on the right side. 06/15/2021, Malignant Core Biopsy on the right side. 06/15/2021, Malignant Core Biopsy on the right side. Radiation Therapy, right. Prior Study Comparison: 11/11/2018 Screening Mammogram, [place]. 05/22/2021 Bilateral Diagnostic Mammogram, [facility]. 06/15/2021 Right Diagnostic Mammogram, [facility]. Tissue Density: Left: There are scattered fibroglandular densities. Findings: Analyzed By CAD. No significant change from prior exams. Overall Assessment: Negative, BI-RAD 1 Management: Screening Mammogram of the left breast in 1 year. 1. Patient should continue monthly self breast exams. 2. A clinical breast exam by your physician is recommended on an annual. 3. This exam should not preclude additional follow-up of suspicious palpable abnormalities. Electronically signed and approved by: Hannah Dietrich M.D. Radiologist
== END | disposition home or self-care (01) ==
LOC: RADMAMWWP 10:24
PROVIDERS: ATTEND Surgery
DX: R92.8 Other abnormal and inconclusive findings on diagnostic imaging of breast (principal); Z85.3 Personal history of malignant neoplasm of breast; Z78.0 Asymptomatic menopausal state
CPT/HCPCS: 77065; G0279; 77061

== ENCOUNTER → 2022-06-11 | Outpatient (CLI) | payer MEDICARE ==
[2022-06-11 11:04] VITALS: BP 134/74; PULSE 55; RESP 18; TEMP 98.1
--- NOTE | 2022-06-11 11:13 | P.PN ---
Subjective Progress Note Date: 06/11/22 Principal diagnosis: right breast invasive ductal carcinoma Right breast invasive ductal carcinoma/stage Ib if this skin lesion is not considered to be a T4 or IIIB if the skin lesion is a T4 Kinsey is a 76 year old white female who noted a skin lesion in her right breast about two months ago. She was seen by Dr. Walden and a biopsy was done which was consistent with metastatic breast cancer. She was diagnosed with early stage right breast cancer in 2000 in [place]. She was treated with a lumpectomy/axillary node dissection/adjuvant radiation and 5 years of tamoxifen. Her last mammogram was in 2018. She came to visit from [place] in 2018, in May 2019 she had back surgery. She subsequently had a second back surgery in June of 2019. She has not returned [place]. Secondary to the injury in her back she has paralysis and both legs and is incontinent of urine and stool. She presently lives at [facility]. She had a complicated postoperative course from her back surgery as she had a DVT and pulmonary embolism. She did have a laminectomy in July 2019. She has been seen by Dr. Porter in 2018 regarding a questionable lesion on her brain which resolved. She had a bilateral mammogram performed on 7220. This revealed a mass in the right breast. No lesions were identified in the left breast. She subsequently had an ultrasound-guided core biopsy of the right breast on . This revealed at 10:00 invasive ductal carcinoma grade 2, and at 11:00 invasive ductal carcinoma grade 2. Right axillary lymph nodes were biopsied which were negative for metastatic cancer. She underwent a metastatic workup which included a computed tomography scan of the chest abdomen and pelvis on which was negative for metastatic disease. The The patient's case was presented at tumor Board. The recommendation was for a mastectomy. This has been discussed with the patient. We would recommend a mastectomy with an attempted sentinel node biopsy. The patient understands and wishes to proceed with this. The patient is able to ambulate with assistance, and a walker. She is incontinent of urine. She wears pull-ups. On 07-21-21 she underwent a right breast matectomy and axillary node resection. Pathology revealed all nodes negative and multifocal and recurrent invasive ductal cancer in the right breast, all margins negative. She did not have any radiation or chemotherapy. She is taking aromisin. She is tolerating this without difficulty. 06-11-22 She underwent a left breast mammogram on 7521 which was benign BIRADS 1. At this time she is not complaining of any changes in her right chest wall no new lumps masses or nodules of concern in the left breast. She is presently on annestrazole Caffeine: 2 cups/day; 20oz ice tea daily/pop: seldom nicotine: patient never; secondhand: (5 years) hormones: 16 years; prempro stopped in 2000 Family History: patient: breast cancer Hormonal History: menarche: 9 G0 menopause: 46 hormones: 16 years Prempro stopped in 2000 Tubal ligation at the age of 40 BCP: none Surgical history: 1. Tubal ligation 2. Right breast lumpectomy and Node dissection 3. 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 HTN 3. back injury as above 4. GERD Social History: smoke: as above alcohol: occasional stopped / 1985 drugs: none - Constitutional Constitutional: Reports sweats, Denies chills, Denies fever - EENT Eyes: denies blurred vision, denies pain Ears: bilateral: decreased hearing, deny: tinnitus Ears, nose, mouth and throat: Denies headache, Denies sore throat - Breasts Breasts: bilateral: as per HPI - Cardiovascular Cardiovascular: Denies chest pain, Denies shortness of breath - Respiratory Respiratory: Reports cough - Gastrointestinal Comment: incontinent Gastrointestinal: Denies abdominal pain, Denies diarrhea, Denies nausea, Denies vomiting - Genitourinary (Female) Comment: incontient Genitourinary: Reports as per HPI - Menstruation Menstruation: Reports postmenopausal - Musculoskeletal Musculoskeletal: Reports muscle weakness - Integumentary Integumentary: Reports as per HPI - Neurological Comment: back herniated disc Neurological: Reports as per HPI - Psychiatric Psychiatric: Denies anxiety, Denies depression - Endocrine Endocrine: Denies fatigue, Denies weight change - Hematologic/Lymphatic Comment: none - Allergic/Immunologic Allergic/Immunologic: Reports as per HPI Objective - Vital Signs Vital signs: Vital Signs Temp 98.1 F 06/11/22 11:01 Pulse 55 L 06/11/22 11:01 Resp 18 06/11/22 11:01 BP 134/74 06/11/22 11:01 Pulse Ox 96 06/11/22 11:01 FiO2 Intake & Output 07/21/22 07/22/22 07/22/22 18:59 06:59 18:59 Weight 111.584 kg - Exam BMI: 45 - Constitutional General appearance: Present: cooperative - EENT Eyes: Present: EOMI - Neck Neck: Present: normal ROM - Respiratory Respiratory: bilateral: CTA - Cardiovascular Heart sounds: normal: S1, S2 - Integumentary Integumentary Comment(s): Small erythematous skin lesion on the anterior chest wall left side Integumentary: Present: normal turgor - Musculoskeletal Musculoskeletal Comment(s): wheel chair - Psychiatric Psychiatric: Present: A&O x's 3, appropriate affect, intact judgment & insight - Additional findings Additional findings: Breast Exam: BRA: 44C Inspection: Right chest wall no evidence of recurrence, left breast grade 3 ptosis Palpation: Right chest wall: No evidence of recurrent cancer Right axilla: No adenopathy of concern Left breast: Examination in the wheelchair no dominant masses or nodules of concern, fibrocystic changes, left chest wall small area of erythema on the chest wall which patient states came yesterday Left axilla: No adenopathy of concern Assessment and Plan Assessment: Impression: No evidence of recurrent right breast cancer Patient on anastrozole Left chest wall lesion to be followed conservatively most likely a bug bite or patient scratched at this area if it persists then we'll consider recent removal in the office Repeat left breast mammogram in 1 year; mammogram personally reviewed Plan: Follow-up in 1 month to reevaluate the left chest wall lesion if this has resolved patient will cancel the appointment Follow up in 6 months Left breast mammogram in 1 year CC: Dr. Hendrickson
== END ==
LOC: WWCWWP 10:21
PROVIDERS: ATTEND Surgery
DX: Z08 Encounter for follow-up examination after completed treatment for malignant neoplasm (principal); Z85.3 Personal history of malignant neoplasm of breast; Z79.811 Long term (current) use of aromatase inhibitors; I10 Essential (primary) hypertension; Z86.718 Personal history of other venous thrombosis and embolism

== ENCOUNTER → 2022-06-22 | Outpatient (CLI) | payer MEDICARE ==
--- NOTE | 2022-06-22 16:15 | P.SLEEP ---
History of Present Illness H&P Date: 06/22/22 This is a 76-year-old female patient is currently wheelchair bound as the patient has had a complicated lumbar this surgery which resulted to significant weakness and foot drop and lower extremities and she has undergone 2 previous back surgeries without successful results and the patient was unable to restore her mobility. As such, the patient is currently residing in assisted living. The patient is known to have obstructive sleep apnea. The patient was treated prostate during her stay in [place] and she lost her machine while she was being relocated to [place]. She has become symptomatic and she has loud snoring and witnessed apneas and chronic hypersomnia and sleepiness and for that reason he is coming in for a reevaluation she is hoping to establish diagnosis of sleep apnea again and proceed with treatment. She goes to bed at around 9 PM and she sleeps till noontime next day. She is still tired and sleepy despite taking many hours of sleep. She wakes up choking and gasping for air and she has also nocturia. She wakes up with dry mouth. She does some sleep talking occasi onally. She has been told to stop breathing in the middle of the night. Her weight has remained stable over the past 5 years at least. No sleep paralysis. No hallucinations. No cataplexy. No other complaints otherwise for now. Note that the patient is not currently receiving any treatment for obstructive sleep apnea. Review of Systems Constitutional: Reports daytime sleepiness, Reports fatigue, Reports weight gain Eyes: denies as per HPI, denies blurred vision, denies bulging eye, denies decreased vision, denies diplopia, denies discharge, denies dry eye, denies irritation, denies itching, denies pain, denies photophobia, denies loss of peripheral vision, denies loss of vision, denies tunnel vision/blind spots Ears: deny: decreased hearing, ear discharge, earache, tinnitus Ears, nose, mouth and throat: Reports as per HPI Breasts: absent: as per HPI, change in shape, gynecomastia, masses, nipple discharge, pain, skin changes, swelling Cardiovascular: Reports shortness of breath Respiratory: Reports as per HPI, Reports sleep apnea, Reports snoring Gastrointestinal: Reports as per HPI Genitourinary: Reports as per HPI Menstruation: Reports as per HPI Musculoskeletal: Reports gait dysfunction, Reports leg numbness/tingling, Reports limitation of motion, Reports low back pain, Reports muscle weakness Musculoskeletal: absent: ankle pain, ankle stiffness, ankle swelling Integumentary: Reports as per HPI Neurological: Reports as per HPI, Reports weakness Psychiatric: Reports as per HPI Endocrine: Reports as per HPI Hematologic/Lymphatic: Reports as per HPI Allergic/Immunologic: Reports as per HPI Past Medical History Past Medical History: Cancer, Deep Vein Thrombosis (DVT), GERD/Reflux, Hyperlipidemia, Hypertension, Osteoarthritis (OA), Pulmonary Embolus (PE), Sleep Apnea/CPAP/BIPAP Additional Past Medical History / Comment(s): Chronic lower back pain, L3-L4 herniated disc, L sided sciatica, bilateral foot drop-wears braces, uses walker prn but states mostly in wheelchair.., Hx R breast cancer with lumpectomy/radiation, bronchitis, sinus problems., hemorrhoid, wears pull-ups for urine leakage., hx DVT & PE after back surgery., resides at [facility] since her back surgery 2 years ago. History of Any Multi-Drug Resistant Organisms: None Reported Past Surgical History: Back Surgery, Cholecystectomy, Tonsillectomy, Tubal Ligation Additional Past Surgical History / Comment(s): Colonoscopy, right breast lumpectomy and axillary node disection. BACK SURGERY X2 Past Anesthesia/Blood Transfusion Reactions: No Reported Reaction Past Psychological History: No Psychological Hx Reported Additional Psychological History / Comment(s): . Smoking Status: Never smoker, Second hand smoke exposure Past Alcohol Use History: Rare Past Drug Use History: None Reported - Past Family History Father Additional Family Medical History / Comment(s): Father at the age of 53 yrs from "broken heart" 6 weeks after the of his son. Mother Additional Family Medical History / Comment(s): Mother at the age of 61 pt believes from a brain tumor. Medications and Allergies Home Medications Medication Instructions Recorded Confirmed Type Multivitamins, Thera [Multivitamin 1 tab PO QAM 05/29/19 11/27/21 History (formulary)] allopurinoL [Zyloprim] 300 mg PO QAM 05/29/19 11/27/21 History Magnesium Hydroxide [Milk of 30 ml PO DAILY PRN 08/07/19 11/27/21 History Magnesia] Magnesium Oxide [Mag-Ox] 400 mg PO BID 08/07/19 11/27/21 History bisacodyL [Dulcolax] 10 mg RECTAL DAILY PRN 08/07/19 11/27/21 History Sennosides [Senna] 8.6 mg PO QAM 08/28/19 11/27/21 History methocarbamoL [Robaxin-750] 750 mg PO Q6H PRN 08/28/19 11/27/21 History Furosemide [Lasix] 20 mg PO Q48H 12/18/20 11/27/21 History Menthol [Biofreeze] 1 applic TOPICAL TID PRN 06/10/21 11/27/21 History polyethylene glycoL 3350 [Miralax] 17 gm PO DAILY PRN 06/10/21 11/27/21 History Acetaminophen [Tylenol] 1,000 mg PO Q4HR PRN 07/15/21 11/27/21 History Benzocaine/Menthol [Cepacol Sore 1 each MM DIRECTED PRN 07/15/21 11/27/21 History Throat Lozenge] Biacodyl Enema 1 dose RECTAL DIRECTED PRN 07/15/21 11/27/21 History Ergocalciferol (Vitamin D2) 1,250 mcg PO WEEKLY 07/15/21 11/27/21 History [Drisdol (50,000 Iu)] HYDROcodone/APAP 10-325MG [[place] 1 tab PO Q4H PRN #18 tab 07/22/21 11/27/21 Rx 10-325] Pregabalin [Lyrica] 100 mg PO BID #6 cap 07/22/21 11/27/21 Rx Omeprazole [PriLOSEC] 40 mg PO DAILY #14 cap 12/09/21 Rx Allergies Allergy/AdvReac Type Severity Reaction Status Date / Time No Known Allergies Allergy Verified 06/11/22 11:00 Physical Exam BP is 141/66 with a pulse of 60 and the respiration of 16 with a temperature 96.5 and a weight of 248 and a neck size is 19 inches and the patient has a Molino score of 10 The patient appeared well nourished and normally developed. The patient is morbidly obese Vital signs as documented. Head exam is unremarkable. No scleral icterus or corneal arcus noted. Neck is without jugular venous distension, thyromegaly, or carotid bruits. Carotid upstrokes are brisk bilaterally. The patient has a Mallampati class IV Lungs are clear to auscultation and percussion. Cardiac exam reveals the PMI to be normally sized and situated. Rhythm is regular. First and second heart sounds normal. No murmurs, rubs or gallops. Abdominal exam reveals normal bowel sounds, no masses, no organomegaly and no aortic enlargement. Extremities are nonedematous and both femoral and pedal pulses are normal.Examination of the skin revealed no evidence of significant rashes, suspicious appearing nevi or other concerning lesions.Neurologically, the patient is awake and alert and the patient does not have any focal neurological deficit. Cranial nerves are essentially intact. Assessment and Plan Plan: Obstructive sleep apnea. The patient was diagnosed and treated for obstructive sleep apnea in the past and she is hoping to be established diagnosis and for that reason she is presenting to the sleep center. She will obviously need a reevaluation. Currently she is symptomatic and she is not receiving any treatment. Chronic hypersomnia, current Molino scores a 10 Morbid obesity, body mass index is at 45 History of breast cancer right-sided Previous history of DVT and pulmonary embolism that followed back surgery History of chronic lower back pain and motor weakness in lower extremities and the patient has undergone lumbar spine surgery 2 and she has L3-L4 herniated disc disease and bilateral foot drop and she wears braces Osteoarthritis Hyperlipidemia Acid reflux Plan We'll proceed with reevaluation for we'll do a PSG and this needs to be followed up by a CPAP titration. The patient is quite symptomatically from her disease and along with her comorbidities she will deserve another evaluation and treatment for obstructive sleep apnea. Optimize sleep hygiene measures. Optimize comorbidities. We'll continue to follow. Sleep Note - Sleep Note Sleep Note: Temperature: Pulse Rate: Respiratory Rate: Blood Pressure: SpO2: Height: Weight: BMI: Neck Circumference:
== END ==
LOC: SLEEP 12:59
PROVIDERS: ATTEND Internal Medicine Critical Care Medicine
DX: G47.33 Obstructive sleep apnea (adult) (pediatric) (principal); E66.01 Morbid (severe) obesity due to excess calories; Z68.42 Body mass index [BMI] 45.0-49.9, adult; Z85.3 Personal history of malignant neoplasm of breast; Z86.718 Personal history of other venous thrombosis and embolism; Z98.890 Other specified postprocedural states; M19.90 Unspecified osteoarthritis, unspecified site; E78.5 Hyperlipidemia, unspecified; K21.9 Gastro-esophageal reflux disease without esophagitis; G89.29 Other chronic pain; M54.50 Low back pain, unspecified
CPT/HCPCS: 99211

== ENCOUNTER → 2022-10-19 | Outpatient (CLI) | payer MEDICARE ==
--- NOTE | 2022-10-20 02:06 | PN ---
PROGRESS NOTE HISTORY OF PRESENT ILLNESS: Luma is 77, coming in for routine check regarding obstructive sleep apnea. The patient was diagnosed having severe ESDRAS with an AHI of 55, and the patient was titrated to a CPAP pressure of 12 cm of water. On today's evaluation, the patient states that she is compliant to her CPAP therapy. She is wearing it every night and she is benefitting from the treatment. She does not have any significant daytime hypersomnia or sleepiness while on treatment. Her snoring and sleep fragmentation has improved considerably. She is currently using her CPAP unit. I checked the compliance data and over the past 30 days, I noted that the patient has been using the machine every night. She has been averaging around 6.3 hours of CPAP use per night. Average CPAP usage is around 6.3 hours. Leak is in the order of 6 to 7 L/minute and her AHI is down to 12 while on treatment. She has developed some mild central events and the central apnea index is at 4.0. For the most part, she is doing well. Her [place] score is down to 9. No other complaints otherwise for now. She is using a Simplus full-face mask and she thought that she would do better with a different mask and I recommended the AirFit F20 full-face mask. PHYSICAL EXAMINATION: VITAL SIGNS: BP is 131/59, pulse 65, respirations 16, temperature 96.8, weight is 253. [place] score is at 9. GENERAL APPEARANCE: Calm, comfortable. HEAD: Atraumatic, normocephalic. NECK: Supple. No JVD. No goiter or neck mass. LUNGS: Diminished, otherwise clear. HEART: Sounds regular rate and rhythm. Normal S1, S2. No S3, S4. No murmurs. ABDOMEN: Soft, nontender. No organomegaly. EXTREMITIES: No edema. No cyanosis or clubbing. NEUROLOGIC: Awake and alert. There are no focal neurological deficits. PSYCHIATRIC: Negative for anxiety or depression. IMPRESSION: 1. Severe sleep apnea, AHI of 55, predominantly obstructive. The patient has successful CPAP therapy. Clinically improved. There was emergence of some mild central events while on treatment. 2. Hypersomnia, improved [place] score is down to 9. 3. Breast cancer. 4. Previous history of DVT and pulmonary embolism. 5. Degenerative arthritis and chronic back pain. 6. Hyperlipidemia. 7. Acid reflux. PLAN: Compliance data was checked. Treatment is appropriate. Treatment successful. Mild central events noted. Nevertheless, the apnea-hypopnea index is down considerably. Keep the patient on a full-face mask. Suggest AirFit F20 instead of a Simplus medium- sized full-face mask. I noted the increased leak around the mask and I am hoping the AirFit F20 will improve the patient's leak in general. Treatment is successful. The patient lives in an assisted living and the patient will see me back in a year's time in followup. MMODL / IJN: [id number] /
== END ==
LOC: SLEEP 14:02
PROVIDERS: ATTEND Internal Medicine Critical Care Medicine
DX: Z53.9 Procedure and treatment not carried out, unspecified reason (principal)

== ENCOUNTER → 2022-12-09 | Outpatient (CLI) | payer MEDICARE ==
[2022-12-09 10:08] VITALS: BP 129/73; PULSE 61; RESP 13; TEMP 98.4
--- NOTE | 2022-12-09 10:25 | P.PN ---
Subjective Progress Note Date: 12/09/22 right breast invasive ductal carcinoma Right breast invasive ductal carcinoma/stage Ib if this skin lesion is not considered to be a T4 or IIIB if the skin lesion is a T4 Kinsey is a 76 year old white female who noted a skin lesion in her right breast about two months ago. She was seen by Dr. Walden and a biopsy was done which was consistent with metastatic breast cancer. She was diagnosed with early stage right breast cancer in 2000 in [place]. She was treated with a lumpectomy/axillary node dissection/adjuvant radiation and 5 years of tamoxifen. Her last mammogram was in 2018. She came to visit from [place] in 2018, in May 2019 she had back surgery. She subsequently had a second back surgery in June of 2019. She has not returned [place]. Secondary to the injury in her back she has paralysis and both legs and is incontinent of urine and stool. She presently lives at [facility]. She had a complicated postoperative course from her back surgery as she had a DVT and pulmonary embolism. She did have a laminectomy in July 2019. She has been seen by Dr. Porter in 2018 regarding a questionable lesion on her brain which resolved. She had a bilateral mammogram performed on 7220. This revealed a mass in the right breast. No lesions were identified in the left breast. She subsequently had an ultrasound-guided core biopsy of the right breast on . This revealed at 10:00 invasive ductal carcinoma grade 2, and at 11:00 invasive ductal carcinoma grade 2. Right axillary lymph nodes were biopsied which were negative for metastatic cancer. She underwent a metastatic workup which included a computed tomography scan of the chest abdomen and pelvis on which was negative for metastatic disease. The The patient's case was presented at tumor Board. The recommendation was for a mastectomy. This has been discussed with the patient. We would recommend a mastectomy with an attempted sentinel node biopsy. The patient understands and wishes to proceed with this. The patient is able to ambulate with assistance, and a walker. She is incontinent of urine. She wears pull-ups. On 07-21-21 she underwent a right breast matectomy and axillary node resection. Pathology revealed all nodes negative and multifocal and recurrent invasive ductal cancer in the right breast, all margins negative. She did not have any radiation or chemotherapy. She is taking aromisin. She is tolerating this without difficulty. 06-11-22 She underwent a left breast mammogram on 7521 which was benign BIRADS 1. At this time she is not complaining of any changes in her right chest wall no new lumps masses or nodules of concern in the left breast. She is presently on annestrazole 12-09-22 The patient is not complaining of any changes in her right chest wall. She did have a bug bite before and there is resolved. She is not complaining of any lumps masses or nodules of concern in either breast. Caffeine: 2 cups/day; 20oz ice tea daily/pop: seldom nicotine: patient never; secondhand: (5 years) hormones: 16 years; prempro stopped in 2000 Family History: patient: breast cancer Hormonal History: menarche: 9 G0 menopause: 46 hormones: 16 years Prempro stopped in 2000 Tubal ligation at the age of 40 BCP: none Surgical history: 1. Tubal ligation 2. Right breast lumpectomy and Node dissection 3. 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 HTN 3. back injury as above 4. GERD Social History: smoke: as above alcohol: occasional stopped / 1986 drugs: none - Constitutional Constitutional: Reports sweats, Denies chills, Denies fever - EENT Eyes: denies blurred vision, denies pain Ears: bilateral: decreased hearing, deny: tinnitus Ears, nose, mouth and throat: Denies headache, Denies sore throat - Breasts Breasts: bilateral: as per HPI - Cardiovascular Cardiovascular: Denies chest pain, Denies shortness of breath - Respiratory Respiratory: Reports cough - Gastrointestinal Comment: incontinent Gastrointestinal: Denies abdominal pain, Denies diarrhea, Denies nausea, Denies vomiting - Genitourinary (Female) Comment: incontient Genitourinary: Reports as per HPI - Menstruation Menstruation: Reports postmenopausal - Musculoskeletal Musculoskeletal: Reports muscle weakness - Integumentary Integumentary: Reports as per HPI - Neurological Comment: back herniated disc Neurological: Reports as per HPI - Psychiatric Psychiatric: Denies anxiety, Denies depression - Endocrine Endocrine: Denies fatigue, Denies weight change - Hematologic/Lymphatic Comment: none - Allergic/Immunologic Allergic/Immunologic: Reports as per HPI Objective - Vital Signs Vital signs: Vital Signs Temp 98.4 F 12/09/22 10:03 Pulse 61 12/09/22 10:03 Resp 13 12/09/22 10:03 BP 129/73 12/09/22 10:03 Pulse Ox FiO2 Intake & Output 12/08/22 12/09/22 12/09/22 18:59 06:59 18:59 Weight 115.666 kg - Constitutional General appearance: Present: cooperative - EENT Eyes: Present: EOMI ENT: Present: hearing grossly normal - Neck Neck: Present: normal ROM - Respiratory Respiratory: bilateral: CTA - Cardiovascular Rhythm: regular Heart sounds: normal: S1, S2 - Gastrointestinal General gastrointestinal: Present: soft - Integumentary Integumentary: Present: normal turgor - Musculoskeletal Musculoskeletal Comment(s): uses a walkera - Psychiatric Psychiatric: Present: A&O x's 3, appropriate affect, intact judgment & insight - Additional findings Additional findings: Breast Exam: BRA: 44C Inspection: Right chest wall no evidence of recurrence, left breast grade 3 ptosis Palpation: Right chest wall: No evidence of recurrent cancer Right axilla: No adenopathy of concern Left breast: Examination in the wheelchair no dominant masses or nodules of concern, fibrocystic changes, left chest wall small area of erythema on the chest wall which patient states came yesterday Left axilla: No adenopathy of concern Assessment and Plan Assessment: Impression: No evidence of recurrent right breast cancer Patient on anastrozole Left chest wall lesion resolved Repeat left breast mammogram in 6 months; Plan: Follow up in 6 months Left breast mammogram in 6 months CC: Dr. Hendrickson
== END ==
LOC: WWCWWP 09:46
PROVIDERS: ATTEND Surgery
DX: Z85.3 Personal history of malignant neoplasm of breast (principal); Z80.3 Family history of malignant neoplasm of breast; I10 Essential (primary) hypertension; K21.9 Gastro-esophageal reflux disease without esophagitis; Z86.711 Personal history of pulmonary embolism; Z79.899 Other long term (current) drug therapy

== ENCOUNTER → 2022-12-13 | Outpatient (CLI) | payer MEDICARE ==
[2022-12-13 13:48] VITALS: BP 149/76; PULSE 62; RESP 18; TEMP 97.7
--- NOTE | 2022-12-13 15:48 | P.PAINPG ---
PQRS Measure Charge Sheet Comment: A 77 yr old wheelchair bound female with a history of severe and chronic LBP secondary to post laminectomy syndrome presents today for LBP evaluation. Pain level is provoked at 7 /10 in intensity, constant, localized in the lumbar spine, throbbing in character w shooting towards the BLEs. Pain is provoked by sitting for periods of 15 min or more. Pain is alleviated with PT x 3 wks which she is currently in, heat, ice, medications (Tylenol), topicals, manual massage, sitting, repositioning and rest. Interventional pain procedures completed include DENIES Patient is currently on Tylenol Patient denies any side effects of the medication(s), denies excessive drowsiness or sleepiness, denies suicidal ideation and reports that the current pain medication is helping to control the pain and improve activities of daily living. Patient denies any motor or sensory deficits. Patient denies any fever or night sweats, denies any change in the bowel movements or urination. Physical Examination: -Constitutional: Cooperative. Not in acute distress . - Neurologic: Cranial nerve II to XII intact. No focal neurological deficits. - Psychatric: Alert & oriented x 3. Matching mood & appropriate affect. Judgment and insight intact. - Musculoskeletal: Cervical spine: Muscle bulk/ tone/ strength in the bilateral upper extremities normal Vertebral body tenderness to palpation over Spurling test positive Distraction test positive Facet loading test positive Thoracic spine Muscle bulk / tone/ strength in the bilateral paraspinal muscles normal Vertebral body tender to palpation over Facet loading test positive Lumbar spine: Motor bulk/ tone/ strength lower extremities , thigh and legs : 5/5 Deep tendon reflexes : Normal Knee Jerk. Normal Ankle Jerk . Vertebral body tenderness to palpation over L5 Lumbar Facet Loading Test positive Straight Leg Raise: positive at 30 degrees right side/ left side Gaenslen's Test positive Sacral spine : Severe tenderness over the Sacroiliac joint: right side / left side Range of motion: Flexion of the lumbar spine <60 degrees Range of motion: Extension of the lumbar spine <20 degrees Gaenslen's Test positive Mariam test: positive right side / left side Thigh Thrust Test Sacral Thrust Test Assessment and plan: Chronic low back pain secondary to lumbar degenerative disc disease, spondylosis with facet arthropathy without myelopathy Recommendation of Caudal GUS w lysis. May need a series of injections for optimal pain relief. Risks, benefits of procedure discussed and pt verbalized understanding. Denies anticoagulant use or medical history of diabetes. Protocol for discontinuation/ continuation of medications nadeem procedure discussed. All patient questions answered I have spent less than 30 minutes on patient care today. Dr Garcia was available by phone for the evaluation of this patient. The time was used to review the medical records including relevant urine studies and Prescription history (MAPs), review of the available imaging, evaluation and examination of the patient, coordination of care with the medical staff and if applicable referring physicians, as well as creation of the medical record - Pain Location Bilateral Lower Back Non-Pharmacological Interventions: Heat, Ice, Inactivity, Physical Therapy, Sitting Pharmacological Interventions: Epidural, PRN Medication, Topical Medication PQRS Narrative: Smoking Status Never smoker Home Medications: Ambulatory Orders Multivitamins, Thera [Multivitamin (formulary)] 1 tab PO QAM 05/29/19 allopurinoL [Zyloprim] 300 mg PO QAM 05/29/19 Magnesium Hydroxide [Milk of Magnesia] 30 ml PO DAILY PRN 08/07/19 Magnesium Oxide [Mag-Ox] 400 mg PO BID 08/07/19 bisacodyL [Dulcolax] 10 mg RECTAL DAILY PRN 08/07/19 Sennosides [Senna] 8.6 mg PO QAM 08/28/19 methocarbamoL [Robaxin-750] 750 mg PO Q6H PRN 08/28/19 Furosemide [Lasix] 20 mg PO Q48H 12/18/20 Menthol [Biofreeze] 1 applic TOPICAL TID PRN 06/10/21 Acetaminophen [Tylenol] 1,000 mg PO Q4HR PRN 07/15/21 Benzocaine/Menthol [Cepacol Sore Throat Lozenge] 1 each MM DIRECTED PRN 07/15/21 Ergocalciferol (Vitamin D2) [Drisdol (50,000 Iu)] 1,250 mcg PO WEEKLY 07/15/21 Pregabalin [Lyrica] 100 mg PO BID #6 cap 07/22/21 Omeprazole [PriLOSEC] 40 mg PO DAILY #14 cap 12/09/21 Controlled Substance Measures - Controlled Substance Measures Is patient prescribed a controlled substance at discharge?: No
== END ==
LOC: PNWHC3 12:49
PROVIDERS: ATTEND Specialist
DX: M47.816 Spondylosis without myelopathy or radiculopathy, lumbar region (principal); M51.16 Intervertebral disc disorders with radiculopathy, lumbar region
CPT/HCPCS: 99211

== ENCOUNTER → 2023-02-21 | Outpatient (CLI) | payer MEDICARE ==
--- NOTE | 2023-02-21 14:57 | P.PN ---
Subjective Progress Note Date: 02/21/23 A 77 yr old wheelchair bound female with a history of severe and chronic LBP secondary to post laminectomy syndrome . Pain level is provoked at 7 /10 in intensity, constant, localized in the lumbar spine, throbbing in character w shooting towards the BLEs. Pain is provoked by sitting for periods of 15 min or more. Pain is alleviated with PT x 3 wks which she is currently in, heat, ice, medications (Tylenol), topicals, manual massage, sitting, repositioning and rest., Recently we have done a caudal epidural steroid injection patient reported that she had significant improvement of low back pain Interventional pain procedures completed include DENIES Patient is currently on Tylenol Patient denies any side effects of the medication(s), denies excessive drowsiness or sleepiness, denies suicidal ideation and reports that the current pain medication is helping to control the pain and improve activities of daily living. Patient denies any motor or sensory deficits. Patient denies any fever or night sweats, denies any change in the bowel movements or urination. Physical Examination: -Constitutional: Cooperative. Not in acute distress . - Neurologic: Cranial nerve II to XII intact. No focal neurological deficits. - Psychatric: Alert & oriented x 3. Matching mood & appropriate affect. Judg ment and insight intact. - Musculoskeletal: Cervical spine: Muscle bulk/ tone/ strength in the bilateral upper extremities normal Vertebral body tenderness to palpation over Spurling test positive Distraction test positive Facet loading test positive Thoracic spine Muscle bulk / tone/ strength in the bilateral paraspinal muscles normal Vertebral body tender to palpation over Facet loading test positive Lumbar spine: Motor bulk/ tone/ strength lower extremities , thigh and legs : 5/5 Deep tendon reflexes : Normal Knee Jerk. Normal Ankle Jerk . Vertebral body tenderness to palpation over L5 Lumbar Facet Loading Test positive Straight Leg Raise: positive at 30 degrees right side/ left side Gaenslen's Test positive Sacral spine : Severe tenderness over the Sacroiliac joint: right side / left side Range of motion: Flexion of the lumbar spine <60 degrees Range of motion: Extension of the lumbar spine <20 degrees Gaenslen's Test positive Mariam test: positive right side / left side Thigh Thrust Test Sacral Thrust Test Assessment and plan: Chronic low back pain secondary to,1- post laminectomy pain syndrome lumbar area. 2- lumbar degenerative disc disease,3-lumbar spondylosis with facet arthropathy without myelopathy Recommendation of Caudal steroid injection with lysis of epidural adhesions - Pain Location Bilateral Lower Back Non-Pharmacological Interventions: Heat, Ice, Inactivity, Physical Therapy, Sitting Pharmacological Interventions: Epidural, PRN Medication, Topical Medication PQRS Narrative: Smoking Status Never smoker Home Medications: Ambulatory Orders Multivitamins, Thera [Multivitamin (formulary)] 1 tab PO QAM 05/29/19 allopurinoL [Zyloprim] 300 mg PO QAM 05/29/19 Magnesium Hydroxide [Milk of Magnesia] 30 ml PO DAILY PRN 08/07/19 Magnesium Oxide [Mag-Ox] 400 mg PO BID 08/07/19 bisacodyL [Dulcolax] 10 mg RECTAL DAILY PRN 08/07/19 Sennosides [Senna] 8.6 mg PO QAM 08/28/19 methocarbamoL [Robaxin-750] 750 mg PO Q6H PRN 08/28/19 Furosemide [Lasix] 20 mg PO Q48H 12/18/20 Menthol [Biofreeze] 1 applic TOPICAL TID PRN 06/10/21 Acetaminophen [Tylenol] 1,000 mg PO Q4HR PRN 07/15/21 Benzocaine/Menthol [Cepacol Sore Throat Lozenge] 1 each MM DIRECTED PRN 07/15/21 Ergocalciferol (Vitamin D2) [Drisdol (50,000 Iu)] 1,250 mcg PO WEEKLY 07/15/21 Pregabalin [Lyrica] 100 mg PO BID #6 cap 07/22/21 Omeprazole [PriLOSEC] 40 mg PO DAILY #14 cap 12/09/21 Controlled Substance Measures - Controlled Substance Measures Is patient prescribed a controlled substance at discharge?: No Objective - Vital Signs Vital signs: Intake & Output 02/20/23 02/21/23 02/21/23 18:59 06:59 18:59 Weight 114.305 kg
[2023-02-21 15:00] VITALS: BP 156/72; PULSE 66; RESP 18; TEMP 98.7
== END ==
LOC: PNWHC3 14:26
PROVIDERS: ATTEND Specialist
DX: M51.36 Other intervertebral disc degeneration, lumbar region (principal); M47.816 Spondylosis without myelopathy or radiculopathy, lumbar region; M96.1 Postlaminectomy syndrome, not elsewhere classified; G89.4 Chronic pain syndrome
CPT/HCPCS: 99211

== ENCOUNTER 2023-03-22 08:09 | Day surgery (SDC) | payer MEDICARE ==
[~2023-03-22 08:09] MED LIST changes: -DEXAMETHASONE SOD PHOSPHATE 4 MG/ML 1 ML VIAL IV ONE; -HEPARIN SODIUM,PORCINE/PF 5,000 UNIT/0.5 ML SYRINGE SQ PRN; -HYDROmorphone 0.5 MG/0.5 ML SYRINGE IVP PRN; -MIDAZOLAM 2 MG/2 ML VIAL IV PRN; -ONDANSETRON 4 MG/2 ML VIAL IVP ONE; -Pre Op ABX Message 1 EACH MISC MISCELLANE ONE
[2023-03-22 08:34] VITALS: RESP 18; TEMP 97.1
[2023-03-22] MEDS ORDERED: fentaNYL (PF) 50 MCG/ML 2 ML AMP ONE (08:51)
[2023-03-22] MEDS ORDERED: methylPREDNISolone ACETATE 40 MG/ML 1 ML VIAL ONE (08:51)
[2023-03-22] MEDS ORDERED: ROPIVACAINE 5 MG/ML 20 ML AMPULE ONE (08:51)
[2023-03-22] MEDS ORDERED: IOPAMIDOL M200 10 ML VIAL ONE (08:51)
[2023-03-22] MEDS ORDERED: MIDAZOLAM 2 MG/2 ML VIAL ONE (08:51)
--- NOTE | 2023-03-22 09:05 | P.PCN ---
Date of Procedure: 03/22/23 Operative Findings: PREOP DIAGNOSIS: Lumbar postlaminectomy syndrome POSTOP DIAGNOSIS: Lumbar postlaminectomy syndrome PROCEDURE: Caudal epidural steroid injection with epidurolysis and epidurogram under fluoroscopic guidance Imaging: Fluoroscopy was used, images where saved to the medical record ANESTHESIA: Local with 1% lidocaine 5 ml ; IV sedation with versed and fentanyl. She given per nurse, moderate sedation Anesthesia supervision time [id number] PROCEDURE INDICATION: The patient with post-laminectomy syndrome with low back pain and radiculopathy radiating down in both legs, here for a caudal epidural steroid injection with epidurolysis. PROCEDURE DESCRIPTION: The patient was seen and identified in the preoperative area. Risks, benefits, complications, and alternatives were discussed with the patient. The patient agreed to proceed with the procedure and signed the consent. IV was started, and vital signs were stable. Patient was taken to the OR and time out was completed. The patient was placed in the prone position on procedure table and a pillow was placed under the abdomen to reduce lumbar lordosis. The lumbosacral area was prepped and draped in the usual sterile fashion. Vital signs were closely monitored during the procedure. Lateral view and the anterior-posterior plates of the sacrum were identified with infiltration of the area overlying the sacral hiatus with 1% lidocaine. A 17 gauge epidural needle was used to advance through the sacral hiatus into the caudal epidural space. Omnipaque 180 dye 2cc was injected and the position of the needle was verified to be in the midline. A Racz catheter was introduced into the epidural space and was advanced towards the L5-S1 interspace under direct fluoroscopic guidance. Multiple passes were made with the catheter for lysis of epidural adhesions avoiding parasthesia and significant resistance. After epidurolysis was complete, 2cc of contrast dye was again used to evaluate spread of contrast. Contrast was spreading beyond the original level prior to epidurolysis to the level of the lower border of L4 After negative aspiration, I injected a solution consisting of 40mg of kenalog, 2ml of Preservative free normal saline and 2ml of ropivacaine 0.5% for a total of 5ml. Additional spread was seen to lower border of L4 under fluoroscopy. The needle and the catheter were withdrawn intact. Epidurogram findings: Omnipaque 180 mg dye 2 ml was injected with spread of the dye into the caudal epidural space and with spread cutoff at L5 prior to epidurolysis. Post epidurolysis dye 2 ml was injected and spread was seen to the lower border of L4. COMPLICATIONS: None. DISPOSITION / PLANS: The patient was placed in a supine position and transferred to the recovery area in a stable condition for observation and was discharged from the recovery room after meeting discharge criteria. Home discharge instructions given to the patient by the staff. The patient was reexamined prior to discharge. The patient will schedule a follow up as directed
[2023-03-22] MEDS ORDERED: IV FLUID CONTINUATION 1,000 ML IV ONE (09:08)
[2023-03-22 10:07] VITALS: BP 131/73; PULSE 57
--- NOTE | 2023-03-22 11:07 | FL ---
Intraoperative/procedural fluoroscopic services were provided. Total fluoroscopy time is 18.4 seconds with a total of 2 submitted images to PACS. Please see the operative/procedural note for further det ails. DAP: [id number]
== END 2023-03-22 10:30 | disposition home or self-care (01) ==
LOC: ORPAIN 08:09
PROVIDERS: ATTEND Hospitalist
DX: M96.1 Postlaminectomy syndrome, not elsewhere classified (principal); M54.16 Radiculopathy, lumbar region
CPT/HCPCS: 62264; J2250; J1030; J3010; Q9966; J2795

== ENCOUNTER → 2023-04-25 | Outpatient (CLI) | payer MEDICARE ==
[2023-04-25 09:54] VITALS: BP 144/63; PULSE 59; RESP 18
--- NOTE | 2023-04-27 11:13 | P.PAINPG ---
PQRS Measure Charge Sheet Comment: A 77 yr old wheelchair bound female with a history of severe and chronic LBP secondary to lumbar DDD and spondylosis with facet arthropathy without myelopathy presents today for evaluation s/p Caudal GUS w Lysis. Pt states she experienced 50 % pain relief x 4 wks s/p procedure. Pain level is provoked at 8/10 in intensity, constant, localized in the L lower lumbar spine, achy in character w shooting towards the L glute. Pain is provoked by over activity. Pain is alleviated with PT w massage x 6wks in Dec 2022, ice, medications, topical, home exercises as directed by PT, repositioning and rest. Interventional pain procedures completed include Caudal GUS w Lysis Patient is currently on Robaxin Patient denies any side effects of the medication(s), denies excessive drowsiness or sleepiness, denies suicidal ideation and reports that the current pain medication is helping to control the pain and improve activities of daily living. Patient denies any motor or sensory deficits. Patient denies any fever or night sweats, denies any change in the bowel movements or urination. Physical Examination: -Constitutional: Cooperative. Not in acute distress . - Neurologic: Cranial nerve II to XII intact. No focal neurological deficits. - Psychatric: Alert & oriented x 3. Matching mood & appropriate affect. Judgment and insight intact. - Musculoskeletal: Cervical spine: Muscle bulk/ tone/ strength in the bilateral upper extremities normal Vertebral body tenderness to palpation over Spurling test positive Distraction test positive Facet loading test positive TTP Thoracic spine Muscle bulk / tone/ strength in the bilateral paraspinal muscles normal Vertebral body tender to palpation over Facet loading test positive TTP Lumbar spine: Motor bulk/ tone/ strength lower extremities , thigh and legs : 5/5 Deep tendon reflexes : Normal Knee Jerk. Normal Ankle Jerk . Vertebral body tenderness to palpation over Marti Test positive Lumbar Facet Loading Test positive Straight Leg Raise: positive at 30 degrees right side/ left side Gaenslen's Test positive Sacral spine : Severe tenderness over the Sacroiliac joint: right side / left side Range of motion: Flexion of the lumbar spine <60 degrees Range of motion: Extension of the lumbar spine <20 degrees Gaenslen's Test positive right side / left side Mariam test: positive right side / left side Thigh Thrust Test positive right side / left side Sacral Thrust Test positive right side / left side Assessment and plan: Chronic LBP secondary to lumbar DDD, spondylosis with facet arthropathy without myelopathy Recommendation of L SI injection. May need a series for optimal pain relief. Risks, benefits of procedure discussed and pt verbalized understanding. Admits to anticoagulant use or medical history of diabetes. Protocol for discontinuation/ continuation of medications nadeem procedure discussed. Minimal anesthesia provided, if clinically indicated, consisting of Versed and Fentanyl. All questions answered. I have spent less than 30 minutes on patient care today. Dr Garcia was available by phone for the evaluation of this patient. The time was used to review the medical records including relevant urine studies and Prescription history (MAPs), review of the available imaging, evaluation and examination of the patient, coordination of care with the medical staff and if applicable referring physicians, as well as creation of the medical record PQRS Narrative: Smoking Status Never smoker Home Medications: Ambulatory Orders Multivitamins, Thera [Multivitamin (formulary)] 1 tab PO QAM 05/29/19 allopurinoL [Zyloprim] 300 mg PO QAM 05/29/19 Magnesium Oxide [Mag-Ox] 400 mg PO BID 08/07/19 bisacodyL [Dulcolax] 10 mg RECTAL DAILY PRN 08/07/19 methocarbamoL [Robaxin-750] 750 mg PO Q6H PRN 08/28/19 Furosemide [Lasix] 20 mg PO Q48H 12/18/20 Menthol [Biofreeze] 1 applic TOPICAL TID PRN 06/10/21 Acetaminophen [Tylenol] 1,000 mg PO Q4HR PRN 07/15/21 Ergocalciferol (Vitamin D2) [Drisdol (50,000 Iu)] 1,250 mcg PO WEEKLY 07/15/21 Omeprazole [PriLOSEC] 40 mg PO DAILY #14 cap 12/09/21 Pregabalin [Lyrica] 150 mg PO HS 03/17/23 Controlled Substance Measures - Controlled Substance Measures Is patient prescribed a controlled substance at discharge?: No
== END ==
LOC: PNWHC3 08:40
PROVIDERS: ATTEND Specialist
DX: M51.36 Other intervertebral disc degeneration, lumbar region (principal); M47.816 Spondylosis without myelopathy or radiculopathy, lumbar region; G89.29 Other chronic pain
CPT/HCPCS: 99211

== ENCOUNTER → 2023-05-26 | Outpatient (CLI) | payer MEDICARE ==
--- NOTE | 2023-05-26 10:41 | MM ---
Reason for Exam: Additional evaluation requested from prior study. Last screening mammogram was performed 12 month(s) ago. Patient History: Menarche at age 8. Patient has no children. Postmenopausal. Breast cancer, right, age 75. Previous chest radiation therapy at age 56. Patient used Estrogen for 7 years. Patient used Progesterone for 7 years. 07/21/2021, Mastectomy on the Right side. Lumpectomy on the Right side. 06/15/2021, Malignant Core Biopsy on the right side. 06/15/2021, Malignant Core Biopsy on the right side. 06/15/2021, Malignant Core Biopsy on the right side. Radiation Therapy, right. Prior Study Comparison: 05/22/2021 Bilateral Diagnostic Mammogram, [facility]. 06/15/2021 Right Diagnostic Mammogram, [facility]. 05/25/2022 Left MG 3D diag mammo w/cad LT, [facility]. Tissue Density: Left: The breast tissue is heterogeneously dense. This may lower the sensitivity of mammography. Findings: Analyzed By CAD. No suspicious mass of the left breast. Benign-appearing calcification is noted. No suspicious group of calcifications within the left breast. Overall Assessment: Benign, BI-RAD 2 Management: Diagnostic Mammogram of the left breast in 1 year. A clinical breast exam by your physician is recommended on an annual basis and results should be correlated with mammographic findings. This exam should not preclude additional follow-up of suspicious palpable abnormalities. Results were given to the patient verbally at the time of exam. Electronically signed and approved by: Reese Howell D.O.
== END | disposition home or self-care (01) ==
LOC: RADMAMWWP 10:16
PROVIDERS: ATTEND Surgery
DX: Z78.0 Asymptomatic menopausal state (principal); Z85.3 Personal history of malignant neoplasm of breast; Z90.11 Acquired absence of right breast and nipple
CPT/HCPCS: 77065; G0279; 77061

== ENCOUNTER 2023-05-31 10:58 | Day surgery (SDC) | payer MEDICARE ==
[2023-05-31 11:49] VITALS: RESP 18; TEMP 97.2
[2023-05-31] MEDS ORDERED: TRIAMCINOLONE ACETONIDE 40 MG/ML 1 ML VIAL ONE (11:54)
[2023-05-31] MEDS ORDERED: ROPIVACAINE 5 MG/ML 20 ML AMPULE ONE (11:54)
--- NOTE | 2023-05-31 11:58 | P.PCN ---
Date of Procedure: 05/31/23 Surgeon: Latonia Salazar Pathology: none sent Condition: stable Disposition: PACU Description of Procedure: Preoperative diagnoses= sacroiliac joint dysfunction and sacroiliitis on the l eft side Postoperative diagnoses= same as preoperative diagnosis. Procedure= sacroiliac joint steroid injection under fluoroscopic guidance. Anesthesia= local only anesthesia with lidocaine 1% Estimated blood loss=minimal. Procedure indication= the patient had a history of severe chronic low back pain, diagnosed with sacroiliitis and lumbar sacral facet arthropathy unresponsive to conservative treatment. Procedure description= the patient was seen and identified in the preoperative holding area, risks and benefits and alternative of the procedure and possible complications discussed with the patient, patient signed the consent. an IV was started, and vital signs were monitored and were stable throughout the procedure, patient was placed in the prone position or table and the lumbosacral area was prepped and draped with a sterile fashion, vital signs were closely monitored during the procedure.The sacroiliac joint was identified on the AP view of fluoroscopy then the C-arm was tilted to the contralateral oblique position to superimpose the anterior and posterior joint lines on each other and to have a unified joint line with the target point at the inferior one third of this line. I used 22-gauge 3-1/2 inch Quincke spinal needle for this procedure and after getting into the sacroiliac joint I injected 40 mg of Kenalog +2 MLS of Ropivacaine 0.5%. Patient tolerated the procedure well without any complication, The patient returned to supine position after the back was cleaned and a Band- Aid applied, the patient transported to recovery room in stable condition and he was monitored for 30 minutes before she was discharged home in stable condition . patient will follow up with the pain clinic in a few weeks. A copy of the needle placement was saved to the C-arm machine.
[2023-05-31 12:18] VITALS: BP 122/58; PULSE 58
--- NOTE | 2023-05-31 12:31 | FL ---
Intraoperative/procedural fluoroscopic services were provided. Total fluoroscopy time is 14.6 seconds with a total of 1 submitted images to PACS. Please see the operative/procedural note for further det ails. DAP: [id number] mGym2
== END 2023-05-31 12:25 | disposition home or self-care (01) ==
LOC: ORPAIN 10:58
PROVIDERS: ATTEND Anesthesiology
DX: M47.817 Spondylosis without myelopathy or radiculopathy, lumbosacral region (principal); M46.1 Sacroiliitis, not elsewhere classified; G47.33 Obstructive sleep apnea (adult) (pediatric); G89.29 Other chronic pain
CPT/HCPCS: J3301; J2795; G0260; 27096

== ENCOUNTER → 2023-06-22 | Outpatient (CLI) | payer MEDICARE ==
[2023-06-22 14:09] VITALS: BP 124/53; PULSE 60; RESP 15; TEMP 98.5
--- NOTE | 2023-06-22 14:24 | P.PAINPG ---
PQRS Measure Charge Sheet Comment: A 77 yr old wheelchair bound female with a history of severe and chronic LBP secondary to lumbar DDD and spondylosis with facet arthropathy without myelopathy presents today for evaluation s/p L SI injection. Pt states she experienced 55% pain relief x 1 wks s/p procedure. Pain level is provoked at 6/10 in intensity, constant, localized in the L lower lumbar spine, achy in character w shooting towards the L glute. Pain is provoked by over activity. Pain is alleviated with PT w massage x 6wks in Dec 2022, ice, medications, topical, home exercises as directed by PT, use of a wheelchair for ambulatory assistance, repositioning and rest. Oswestry axial pain score of 31. Interventional pain procedures completed include Caudal GUS w Lysis, L SI injection Patient is currently on Robaxin Patient denies any side effects of the medication(s), denies excessive drowsiness or sleepiness, denies suicidal ideation and reports that the current pain medication is helping to control the pain and improve activities of daily living. Patient denies any motor or sensory deficits. Patient denies any fever or night sweats, denies any change in the bowel movements or urination. Physical Examination: -Constitutional: Cooperative. Not in acute distress . - Neurologic: Cranial nerve II to XII intact. No focal neurological deficits. - Psychatric: Alert & oriented x 3. Matching mood & appropriate affect. Judgment and insight intact. - Musculoskeletal: Cervical spine: Muscle bulk/ tone/ strength in the bilateral upper extremities normal Vertebral body tenderness to palpation over Spurling test positive Distraction test positive Facet loading test positive TTP Thoracic spine Muscle bulk / tone/ strength in the bilateral paraspinal muscles normal Vertebral body tender to palpation over Facet loading test positive TTP Lumbar spine: Motor bulk/ tone/ strength lower extremities , thigh and legs : 5/5 Deep tendon reflexes : Normal Knee Jerk. Normal Ankle Jerk . Vertebral body tenderness to palpation over L5 Marti Test positive Lumbar Facet Loading Test positive Straight Leg Raise: positive at 30 degrees right side/ left side Gaenslen's Test positive Sacral spine : Severe tenderness over the Sacroiliac joint: right side / left side Range of motion: Flexion of the lumbar spine <60 degrees Range of motion: Extension of the lumbar spine <20 degrees Gaenslen's Test positive right side / left side Mariam test: positive right side / left side Thigh Thrust Test positive right side / left side Sacral Thrust Test positive right side / left side Assessment and plan: Chronic LBP secondary to lumbar DDD, spondylosis with facet arthropathy without myelopathy Recommendation of L TFESI L5-S1. May need a series of injections for optimal pain relief. Risks, benefits of procedure discussed and pt verbalized understanding. Admits to anticoagulant use or medical history of diabetes. Protocol for discontinuation/ continuation of medications nadeem procedure discussed. Minimal anesthesia provided, if clinically indicated, consisting of Versed and Fentanyl. All questions answered. I have spent less than 30 minutes on patient care today. Dr Garcia was available by phone for the evaluation of this patient. The time was used to review the medical records including relevant urine studies and Prescription history (MAPs), review of the available imaging, evaluation and examination of the patient, coordination of care with the medical staff and if applicable referring physicians, as well as creation of the medical record PQRS Narrative: Smoking Status Never smoker Home Medications: Ambulatory Orders Multivitamins, Thera [Multivitamin (formulary)] 1 tab PO QAM 05/29/19 allopurinoL [Zyloprim] 300 mg PO QAM 05/29/19 Magnesium Oxide [Mag-Ox] 400 mg PO BID 08/07/19 bisacodyL [Dulcolax] 10 mg RECTAL DAILY PRN 08/07/19 methocarbamoL [Robaxin-750] 750 mg PO Q6H PRN 08/28/19 Furosemide [Lasix] 20 mg PO Q48H 12/18/20 Menthol [Biofreeze] 1 applic TOPICAL TID PRN 06/10/21 Acetaminophen [Tylenol] 1,000 mg PO Q4HR PRN 07/15/21 Ergocalciferol (Vitamin D2) [Drisdol (50,000 Iu)] 1,250 mcg PO MO 07/15/21 Omeprazole [PriLOSEC] 40 mg PO DAILY #14 cap 12/09/21 Pregabalin [Lyrica] 200 mg PO HS 03/17/23 Controlled Substance Measures - Controlled Substance Measures Is patient prescribed a controlled substance at discharge?: No
== END ==
LOC: PNWHC3 13:36
PROVIDERS: ATTEND Specialist
DX: M51.36 Other intervertebral disc degeneration, lumbar region (principal); M47.816 Spondylosis without myelopathy or radiculopathy, lumbar region; G89.29 Other chronic pain
CPT/HCPCS: 99211

== ENCOUNTER → 2023-07-01 | Outpatient (CLI) | payer MEDICARE ==
--- NOTE | 2023-07-01 09:44 | P.PN ---
Subjective Progress Note Date: 07/01/23 Right breast invasive ductal carcinoma/stage Ib if this skin lesion is not considered to be a T4 or IIIB if the skin lesion is a T4 202007-01-23 Luma is a 77-year-old white female status post right mastectomy and axillary node resection on 07-21-23; of significance is the fact that she had previously undergone a right lumpectomy and sentinel lobe biopsy with adjuvant radiation therapy and 5 years of tamoxifen in 2000. This was performed in [place]. Most recently in 2020 she was noted to have a skin lesion which was biopsied by dermatology and found to be consistent with metastatic breast cancer and additionally at 10 and 11:00 in the right breast positive invasive ductal cancer. No lesions of concern were identified in the left breast. A metastatic workup was performed which was negative. After presentation at tumor board it was recommended that she undergo a right mastectomy. Right mastectomy and sentinel node biopsy performed on Pathology revealed all nodes negative and multifocal and recurrent invasive ductal cancer in the right breast, all margins negative. She did not have additional radiation therapy She is presently on anastrozole She underwent a left breast mammogram on 7622 which was benign BIRADS 2. She is not complaining of any new lumps masses or nodules of concern in the left breast or on the right chest wall. 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 This was done in 2018. The patient is complaining of some cramping in her lower extremities and in her fingers which she believes may be related to the Aromasin. She is going to discuss this with Dr. Chen. Caffeine: 2 cups/day; 20oz ice tea daily/pop: seldom nicotine: patient never; secondhand: (5 years) hormones: 16 years; prempro stopped in 2000 Family History: patient: breast cancer Hormonal History: menarche: 9 G0 menopause: 46 hormones: 16 years Prempro stopped in 2000 Tubal ligation at the age of 40 BCP: none Surgical history: 1. Tubal ligation 2. Right breast lumpectomy and Node dissection 3. 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 HTN 3. back injury as above 4. GERD Social History: smoke: as above alcohol: occasional stopped / 1986 drugs: none - Constitutional Constitutional: Reports sweats, Denies chills, Denies fever - EENT Eyes: denies blurred vision, denies pain Ears: bilateral: decreased hearing, deny: tinnitus Ears, nose, mouth and throat: Denies headache, Denies sore throat - Breasts Breasts: bilateral: as per HPI - Cardiovascular Cardiovascular: Denies chest pain, Denies shortness of breath - Respiratory Respiratory: Reports cough - Gastrointestinal Comment: incontinent Gastrointestinal: Denies abdominal pain, Denies diarrhea, Denies nausea, Denies vomiting - Genitourinary (Female) Comment: incontient Genitourinary: Reports as per HPI - Menstruation Menstruation: Reports postmenopausal - Musculoskeletal Musculoskeletal: Reports muscle weakness - Integumentary Integumentary: Reports as per HPI - Neurological Comment: back herniated disc Neurological: Reports as per HPI - Psychiatric Psychiatric: Denies anxiety, Denies depression - Endocrine Endocrine: Denies fatigue, Denies weight change - Hematologic/Lymphatic Comment: none - Allergic/Immunologic Allergic/Immunologic: Reports as per HPI Objective - Constitutional General appearance: Present: cooperative - EENT Eyes: Present: EOMI ENT: Present: hearing grossly normal - Neck Neck: Present: normal ROM - Respiratory Respiratory: bilateral: CTA - Cardiovascular Heart sounds: normal: S1, S2 - Integumentary Integumentary: Present: normal turgor - Musculoskeletal Musculoskeletal Comment(s): wheel chair dependant - Psychiatric Psychiatric: Present: A&O x's 3, appropriate affect, intact judgment & insight - Additional findings Additional findings: Breast Exam: Examination performed with the patient in wheelchair BRA: [id number] Inspection: Right chest wall no evidence of recurrence, left breast grade 3 ptosis; skin lesion right chest probable seborrheic keratosis, small nodular area medial aspect of the incision which will be followed closely clinically Palpation: Right chest wall: No evidence of recurrent cancer, small nodularity medial aspect of the right chest wall incision which is believed to be a small dogear but this will be followed closely; seborrheic keratosis right anterior chest wall which is of concern to the patient Right axilla: No adenopathy of concern Left breast: no dominant masses or nodules of concern, fibrocystic changes Left axilla: No adenopathy of concern Assessment and Plan Assessment: Impression: Patient status post right mastectomy for invasive ductal carcinoma; she was status post a prior right breast lumpectomy in 2000 and this was recurrent disease treated in 2020 Patient presently on Aromasin but complaining of muscle aches Recent left breast mammogram 7623 BIRAD 2 Back pain related to complications following back surgery in 2019 Plan: Follow up in 6 months Left breast mammogram in one year Scheduled for appointment for resection of seborrheic keratosis right chest wall/at that time we will reevaluate the area of the dogear in the medial aspect of the right incision if there is any concern and this will be resected; this will be scheduled in the near future Discussion with Dr. Chen regarding Aromasin CC: Dr. Hendrickson
[2023-07-01 09:47] VITALS: BP 111/51; PULSE 74; RESP 16; TEMP 98.1
== END ==
LOC: WWCWWP 09:19
PROVIDERS: ATTEND Surgery
DX: C50.911 Malignant neoplasm of unspecified site of right female breast (principal); G82.20 Paraplegia, unspecified; I10 Essential (primary) hypertension; K21.9 Gastro-esophageal reflux disease without esophagitis; Z86.718 Personal history of other venous thrombosis and embolism; Z80.3 Family history of malignant neoplasm of breast; Z79.811 Long term (current) use of aromatase inhibitors; Z90.11 Acquired absence of right breast and nipple; Z92.3 Personal history of irradiation

== ENCOUNTER → 2023-07-12 | Day surgery (SDC) | payer MEDICARE ==
[~2023-07-12] MED LIST changes: +DEXAMETHASONE SOD PHOSPHATE 10 MG/ML 1 ML VIAL ONE; +IOPAMIDOL M200 10 ML VIAL ONE
[2023-07-12 13:29] VITALS: TEMP 97
--- NOTE | 2023-07-12 14:19 | P.PCN ---
Date of Procedure: 07/12/23 Description of Procedure: PREOPERATIVE DIAGNOSIS: Lumber postlaminectomy syndrome, and Lumbar radiculo kalyn POSTOPERATIVE DIAGNOSIS: Lumbar postlaminectomy syndrome, and Lumbar radiculopathy PROCEDURES: 1. Left L5-S1 Transforaminal epidural steroid injection under fluoroscopic guidance 2. Lumbar epidurogram. SURGEON: Jennifer Woodward NETWORK SYSTEMS INTEGRATOR: None ANESTHESIA: Local , IV sedation : None EBL: None. PROCEDURE INDICATIONS: This patient with a history of lumbar radiculopathy. Failed with conservative therapy came here for intervention procedure management. So came here for the intervention procedure . PROCEDURE DESCRIPTION: The patient was seen and identified in the preoperative area. Risks, benefits, complications, and alternatives were discussed with the patient. The patient agreed to proceed with the procedure and signed the consent. IV was started, and vital signs were stable. Patient was taken to the OR and time out was completed. The patient was placed in the prone position on procedure table and a pillow was placed under the abdomen to reduce lumbar lordosis. The lumbosacral area was prepped with ChloraPrep and draped in the usual sterile fashion. Critical pause was taken. Vital signs were closely monitored during the procedure. Using oblique fluoroscopy, the chin of the Erasmo dog at the left side L5 and the skin and deeper tissues just below was localized with 1% lidocaine. Subsequently, a 22-gauge 5- spinal needle was advanced under a tunneled view fluoroscopic guidance just underneath the chin of the Erasmo dog at left L5. Under lateral fluoroscopy, the needle was then advanced to the posterior border of the L5 interforaminal space. After negative aspiration of CSF and blood and with no paresthesias, 1 mL of [id number] dye was injected good epidurogram and outlining of the L5 nerve root. After negative aspiration of CSF, blood and with no paresthesia 3 mL of block solution containing 10 MG of dexamethasone, mixed with 2 mL of normal saline preservative-free was injected. Needle was removed intact. Skin was cleansed, and bandages were applied. COMPLICATIONS: None. DISPOSITION / PLANS: The patient was placed in a supine position and transferred to the recovery area in a stable condition for observation. There was no evidence of lower extremity motor or sensory deficit after the procedure. Patient was discharged from the recovery room after meeting discharge criteria. Home discharge instructions were given to the patient by the staff. The patient was reexamined prior to discharge. Patient can follow up with the pain clinic in 4 weeks duration.
[2023-07-12 14:27] VITALS: RESP 16
--- NOTE | 2023-07-12 14:28 | FL ---
Intraoperative/procedural fluoroscopic services were provided for left transforaminal lumbar epidural injection. Total fluoroscopy time is 8 seconds with a total of 4 submitted images to PACS. Total DAP [id number] mGym2. Please see the operative note for further details.
[2023-07-12 15:00] VITALS: BP 119/57; PULSE 59
== END ==
LOC: ORPAIN 12:00
DX: M96.1 Postlaminectomy syndrome, not elsewhere classified (principal); G47.33 Obstructive sleep apnea (adult) (pediatric); M54.16 Radiculopathy, lumbar region; Z90.49 Acquired absence of other specified parts of digestive tract; Z90.89 Acquired absence of other organs; Z98.890 Other specified postprocedural states; Z79.899 Other long term (current) drug therapy
CPT/HCPCS: 64483

== ENCOUNTER → 2023-08-29 | Outpatient (CLI) | payer MEDICARE ==
[2023-08-29 10:33] VITALS: BP 136/76; PULSE 84; RESP 15; TEMP 98.2
--- NOTE | 2023-08-29 14:38 | P.PAINPG ---
PQRS Measure Charge Sheet Comment: A 77 yr old wheelchair bound female with a history of severe and chronic LBP secondary to lumbar DDD and spondylosis with facet arthropathy without myelopathy presents today for evaluation s/p L TFESI L5-S1 #1. Pt states she experienced 70% pain relief x 6 wks s/p procedure. Pain level is provoked at 4/10 in intensity, constant, localized in the L lower lumbar spine, achy in character without shooting pain. Pain is provoked by over activity. Pain is alleviated with PT w massage x 6wks in Dec 2022, ice, medications, topical, home exercises as directed by PT, use of a wheelchair for ambulatory assistance, repositioning and rest. Interventional pain procedures completed include Caudal GUS w Lysis, L SI injection, L TFESI L5-S1 x1 Patient is currently on Robaxin, Orange Patient denies any side effects of the medication(s), denies excessive drowsiness or sleepiness, denies suicidal ideation and reports that the current pain medication is helping to control the pain and improve activities of daily living. Patient denies any motor or sensory deficits. Patient denies any fever or night sweats, denies any change in the bowel movements or urination. Physical Examination: -Constitutional: Cooperative. Not in acute distress . - Neurologic: Cranial nerve II to XII intact. No focal neurological de ficits. - Psychatric: Alert & oriented x 3. Matching mood & appropriate affect. Judgment and insight intact. - Musculoskeletal: Cervical spine: Muscle bulk/ tone/ strength in the bilateral upper extremities normal Vertebral body tenderness to palpation over Spurling test positive Distraction test positive Facet loading test positive TTP Thoracic spine Muscle bulk / tone/ strength in the bilateral paraspinal muscles normal Vertebral body tender to palpation over Facet loading test positive TTP Lumbar spine: Motor bulk/ tone/ strength lower extremities , thigh and legs : 5/5 Deep tendon reflexes : Normal Knee Jerk. Normal Ankle Jerk . Vertebral body tenderness to palpation Marti Test positive Lumbar Facet Loading Test positive Straight Leg Raise: positive at 30 degrees right side/ left side Gaenslen's Test positive Sacral spine : Severe tenderness over the Sacroiliac joint: right side / left side Range of motion: Flexion of the lumbar spine <60 degrees Range of motion: Extension of the lumbar spine <20 degrees Gaenslen's Test positive right side / left side Mariam test: positive right side / left side Thigh Thrust Test positive right side / left side Sacral Thrust Test positive right side / left side Assessment and plan: Chronic LBP secondary to lumbar DDD, spondylosis with facet arthropathy without myelopathy Will manage residual pain and RTC on an as needed basis. All questions answered. I have spent less than 30 minutes on patient care today. Dr Garcia was available by phone for the evaluation of this patient. The time was used to review the medical records including relevant urine studies and Prescription history (MAPs), review of the available imaging, evaluation and examination of the patient, coordination of care with the medical staff and if applicable refer ring physicians, as well as creation of the medical record PQRS Narrative: Smoking Status Never smoker Home Medications: Ambulatory Orders Multivitamins, Thera [Multivitamin (formulary)] 1 tab PO QAM 05/29/19 allopurinoL [Zyloprim] 300 mg PO QAM 05/29/19 Magnesium Oxide [Mag-Ox] 400 mg PO BID 08/07/19 bisacodyL [Dulcolax] 10 mg RECTAL DAILY PRN 08/07/19 methocarbamoL [Robaxin-750] 750 mg PO Q6H PRN 08/28/19 Furosemide [Lasix] 20 mg PO Q48H 12/18/20 Menthol [Biofreeze] 1 applic TOPICAL TID PRN 06/10/21 Acetaminophen [Tylenol] 1,000 mg PO Q4HR PRN 07/15/21 Ergocalciferol (Vitamin D2) [Drisdol (50,000 Iu)] 1,250 mcg PO MO 07/15/21 Omeprazole [PriLOSEC] 40 mg PO DAILY #14 cap 12/09/21 Pregabalin [Lyrica] 200 mg PO HS 03/17/23 Controlled Substance Measures - Controlled Substance Measures Is patient prescribed a controlled substance at discharge?: No
== END ==
LOC: PNWHC3 09:27
PROVIDERS: ATTEND Specialist
DX: M51.36 Other intervertebral disc degeneration, lumbar region (principal)
CPT/HCPCS: 99211

== ENCOUNTER → 2023-11-09 | Outpatient (CLI) | payer MEDICARE ==
--- NOTE | 2023-11-09 15:23 | BD ---
EXAMINATION TYPE: Axial Bone Density DATE OF EXAM: 11/09/2023 CLINICAL HISTORY: 78 years old Female. ICD-10 CODE: M85.88 Height: 5 ft 2 in Weight: 261 FRAX RISK QUESTIONS: Alcohol (3 or more units per day): no Family History (Parent hip fracture): no Glucocorticoids (More than 3mos): no (Ex: prednisone, prednisolone, methylprednisolone, dexamethasone, and hydrocortisone). History of Fracture in Adulthood: no Secondary Osteoporosis: 1. Type 1 Diabetes: no 2. Hyperthyroidism: no 3. Menopause before 45: no 4. Malnutrition: no 5. Chronic liver disease: no Rheumatoid Arthritis: no Current Tobacco Use: no RISK FACTORS HISTORY OF: Surgery to Spine/Hip(right/left)/Wrist (right/left): lumbar surg When: 2019 Family History of Osteoporosis: no Active: no Diet low in dairy products/other sources of calcium: no Postmenopausal woman: yes Take estrogen and/or progesterone medications: none now Lost more than 2 inches in height since high school: yes Frequent falls: no Poor Health: good Hyperparathyroidism: no Adrenal Insufficiency: no MEDICATIONS: Additional Medications: h2o meds, Allopurinol, magnesium, Additional History: EXAM MEASUREMENTS: Bone mineral density about the R hip (g/cm2): 0.842 Bone mineral density about the L hip (g/cm2): 0.713 T Score values are as follows: -----R Neck: -1.4 -----L Neck: -2.3 -----R Total: -1.4 -----L Total: -1.8 Z Score values are as follows: -----R Neck: 0.0 -----L Neck: -0.9 -----R Total: -0.3 -----L Total: -0.7 Bone mineral density has decreased -3.5 % since study of 2020 Bone mineral density about the L Wrist (g/cm2): 0.574 T Score values are as follows: -----Dist. R+U: -1.3 -----Prox. R+U: -0.9 -----Radius total: -1.7 Z Score values are as follows: -----Dist. R+U: 1.5 -----Prox. R+U: 1.8 -----Radius total: 1.1 Bone mineral density has: decreased -0.7 % since study of 2020 FRAX%s: The graph provided illustrates a 21.2 ance for a major osteoporotic fx and a 5.8chance for th e hips probability for fx in 10 years time. IMPRESSION: Osteopenia (T Score between -2.5 and -1). There is slightly increased risk of fracture and the patient may be considered for treatment. Re-Screen 2-5 years. NOTE: T-SCORE=SD OF THE YOUNG ADULT MEAN.
== END | disposition home or self-care (01) ==
LOC: RADBDWWP 12:23
PROVIDERS: ATTEND Internal Medicine Hematology & Oncology
DX: C50.411 Malignant neoplasm of upper-outer quadrant of right female breast (principal); M85.89 Other specified disorders of bone density and structure, multiple sites; Z71.3 Dietary counseling and surveillance
CPT/HCPCS: 77080

== ENCOUNTER → 2023-11-22 | Outpatient (CLI) | payer MEDICARE ==
--- NOTE | 2023-11-22 16:13 | P.PN ---
Progress Note - Text Progress Note Date: 11/22/23 This is a 6-year-old female patient with known history of obstructive sleep apnea was coming in for evaluation regarding her sleep apnea. This is an annual check. There was also concern that her sleep apnea was not adequately treated as the patient was having episodes of fatigue and presyncope and this was also requested by her primary care physician and urologist. In summary, the patient has severe ESDRAS with an AHI of 55. She has been successfully treated with a CPAP pressure of 12 cm of water. I checked his CPAP machine and the machine is functional. The patient has 100% compliancy and the patient is averaging around 7.1 hours of CPAP use per night. Her usage of the machine for more than 4 hours is in order of 100%. Her leak is in order of 82 L/m I noticed that her mask as tone and needs to be replaced. The patient is using and airfit F 20 large size full facemask.. The patient has no other complaints otherwise for now. She is committed to CPAP therapy. Her weight has been up by around 10-12 pounds since her last evaluation. Otherwise, no other complaints. BP is 146/77 with a pulse of 57, respirations 18, temperature 97.7 and [place] score is at 16 with a weight of 265 The patient appeared well nourished and normally developed. Vital signs as documented. Head exam is unremarkable. No scleral icterus or corneal arcus noted. Neck is without jugular venous distension, thyromegaly, or carotid bruits. Carotid upstrokes are brisk bilaterally. Lungs are clear to auscultation and percussion. Cardiac exam reveals the PMI to be normally sized and situated. Rhythm is regular. First and second heart sounds normal. No murmurs, rubs or gallops. Abdominal exam reveals normal bowel sounds, no masses, no organomegaly and no aortic enlargement. Extremities are nonedematous and both femoral and pedal pulses are normal.Examination of the skin revealed no evidence of significant rashes, suspicious appearing nevi or other concerning lesions.Neurologically, the patient is awake and alert and the patient does not have any focal neurological deficit. Cranial nerves are essentially intact. Medication the gabapentin 200 mg twice a day, methocarbamol 750 mg 3 times a day, magnesium oxide, Lasix 20 mg by mouth daily, allopurinol 300 mg by mouth da angela, [place] 10 as needed, Lasix 20 mg by mouth daily, Ventolin as needed, Examostan 25 mg by mouth daily Assessment Severe symptomatic obstructive sleep apnea with an AHI of 15. Adequately treated with a CPAP pressure of 12 cm of water. Treatment remained successful and the patient is compliant Episodes of presyncope, under investigation with neurology Obesity with a weight of 265 pounds History of breast cancer Previous history of DVT and pulmonary embolism Chronic back pain Degenerative arthritis Hyperlipidemia Asthma Osteopenia Gout Plan Treatment is successful regarding obstructive sleep apnea. No need for any special adjustments. We'll keep the patient is having pressure setting. Compliancy check was done. Machine is functional. No need for any adjustment. I doubt her symptoms are related to obstructive sleep apnea and the patient is going to undergo a full neurologic evaluation by her neurologist.
== END ==
LOC: 3 N SLEEP 13:04
PROVIDERS: ATTEND Internal Medicine Critical Care Medicine
DX: G47.33 Obstructive sleep apnea (adult) (pediatric) (principal); E66.9 Obesity, unspecified; E78.5 Hyperlipidemia, unspecified; G89.29 Other chronic pain; J45.909 Unspecified asthma, uncomplicated; M10.9 Gout, unspecified; M85.80 Other specified disorders of bone density and structure, unspecified site; M19.90 Unspecified osteoarthritis, unspecified site; R55 Syncope and collapse; Z86.718 Personal history of other venous thrombosis and embolism; Z86.711 Personal history of pulmonary embolism; Z85.3 Personal history of malignant neoplasm of breast
CPT/HCPCS: 99212

== ENCOUNTER → 2023-12-19 | Outpatient (CLI) | payer MEDICARE | END | disposition home or self-care (01) | LOC: LABWHC1 09:22 | PROVIDERS: ATTEND Psychiatry & Neurology Neurology | DX: R55 Syncope and collapse (principal) | CPT/HCPCS: 36415 ==

== ENCOUNTER 2023-12-28 20:57 | Observation (INO) | payer MEDICARE ==
[2023-12-28 22:24] LABS: Basophils # (A) 0.1 k/uL (0-0.2); Basophils % (A) 1 %; Eosinophils # (A) 0.2 k/uL (0-0.7); Eosinophils % (A) 2 %; HCT 42.2 % (34.0-46.0); HGB 14.5 gm/dL (11.4-16.0); Lymphocytes % (A) 24 %; MCH 35.8 pg (25.0-35.0); MCHC 34.3 g/dL (31.0-37.0); MCV 104.2 fL (80.0-100.0); Macrocytosis Slight; Mean Platelet Volume 8.3; Monocytes # (A) 0.5 k/uL (0-1.0); Monocytes % (A) 5 %; Neutrophils # (A) 5.6 k/uL (1.3-7.7); Neutrophils % (A) 67 %; Platelet Count 176 k/uL (150-450); RBC 4.05 m/uL (3.80-5.40); RDW 13.7 % (11.5-15.5); WBC 8.4 k/uL (3.8-10.6)
[2023-12-28 22:47] LABS: ALT 52 U/L (4-34); AST 75 U/L (14-36); African American GFR (CKD) 78 (>60 ml/min/1.73 sqM); Alkaline Phosphatase 85 U/L (38-126); Anion Gap 4 mmol/L; Blood Urea Nitrogen 22 mg/dL (7-17); Calcium 9.4 mg/dL (8.4-10.2); Carbon Dioxide 30 mmol/L (22-30); Chloride 105 mmol/L (98-107); Glucose 223 mg/dL (74-99); Non-African American GFR(CKD) 68 (>60 ml/min/1.73 sqM); Potassium 4.1 mmol/L (3.5-5.1); Sodium 139 mmol/L (137-145); Total Bilirubin 0.5 mg/dL (0.2-1.3); Total Protein 7.2 g/dL (6.3-8.2)
[2023-12-28 22:56] LABS: NT-Pro-B-Type Natriuretic Pept 377 pg/mL
--- NOTE | 2023-12-28 23:07 | XR ---
EXAM: XR Chest, 2 Views CLINICAL HISTORY: ITS.REASON XR Reason: Weakness TECHNIQUE: Frontal and lateral views of the chest. COMPARISON: 05/29/2019 FINDINGS: Lungs: No consolidation. No overt edema. Pleural space: No pleural effusion. No pneumothorax. Heart: Cardiomegaly. Bones/joints: Unremarkable. No fracture or malalignment. IMPRESSION: No acute cardiopulmonary abnormality.
--- NOTE | 2023-12-28 23:09 | US ---
EXAM: US Duplex Bilateral Lower Extremities Veins CLINICAL HISTORY: ITS.REASON US Reason: lower extremity swelling, hx dvt, no anticoagulati TECHNIQUE: Real-time duplex ultrasound scan of the bilateral lower extremity veins integrating B-mode two-dimensional vascular structure, Doppler spectral analysis, color flow Doppler imaging and compression. COMPARISON: 06/09/2019 FINDINGS: Right deep veins: Unremarkable. The visualized deep veins of the right lower extremity are compressible with color flow. No visualized thrombus. Right superficial veins: Unremarkable. Left deep veins: Unremarkable. The visualized deep veins of the left lower extremity are compressible with color flow. No visualized thrombus. Left superficial veins: Unremarkable. Soft tissues: No acute findings. IMPRESSION: No DVT within the bilateral lower extremities.
--- NOTE | 2023-12-29 00:06 | ED ---
Extremity Problem HPI - General Chief complaint: Extremity Problem,Nontraumatic Stated complaint: Leg Swelling Time Seen by Provider: 12/28/23 21:25 Source: patient, EMS Mode of arrival: EMS Limitations: no limitations - History of Present Illness Initial comments: 78-year-old female with past medical history of DVT, not on any anticoagulation, herniated disc with chronic foot drop bilaterally who presents to the emergency department with lower extremity swelling. Patient does require lateral braces and ambulates with a walker. States that today she has had difficulty ambulating due to the swelling in her lower extremities. She denies history of congestive heart failure. She does take Lasix 20 mg daily. She denies any chest pain or shortness of breath. She does have some swelling in her lower extremities however never this bad. She denies any urinary issues. No other alleviating, precipitating modifying factors - Related Data Home Medications Medication Instructions Recorded Confirmed allopurinoL [Zyloprim] 300 mg PO DAILY 05/29/19 12/29/23 Magnesium Oxide [Mag-Ox] 400 mg PO BID 08/07/19 12/29/23 Furosemide [Lasix] 20 mg PO DAILY 12/18/20 12/29/23 Albuterol Sulfate [Ventolin HFA] 2 puff INHALATION RT-Q6H PRN 12/29/23 12/29/23 Alendronate Sodium [Fosamax] 70 mg PO WEEKLY 12/29/23 12/29/23 Fluticasone Nasal [place] [Flonase 1 spray EA NOSTRIL DAILY PRN 12/29/23 12/29/23 Nasal [place]] HYDROcodone/APAP 10-325MG [[place] 1 tab PO Q8H PRN 12/29/23 12/29/23 10-325] Pregabalin [Lyrica] 200 mg PO BID 12/29/23 12/29/23 Allergies Allergy/AdvReac Type Severity Reaction Status Date / Time No Known Allergies Allergy Verified 12/29/23 07:29 Review of Systems ROS Statement: Those systems with pertinent positive or pertinent negative responses have been documented in the HPI. ROS Other: All systems not noted in ROS Statement are negative. 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 History of Any Multi-Drug Resistant Organisms: None Reported Past Surgical History: Back Surgery, Breast Surgery, Cholecystectomy, Tonsillectomy, Tubal Ligation Additional Past Surgical History / Comment(s): RIGHT MASTECTOMY. 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 BACK SURGERY X2, pain clinic procedures. Past Anesthesia/Blood Transfusion Reactions: No Reported Reaction Past Psychological History: No Psychological Hx Reported Smoking Status: Never smoker Past Alcohol Use History: Rare Past Drug Use History: None Reported - Past Family History Father Additional Family Medical History / Comment(s): Father at the age of 53 yrs from "broken heart" 6 weeks after the of his son. Mother Additional Family Medical History / Comment(s): Mother at the age of 61 pt believes from a brain tumor. General Exam Limitations: no limitations General appearance: alert, in no apparent distress Head exam: Present: atraumatic, normocephalic, normal inspection Eye exam: Present: normal appearance, PERRL, EOMI. Absent: scleral icterus, conjunctival injection, periorbital swelling ENT exam: Present: normal exam, mucous membranes moist Neck exam: Present: normal inspection. Absent: tenderness, meningismus, lymphadenopathy Respiratory exam: Present: normal lung sounds bilaterally. Absent: respiratory distress, wheezes, rales, rhonchi, stridor Cardiovascular Exam: Present: regular rate, normal rhythm, normal heart sounds. Absent: systolic murmur, diastolic murmur, rubs, gallop, clicks GI/Abdominal exam: Present: soft, normal bowel sounds. Absent: distended, tenderness, guarding, rebound, rigid Extremities exam: Present: full ROM, normal capillary refill, pedal edema. Absent: tenderness, joint swelling, calf tenderness Back exam: Present: normal inspection Neurological exam: Present: alert, oriented X3, CN II-XII intact Psychiatric exam: Present: normal affect, normal mood Skin exam: Present: warm, dry, intact, normal color. Absent: rash Course Vital Signs 12/28/23 12/28/23 12/28/23 21:00 22:00 23:00 Temperature 96.8 F L Pulse Rate 67 63 63 Respiratory 18 16 16 Rate Blood Pressure 144/61 113/73 131/73 O2 Sat by Pulse 95 97 94 L Oximetry 12/28/23 12/29/23 12/29/23 23:38 00:00 01:00 Temperature Pulse Rate 60 64 68 Respiratory 18 20 20 Rate Blood Pressure 131/73 140/67 145/64 O2 Sat by Pulse 95 97 97 Oximetry 12/29/23 12/29/23 12/29/23 02:00 03:00 04:00 Temperature Pulse Rate 71 66 68 Respiratory 20 20 20 Rate Blood Pressure 140/70 133/62 145/61 O2 Sat by Pulse 96 97 97 Oximetry 12/29/23 12/29/23 12/29/23 05:00 06:00 19:31 Temperature Pulse Rate 65 64 58 L Respiratory 16 18 18 Rate Blood Pressure 137/64 138/63 117/54 O2 Sat by Pulse 97 96 96 Oximetry Medical Decision Making - Medical Decision Making Was pt. sent in by a medical professional or institution (, PA, CONTACT [employer] M[employer]DER, urgent care, hospital, or senior living...) When possible be specific @ -No Did you speak to anyone other than the patient for history (EMS, parent, family, police, friend...)? What history was obtained from this source @ -EMS Did you review nursing and triage notes (agree or disagree)? Why? @ -I reviewed and agree with nursing and triage notes Were old charts reviewed (outside hosp., previous admission, EMS record, old EKG, old radiological studies, urgent care reports/EKG's, senior living records)? Report findings @ -No old charts were reviewed Differential Diagnosis (chest pain, altered mental status, abdominal pain women, abdominal pain men, vaginal bleeding, weakness, fever, dyspnea, syncope, headache, dizziness, GI bleed, back pain, seizure, CVA, palpatations, mental health, musculoskeletal)? @ -Differential Weakness: Hypoglycemia, shock, sepsis, hyponatremia, anemia, infection, IL, ETOH, adverse medicine reaction, overdose, stroke, this is not meant to be an all-inclusive list. EKG interpreted by me (3pts min.). @ -Yes and demonstrates sinus rhythm with a rate of 68. VA interval 110. QRS 101. QTc of 436. No acute ST segment elevations or depressions X-rays interpreted by me (1pt min.). @ -Yes and demonstrates no acute process CT interpreted by me (1pt min.). @ -None done U/S interpreted by me (1pt. min.). @ -Yes and demonstrates no DVT What testing was considered but not performed or refused? (CT, X-rays, U/S, labs)? Why? @ -None What meds were considered but not given or refused? Why? @ -None Did you discuss the management of the patient with other professionals (professionals i.e. DrJohann, PA, [employer], lab, RT, psych nurse, social services coordinator, substance abuse rn, teacher, svp chief marketing officer, patient case manager)? Give summary @ -Spoke with Maria Del Rosario from [facility] for admission Was smoking cessation discussed for >3mins.? @ -No Was critical care preformed (if so, how long)? @ -No Were there social determinants of health that impacted care today? How? (Homelessness, low income, unemployed, alcoholism, drug addiction, transportation, low edu. Level, literacy, decrease access to med. care, retirement, rehab)? @ -No Was there de-escalation of care discussed even if they declined (Discuss DNR or withdrawal of care, Hospice)? DNR status @ -No What co-morbidities impacted this encounter? (DM, HTN, Smoking, COPD, CAD, Cancer, CVA, ARF, Chemo, Hep., AIDS, mental health diagnosis, sleep apnea, morbid obesity)? @ -Chronic back pain, bilateral foot drop Was patient admitted / discharged? Hospital course, mention meds given and route, prescriptions, significant lab abnormalities, going to OR and other pertinent info. @ -Admitted. Upon arrival patient seen and examined in room 8. Thorough history and physical exam was performed. Patient does had significant lower extremity edema. IV is established laboratory studies are conducted. Chest x- ray was performed. Upon return the results they are discussed with the patient. She was given a dose of Lasix in the emergency department. Did recommend admission due to her inability to ambulate. Patient was agreeable to this. Adm itted in stable condition Undiagnosed new problem with uncertain prognosis? @ -No Drug Therapy requiring intensive monitoring for toxicity (Heparin, Nitro, Insulin, Cardizem)? @ -No Were any procedures done? @ -No Diagnosis/symptom? @ -Acute bilateral lower extremity edema, inability to ambulate Acute, or Chronic, or Acute on Chronic? @ -Acute Uncomplicated (without systemic symptoms) or Complicated (systemic symptoms)? @ -Complicated Side effects of treatment? @ -No Exacerbation, Progression, or Severe Exacerbation? @ -No Poses a threat to life or bodily function? How? (Chest pain, [place], [place], pneumonia, PE, COPD, DKA, ARF, appy, cholecystitis, CVA, Diverticulitis, Homicidal, Suicidal, threat to staff... and all critical care pts) @ -No - Lab Data Result diagrams: 12/30/23 05:20 12/31/23 06:00 Lab Results 12/28/23 12/28/23 12/28/23 Range/Units 22:06 22:06 22:06 WBC 8.4 (3.8-10.6) k/uL RBC 4.05 (3.80-5.40) m/uL Hgb 14.5 (11.4-16.0) gm/dL Hct 42.2 (34.0-46.0) % MCV 104.2 H (80.0-100.0) fL MCH 35.8 H (25.0-35.0) pg MCHC 34.3 (31.0-37.0) g/dL RDW 13.7 (11.5-15.5) % Plt Count 176 (150-450) k/uL MPV 8.3 Neutrophils % 67 % Lymphocytes % 24 % Monocytes % 5 % Eosinophils % 2 % Basophils % 1 % Neutrophils # 5.6 (1.3-7.7) k/uL Lymphocytes # 2.0 (1.0-4.8) k/uL Monocytes # 0.5 (0-1.0) k/uL Eosinophils # 0.2 (0-0.7) k/uL Basophils # 0.1 (0-0.2) k/uL Macrocytosis Slight Sodium 139 (137-145) mmol/L Potassium 4.1 (3.5-5.1) mmol/L Chloride 105 (98-107) mmol/L Carbon Dioxide 30 (22-30) mmol/L Anion Gap 4 mmol/L BUN 22 H (7-17) mg/dL Creatinine 0.82 (0.52-1.04) mg/dL Est GFR (CKD-EPI)AfAm 78 (>60 ml/min/1.73 sqM) Est GFR (CKD-EPI)NonAf 68 (>60 ml/min/1.73 sqM) Glucose 223 H (74-99) mg/dL Calcium 9.4 (8.4-10.2) mg/dL Total Bilirubin 0.5 (0.2-1.3) mg/dL AST 75 H (14-36) U/L ALT 52 H (4-34) U/L Alkaline Phosphatase 85 (38-126) U/L Troponin I 0.044 H* (0.000-0.034) ng/mL NT-Pro-B Natriuret Pep 377 pg/mL Total Protein 7.2 (6.3-8.2) g/dL Albumin 4.0 (3.5-5.0) g/dL TSH 4.280 (0.465-4.680) mIU/L Disposition Clinical Impression: NSTEMI (non-ST elevated myocardial infarction), Bilateral lower extremity edema, Foot drop, bilateral Disposition: ADMITTED IP TO THIS [facility] Condition: Stable Is patient prescribed a controlled substance at d/c from ED?: No Time of Disposition: 00:06 Decision to Admit Reason: Admit from EC Decision Date: 12/29/23 Decision Time: 00:06
[2023-12-29] MEDS ORDERED: NALOXONE 0.4 MG/ML 1 ML VIAL IV PRN (00:07)
[2023-12-29] MEDS: FUROSEMIDE 10 MG/ML 4 ML VIAL IV STA (00:26)
[2023-12-29] MEDS ORDERED: FUROSEMIDE 40 MG TAB PO SCH (09:00)
[2023-12-29] MEDS ORDERED: FUROSEMIDE 10 MG/ML 4 ML VIAL IV SCH (09:00)
[2023-12-29] MEDS: FUROSEMIDE 20 MG TAB PO SCH (09:10)
--- NOTE | 2023-12-29 09:46 | P.CRDCN ---
History of Present Illness History of present illness: HISTORY OF PRESENT ILLNESS: This is a 78-year-old female with a past medical history significant for chronic back pain, breast cancer with right mastectomy, sleep apnea, and chronic foot drop with use of braces and walker for ambulation. Patient follows in the office with Dr. Mcgrath but has not been seen since 2020. We have been asked to see the patient in consultation for congestive heart failure. Patient examined at the bedside in the emergency room. Patient presented to the hospital with increased lower extremity edema. She also reports having discomfort in her legs. Venous Doppler was completed which was negative for DVT. She was started on IV Lasix per emergency medicine. Patient denies any chest pain or pressure. She denies any shortness of breath. DIAGNOSTICS: - EKG reveals sinus mechanism with no signs of acute ischemia. - Chest xray negative for acute process - Laboratory data: WBC 8.4. Hemoglobin 14.5. Platelet count 176. Sodium 139. Potassium 4.1. BUN 22. Creatinine 0.82. Troponin 0.044. 0.037. proBNP 377. TSH 4.280. - Current home cardiac medications include Lasix 20 mg daily. - Most recent echocardiogram obtained in June 2021 revealing ejection fraction 55%, mild TR REVIEW OF SYSTEMS: At the time of my exam: CONSTITUTIONAL: Denies fever or chills. HEENT: Denies blurred vision, vision changes, or eye pain. Denies hemoptysis CARDIOVASCULAR: Denies chest pain. Denies orthopnea. Denies PND. Denies palpitations RESPIRATORY: Denies shortness of breath. GASTROINTESTINAL: Denies abdominal pain. Denies nausea or vomiting. HEMATOLOGIC: Denies bleeding disorders. GENITOURINARY: Denies any blood in urine. SKIN: Denies pruitis. Denies rash. PHYSICAL EXAM: VITAL SIGNS: Reviewed. GENERAL: Well-developed in no acute distress. HEENT: Head is normocephalic. Pupils are equal, round. Sclerae anicteric. Mucous membranes of the mouth are moist. Neck supple. No JVD or thyromegaly LUNGS: Respirations even and unlabored. Lungs essentially clear to auscultation bilaterally. HEART: Regular rate and rhythm. S1 and S2 heard. ABDOMEN: Soft. Nondistended. Nontender. EXTREMITIES: Normal range of motion. No clubbing or cyanosis. Peripheral pulses intact. 1+ bilateral lower extremity edema, worse at the ankles NEUROLOGIC: Awake and alert. Oriented x 3. ASSESSMENT: Acute on chronic lower extremity edema likely secondary to immobility Congestive heart failure, ruled out Abnormal troponins, flat, not suggestive of acute coronary syndrome Chronic foot drop with use of brace and walker for ambulation Chronic back pain History of breast cancer with right mastectomy Obstructive sleep apnea Morbid obesity: BMI 48.7 PLAN: Discontinue IV lasix as patient is currently not in acute CHF Resume home dose of oral lasix Obtain 2D echo to assess cardiac structure and function Patient may be discharged home this afternoon from a cardiac standpoint pending echocardiogram Nurse practitioner note has been reviewed by physician. Signing provider agrees with the documented findings, assessment, and plan of care documented by [employer] as a scribe. 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 History of Any Multi-Drug Resistant Organisms: None Reported Past Surgical History: Back Surgery, Breast Surgery, Cholecystectomy, [place] ctomy, Tubal Ligation Additional Past Surgical History / Comment(s): RIGHT MASTECTOMY. 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 BACK SURGERY X2, pain clinic procedures. Past Anesthesia/Blood Transfusion Reactions: No Reported Reaction Past Psychological History: No Psychological Hx Reported Additional Psychological History / Comment(s): . Smoking Status: Never smoker Past Alcohol Use History: Rare Past Drug Use History: None Reported - Past Family History Father Additional Family Medical History / Comment(s): Father at the age of 53 yrs from "broken heart" 6 weeks after the of his son. Mother Additional Family Medical History / Comment(s): Mother at the age of 61 pt believes from a brain tumor. Medications and Allergies Home Medications Medication Instructions Recorded Confirmed Type allopurinoL [Zyloprim] 300 mg PO DAILY 05/29/19 12/29/23 History Magnesium Oxide [Mag-Ox] 400 mg PO BID 08/07/19 12/29/23 History Furosemide [Lasix] 20 mg PO DAILY 12/18/20 12/29/23 History Albuterol Sulfate [Ventolin HFA] 2 puff INHALATION RT-Q6H PRN 12/29/23 12/29/23 History Alendronate Sodium [Fosamax] 70 mg PO WEEKLY 12/29/23 12/29/23 History Fluticasone Nasal [place] [Flonase 1 spray EA NOSTRIL DAILY PRN 12/29/23 12/29/23 History Nasal [place]] HYDROcodone/APAP 10-325MG [[place] 1 tab PO Q8H PRN 12/29/23 12/29/23 History 10-325] Pregabalin [Lyrica] 200 mg PO BID 12/29/23 12/29/23 History Allergies Allergy/AdvReac Type Severity Reaction Status Date / Time No Known Allergies Allergy Verified 12/29/23 07:29 Physical Exam Vitals: Vital Signs Temp Pulse Resp BP Pulse Ox 12/29/23 06:00 64 18 138/63 96 12/29/23 05:00 65 16 137/64 97 12/29/23 04:00 68 20 145/61 97 12/29/23 03:00 66 20 133/62 97 12/29/23 02:00 71 20 140/70 96 12/29/23 01:00 68 20 145/64 97 12/29/23 00:00 64 20 140/67 97 12/28/23 23:38 60 18 131/73 95 12/28/23 23:00 63 16 131/73 94 L 12/28/23 22:00 63 16 113/73 97 12/28/23 21:00 96.8 F L 67 18 144/61 95 Intake and Output 12/28/23 12/29/23 12/29/23 22:59 06:59 14:59 Other: Weight 120.656 kg Results 12/28/23 22:06 12/28/23 22:06 Cardiac Enzymes 12/28/23 12/28/23 12/29/23 Range/Units 22:06 22:06 04:17 AST 75 H (14-36) U/L Troponin I 0.044 H* 0.037 H* (0.000-0.034) ng/mL CBC 12/28/23 Range/Units 22:06 WBC 8.4 (3.8-10.6) k/uL RBC 4.05 (3.80-5.40) m/uL Hgb 14.5 (11.4-16.0) gm/dL Hct 42.2 (34.0-46.0) % Plt Count 176 (150-450) k/uL Comprehensive Metabolic Panel 12/28/23 Range/Units 22:06 Sodium 139 (137-145) mmol/L Potassium 4.1 (3.5-5.1) mmol/L Chloride 105 (98-107) mmol/L Carbon Dioxide 30 (22-30) mmol/L BUN 22 H (7-17) mg/dL Creatinine 0.82 (0.52-1.04) mg/dL Glucose 223 H (74-99) mg/dL Calcium 9.4 (8.4-10.2) mg/dL AST 75 H (14-36) U/L ALT 52 H (4-34) U/L Alkaline Phosphatase 85 (38-126) U/L Total Protein 7.2 (6.3-8.2) g/dL Albumin 4.0 (3.5-5.0) g/dL Current Medications Generic Name Dose Route Start Last Admin Trade Name Wilfredoq PRN Reason Stop Dose Admin Furosemide 20 mg 12/29/23 09:00 12/29/23 09:10 Furosemide 20 Mg Tab PO 20 mg DAILY LAVELLE Administration Naloxone HCl 0.2 mg 12/29/23 00:07 Naloxone 0.4 Mg/Ml 1 Ml Vial IV Q2M PRN Opioid Reversal Intake and Output 12/28/23 12/29/23 12/29/23 22:59 06:59 14:59 Other: Weight 120.656 kg 12/28/23 22:06 12/28/23 22:06
[2023-12-29] MEDS ORDERED: ALBUTEROL NEBULIZED 2.5 MG/3 ML INHALATION PRN (09:54)
[2023-12-29] MEDS ORDERED: FLUTICASONE 50MCG/SPRAY NASAL 16GM EA NOSTRIL PRN (09:54)
--- NOTE | 2023-12-29 11:27 | P.HPIM ---
History of Present Illness This is a pleasant 78 years old female with past medical history of multiple medical problems including history of herniated disc status post [address] Dean. Patient was sent from [facility] because she had difficulty getting up and walking yesterday. At baseline she walks little bit with a walker, maybe to the restroom or little more, she uses wheelchair also frequently. However yesterday she has difficulty getting up and walking when the 8 was there to help her so she was sent to the hospital Also patient has bilateral feet drop and uses shoes with a braces Patient has no specific weakness in her lower extremities and she can bend her knees freely and while she is lying in bed, she complains from chronic numbness in both lower extremities more on the right side She complains from chronic mild low back pain for many months and years, she has healed scars in the lower back. Currently she denies any headache dizziness, no blurred vision or slurred speech, no weakness or numbness in the upper extremities, no other neurological symptoms She denies smoking alcohol or illicit drugs Patient denies chest pain or abdominal pain, no vomiting diarrhea, no urinary complaints She's been complaining of from constipation for the last 2 days but thus not unusual for her to be constipated for a few days and then she has good bowel movements She follows up with Dr. reid as she got staring and blackout for a few seconds for example when she is playing cards, Dr. Reid decubitus for her including MRI of the brain and he ruled out sleep apnea as she states and he still doing further workup for her. She is hemodynamically stable CBC, BMP is unremarkable, liver enzymes mildly elevated. Troponin is mildly elevated 0.04 and 0.03 , Patient evaluated by facilities officer and cleared for discharge Review of Systems Review of systems CONSTITUTIONAL: No fever, no malaise, no fatigue. HEENT: No recent visual problems or hearing problems. Denied any sore throat. CARDIOVASCULAR: No orthopnea, PND, no palpitations, no syncope. PULMONARY: No shortness of breath, no cough, no hemoptysis. GASTROINTESTINAL: No diarrhea, no nausea, no vomiting, no abdominal pain. Normoactive bowel sounds. NEUROLOGICAL: No headaches, no dizziness. HEMATOLOGICAL: Denies any bleeding or petechiae. GENITOURINARY: Denies any burning micturition, frequency, or urgency. MUSCULOSKELETAL/RHEUMATOLOGICAL: Denies any joint pain, swelling, or any muscle pain. ENDOCRINE: Denies any polyuria or polydipsia. 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 History of Any Multi-Drug Resistant Organisms: None Reported Past Surgical History: Back Surgery, Breast Surgery, Cholecystectomy, Tonsillectomy, Tubal Ligation Additional Past Surgical History / Comment(s): RIGHT MASTECTOMY. 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 BACK SURGERY X2, pain clinic procedures. Past Anesthesia/Blood Transfusion Reactions: No Reported Reaction Past Psychological History: No Psychological Hx Reported Additional Psychological History / Comment(s): . Smoking Status: Never smoker Past Alcohol Use History: Rare Past Drug Use History: None Reported - Past Family History Father Additional Family Medical History / Comment(s): Father at the age of 53 yrs from "broken heart" 6 weeks after the of his son. Mother Additional Family Medical History / Comment(s): Mother at the age of 61 pt believes from a brain tumor. Medications and Allergies Home Medications Medication Instructions Recorded Confirmed Type allopurinoL [Zyloprim] 300 mg PO DAILY 05/29/19 12/29/23 History Magnesium Oxide [Mag-Ox] 400 mg PO BID 08/07/19 12/29/23 History Furosemide [Lasix] 20 mg PO DAILY 12/18/20 12/29/23 History Albuterol Sulfate [Ventolin HFA] 2 puff INHALATION RT-Q6H PRN 12/29/23 12/29/23 History Alendronate Sodium [Fosamax] 70 mg PO WEEKLY 12/29/23 12/29/23 History Fluticasone Nasal [place] [Flonase 1 spray EA NOSTRIL DAILY PRN 12/29/23 12/29/23 History Nasal [place]] HYDROcodone/APAP 10-325MG [[place] 1 tab PO Q8H PRN 12/29/23 12/29/23 History 10-325] Pregabalin [Lyrica] 200 mg PO BID 12/29/23 12/29/23 History Allergies Allergy/AdvReac Type Severity Reaction Status Date / Time No Known Allergies Allergy Verified 12/29/23 07:29 Physical Exam Vitals: Vital Signs Temp Pulse Resp BP Pulse Ox 12/29/23 06:00 64 18 138/63 96 12/29/23 05:00 65 16 137/64 97 12/29/23 04:00 68 20 145/61 97 12/29/23 03:00 66 20 133/62 97 12/29/23 02:00 71 20 140/70 96 12/29/23 01:00 68 20 145/64 97 12/29/23 00:00 64 20 140/67 97 12/28/23 23:38 60 18 131/73 95 12/28/23 23:00 63 16 131/73 94 L 12/28/23 22:00 63 16 113/73 97 12/28/23 21:00 96.8 F L 67 18 144/61 95 Intake and Output 12/28/23 12/29/23 12/29/23 22:59 06:59 14:59 Other: Weight 120.656 kg -GENERAL: The patient is alert and oriented x3, not in any acute distress. Well developed, well nourished. Generally weak. Morbidly obese HEENT: Pupils are round and equally reacting to light. EOMI. No scleral icterus. No conjunctival pallor. Normocephalic, atraumatic. No pharyngeal erythema. No thyromegaly. CARDIOVASCULAR: S1 and S2 present. No murmurs, rubs, or gallops. PULMONARY: Chest is clear to auscultation, no wheezing , no crackles. ABDOMEN: Soft, nontender, nondistended, normoactive bowel sounds. No palpable organomegaly. MUSCULOSKELETAL: No joint swelling or deformity. EXTREMITIES: No cyanosis, clubbing, or pedal edema. -NEUROLOGICAL: Gross neurological examination did not reveal any focal deficits. Bilateral foot drop SKIN: No rashes. no petechiae. Results CBC & Chem 7: 12/28/23 22:06 12/28/23 22:06 Labs: Abnormal Lab Results - Last 24 Hours (Table) 12/28/23 12/28/23 12/28/23 Range/Units 22:06 22:06 22:06 MCV 104.2 H (80.0-100.0) fL MCH 35.8 H (25.0-35.0) pg BUN 22 H (7-17) mg/dL Glucose 223 H (74-99) mg/dL AST 75 H (14-36) U/L ALT 52 H (4-34) U/L Troponin I 0.044 H* (0.000-0.034) ng/mL 12/29/23 Range/Units 04:17 MCV (80.0-100.0) fL MCH (25.0-35.0) pg BUN (7-17) mg/dL Glucose (74-99) mg/dL AST (14-36) U/L ALT (4-34) U/L Troponin I 0.037 H* (0.000-0.034) ng/mL Assessment and Plan Assessment: Difficulty walking secondary to deconditioning and bilateral lower extremity we akness, acute on chronic Degenerative disc disease and herniated disc, status post 2 back surgeries. Currently has very mild chronic pain Bilateral foot drop status post braces Mildly elevated troponin with no chest pain, could be due to demand ischemia, cleared by facilities officer History of the venous thrombosis Diabetes mellitus Hypertension Hyperlipidemia History of osteoarthritis History of pulmonary embolism Sleep apnea on CPAP History of present illness of staring in the air, been followed with the neurologist Dr. Reid as outpatient morbid obesity with BMI 48.7 Plan: We will do some work and block, rule out UTI, I think morbid obesity is contributing to her weakness which might be slightly worse with some toxic/metabolic factors Also we'll do workup with checking vitamin B12 and folate, tsh Orthopedic team consult with Dr. Dean Physical therapy evaluation patient therefore facilities officer for discharge, echocardiogram is ordered Labs and medication were reviewed.. Continue same treatment. Continue with symptomatic treatment. Resume home medication. Monitor lytes and vitals. DVT and GI prophylaxis. Further recommendations depends on the clinical course of the patient DVT prophylaxis: Subcutaneous heparin GI Prophylaxis: Pepcid PT/OT: Pending Prognosis is guarded
--- NOTE | 2023-12-29 11:37 | CA ---
Transthoracic Echo Report Name: Luma Jackson Age: 78 Gender: F : 1945 Exam Date: 12/29/2023 09:44 Exam Location: [facility] Ht (in): 62 Wt (lb): 266 Ordering Physician: Angle Knutson Attending/Referring Phys: [id number], Zenia Plane Tableman Hyacinth Carlton RDCS Procedure CPT: Indications: LV function Cardiac Hx: Technical Quality: Fair Contrast 1: Total Dose (mL): Contrast 2: Total Dose (mL): MEASUREMENTS (Male / Female) Normal Values 2D ECHO LV Diastolic Diameter PLAX 5.1 cm 4.2 - 5.9 / 3.9 - 5.3 cm LV Systolic Diameter PLAX 3.8 cm IVS Diastolic Thickness 1.1 cm 0.6 - 1.0 / 0.6 - 0.9 cm LVPW Diastolic Thickness 0.7 cm 0.6 - 1.0 / 0.6 - 0.9 cm LV Relative Wall Thickness 0.4 Aortic Root Diameter 2.8 cm LA Systolic Diameter LX 4.2 cm 3.0 - 4.0 / 2.7 - 3.8 cm DOPPLER AV Peak Velocity 143.1 cm/s AV Peak Gradient 8.2 mmHg AV Mean Velocity 95.8 cm/s AV Mean Gradient 4.3 mmHg AV Velocity Time Integral 32.3 cm LVOT Peak Velocity 39.9 cm/s LVOT Peak Gradient 0.6 mmHg LVOT Velocity Time Integral 18.3 cm Mitral E Point Velocity 79.2 cm/s Mitral A Point Velocity 98.2 cm/s Mitral E to A Ratio 0.8 MV Deceleration Time 300.9 ms PV Peak Velocity 99.7 cm/s PV Peak Gradient 4.0 mmHg FINDINGS Left Ventricle Left ventricular ejection fraction is estimated at 55-60%.normal left ventricular wall motion. Left ventricular cavity size normal. Right Ventricle Normal right ventricular size and function. Right Atrium Right atrium not well visualized. Left Atrium Left atrial size at the upper limits of normal. Mitral Valve mild mitral regurgitation.mitral annular calcification. Aortic Valve Aortic valve sclerosis. No aortic valve stenosis or regurgitation. Tricuspid Valve Trace to mild tricuspid regurgitation.structurally normal tricuspid valve. Pulmonic Valve Trace pulmonic regurgitation.pulmonic valve not well visualized. Pericardium No pericardial effusion. Aorta Normal size aortic root and proximal ascending aorta. CONCLUSIONS 1. Normal left ventricle size and systolic function 2. Mild mitral with trace to mild tricuspid regurgitation Previewed by: Dr. Abby Guzmán MD (Electronically Signed) Final Date: 29 December 2023 11:37
[2023-12-29 16:19] LABS: Appearance,Urine Cloudy (Clear); Bilirubin,Urine Negative (Negative); Blood,Urine Negative (Negative); Budding Yeast,Urine Many /hpf; Color,Urine Colorless; Glucose,Urine (UA) Negative (Negative); Ketones,Urine Negative (Negative); Leukocyte Esterase,Urine Large (Negative); Mucus,Urine Rare /hpf; Nitrite,Urine Negative (Negative); Protein,Urine Negative (Negative); RBC,Urine 6 /hpf (0-5); Squamous Epithelial Cell,Urine 1 /hpf (0-4); Urobilinogen,Urine <2.0 mg/dL (<2.0); WBC,Urine 54 /hpf (0-5)
[2023-12-30] MEDS: allopurinoL 300 MG TAB PO SCH (07:59)
[2023-12-30 08:41] LABS: Basophils # (A) 0.04 X 10*3/uL (0.00-0.10); Basophils % (A) 0.6 %; Eosinophils # (A) 0.18 X 10*3/uL (0.04-0.35); Eosinophils % (A) 2.8 %; HGB 13.7 g/dL (12.0-15.0); Lymphocytes # (A) 2.28 X 10*3/uL (0.90-5.00); Lymphocytes % (A) 35.1 %; MCH 34.2 pg (27.0-32.0); MCHC 33.4 g/dL (32.0-37.0); MCV 102.2 FL (80.0-97.0); Mean Platelet Volume 10.5 FL (9.5-12.2); Monocytes # (A) 0.65 X 10*3/uL (0.20-1.00); NRBC Per 100 WBC 0 X 10*3/uL (0.00-0.01); Neutrophils # (A) 3.32 X 10*3/uL (1.80-7.70); Neutrophils % (A) 51.2 %; Platelet Count 171 X 10*3/uL (140-440); RBC 4.01 X 10*6/uL (4.10-5.20); WBC 6.49 X 10*3/uL (4.50-10.00)
[2023-12-30 09:00] LABS: Calcium 9.3 mg/dL (8.7-10.3); Carbon Dioxide 26.6 mmol/L (21.6-31.8); Chloride 102 mmol/L (96-109); Glucose 143 mg/dL (70-110); Potassium 4.1 mmol/L (3.5-5.5); Sodium 140 mmol/L (135-145)
--- NOTE | 2023-12-30 15:02 | P.CNOR ---
History of Present Illness - HPI Consult date: 12/30/23 History of present illness: This is an 78-year-old female who is admitted for weakness. Orthopedics is consulted for further evaluation. Patient is seen and evaluated at bedside today. Patient states that she has had previous back surgery with Dr. Evans in 2019. Patient denies any worsening back pain. Patient states that yesterday she had a lot of weakness when she tried to go on her daily walk with her aide at [facility]. Patient states that this weakness correlated with increased swelling in both of her legs. Patient states that she is noticing improvement in the swelling of her legs and states that she has been able to ambulate around her hospital room. Patient has a history of bilateral foot drop and wears AFOs for this. Patient states that her lower extremity numbness is at baseline for her. Patient states that she does have radicular pain in both lower extremities, but this is chronic for her. Patient states that she lives at [facility] and normally uses a walker and has assistance with ambulating. Patient states that she is also following with a neurologist due to intermittent issues with her vision. Patient's past medical history is significant for breast cancer, DVT, PE, GERD, hyperlipidemia, hypertension, osteoarthritis and sleep apnea. Patient denies any fever/chills, chest pain, shortness breath or abdominal pain. Review of Systems See HPI. 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 History of Any Multi-Drug Resistant Organisms: None Reported Past Surgical History: Back Surgery, Breast Surgery, Cholecystectomy, Tonsillectomy, Tubal Ligation Additional Past Surgical History / Comment(s): RIGHT MASTECTOMY. 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 BACK SURGERY X2, pain clinic procedures. Past Anesthesia/Blood Transfusion Reactions: No Reported Reaction Past Psychological History: No Psychological Hx Reported Additional Psychological History / Comment(s): . Smoking Status: Never smoker Past Alcohol Use History: Rare Past Drug Use History: None Reported - Past Family History Father Additional Family Medical History / Comment(s): Father at the age of 53 yrs from "broken heart" 6 weeks after the of his son. Mother Additional Family Medical History / Comment(s): Mother at the age of 61 pt believes from a brain tumor. Medications and Allergies Home Medications Medication Instructions Recorded Confirmed Type allopurinoL [Zyloprim] 300 mg PO DAILY 05/29/19 12/29/23 History Magnesium Oxide [Mag-Ox] 400 mg PO BID 08/07/19 12/29/23 History Furosemide [Lasix] 20 mg PO DAILY 12/18/20 12/29/23 History Albuterol Sulfate [Ventolin HFA] 2 puff INHALATION RT-Q6H PRN 12/29/23 12/29/23 History Alendronate Sodium [Fosamax] 70 mg PO WEEKLY 12/29/23 12/29/23 History Fluticasone Nasal [place] [Flonase 1 spray EA NOSTRIL DAILY PRN 12/29/23 12/29/23 History Nasal [place]] HYDROcodone/APAP 10-325MG [[place] 1 tab PO Q8H PRN 12/29/23 12/29/23 History 10-325] Pregabalin [Lyrica] 200 mg PO BID 12/29/23 12/29/23 History Allergies Allergy/AdvReac Type Severity Reaction Status Date / Time No Known Allergies Allergy Verified 12/29/23 07:29 Physical Examination On exam patient is resting comfortably in bed in no acute distress. Patient is alert and oriented 3. Patient moves bilateral upper and lower extremities freely and without difficulty. Patient does have bilateral foot drop and some decreased sensation in both feet which is chronic for her. There is moderate swelling of bilateral lower extremities. Calves are soft and nontender to palpation. No erythema. Bilateral lower extremities are warm and well-perfused. Results - Labs Labs: Abnormal Lab Results - Last 24 Hours (Table) 12/29/23 12/29/23 12/30/23 Range/Units 09:13 15:36 05:20 RBC 4.01 L (4.10-5.20) X 10*6/uL MCV 102.2 H (80.0-97.0) FL MCH 34.2 H (27.0-32.0) pg Est GFR (CKD-EPI) (>=60) BUN/Creatinine Ratio (12.00-20.00) Ratio Glucose (70-110) mg/dL Folate 31.60 H (4.40-31.00) ng/mL Urine Appearance Cloudy H (Clear) Ur Leukocyte Esterase Large H (Negative) Urine RBC 6 H (0-5) /hpf Urine WBC 54 H (0-5) /hpf Urine Mucus Rare H (None) /hpf Urine Yeast (Budding) Many H (None) /hpf 12/30/23 Range/Units 05:20 RBC (4.10-5.20) X 10*6/uL MCV (80.0-97.0) FL MCH (27.0-32.0) pg Est GFR (CKD-EPI) 57 L (>=60) BUN/Creatinine Ratio 21.00 H (12.00-20.00) Ratio Glucose 143 H (70-110) mg/dL Folate (4.40-31.00) ng/mL Urine Appearance (Clear) Ur Leukocyte Esterase (Negative) Urine RBC (0-5) /hpf Urine WBC (0-5) /hpf Urine Mucus (None) /hpf Urine Yeast (Budding) (None) /hpf H & H 12/28/23 12/30/23 Range/Units 22:06 05:20 Hgb 14.5 13.7 (11.4-16.0) gm/dL Hct 42.2 41.0 (34.0-46.0) % Result Diagrams: 12/30/23 05:20 12/30/23 05:20 Assessment and Plan (1) Chronic low back pain Current Visit: Yes Status: Acute Code(s): M54.50 - LOW BACK PAIN, UNSPECIFIED; G89.29 - OTHER CHRONIC PAIN SNOMED Code(s): 816945478 (2) Bilateral lower extremity edema Current Visit: Yes Status: Acute Code(s): R60.0 - LOCALIZED EDEMA SNOMED Code(s): 088352410 (3) Foot drop, bilateral Current Visit: Yes Status: Acute Code(s): M21.371 - FOOT DROP, RIGHT FOOT; M21.372 - FOOT DROP, LEFT FOOT SNOMED Code(s): 1045118 Plan: 1. Patient has a history of laminectomy/discectomy L2-L3 L3-L[place] [address] [place]. Patient states that her symptoms related to her back are at baseline for her. Patient states that her mobility is slowly improving. There is no surgical intervention planned. Recommend physical therapy for mobilization. We will continue to follow as needed.
--- NOTE | 2023-12-30 18:05 | P.PN ---
Subjective This is a pleasant 78 years old female with past medical history of multiple medical problems including history of herniated disc status post [address] Dean. Patient was sent from [facility] because she had difficulty getting up and walking yesterday. At baseline she walks little bit with a walker, maybe to the restroom or little more, she uses wheelchair also frequently. However yesterday she has difficulty getting up and walking when the 8 was there to help her so she was sent to the hospital Also patient has bilateral feet drop and uses shoes with a braces Patient has no specific weakness in her lower extremities and she can bend her knees freely and while she is lying in bed, she complains from chronic numbness in both lower extremities more on the right side She complains from chronic mild low back pain for many months and years, she has healed scars in the lower back. Currently she denies any headache dizziness, no blurred vision or slurred speech, no weakness or numbness in the upper extremities, no other neurological symptoms She denies smoking alcohol or illicit drugs Patient denies chest pain or abdominal pain, no vomiting diarrhea, no urinary complaints She's been complaining of from constipation for the last 2 days but thus not unusual for her to be constipated for a few days and then she has good bowel movements She follows up with Dr. reid as she got staring and blackout for a few seconds for example when she is playing cards, Dr. Reid decubitus for her including MRI of the brain and he ruled out sleep apnea as she states and he still doing further workup for her. She is hemodynamically stable CBC, BMP is unremarkable, liver enzymes mildly elevated. Troponin is mildly elevated 0.04 and 0.03 , Patient evaluated by quality assurance monitor and cleared for discharge 12/30/2023 pt mentation is at baseline ptis awake and alert states her leg weakness are improving and could walk slightly pt denies dysuria or change in urine frequency stating she does not think she has uti, even if urine cultrue is positive it is asymptomatic bacteruria and no need for antibiotic, no fever no leukocytosis wbc rthopedic team: no need for surgical intervention physical therapy Objective - Vital Signs Vital signs: Vital Signs Temp 98 F 12/30/23 02:00 Pulse 63 12/30/23 08:10 Resp 18 12/30/23 08:10 BP 115/69 12/30/23 08:10 Pulse Ox 93 L 12/30/23 08:10 FiO2 Intake & Output 12/29/23 12/30/23 12/30/23 18:59 06:59 18:59 Intake Total 600 Output Total 0 Balance 600 Weight 121 kg Intake: Oral 600 Output: Urine 0 Other: Voiding Method Diaper Diaper External Catheter External Catheter # Voids 1 - Labs CBC & Chem 7: 12/30/23 05:20 12/30/23 05:20 Labs: Abnormal Lab Results - Last 24 Hours (Table) 12/29/23 12/29/23 12/30/23 Range/Units 09:13 15:36 05:20 RBC 4.01 L (4.10-5.20) X 10*6/uL MCV 102.2 H (80.0-97.0) FL MCH 34.2 H (27.0-32.0) pg Est GFR (CKD-EPI) (>=60) BUN/Creatinine Ratio (12.00-20.00) Ratio Glucose (70-110) mg/dL Folate 31.60 H (4.40-31.00) ng/mL Urine Appearance Cloudy H (Clear) Ur Leukocyte Esterase Large H (Negative) Urine RBC 6 H (0-5) /hpf Urine WBC 54 H (0-5) /hpf Urine Mucus Rare H (None) /hpf Urine Yeast (Budding) Many H (None) /hpf 12/30/23 Range/Units 05:20 RBC (4.10-5.20) X 10*6/uL MCV (80.0-97.0) FL MCH (27.0-32.0) pg Est GFR (CKD-EPI) 57 L (>=60) BUN/Creatinine Ratio 21.00 H (12.00-20.00) Ratio Glucose 143 H (70-110) mg/dL Folate (4.40-31.00) ng/mL Urine Appearance (Clear) Ur Leukocyte Esterase (Negative) Urine RBC (0-5) /hpf Urine WBC (0-5) /hpf Urine Mucus (None) /hpf Urine Yeast (Budding) (None) /hpf Assessment and Plan Assessment: Difficulty walking secondary to deconditioning and bilateral lower extremity weakness, acute on chronic Degenerative disc disease and herniated disc, status post 2 back surgeries. Currently has very mild chronic pain Bilateral foot drop status post braces asymptomatic bacteruria Mildly elevated troponin with no chest pain, could be due to demand ischemia, cleared by quality assurance monitor History of the venous thrombosis Diabetes mellitus Hypertension Hyperlipidemia History of osteoarthritis History of pulmonary embolism Sleep apnea on CPAP History of present illness of staring in the air, been followed with the neurologist Dr. Reid as outpatient morbid obesity with BMI 48.7 Plan: no UTI, I think morbid obesity is contributing to her weakness which might be slightly worse with some toxic/metabolic factors Orthopedic team consult with Dr. Dean no surgical intervention Physical therapy evaluation patient therefore quality assurance monitor for discharge, echocardiogram is reviewed Labs and medication were reviewed.. Continue same treatment. Continue with symptomatic treatment. Resume home medication. Monitor lytes and vitals. DVT and GI prophylaxis. Further recommendations depends on the clinical course of the patient DVT prophylaxis: Subcutaneous heparin GI Prophylaxis: Pepcid PT/OT: hhc vs sally Prognosis is gu hrs arded possible dc i to n
[2023-12-30] MEDS: PREGABALIN 100 MG CAP PO SCH (20:03)
--- NOTE | 2023-12-31 08:44 | P.PN ---
Progress Note - Text Progress Note Date: 12/31/23 The patient is seen and examined at bedside. She is known to our service. I reviewed the patient's imaging and note from yesterday and I am in agreement with the dictation. Today the patient says that she is doing better. She is still having significant pain after back and at her legs which is chronic for her. She said that she took some of her own Alpine yesterday here in the hospital. She normally takes Alpine as outpatient as prescribed by Dr. Hendrickson and often takes it twice a day. She says it was not prescribed for her here in the hospital and she took her own. She says it helps with her pain significantly. The patient says that she is doing much better in terms of her legs. Her swelling is improving but is still present. She still has difficulty getting up and around and does not feel safe getting out of bed on her own. On exam she is afebrile with stable vital signs. Her chest is good excursion deep inspiration expiration. Her abdomen is soft. She is obese. Her back incision site is clean and well-healed from remote surgery At her lower extremity she has sustained weakness with dorsiflexion and EHL. Her calves and thighs soft nontender. Her braces are at bedside. Assessment and plan Acute on chronic low back pain, improving Severe degenerative disc disease L3-4 L4-5 with history of prior laminectomy L3- 4 L4-5 for severe stenosis Lower extremity radiculopathy with chronic weakness New bilateral lower extremity swelling unrelated to lumbar spine Difficulty ambulating The patient's lumbar issues overall appear stable. She does have significant chronic pain and takes pain medications which we will renew for her. She has pain medications at home for after discharge as prescribed from Dr. Hendrickson. She should continue her Lyrica for this as well with her neurologic issues. She does use bilateral lower extremity AFO braces to help with the chronic weakness. She does not have new neurologic change and we do not plan any new surgical intervention for her. She should continue to try to mobilize with physical therapy. Currently the patient does not feel safe with her mobilization and ambulation and transfers on her own. I think that she needs further physical therapy for another day or 2 to continue to improve her safety with her mobilization and ambulation. We do not have any surgical plan for her but I think therapy can be quite beneficial. Her bilateral lower extremity swelling has significantly improved and I think that this is the main reason that she was having increased difficulty and is feeling weakness with this. She is continuing her medical management and cardiac workup evaluation and treatment which I agree with. From an orthopedic spine standpoint we can see her on an outpatient as-needed basis. I think she will be okay for discharge when she feels safe with her mobility and ambulation.
[2023-12-31] MEDS: HYDROcodone/APAP 5-325MG 1 EACH TAB PO PRN (13:47)
--- NOTE | 2023-12-31 18:45 | P.PN ---
Subjective This is a pleasant 78 years old female with past medical history of multiple medical problems including history of herniated disc status post [address] Dean. Patient was sent from [facility] because she had difficulty getting up and walking yesterday. At baseline she walks little bit with a walker, maybe to the restroom or little more, she uses wheelchair also frequently. However yesterday she has difficulty getting up and walking when the 8 was there to help her so she was sent to the hospital Also patient has bilateral feet drop and uses shoes with a braces Patient has no specific weakness in her lower extremities and she can bend her knees freely and while she is lying in bed, she complains from chronic numbness in both lower extremities more on the right side She complains from chronic mild low back pain for many months and years, she has healed scars in the lower back. Currently she denies any headache dizziness, no blurred vision or slurred speech, no weakness or numbness in the upper extremities, no other neurological symptoms She denies smoking alcohol or illicit drugs Patient denies chest pain or abdominal pain, no vomiting diarrhea, no urinary complaints She's been complaining of from constipation for the last 2 days but thus not unusual for her to be constipated for a few days and then she has good bowel movements She follows up with Dr. reid as she got staring and blackout for a few seconds for example when she is playing cards, Dr. Reid decubitus for her including MRI of the brain and he ruled out sleep apnea as she states and he still doing further workup for her. She is hemodynamically stable CBC, BMP is unremarkable, liver enzymes mildly elevated. Troponin is mildly elevated 0.04 and 0.03 , Patient evaluated by shot lighter and cleared for discharge 12/30/2023 pt mentation is at baseline ptis awake and alert states her leg weakness are improving and could walk slightly pt denies dysuria or change in urine frequency stating she does not think she has uti, even if urine cultrue is positive it is asymptomatic bacteruria and no need for antibiotic, no fever no leukocytosis wbc rthopedic team: no need for surgical intervention physical therapy 12/31/2023 Patient improved slowly and gradually She could walk to the restroom today, but then yesterday [place] was started Urine culture showing frantz, she finished her course of ceftriaxone which is a stopped now. No urinary symptoms today Possible discharge in 24-48 hours if she keeps improving Objective - Vital Signs Vital signs: Vital Signs Temp 97.7 F 12/31/23 07:04 Pulse 55 L 12/31/23 09:30 Resp 19 12/31/23 09:30 BP 128/64 12/31/23 07:04 Pulse Ox 96 12/31/23 07:04 FiO2 Intake & Output 12/30/23 12/31/23 12/31/23 18:59 06:59 18:59 Intake Total 500 Output Total 700 Balance -200 Weight 120 kg Intake: Oral 500 Output: Urine 700 Other: Voiding Method Diaper Diaper Diaper External Catheter External Catheter External Catheter # Voids 4 2 # Bowel Movements 1 1 - Exam -GENERAL: The patient is alert and oriented x3, not in any acute distress. Well developed, well nourished. Generally weak. Morbidly obese HEENT: Pupils are round and equally reacting to light. EOMI. No scleral icterus. No conjunctival pallor. Normocephalic, atraumatic. No pharyngeal erythema. No thyromegaly. CARDIOVASCULAR: S1 and S2 present. No murmurs, rubs, or gallops. PULMONARY: Chest is clear to auscultation, no wheezing , no crackles. ABDOMEN: Soft, nontender, nondistended, normoactive bowel sounds. No palpable organomegaly. MUSCULOSKELETAL: No joint swelling or deformity. EXTREMITIES: No cyanosis, clubbing, or pedal edema. -NEUROLOGICAL: Gross neurological examination did not reveal any focal deficits. Bilateral foot drop SKIN: No rashes. no petechiae. - Labs CBC & Chem 7: 12/30/23 05:20 12/31/23 06:00 Labs: Microbiology - Last 24 Hours (Table) 12/29/23 15:36 Urine Culture - Final Urine,Clean Catch Assessment and Plan Assessment: Difficulty walking secondary to deconditioning and bilateral lower extremity weakness, acute on chronic Degenerative disc disease and herniated disc, status post 2 back surgeries. Currently has very mild chronic pain Bilateral foot drop status post braces asymptomatic bacteruria Mildly elevated troponin with no chest pain, could be due to demand ischemia, cleared by shot lighter History of the venous thrombosis Diabetes mellitus Hypertension Hyperlipidemia History of osteoarthritis History of pulmonary embolism Sleep apnea on CPAP History of present illness of staring in the air, been followed with the neurologist Dr. Reid as outpatient morbid obesity with BMI 48.7 Plan: no UTI, I think morbid obesity is contributing to her weakness which might be slightly worse with some toxic/metabolic factors Orthopedic team consult with Dr. Dean no surgical intervention Physical therapy evaluation patient therefore shot lighter for discharge, echocardiogram is reviewed Labs and medication were reviewed.. Continue same treatment. Continue with symptomatic treatment. Resume home medication. Monitor lytes and vitals. DVT and GI prophylaxis. Further recommendations depends on the clinical course of the patient DVT prophylaxis: Subcutaneous heparin GI Prophylaxis: Pepcid PT/OT: hhc vs sally Prognosis is gu hrs arded possible dc i to n
--- NOTE | 2024-01-01 10:02 | P.PN ---
Progress Note - Text Progress Note Date: 01/01/24 The patient is seen and examined at bedside. She is sitting up in bed. She is not having new complaints but still does not feel safe with her mobility today. She has been able to get up with standby assist but feels somewhat weak. She is afebrile stable vital signs Lower extremities have decreased swelling. There is no erythema. She has sustained hip flexion and knee extension. She has bilateral foot drop Assessment and plan Acute exacerbation of low back pain lower extremity radiculopathy. Difficulty ambulating Bilateral lower extremity swelling resolving The patient is making progress in terms of her mobility. I think that she is okay to increase her mobilization and ambulation as tolerated. She should continue to wear her bilateral lower extremity braces as she does chronically. She has significant degenerative changes at her lumbar spine but we do not planning surgical intervention at this point. It is okay from a orthopedic standpoint for the patient to be discharged home when she is cleared with medicine.
--- NOTE | 2024-01-01 15:53 | P.PN ---
Subjective This is a pleasant 78 years old female with past medical history of multiple medical problems including history of herniated disc status post [address] Dean. Patient was sent from [facility] [place] because she had difficulty getting up and walking yesterday. At baseline she walks little bit with a walker, maybe to the restroom or little more, she uses wheelchair also frequently. However yesterday she has difficulty getting up and walking when the 8 was there to help her so she was sent to the hospital Also patient has bilateral feet drop and uses shoes with a braces Patient has no specific weakness in her lower extremities and she can bend her knees freely and while she is lying in bed, she complains from chronic numbness in both lower extremities more on the right side She complains from chronic mild low back pain for many months and years, she has healed scars in the lower back. Currently she denies any headache dizziness, no blurred vision or slurred speech, no weakness or numbness in the upper extremities, no other neurological symptoms She denies smoking alcohol or illicit drugs Patient denies chest pain or abdominal pain, no vomiting diarrhea, no urinary complaints She's been complaining of from constipation for the last 2 days but thus not unusual for her to be constipated for a few days and then she has good bowel movements She follows up with Dr. reid as she got staring and blackout for a few seconds for example when she is playing cards, Dr. Reid decubitus for her including MRI of the brain and he ruled out sleep apnea as she states and he still doing further workup for her. She is hemodynamically stable CBC, BMP is unremarkable, liver enzymes mildly elevated. Troponin is mildly elevated 0.04 and 0.03 , Patient evaluated by psychology clinician and cleared for discharge 12/30/2023 pt mentation is at baseline ptis awake and alert states her leg weakness are improving and could walk slightly pt denies dysuria or change in urine frequency stating she does not think she has uti, even if urine cultrue is positive it is asymptomatic bacteruria and no need for antibiotic, no fever no leukocytosis wbc rthopedic team: no need for surgical intervention physical therapy 12/31/2023 Patient improved slowly and gradually She could walk to the restroom today, but then yesterday [place] was started Urine culture showing frantz, she finished her course of ceftriaxone which is a stopped now. No urinary symptoms today Possible discharge in 24-48 hours if she keeps improving 01/01/2024 Patient continued to improve slowly and gradually Bilateral lower extremity weakness is better Patient was counseled about fluid and salt restriction and she agrees but she wants her diet to be chest to regular diet Continue with physical therapy Objective - Vital Signs Vital signs: Vital Signs Temp 98.0 F 01/01/24 13:51 Pulse 64 01/01/24 13:51 Resp 18 01/01/24 13:51 BP 135/70 01/01/24 13:51 Pulse Ox 94 L 01/01/24 13:51 FiO2 Intake & Output 12/31/23 01/01/24 01/01/24 18:59 06:59 18:59 Intake Total 240 600 Balance 240 600 Weight 115.5 kg Intake: Oral 240 600 Other: Voiding Method Diaper Diaper Diaper External Catheter External Catheter External Catheter # Voids 5 3 1 # Bowel Movements 1 2 - Exam -GENERAL: The patient is alert and oriented x3, not in any acute distress. Well developed, well nourished. Generally weak. Morbidly obese HEENT: Pupils are round and equally reacting to light. EOMI. No scleral icterus. No conjunctival pallor. Normocephalic, atraumatic. No pharyngeal erythema. No thyromegaly. CARDIOVASCULAR: S1 and S2 present. No murmurs, rubs, or gallops. PULMONARY: Chest is clear to auscultation, no wheezing , no crackles. ABDOMEN: Soft, nontender, nondistended, normoactive bowel sounds. No palpable organomegaly. MUSCULOSKELETAL: No joint swelling or deformity. EXTREMITIES: No cyanosis, clubbing, or pedal edema. -NEUROLOGICAL: Gross neurological examination did not reveal any focal deficits. Bilateral foot drop SKIN: No rashes. no petechiae. - Labs CBC & Chem 7: 12/30/23 05:20 12/31/23 06:00 Assessment and Plan Assessment: Difficulty walking secondary to deconditioning and bilateral lower extremity weakness, acute on chronic Degenerative disc disease and herniated disc, status post 2 back surgeries. Currently has very mild chronic pain Bilateral foot drop status post braces asymptomatic bacteruria Mildly elevated troponin with no chest pain, could be due to demand ischemia, cleared by psychology clinician History of the venous thrombosis Diabetes mellitus Hypertension Hyperlipidemia History of osteoarthritis History of pulmonary embolism Sleep apnea on CPAP History of present illness of staring in the air, been followed with the neurologist Dr. Reid as outpatient morbid obesity with BMI 48.7 Plan: no UTI, I think morbid obesity is contributing to her weakness which might be slightly worse with some toxic/metabolic factors Orthopedic team consult with Dr. Dean no surgical intervention Physical therapy evaluation patient therefore psychology clinician for discharge, echocardiogram is reviewed Labs and medication were reviewed.. Continue same treatment. Continue with symptomatic treatment. Resume home medication. Monitor lytes and vitals. DVT and GI prophylaxis. Further recommendations depends on the clinical course of the patient DVT prophylaxis: Subcutaneous heparin GI Prophylaxis: Pepcid PT/OT: hhc vs sally Prognosis is gu hrs arded possible dc i to n
[2024-01-02 08:03] VITALS: BP 122/66; PULSE 50; RESP 17; TEMP 97.5
--- NOTE | 2024-01-02 08:55 | P.DS ---
Providers Date of admission: 12/29/23 00:08 Attending physician: John Hendrickson Consults: 12/29/23 00:07 Consult Physician Urgent Consulting Provider: [facility] Consult Reason/Comments: elevated troponin Do you want consulting provider notified?: Yes 12/29/23 11:25 Consult Physician Urgent Consulting Provider: Ronnie Evans Consult Reason/Comments: lower ext weakness Do you want consulting provider notified?: Yes Primary care physician: John Hendrickson - Discharge Diagnosis(es) (1) Bilateral lower extremity edema Current Visit: Yes Status: Acute (2) Chronic low back pain Current Visit: Yes Status: Acute (3) Foot drop, bilateral Current Visit: Yes Status: Acute (4) Gait difficulty Current Visit: No Status: Acute (5) History of hyperlipidemia Current Visit: No Status: Acute (6) History of hypertension Current Visit: No Status: Acute Hospital Course: This is an 78-year-old female who presented to the emergency department from [facility] after having difficulty walking and getting up and around. Patient also reported bilateral lower extremity edema. Patient seen and evaluated by cardiology who state patient is cleared for discharge, no medication changes. Echo was normal. Patient also seen and evaluated by Dr. Evans for her previous back surgeries and is not recommending any further workup or procedures. Vitals have been stable. She is tolerating diet. She reports improvement with her weakness. Patient may be discharged home if she is able to ambulate safely. Patient seen and evaluated by nurse practitioner, physician in agreement with plan Patient Condition at Discharge: Stable Plan - Discharge Summary New Discharge Prescriptions: Continue allopurinoL [Zyloprim] 300 mg PO DAILY Magnesium Oxide [Mag-Ox] 400 mg PO BID Furosemide [Lasix] 20 mg PO DAILY Alendronate Sodium [Fosamax] 70 mg PO WEEKLY Pregabalin [Lyrica] 200 mg PO BID Fluticasone Nasal [place] [Flonase Nasal [place]uhl] 1 spray EA NOSTRIL DAILY PRN PRN Reason: Allergy Symptoms Albuterol Sulfate [Ventolin HFA] 2 puff INHALATION RT-Q6H PRN PRN Reason: Shortness Of Breath HYDROcodone/APAP 10-325MG [[place] 10-325] 1 tab PO Q8H PRN PRN Reason: Pain Discharge Medication List allopurinoL [Zyloprim] 300 mg PO DAILY 05/29/19 [History] Magnesium Oxide [Mag-Ox] 400 mg PO BID 08/07/19 [History] Furosemide [Lasix] 20 mg PO DAILY 12/18/20 [History] Albuterol Sulfate [Ventolin HFA] 2 puff INHALATION RT-Q6H PRN 12/29/23 [History] Alendronate Sodium [Fosamax] 70 mg PO WEEKLY 12/29/23 [History] Fluticasone Nasal [place] [Flonase Nasal [place]] 1 spray EA NOSTRIL DAILY PRN 12/29/23 [History] HYDROcodone/APAP 10-325MG [[place] 10-325] 1 tab PO Q8H PRN 12/29/23 [History] Pregabalin [Lyrica] 200 mg PO BID 12/29/23 [History] Follow up Appointment(s)/Referral(s): Ronnie Evans DO [Doctor of Osteopathic Medicine] - As Needed John Hendrickson MD [Primary Care Provider] - 1 Week Discharge Disposition: HOME SELF-CARE
[2024-01-05] MEDS ORDERED: NON FORMULARY DRUG (Alendronate Sodium [Fosamax] 70 MG Tablet) PO SCH (09:00)
== END 2024-01-02 14:05 | disposition home or self-care (01) ==
LOC: EC 20:57 → 3SCARD 12-29 00:08 → 5NMEDONC 12-29 09:58
PROVIDERS: ADMIT Family Medicine; ATTEND Family Medicine
DX: R60.0 Localized edema (principal); Z86.718 Personal history of other venous thrombosis and embolism; M21.371 Foot drop, right foot; M21.372 Foot drop, left foot; M51.16 Intervertebral disc disorders with radiculopathy, lumbar region; Z79.899 Other long term (current) drug therapy; Z85.3 Personal history of malignant neoplasm of breast; Z90.11 Acquired absence of right breast and nipple; I10 Essential (primary) hypertension
CPT/HCPCS: 96374; 99285; 36415; 93005; 93306; 97116; 97530 ×2; 97162; 97166; 83880; 80053; 80048; 84443 ×2; 82607; 82565; 82746; 83735; 84484 ×2; 85025 ×2; 81001; 87086; 71046; 93970; G0378 ×6; J1940

== ENCOUNTER → 2024-01-19 | Outpatient (CLI) | payer MEDICARE ==
--- NOTE | 2024-01-19 15:40 | P.PN ---
Subjective Progress Note Date: 01/19/24 07/01/23 Right breast invasive ductal carcinoma/stage Ib if this skin lesion is not considered to be a T4 or IIIB if the skin lesion is a T4 202007-01-23 Luma is a 77-year-old white female status post right mastectomy and axillary node resection on 07-21-23; of significance is the fact that she had previously undergone a right lumpectomy and sentinel lobe biopsy with adjuvant radiation therapy and 5 years of tamoxifen in 2000. This was performed in [place]. Most recently in 2020 she was noted to have a skin lesion which was biopsied by dermatology and found to be consistent with metastatic breast cancer and additionally at 10 and 11:00 in the right breast positive invasive ductal cancer. No lesions of concern were identified in the left breast. A metastatic workup was performed which was negative. After presentation at tumor board it was recommended that she undergo a right mastectomy. Right mastectomy and sentinel node biopsy performed on Pathology revealed all nodes negative and multifocal and recurrent invasive ductal cancer in the right breast, all margins negative. She did not have additional radiation therapy She is presently on anastrozole She underwent a left breast mammogram on 7622 which was benign BIRADS 2. She is not complaining of any new lumps masses or nodules of concern in the left breast or on the right chest wall. 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 This was done in 2018. The patient is complaining of some cramping in her lower extremities and in her fingers which she believes may be related to the Aromasin. She is going to discuss this with Dr. Chen. 01-19-24 She is not complaining of any new lumps masses or nodules of concern. She is due for a left mammogram in May 2024. She stopped her aromasin, secondary to leg pain. Dr. Hendrickson she was admitted in November 2023 for weakness in her legs. She is uncertain as to what the resolution to this was. Caffeine: 2 cups/day; 20oz ice tea daily/pop: seldom nicotine: patient never; secondhand: (5 years) hormones: 16 years; prempro stopped in 2000 Family History: patient: breast cancer Hormonal History: menarche: 9 G0 menopause: 46 hormones: 16 years Prempro stopped in 2000 Tubal ligation at the age of 40 BCP: none Surgical history: 1. Tubal ligation 2. Right breast lumpectomy and Node dissection 3. 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 HTN 3. back injury as above 4. GERD Social History: smoke: as above alcohol: occasional stopped / 1986 drugs: none - Constitutional Constitutional: Reports sweats, Denies chills, Denies fever - EENT Eyes: denies blurred vision, denies pain Ears: bilateral: decreased hearing, deny: tinnitus Ears, nose, mouth and throat: Denies headache, Denies sore throat - Breasts Breasts: bilateral: as per HPI - Cardiovascular Cardiovascular: Denies chest pain, Denies shortness of breath - Respiratory Respiratory: Reports cough - Gastrointestinal Comment: incontinent Gastrointestinal: Denies abdominal pain, Denies diarrhea, Denies nausea, Denies vomiting - Genitourinary (Female) Comment: incontient Genitourinary: Reports as per HPI - Menstruation Menstruation: Reports postmenopausal - Musculoskeletal Musculoskeletal: Reports muscle weakness - Integumentary Integumentary: Reports as per HPI - Neurological Comment: back herniated disc Neurological: Reports as per HPI - Psychiatric Psychiatric: Denies anxiety, Denies depression - Endocrine Endocrine: Denies fatigue, Denies weight change - Hematologic/Lymphatic Comment: none - Allergic/Immunologic Allergic/Immunologic: Reports as per HPI Objective - Constitutional General appearance: Present: cooperative - EENT Eyes: Present: EOMI ENT: Present: hearing grossly normal - Neck Neck: Present: normal ROM - Respiratory Respiratory: bilateral: CTA - Cardiovascular Heart sounds: normal: S1, S2 - Integumentary Integumentary: Present: normal turgor - Musculoskeletal Musculoskeletal Comment(s): in wheelchair - Additional findings Additional findings: Breast Exam: Examination performed with the patient in wheelchair BRA: 44C Inspection: Right chest wall no evidence of recurrence, left breast grade 3 ptosis; skin lesion right chest persistnat small nodular area medial aspect of the incision Palpation: Right chest wall: No evidence of recurrent cancer, small nodularity medial aspect of the right chest wall incision ; Right axilla: No adenopathy of concern Left breast: no dominant masses or nodules of concern, fibrocystic changes Left axilla: No adenopathy of concer Assessment and Plan Assessment: Impression: Patient status post right mastectomy for invasive ductal carcinoma; she was status post a prior right breast lumpectomy in 2000 and this was recurrent disease treated in 2020 Patient stopped Aromasin Recent left breast mammogram 7623 BIRAD 2 Back pain related to complications following back surgery in 2019 nodule right chest wall Plan: resection of nodule right chest wall Left breast mammogram in May 2024 with appointment at that time clearance form Dr. Hendrickson CC: Dr. Hendrickson
[2024-01-19 16:02] VITALS: BP 121/69; PULSE 58; RESP 16; TEMP 97.9
== END ==
LOC: WWCWWP 15:06
PROVIDERS: ATTEND Surgery
DX: C50.911 Malignant neoplasm of unspecified site of right female breast (principal); G82.20 Paraplegia, unspecified; I10 Essential (primary) hypertension; K21.9 Gastro-esophageal reflux disease without esophagitis; M54.50 Low back pain, unspecified; Z80.3 Family history of malignant neoplasm of breast; Z86.718 Personal history of other venous thrombosis and embolism; Z90.11 Acquired absence of right breast and nipple; Z92.3 Personal history of irradiation; Z98.51 Tubal ligation status; Z98.890 Other specified postprocedural states; Z86.711 Personal history of pulmonary embolism; Z79.899 Other long term (current) drug therapy

== ENCOUNTER 2024-01-24 12:02 | Day surgery (SDC) | payer MEDICARE ==
[2024-01-20 11:34] VITALS: BMI 48.4
[~2024-01-24 12:02] MED LIST changes: -DEXAMETHASONE SOD PHOSPHATE 10 MG/ML 1 ML VIAL ONE; +HYDROmorphone 0.5 MG/0.5 ML SYRINGE IVP PRN; -IOPAMIDOL M200 10 ML VIAL ONE; +LIDOCAINE 1% (10MG/ML) FOR IV START INTRADERMA PRN; +MIDAZOLAM 2 MG/2 ML VIAL IV PRN; +Pre Op ABX Message 1 EACH MISC MISCELLANE ONE
[2024-01-24] MEDS: LACTATED RINGERS 1,000 ML IV ONE (12:35)
[2024-01-24] MEDS: LIDOCAINE 1% INJ 10MG/ML (20 ML MDV) SQ ONE ×3 (12:50→13:17)
[2024-01-24] MEDS: DEXAMETHASONE SOD PHOSPHATE 4 MG/ML 1 ML VIAL IV ONE (13:00)
[2024-01-24] MEDS: ONDANSETRON 4 MG/2 ML VIAL IVP ONE (13:00)
[2024-01-24] MEDS: HEPARIN SODIUM,PORCINE 5,000 UNIT/ML 1 ML VIAL SQ PRN (13:00)
[2024-01-24] MEDS ORDERED: GLYCOPYRROLATE 0.2 MG/ML 2 ML VIAL ONE (13:01)
[2024-01-24] MEDS ORDERED: ceFAZolin 1 GM/50 ML BAG (PMX) ONE (13:01)
[2024-01-24] MEDS ORDERED: KETAMINE HCL IN 0.9 % NACL 50 MG/5 ML SYRINGE ONE (13:01)
[2024-01-24] MEDS ORDERED: fentaNYL (PF) 50 MCG/ML 2 ML AMP ONE (13:01)
[2024-01-24] MEDS ORDERED: MIDAZOLAM 2 MG/2 ML VIAL ONE (13:01)
[2024-01-24] MEDS: SODIUM CHLORIDE 0.9% 50 ML with ceFAZolin 2,000 MG IV ONE ×2 (13:11→13:17)
[2024-01-24 13:17] VITALS: RESP 16; TEMP 98
--- NOTE | 2024-01-24 13:32 | P.OP ---
Date of Procedure: 01/24/24 Preoperative Diagnosis: Nodule medial aspect mastectomy incision Postoperative Diagnosis: Same Procedure(s) Performed: Excision nodule medial aspect mastectomy incision Anesthesia: local Surgeon: Candy Barrera Estimated Blood Loss (ml): 2 IV fluids (ml): 350 Pathology: other (Nodule medial aspect of mastectomy incision) Condition: stable Disposition: same day Indications for Procedure: Nodule medial aspect of mastectomy incision Operative Findings: Nodule medial aspect mastectomy incision Description of Procedure: The patient was brought to the operating room and following sedation the medial aspect of the mastectomy incision on the right was prepped and draped in a sterile fashion. 1% lidocaine was used to anesthetize the area of concern. Wide excision was performed. The specimen was approximately 1 cm x 8 mm in size. The specimen was sent to pathology. The wound was evaluated for hemostasis. After we are sure that hemostasis was attained deep Vicryl sutures were placed. A 4-0 Monocryl suture was placed. The completion of 10 cc of local anesthetic was injected into the incision. The patient tolerated the procedure in stable condition. All instrument and sponge counts were correct at the end of the case.
[2024-01-24 14:27] VITALS: BP 120/78; PULSE 64
== END 2024-01-24 14:38 ==
LOC: OR 12:02
PROVIDERS: ATTEND Surgery
DX: L90.5 Scar conditions and fibrosis of skin (principal)
CPT/HCPCS: 19120; 88305; J2250; J1644; J1100; J2405; J0690 ×2; J2001; J3010

== ENCOUNTER → 2024-02-02 | Outpatient (CLI) | payer MEDICARE ==
--- NOTE | 2024-02-02 11:59 | P.PN ---
Progress Note - Text Progress Note Date: 02/02/24 Luma is status post resection of a right chest wall lesion on . This was benign. The procedure without difficulty. A right breast mastectomy and axillary node resection on 07-21-2021. Time a metastatic workup was performed which was negative. Her pathology revealed all nodes negative and multifocal recurrent invasive cancer in the right breast with all margins negative. Examination: Incision clean and dry Plan: Left breast mammogram in May with exam emanation at that time Patient to follow-up sooner any questions or concerns CC: Dr. Hendrickson
[2024-02-02 12:19] VITALS: BP 125/69; PULSE 59; RESP 16; TEMP 98.1
== END ==
LOC: WWCWWP 11:11
PROVIDERS: ATTEND Surgery
DX: Z48.817 Encounter for surgical aftercare following surgery on the skin and subcutaneous tissue (principal); Z90.11 Acquired absence of right breast and nipple

== ENCOUNTER → 2024-06-01 | Outpatient (CLI) | payer MEDICARE ==
[2024-06-01 10:48] VITALS: BP 132/78; PULSE 71; RESP 17; TEMP 97.9
--- NOTE | 2024-06-01 11:08 | P.PN ---
Subjective Progress Note Date: 06/01/24 Principal diagnosis: right mastectomy 2020 recurrent right breast cancer from 200006-03-24 07/01/23 Right breast invasive ductal carcinoma/stage Ib if this skin lesion is not considered to be a T4 or IIIB if the skin lesion is a T4 202007-01-23 Luma is a 77-year-old white female status post right mastectomy and axillary node resection on 07-21-23; of significance is the fact that she had previously undergone a right lumpectomy and sentinel lobe biopsy with adjuvant radiation therapy and 5 years of tamoxifen in 2000. This was performed in [place]. Most recently in 2020 she was noted to have a skin lesion which was biopsied by dermatology and found to be consistent with metastatic breast cancer and additionally at 10 and 11:00 in the right breast positive invasive ductal cancer. No lesions of concern were identified in the left breast. A metastatic workup was performed which was negative. After presentation at tumor board it was recommended that she undergo a right mastectomy. Right mastectomy and sentinel node biopsy performed on Pathology revealed all nodes negative and multifocal and recurrent invasive ductal cancer in the right breast, all margins negative. She did not have additional radiation therapy She is presently on anastrozole She underwent a left breast mammogram on 7622 which was benign BIRADS 2. She is not complaining of any new lumps masses or nodules of concern in the left breast or on the right chest wall. 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 This was done in 2018. The patient is complaining of some cramping in her lower extremities and in her fingers which she believes may be related to the Aromasin. She is going to discuss this with Dr. Chen. 01-19-24 She is not complaining of any new lumps masses or nodules of concern. She is due for a left mammogram in May 2024. She stopped her aromasin, secondary to leg pain. Dr. Hendrickson she was admitted in November 2023 for weakness in her legs. She is uncertain as to what the resolution to this was. 06-01-24 Luma is an 78 year-old white female status post right mastectomy and axillary node resection on 07-21-23; of significance is the fact that she had previously undergone a right lumpectomy and sentinel node biopsy with adjuvant radiation therapy and 5 years of tamoxifen in 2000. This was performed in [place]. Most recently in 2020 she was noted to have a skin lesion which was biopsied by dermatology and found to be consistent with metastatic breast cancer and additionally at 10 and 11:00 in the right breast positive invasive ductal cancer. No lesions of concern were identified in the left breast. A metastatic workup was performed which was negative. After presentation at tumor board it was recommended that she undergo a right mastectomy. Right mastectomy and sentinel node biopsy performed on Pathology revealed all nodes negative and multifocal and recurrent invasive ductal cancer in the right breast, all margins negative. She did not have additional radiation therapy She was on anastrozole but stopped this She underwent a left breast mammogram on 7622 which was benign BIRADS 2. status post resection of lesion right chest wall on 01-24-24 benign left mammogram on 06-01-24 BIRAD [address] Abad recently diagnosed with diabetes She is not complaining of any new lumps masses or nodules of concern in the right chest wall, she is not complaining of any lumps masses or nodules of concern in the left breast Caffeine: 2 cups/day; 20oz ice tea daily/pop: seldom nicotine: patient never; secondhand: (5 years) hormones: 16 years; prempro stopped in 2000 Family History: patient: breast cancer Hormonal History: menarche: 9 G0 menopause: 46 hormones: 16 years Prempro stopped in 2000 Tubal ligation at the age of 40 BCP: none Surgical history: 1. Tubal ligation 2. Right breast lumpectomy and Node dissection 3. Back surgery 2 4. 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 HTN 3. back injury as above 4. GERD 5. diabetic Social History: smoke: as above alcohol: occasional stopped / 1986 drugs: none - Constitutional Constitutional: Reports sweats, Denies chills, Denies fever - EENT Eyes: denies blurred vision, denies pain Ears: bilateral: decreased hearing, deny: tinnitus Ears, nose, mouth and throat: Denies headache, Denies sore throat - Breasts Breasts: bilateral: as per HPI - Cardiovascular Cardiovascular: Denies chest pain, Denies shortness of breath - Respiratory Respiratory: Reports cough - Gastrointestinal Comment: incontinent Gastrointestinal: Denies abdominal pain, Denies diarrhea, Denies nausea, Denies vomiting - Genitourinary (Female) Comment: incontient Genitourinary: Reports as per HPI - Menstruation Menstruation: Reports postmenopausal - Musculoskeletal Musculoskeletal: Reports muscle weakness - Integumentary Integumentary: Reports as per HPI - Neurological Comment: back herniated disc Neurological: Reports as per HPI - Psychiatric Psychiatric: Denies anxiety, Denies depression - Endocrine Endocrine: Denies fatigue, Denies weight change - Hematologic/Lymphatic Comment: none - Allergic/Immunologic Allergic/Immunologic: Reports as per HPI Objective - Vital Signs Vital signs: Vital Signs Temp 97.9 F 06/01/24 10:42 Pulse 71 06/01/24 10:42 Resp 17 06/01/24 10:42 BP 132/78 06/01/24 10:42 Pulse Ox 96 06/01/24 10:42 FiO2 Intake & Output 05/31/24 06/01/24 06/01/24 18:59 06:59 18:59 Weight 107.955 kg - Constitutional General appearance: Present: cooperative - EENT Eyes: Present: EOMI ENT: Present: hearing grossly normal - Neck Neck: Present: normal ROM - Respiratory Respiratory: bilateral: CTA - Cardiovascular Heart sounds: normal: S1, S2 - Integumentary Integumentary: Present: normal turgor - Musculoskeletal Musculoskeletal Comment(s): wheel chair dependant - Psychiatric Psychiatric: Present: A&O x's 3, appropriate affect, intact judgment & insight - Additional findings Additional findings: Breast Exam: Examination performed with the patient in wheelchair BRA: 44C Inspection: Right chest wall no evidence of recurrence, left breast grade 3 ptosis; skin lesion right chest Palpation: Right chest wall: No evidence of recurrent cancer Right axilla: No adenopathy of concern Left breast: no dominant masses or nodules of concern, fibrocystic changes Left axilla: No adenopathy of concer Assessment and Plan Assessment: Impression: Patient status post right mastectomy for invasive ductal carcinoma; she was status post a prior right breast lumpectomy in 2000 and this was recurrent disease treated in 2020 Patient stopped Aromasin Recent left breast mammogram 7623 BIRAD 2 Back pain related to complications following back surgery in 2019 nodule right chest wall resected 01-24-24 benign left breast mammogram on 06-01-24 BIRAD 2 personally reviewed and discussed with DR. Abad Plan: Left breast mammogram in May 2025 with appointment at that time appointment in [address] Hendrickson CC: Dr. Hendrickson
== END ==
LOC: WWCWWP 09:35
PROVIDERS: ATTEND Surgery
DX: Z48.817 Encounter for surgical aftercare following surgery on the skin and subcutaneous tissue (principal); G82.20 Paraplegia, unspecified; R25.2 Cramp and spasm; M54.9 Dorsalgia, unspecified; Z92.3 Personal history of irradiation; Z85.3 Personal history of malignant neoplasm of breast; Z80.3 Family history of malignant neoplasm of breast; Z90.11 Acquired absence of right breast and nipple; Z77.22 Contact with and (suspected) exposure to environmental tobacco smoke (acute) (chronic)

== ENCOUNTER → 2024-06-01 | Outpatient (CLI) | payer MEDICARE ==
--- NOTE | 2024-06-01 10:18 | MM ---
Reason for Exam: Follow-up at short interval from prior study. Last screening mammogram was performed 12 month(s) ago. Patient History: Menarche at age 8. Patient has no children. Postmenopausal. Breast cancer, right, age 75. Previous chest radiation therapy at age 56. Patient used Estrogen for 7 years. Patient used Progesterone for 7 years. 07/21/2021, Mastectomy on the Right side. Lumpectomy on the Right side. 06/15/2021, Malignant Core Biopsy on the right side. 06/15/2021, Malignant Core Biopsy on the right side. 06/15/2021, Malignant Core Biopsy on the right side. Radiation Therapy, right. Prior Study Comparison: 10/19/2017 Screening Mammogram, [place]. 11/11/2018 Screening Mammogram, [place]. 05/22/2021 Bilateral Diagnostic Mammogram, [facility]. 06/15/2021 Right Diagnostic Mammogram, [facility]. 05/25/2022 Left MG 3D diag mammo w/cad LT, [facility]. 05/26/2023 Left MG 3D diag mammo w/cad LT, [facility]. Tissue Density: Left: There are scattered areas of fibroglandular density. Findings: Analyzed By CAD. The pattern is stable. No significant interval change is evident. No suspicious groups of microcalcifications, spiculated or lobular masses, architectural distortion or other secondary signs of malignancy are mammographically apparent. Overall Assessment: Benign, BI-RAD 2 Management: Screening Mammogram of the left breast in 1 year. A negative mammogram report should not preclude additional follow up of suspicious palpable abnormalities. Patient should continue monthly self breast exam. A clinical breast exam by your physician is recommended on an annual basis and results should be correlated with mammographic findings. Note on Valeri scores and lifetime risk: 1. A Valeri score greater than 3% is considered moderate risk. If this is the case, consider specialist referral to assess eligibility for a risk reducing agent. 2. If overall lifetime risk for the development of breast cancer is 20% or higher, the patient may qualify for future screening with alternating mammogram and breast MRI. Electronically signed and approved by: Kirill Jansen D.O. Radiologis
== END | disposition home or self-care (01) ==
LOC: RADMAMWWP 09:32
PROVIDERS: ATTEND Surgery
DX: R92.322 Mammographic fibroglandular density, left breast (principal); Z85.3 Personal history of malignant neoplasm of breast; Z78.0 Asymptomatic menopausal state; Z80.3 Family history of malignant neoplasm of breast
CPT/HCPCS: 77065; G0279; 77061

== ENCOUNTER 2024-07-26 08:49 | Emergency (ER) | payer MEDICARE ==
[2024-07-26 08:59] VITALS: BP 108/57; PULSE 62; RESP 17; TEMP 98.6
--- NOTE | 2024-07-26 09:55 | ED ---
General Adult HPI - General Chief complaint: Extremity Problem,Nontraumatic Stated complaint: Fall Time Seen by Provider: 07/26/24 08:50 Source: patient, EMS, RN notes reviewed, old records reviewed Mode of arrival: EMS Limitations: physical limitation - History of Present Illness Initial comments: 78-year-old female presents for evaluation fall. Patient states that her left leg locks up at times and this caused her to fall onto her bottom. This occurred just prior to arrival. This was witnessed. Patient is currently at assisted living facility. No head or neck trauma. Patient does report weakness to the bilateral lower extremities and has history of bilateral foot drop for which she wears braces. No pain complaint currently. - Related Data Home Medications Medication Instructions Recorded Confirmed allopurinoL [Zyloprim] 300 mg PO DAILY 05/29/19 06/01/24 Magnesium Oxide [Mag-Ox] 400 mg PO BID 08/07/19 06/01/24 Furosemide [Lasix] 20 mg PO DAILY 12/18/20 06/01/24 Albuterol Sulfate [Ventolin HFA] 2 puff INHALATION RT-Q6H PRN 12/29/23 06/01/24 Alendronate Sodium [Fosamax] 70 mg PO MO 12/29/23 06/01/24 Fluticasone Nasal [place] [Flonase 1 spray EA NOSTRIL DAILY PRN 12/29/23 06/01/24 Nasal [place]] HYDROcodone/APAP 10-325MG [[place] 1 tab PO Q8H PRN 12/29/23 06/01/24 10-325] Pregabalin [Lyrica] 200 mg PO BID 12/29/23 06/01/24 D3 (Unknown Dose) 1 dose PO QAM 01/20/24 06/01/24 Multivitamins, Thera [Multivitamin 1 tab PO DAILY 01/20/24 06/01/24 (formulary)] Allergies Allergy/AdvReac Type Severity Reaction Status Date / Time No Known Allergies Allergy Verified 06/01/24 10:42 Review of Systems ROS Statement: Those systems with pertinent positive or pertinent negative responses have been documented in the HPI. ROS Other: All systems not noted in ROS Statement are negative. 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 History of Any Multi-Drug Resistant Organisms: None Reported Past Surgical History: Back Surgery, Breast Surgery, Cholecystectomy, Tonsillectomy, Tubal Ligation Additional Past Surgical History / Comment(s): RIGHT MASTECTOMY. 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 BACK SURGERY X2, pain clinic procedures. Past Anesthesia/Blood Transfusion Reactions: No Reported Reaction Past Psychological History: No Psychological Hx Reported Smoking Status: Never smoker Past Alcohol Use History: None Reported Past Drug Use History: None Reported - Past Family History Father Additional Family Medical History / Comment(s): Father at the age of 53 yrs from "broken heart" 6 weeks after the of his son. Mother Family Medical History: Deep Vein Thrombosis (DVT) Additional Family Medical History / Comment(s): Mother at the age of 61 pt believes from a brain tumor. Blood clot x2. General Exam Limitations: physical limitation General appearance: alert, in no apparent distress Head exam: Present: atraumatic, normocephalic Eye exam: Present: normal appearance, PERRL ENT exam: Present: normal exam Neck exam: Present: normal inspection. Absent: tenderness, meningismus Respiratory exam: Present: normal lung sounds bilaterally. Absent: respiratory distress, wheezes Cardiovascular Exam: Present: regular rate, normal rhythm GI/Abdominal exam: Present: soft. Absent: distended, tenderness Extremities exam: Present: tenderness (Tenderness over the lateral aspect of the left knee), other (Distal pulses) Neurological exam: Present: alert, oriented X3, other (5 out of 5 strength in the bilateral lower extremities proximal muscle groups, lateral foot drop) Psychiatric exam: Present: normal affect, normal mood Skin exam: Present: warm, dry, intact Course Vital Signs 07/26/24 08:52 Temperature 98.6 F Pulse Rate 62 Respiratory 17 Rate Blood Pressure 108/57 O2 Sat by Pulse 97 Oximetry Medical Decision Making - Medical Decision Making Was pt. sent in by a medical professional or institution ([facility], [facility], urgent care, hospital, or fdc...) When possible be specific @ -No Did you speak to anyone other than the patient for history (EMS, parent, family, police, friend...)? What history was obtained from this source @ -No Did you review nursing and triage notes (agree or disagree)? Why? @ -I reviewed and agree with nursing and triage notes Were old charts reviewed (outside hosp., previous admission, EMS record, old EKG, old radiological studies, urgent care reports/EKG's, fdc records)? Report findings @ -No old charts were reviewed Differential Musculoskeletal Muscular strain, contusion, ligament sprain, fracture, arthritis, septic arthritis, bursitis, cellulitis, muscle spasm, nerve compression, DVT, arterial occlusion, herpes zoster, electrolyte abnormality, tumor.... This is not meant to be in all inclusive list EKG interpreted by me (3pts min.). @ -As above X-rays interpreted by me (1pt min.). @ -X-ray of the left knee, pelvis, lumbar spine, no displaced fracture, osteoarthritis lateral lumbar spine, no acute findings. CT interpreted by me (1pt min.). @ -None done U/S interpreted by me (1pt. min.). @ -None done What testing was considered but not performed or refused? (CT, X-rays, U/S, labs)? Why? @ -None What meds were considered but not given or refused? Why? @ -None Did you discuss the management of the patient with other professionals (professionals i.e. [facility], [facility], lab, RT, psych nurse, psychosocial rehabilitation counselor, relocation associate, teacher, civilian jail officer, employment evaluator/case manager)? Give summary @ -No Was smoking cessation discussed for >3mins.? @ -No Was critical care preformed (if so, how long)? @ -No Were there social determinants of health that impacted care today? How? (Homelessness, low income, unemployed, alcoholism, drug addiction, transportation, low edu. Level, literacy, decrease access to med. care, residential, rehab)? @ -No Was there de-escalation of care discussed even if they declined (Discuss DNR or withdrawal of care, Hospice)? DNR status @ -No What co-morbidities impacted this encounter? (DM, HTN, Smoking, COPD, CAD, Cancer, CVA, ARF, Chemo, Hep., AIDS, mental health diagnosis, sleep apnea, morbid obesity)? @ -None Was patient admitted / discharged? Hospital course, mention meds given and route, prescriptions, significant lab abnormalities, going to OR and other pertinent info. @ -[78-year-old female with fall, x-rays obtained of the left knee, pelvis and lumbar spine, no displaced fracture, no acute findings. Patient does have bilateral foot drop and has mobility issues at baseline. She has an appointment with her primary care provider in the next 5 days. No significant pain. Vital signs stable. Stable for discharge. Undiagnosed new problem with uncertain prognosis? @ -No Drug Therapy requiring intensive monitoring for toxicity (Heparin, Nitro, Insulin, Cardizem)? @ -No Were any procedures done? @ -No Diagnosis/symptom? @Fall, no injury Acute, or Chronic, or Acute on Chronic? @Acute on chronic Uncomplicated (without systemic symptoms) or Complicated (systemic symptoms)? @ -Default Side effects of treatment? @ -No Exacerbation, Progression, or Severe Exacerbation? @ -No Poses a threat to life or bodily function? How? (Chest pain, [place], [place], pneumonia, PE, COPD, DKA, ARF, appy, cholecystitis, CVA, Diverticulitis, Homicidal, Suicidal, threat to staff... and all critical care pts) @ -No Disposition Clinical Impression: Lumbar facet arthropathy, Foot drop, bilateral, Gait difficulty Disposition: HOME SELF-CARE Condition: Fair Instructions (If sedation given, give patient instructions): Fall Prevention for Older Adults (ED) Is patient prescribed a controlled substance at d/c from ED?: No Referrals: John Hendrickson MD [Primary Care Provider] - 1-2 days Time of Disposition: 11:44
--- NOTE | 2024-07-26 10:52 | XR ---
EXAMINATION TYPE: XR lumbosacral spine 5V, XR pelvis AP view, XR knee complete 3 views LT DATE OF EXAM: 07/26/2024 Comparison: Lumbar spine 08/28/2019 Clinical History: 78-year-old female pain after fall Findings: Lumbar spine: Slight dextroconvex curvature of the lumbar spine. Laminectomy change mid to lower lumbar spine. Chol ecystectomy clips. Severe disc/endplate degenerative change L3-S1 levels and moderate at L2-L3. Sever e hypertrophic facet arthropathy throughout especially mid to lower lumbar spine. Prominent degenerat mg grade 1, nearly grade 2 anterolisthesis L4-L5. Remaining alignment is maintained. Pelvis: Mild to moderate degenerative change right hip and mild left-sided with marginal spurring. Subchondra l sclerosis on the right. External rotation of the S during imaging images adequate assessment of the femoral neck regions. No displaced fracture seen. SI joints appear symmetric and intact as does the pubic symphysis. Left knee: Degenerative spurring medial and patellofemoral compartments. No knee joint effusion. Extensor mechan ism is intact. Popliteal artery calcifications. No acute fracture, subluxation, dislocation. Osteopen ia. Impression: 1. Lumbar spine: Severe hypertrophic facet arthropathy especially mid to lower lumbar spine. Grade 1, nearly grade 2 anterolisthesis at L4-L5 is similar though severe degenerative disc disease L3-S1 lev els has progressed from 2019. No vertebral compression collapse. 2. Pelvis: Mild to moderate right and mild left hip OA. Assessment of the femoral necks is suboptimal due to external rotation of the hips during imaging. No obvious displaced fracture seen. 3. Left knee: Osteopenia. Some degenerative spurring in the medial and patellofemoral compartments. N o acute osseous abnormality seen.
== END 2024-07-26 12:50 | disposition home or self-care (01) ==
LOC: EC 08:49
CPT/HCPCS: 72110; 72170; 99284

== ENCOUNTER 2024-08-17 04:35 | Inpatient (IN) | payer MEDICARE ==
[2024-08-17 05:50] LABS: ALT 19 U/L (4-34); AST 45 U/L (14-36); African American GFR (CKD) 76 (>60 ml/min/1.73 sqM); Alkaline Phosphatase 75 U/L (38-126); Anion Gap 6 mmol/L; Blood Urea Nitrogen 17 mg/dL (7-17); Calcium 9.2 mg/dL (8.4-10.2); Carbon Dioxide 27 mmol/L (22-30); Chloride 104 mmol/L (98-107); Glucose 118 mg/dL (74-99); Non-African American GFR(CKD) 66 (>60 ml/min/1.73 sqM); Potassium 3.7 mmol/L (3.5-5.1); Sodium 137 mmol/L (137-145); Total Bilirubin 1.5 mg/dL (0.2-1.3)
[2024-08-17 05:53] LABS: Basophils % (A) 1 %; Eosinophils # (A) 0.2 k/uL (0-0.7); Eosinophils % (A) 2 %; HCT 42.9 % (34.0-46.0); HGB 13.9 gm/dL (11.4-16.0); Lymphocytes # (A) 1.8 k/uL (1.0-4.8); Lymphocytes % (A) 24 %; MCHC 32.4 g/dL (31.0-37.0); MCV 104.8 fL (80.0-100.0); Macrocytosis Moderate; Mean Platelet Volume 7.9; Monocytes # (A) 0.7 k/uL (0-1.0); Monocytes % (A) 9 %; Neutrophils # (A) 4.8 k/uL (1.3-7.7); Neutrophils % (A) 62 %; Platelet Count 229 k/uL (150-450); RBC 4.09 m/uL (3.80-5.40); WBC 7.7 k/uL (3.8-10.6)
[2024-08-17 05:58] LABS: NT-Pro-B-Type Natriuretic Pept 1270 pg/mL
[2024-08-17] MEDS ORDERED: PNEUMONIA PROTOCOL UTILIZED 1 EACH MISC PO PRN (07:30)
[2024-08-17] MEDS ORDERED: ALBUTEROL NEBULIZED 2.5 MG/3 ML INHALATION PRN (07:34)
--- NOTE | 2024-08-17 07:39 | ED ---
General Adult HPI - General Chief complaint: Extremity Injury, Lower Stated complaint: L Leg Pain Source: patient, EMS Mode of arrival: EMS Limitations: no limitations - History of Present Illness Initial comments: This patient is an 78-year-old woman who arrives here by ambulance to have evaluation for 2 complaints. The patient states that the main complaint is that she had a fall between 1 and 2 weeks ago and has left hip pain. Patient states that it was a ground-level fall. She landed on her left side. She was initially able to bear weight and get up. She states that in the interval since the fall she has had worsening left lateral hip pain. She states that now she cannot bear weight on that side. The patient also is complaining of having about 2 days of progressively worsening cough and a little bit of shortness of breath. She has not noted fever or chills. No chest pain. Occasional sputum. No hemoptysis -: days(s) Location: left, lower extremity Quality: sharp Consistency: intermittent Improves with: none Worsens with: movement Associated Symptoms: cough Treatments Prior to Arrival: none - Related Data Home Medications Medication Instructions Recorded Confirmed allopurinoL [Zyloprim] 300 mg PO DAILY 05/29/19 08/17/24 Furosemide [Lasix] 20 mg PO DAILY 12/18/20 08/17/24 Empagliflozin/Metformin HCl 1 tab PO BID 08/17/24 08/17/24 [Synjardy 5-500 mg Tablet] Multivitamins, Thera [Multivitamin 1 tab PO DAILY 08/17/24 08/17/24 (formulary)] methocarbamoL [Robaxin] 500 mg PO HS 08/17/24 08/17/24 Previous Rx's Medication Instructions Recorded Acetaminophen Tab [Tylenol] 650 mg PO Q6HR PRN tab 08/24/24 Albuterol Nebulized [Ventolin 2.5 mg INHALATION RT-Q6H PRN ml 08/24/24 Nebulized] Benzocaine/Menthol Lozeng [Cepacol 1 each MUCOUS MEM Q4HR PRN lozenge 08/24/24 lozenge] HYDROcodone/APAP 10-325MG [[place] 1 tab PO Q6H PRN #4 tab 08/24/24 10-325] Magnesium Hydroxide [Milk of 2,400 mg PO DAILY PRN ml 08/24/24 Magnesia] Magnesium Oxide [Mag-Ox] 400 mg PO BID tab 08/24/24 Nystatin 100,000 Unit/gm Oint 1 applic TOPICAL TID each 08/24/24 [Mycostatin Oint] Pregabalin [Lyrica] 200 mg PO BID #6 cap 08/24/24 bisacodyL [Dulcolax] 10 mg PO DAILY PRN tab 08/24/24 guaiFENesin SYRUP 100MG/5ML 200 mg PO Q6HR PRN ml 08/24/24 [Robitussin] Allergies Allergy/AdvReac Type Severity Reaction Status Date / Time No Known Allergies Allergy Verified 08/17/24 08:42 Review of Systems ROS Statement: Those systems with pertinent positive or pertinent negative responses have been documented in the HPI. ROS Other: All systems not noted in ROS Statement are negative. Constitutional: Reports: weakness. Denies: fever, chills Respiratory: Reports: as per HPI, cough, dyspnea. Denies: wheezes, hemoptysis Cardiovascular: Denies: chest pain, palpitations, edema, syncope Gastrointestinal: Denies: abdominal pain, nausea, vomiting, diarrhea Genitourinary: Denies: dysuria, hematuria Musculoskeletal: Reports: as per HPI, arthralgia. Denies: back pain Skin: Denies: rash Neurological: Denies: headache, weakness, numbness Past Medical History Past Medical History: Cancer, Deep Vein Thrombosis (DVT), GERD/Reflux, Hyperlipidemia, Memory Impairment, Osteoarthritis (OA), Pulmonary Embolus (PE), Sleep Apnea/CPAP/BIPAP Additional Past Medical History / Comment(s): Chronic lower back pain, L3-L4 herniated disc, L sided sciatica, bilateral foot drop-wears braces, uses walker prn but states mostly in wheelchair.., Hx R breast cancer with lumpectomy/radiation 2022, bronchitis, sinus problems., hemorrhoid, wears pull- ups for urine leakage., 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 History of Any Multi-Drug Resistant Organisms: None Reported Past Surgical History: Back Surgery, Breast Surgery, Cholecystectomy, Tonsillectomy, Tubal Ligation Additional Past Surgical History / Comment(s): RIGHT MASTECTOMY. 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 BACK SURGERY X2, pain clinic procedures. Past Anesthesia/Blood Transfusion Reactions: No Reported Reaction Past Psychological History: No Psychological Hx Reported Smoking Status: Never smoker Past Alcohol Use History: None Reported Past Drug Use History: None Reported - Past Family History Father Additional Family Medical History / Comment(s): Father at the age of 53 yrs from "broken heart" 6 weeks after the of his son. Mother Family Medical History: Deep Vein Thrombosis (DVT) Additional Family Medical History / Comment(s): Mother at the age of 61 pt believes from a brain tumor. Blood clot x2. General Exam Limitations: no limitations General appearance: alert, in no apparent distress Head exam: Present: atraumatic, normocephalic Eye exam: Present: normal appearance. Absent: scleral icterus, conjunctival injection ENT exam: Present: normal oropharynx Neck exam: Present: normal inspection, full ROM. Absent: tenderness Respiratory exam: Present: rales (Bilateral lower love). Absent: respiratory distress, wheezes, rhonchi, stridor, accessory muscle use, decreased breath sounds Cardiovascular Exam: Present: regular rate, normal rhythm, normal heart sounds. Absent: systolic murmur, diastolic murmur, rubs, gallop GI/Abdominal exam: Present: soft. Absent: distended, tenderness, guarding, rebound, rigid, mass Extremities exam: Present: normal inspection, normal capillary refill. Absent: pedal edema, calf tenderness Back exam: Present: normal inspection. Absent: CVA tenderness (R), CVA tenderness (L) Neurological exam: Present: alert. Absent: motor sensory deficit Skin exam: Present: warm, dry, intact, normal color. Absent: rash Course Vital Signs 08/17/24 08/17/24 08/17/24 04:41 06:59 20:27 Temperature 97.9 F 97.8 F Pulse Rate 74 79 75 Pulse Rate [ Pulse Oximetery ] Respiratory 18 16 18 Rate Blood Pressure 110/72 95/70 124/57 Blood Pressure [Left Arm] O2 Sat by Pulse 93 L 90 L 95 Oximetry 08/17/24 08/17/24 23:11 23:15 Temperature 97.5 F L Pulse Rate 62 Pulse Rate [ 58 L Pulse Oximetery ] Respiratory 18 17 Rate Blood Pressure 100/61 Blood Pressure 94/59 [Left Arm] O2 Sat by Pulse 95 95 Oximetry Medical Decision Making - Medical Decision Making The patient had hip x-ray which I interpreted as negative for acute fracture/dislocation or other bony injury. The patient had chest x-ray which I interpreted as showing right lower lobe infiltrate consistent with pneumonia Was pt. sent in by a medical professional or institution ([facility], [facility], urgent care, hospital, or fpc...) When possible be specific @ -Yes patient sent from her long-term care facility for evaluation Did you speak to anyone other than the patient for history (EMS, parent, family, police, friend...)? What history was obtained from this source @ -[No] Did you review nursing and triage notes (agree or disagree)? Why? @ -[I reviewed and agree with nursing and triage notes] Were old charts reviewed (outside hosp., previous admission, EMS record, old EKG, old radiological studies, urgent care reports/EKG's, fpc records)? Report findings @ -[No old charts were reviewed] Differential Diagnosis (chest pain, altered mental status, abdominal pain women, abdominal pain men, vaginal bleeding, weakness, fever, dyspnea, syncope, headache, dizziness, GI bleed, back pain, seizure, CVA, palpatations, mental health, musculoskeletal)? @ -Differential Dyspnea: Coronary syndrome, arrhythmia, tamponade, asthma, COPD, pulmonary embolism, pneumonia, pneumothorax, pulmonary effusion, anaphylaxis, diabetic ketoacidosis, flailed chest, pulmonary contusion, diaphragmatic rupture, anemia, neur omuscular, this is not meant to be an all-inclusive list. Differential Musculoskeletal Muscular strain, contusion, ligament sprain, fracture, arthritis, septic arthritis, bursitis, cellulitis, muscle spasm, nerve compression, DVT, arterial occlusion, herpes zoster, electrolyte abnormality, tumor.... This is not meant to be in all inclusive list EKG interpreted by me (3pts min.). @ -[As above] X-rays interpreted by me (1pt min.). @ -[I interpreted as above CT interpreted by me (1pt min.). @ -[None done] U/S interpreted by me (1pt. min.). @ -[None done] What testing was considered but not performed or refused? (CT, X-rays, U/S, labs)? Why? @ -[None] What meds were considered but not given or refused? Why? @ -[None] Did you discuss the management of the patient with other professionals (professionals i.e. , PA, [facility], lab, RT, psych nurse, social service liaison, career orientation teacher, teacher, chairman president and chief executive officer, hospice case manager)? Give summary @ -Case discussed with the admitting physician and treatment recommendations were incorporated Was smoking cessation discussed for >3mins.? @ -[No] Was critical care preformed (if so, how long)? @ -[No] Were there social determinants of health that impacted care today? How? (Homelessness, low income, unemployed, alcoholism, drug addiction, transportation, low edu. Level, literacy, decrease access to med. care, fci, rehab)? @ -[No] Was there de-escalation of care discussed even if they declined (Discuss DNR or withdrawal of care, Hospice)? DNR status @ -[No] What co-morbidities impacted this encounter? (DM, HTN, Smoking, COPD, CAD, Cancer, CVA, ARF, Chemo, Hep., AIDS, mental health diagnosis, sleep apnea, morbid obesity)? @ -[None] Was patient admitted / discharged? Hospital course, mention meds given and route, prescriptions, significant lab abnormalities, going to OR and other pertinent info. @ -[This patient is an 78-year-old woman who is here to have evaluation for difficulty in walking after a fall. The patient with no evident bony injury. The remainder of her workup does reveal pneumonia and the patient will have antibiotics started and be admitted to ensure that there is response to treatment. Undiagnosed new problem with uncertain prognosis? @ -[No] Drug Therapy requiring intensive monitoring for toxicity (Heparin, Nitro, Insu julian, Cardizem)? @ -[No] Were any procedures done? @ -[No] Diagnosis/symptom? @ -[Acute pneumonia Acute hip injury related to fall Acute, or Chronic, or Acute on Chronic? @ -[Acute Uncomplicated (without systemic symptoms) or Complicated (systemic symptoms)? @ -[Uncomplicated Side effects of treatment? @ -[No] Exacerbation, Progression, or Severe Exacerbation? @ -[No] Poses a threat to life or bodily function? How? (Chest pain, [place], [place], pneumonia, PE, COPD, DKA, ARF, appy, cholecystitis, CVA, Diverticulitis, Homicidal, Suicidal, threat to staff... and all critical care pts) @ -[Yes pneumonia may worsen to sepsis/ - Lab Data Result diagrams: 08/21/24 03:40 08/21/24 03:40 Lab Results 08/17/24 08/17/24 08/17/24 Range/Units 04:51 04:51 04:51 WBC 7.7 (3.8-10.6) k/uL RBC 4.09 (3.80-5.40) m/uL Hgb 13.9 (11.4-16.0) gm/dL Hct 42.9 (34.0-46.0) % MCV 104.8 H (80.0-100.0) fL MCH 34.0 (25.0-35.0) pg MCHC 32.4 (31.0-37.0) g/dL RDW 14.0 (11.5-15.5) % Plt Count 229 (150-450) k/uL MPV 7.9 Neutrophils % 62 % Lymphocytes % 24 % Monocytes % 9 % Eosinophils % 2 % Basophils % 1 % Neutrophils # 4.8 (1.3-7.7) k/uL Lymphocytes # 1.8 (1.0-4.8) k/uL Monocytes # 0.7 (0-1.0) k/uL Eosinophils # 0.2 (0-0.7) k/uL Basophils # 0.0 (0-0.2) k/uL Macrocytosis Moderate Sodium 137 (137-145) mmol/L Potassium 3.7 (3.5-5.1) mmol/L Chloride 104 (98-107) mmol/L Carbon Dioxide 27 (22-30) mmol/L Anion Gap 6 mmol/L BUN 17 (7-17) mg/dL Creatinine 0.84 (0.52-1.04) mg/dL Est GFR (CKD-EPI)AfAm 76 (>60 ml/min/1.73 sqM) Est GFR (CKD-EPI)NonAf 66 (>60 ml/min/1.73 sqM) Glucose 118 H (74-99) mg/dL Calcium 9.2 (8.4-10.2) mg/dL Total Bilirubin 1.5 H (0.2-1.3) mg/dL AST 45 H (14-36) U/L ALT 19 (4-34) U/L Alkaline Phosphatase 75 (38-126) U/L NT-Pro-B Natriuret Pep 1270 pg/mL Total Protein 7.0 (6.3-8.2) g/dL Albumin 4.0 (3.5-5.0) g/dL Influenza Type A (PCR) Not Detected (Not Detectd) Influenza Type B (PCR) Not Detected (Not Detectd) RSV (PCR) Not Detected (Not Detectd) SARS-CoV-2 (PCR) Not Detected (Not Detectd) Disposition Clinical Impression: Pneumonia, Left hip pain Disposition: ADMITTED IP TO THIS HOSP Condition: Fair Is patient prescribed a controlled substance at d/c from ED?: No
[2024-08-17] MEDS: PREGABALIN 100 MG CAP PO SCH (08:49)
[2024-08-17] MEDS: MAGNESIUM OXIDE 400 MG TAB PO SCH (08:50)
--- NOTE | 2024-08-17 09:54 | XR ---
EXAMINATION TYPE: XR Hip LT and AP Pelvis DATE OF EXAM: 08/17/2024 COMPARISON: 07/26/2024 HISTORY: Fall, pain TECHNIQUE: Left hip is examined in 2 views supplemented with an AP pelvis. FINDINGS: Femoral heads articulate with the acetabulum. No acute fracture or dislocation left hip. Pe lvis appears intact. IMPRESSION: 1. No acute osseous abnormality left hip [facility], , 08/17/2024 8:51 AM
--- NOTE | 2024-08-17 09:54 | XR ---
EXAMINATION TYPE: XR chest 2V DATE OF EXAM: 08/17/2024 COMPARISON: 12/28/2023 INDICATION: Cough TECHNIQUE: Frontal and lateral views of the chest are obtained. FINDINGS: The heart size is normal. The pulmonary vasculature is normal. Procedure right lower lobe infiltrate. Lungs otherwise are clear.. IMPRESSION: 1. Right lower lobe infiltrate. Correlate for pneumonia. Follow-up can be performed [facility], , 08/17/2024 8:49 AM
--- NOTE | 2024-08-17 12:04 | P.HPIM ---
History of Present Illness This is a pleasant 78 years old female with past medical history of multiple medical problems as below Patient presents because she fell few weeks ago and presents this time because of left hip pain with difficulty walking for about 1 week. Patient states that about a week ago she was going from her restroom back to her bedroom where she fell, she denies dizziness, syncope. Patient also complaining from left hip pain about 7-8/10 in severity, increased with movement, her pain was very bad yesterday that is why she decided to come to the emergency room. [place] like shooting pain increasing by movement Also patient complaining from shortness of breath. With cough and phlegm but no chest pain She has low appetite but no nausea vomiting, she had diarrhea about 3 to 4 days ago but now stopped No headache dizziness weakness numbness today. She denies smoking alcohol or illicit drugs Vitals are stable, oxygen is slightly on the low side 90% on room air Labs including CBC, BMP, liver enzymes, INR are unremarkable proBNP is 1270 Influenza A and type B, RSV, SARS (coronavirus) are undetected hip and pelvis x-ray: No acute osseous abnormality of the left hip Chest x-ray: Right lower lobe infiltrate Review of Systems Review of systems CONSTITUTIONAL: No fever, no malaise, no fatigue. HEENT: No recent visual problems or hearing problems. Denied any sore throat. CARDIOVASCULAR: No orthopnea, PND, no palpitations, no syncope. PULMONARY: No chest wall tenderness, no hemoptysis. GASTROINTESTINAL: No diarrhea, no nausea, no vomiting, no abdominal pain. Normoactive bowel sounds. NEUROLOGICAL: No headaches, no weakness, no numbness. HEMATOLOGICAL: Denies any bleeding or petechiae. GENITOURINARY: Denies any burning micturition, frequency, or urgency. MUSCULOSKELETAL/RHEUMATOLOGICAL: Denies any joint pain, swelling, or any muscle pain. ENDOCRINE: Denies any polyuria or polydipsia. 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 History of Any Multi-Drug Resistant Organisms: None Reported Past Surgical History: Back Surgery, Breast Surgery, Cholecystectomy, Tonsillectomy, Tubal Ligation Additional Past Surgical History / Comment(s): RIGHT MASTECTOMY. 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 BACK SURGERY X2, pain clinic procedures. Past Anesthesia/Blood Transfusion Reactions: No Reported Reaction Past Psychological History: No Psychological Hx Reported Smoking Status: Never smoker Past Alcohol Use History: None Reported Past Drug Use History: None Reported - Past Family History Father Additional Family Medical History / Comment(s): Father at the age of 53 yrs from "broken heart" 6 weeks after the of his son. Mother Family Medical History: Deep Vein Thrombosis (DVT) Additional Family Medical History / Comment(s): Mother at the age of 61 pt believes from a brain tumor. Blood clot x2. Medications and Allergies Home Medications Medication Instructions Recorded Confirmed Type allopurinoL [Zyloprim] 300 mg PO DAILY 05/29/19 08/17/24 History Furosemide [Lasix] 20 mg PO DAILY 12/18/20 08/17/24 History HYDROcodone/APAP 10-325MG [[place] 1 tab PO Q6H PRN 12/29/23 08/17/24 History 10-325] Pregabalin [Lyrica] 200 mg PO BID 12/29/23 08/17/24 History D3 (Unknown Dose) 1 tab PO BID 01/20/24 08/17/24 History Empagliflozin/Metformin HCl 1 tab PO BID 08/17/24 08/17/24 History [Synjardy 5-500 mg Tablet] Multivitamins, Thera [Multivitamin 1 tab PO DAILY 08/17/24 08/17/24 History (formulary)] methocarbamoL [Robaxin] 50 mg PO HS 08/17/24 08/17/24 History Allergies Allergy/AdvReac Type Severity Reaction Status Date / Time No Known Allergies Allergy Verified 08/17/24 08:42 Physical Exam Vitals: Vital Signs Temp Pulse Resp BP Pulse Ox 08/17/24 06:59 79 16 95/70 90 L 08/17/24 04:41 97.9 F 74 18 110/72 93 L Intake and Output 08/16/24 08/17/24 08/17/24 22:59 06:59 14:59 Other: Weight 107.955 kg GENERAL: The patient is alert and oriented x3, not in any acute distress. Well developed, well nourished. HEENT: Pupils are round and equally reacting to light. EOMI. No scleral icterus. No conjunctival pallor. Normocephalic, atraumatic. No pharyngeal erythema. No thyromegaly. CARDIOVASCULAR: S1 and S2 present. No murmurs, rubs, or gallops. PULMONARY: Chest is clear to auscultation, no wheezing , no crackles. ABDOMEN: Soft, nontender, nondistended, normoactive bowel sounds. No palpable organomegaly. MUSCULOSKELETAL: No joint swelling or deformity. EXTREMITIES: No cyanosis, clubbing, or pedal edema. NEUROLOGICAL: Gross neurological examination did not reveal any focal deficits. SKIN: No rashes. no petechiae. Results CBC & Chem 7: 08/17/24 04:51 08/17/24 04:51 Labs: Abnormal Lab Results - Last 24 Hours (Table) 08/17/24 08/17/24 Range/Units 04:51 04:51 MCV 104.8 H (80.0-100.0) fL Glucose 118 H (74-99) mg/dL Total Bilirubin 1.5 H (0.2-1.3) mg/dL AST 45 H (14-36) U/L Assessment and Plan Assessment: Right lower lobe pneumonia Acute hypoxic respiratory failure Fall at home few days ago associated with left hip pain, rule out acute fracture History of DVT/PE after back surgery Hyperlipidemia Osteoarthritis History of GERD Sleep apnea Chronic low back pain related to herniated disc at L3-L4 Bilateral foot drop wearing braces. She is mostly wheelchair-bound sometimes use a walker. History of right breast cancer status postlumpectomy in 2022 s/p radiotherapy Plan: Continue with ceftriaxone and Zithromax. Follow-up culture results Continue with bronchodilator and breathing treatment Continue with oxygen treatment as needed Pulmonary team consult Will order CT of the left hip to rule out fracture given history of trauma Labs and medication were reviewed.. Continue same treatment. Continue with symptomatic treatment. Resume home medication. Monitor labs and vitals. DVT and GI prophylaxis. Further recommendations as per clinical course of the patient DVT prophylaxis: Subcutaneous h Lovenox GI Prophylaxis: Pepcid PT/OT: Pending Prognosis is guarded
--- NOTE | 2024-08-17 13:27 | US ---
EXAMINATION TYPE: US venous doppler duplex LE BI DATE OF EXAM: 08/17/2024 12:04 PM COMPARISON: 12/28/23 CLINICAL INDICATION: Female, 78 years old with history of leg swelling; leg swelling SIDE PERFORMED: Bilateral TECHNIQUE: The lower extremity deep venous system is examined utilizing real time linear array sonog christopher with graded compression, doppler sonography and color-flow sonography. VESSELS IMAGED: Common Femoral Vein Deep Femoral Vein Greater Saphenous Vein * Femoral Vein Popliteal Vein Small Saphenous Vein * Proximal Calf Veins (* superficial vessels) Slightly limited due to body habitus Right Leg: No evidence for DVT Left Leg: No evidence for DVT IMPRESSION: 1. Bilateral lower extremity ultrasound negative for deep venous thrombosis [facility], , 08/17/2024 1:24 PM
[2024-08-17] MEDS: SODIUM CHLORIDE 0.9% 1,000 ML IV SCH (13:58)
--- NOTE | 2024-08-17 15:15 | CT ---
EXAMINATION TYPE: CT hip LT wo con DATE OF EXAM: 08/17/2024 COMPARISON: None HISTORY: Trauma, fall with pain CT DLP: 1236.6 mGycm Automated exposure control for dose reduction was used. FINDINGS: The left hip and hemipelvis are intact without fracture, dislocation or focal intraosseous abnormalit y. The joint space is well preserved and there is minimal osteoarthritic change. Periarticular soft t issues are normal. Note is made of severe degenerative disc disease in the visualized lower lumbar spine from L3 through S1. There is a grade 1 anterolisthesis of L4 on L5. IMPRESSION: 1. NO ACUTE TRAUMA TO THE LEFT HIP OR VISUALIZED LEFT HEMIPELVIS. 2. MINIMAL OSTEOARTHRITIS OF LEFT HIP. 3. MARKED DEGENERATIVE DISC DISEASE IN THE LOWER LUMBAR SPINE. 4. Incidental note is made of a large amount stool within the rectum. [facility], , 08/17/2024 3:13 PM
[2024-08-17] MEDS: HYDROcodone/APAP 10-325MG 1 EACH TAB PO PRN (17:19)
[2024-08-17] MEDS: NYSTATIN 100,000 UNIT/GM OINT 30 GM TUBE TOPICAL SCH (17:19)
[2024-08-17] MEDS: methocarbamoL 500 MG TAB PO SCH (20:34)
[2024-08-18] MEDS: allopurinoL 300 MG TAB PO SCH (09:35)
[2024-08-18] MEDS: AZITHROMYCIN 500 MG TAB PO SCH (09:35)
[2024-08-18 09:46] LABS: Basophils # (A) 0.05 X 10*3/uL (0.00-0.10); Basophils % (A) 0.7 %; Eosinophils # (A) 0.28 X 10*3/uL (0.04-0.35); Eosinophils % (A) 3.9 %; HCT 42.4 % (37.2-46.3); HGB 14.1 g/dL (12.0-15.0); Lymphocytes # (A) 1.79 X 10*3/uL (0.90-5.00); Lymphocytes % (A) 24.9 %; MCH 34.7 pg (27.0-32.0); MCHC 33.3 g/dL (32.0-37.0); MCV 104.4 FL (80.0-97.0); Monocytes # (A) 0.92 X 10*3/uL (0.20-1.00); Monocytes % (A) 12.8 %; NRBC Per 100 WBC 0 X 10*3/uL (0.00-0.01); Neutrophils # (A) 4.12 X 10*3/uL (1.80-7.70); Neutrophils % (A) 57.3 %; Platelet Count 213 X 10*3/uL (140-440); RBC 4.06 X 10*6/uL (4.10-5.20); RDW 14.6 % (11.5-14.5); WBC 7.19 X 10*3/uL (4.50-10.00)
[2024-08-18 11:23] LABS: Blood Urea Nitrogen 13.7 mg/dL (9.0-27.0); Carbon Dioxide 26.7 mmol/L (21.6-31.8); Chloride 100 mmol/L (96-109); Glucose 114 mg/dL (70-110); Potassium 3.5 mmol/L (3.5-5.5); Sodium 139 mmol/L (135-145)
[2024-08-18 11:24] LABS: Calcium 8.6 mg/dL (8.7-10.3)
[2024-08-18] MEDS: HYDROcodone/APAP 10-325MG 1 EACH TAB PO PRN (17:25)
--- NOTE | 2024-08-18 23:37 | P.PN ---
Subjective This is a pleasant 78 years old female with past medical history of multiple medical problems as below Patient presents because she fell few weeks ago and presents this time because of left hip pain with difficulty walking for about 1 week. Patient states that about a week ago she was going from her restroom back to her bedroom where she fell, she denies dizziness, syncope. Patient also complaining from left hip pain about 7-8/10 in severity, increased with movement, her pain was very bad yesterday that is why she decided to come to the emergency room. [place] like shooting pain increasing by movement Also patient complaining from shortness of breath. With cough and phlegm but no chest pain She has low appetite but no nausea vomiting, she had diarrhea about 3 to 4 days ago but now stopped No headache dizziness weakness numbness today. She denies smoking alcohol or illicit drugs Vitals are stable, oxygen is slightly on the low side 90% on room air Labs including CBC, BMP, liver enzymes, INR are unremarkable proBNP is 1270 Influenza A and type B, RSV, SARS (coronavirus) are undetected hip and pelvis x-ray: No acute osseous abnormality of the left hip Chest x-ray: Right lower lobe infiltrate 08/18 Patient complaining from left hip pain but CT of the hip is negative for acute fracture She still have some shortness of breath and coughing but no chest pain She is still treated for large lower lobe pneumonia with Zithromax and ceftriaxone. Procalcitonin is negative We are going to repeat chest x-ray tomorrow morning Remains on nystatin for lower abdominal and groin candidiasis Objective - Vital Signs Vital signs: Vital Signs Temp 97.5 F L 08/18/24 07:34 Pulse 59 L 08/18/24 07:34 Resp 17 08/18/24 07:34 BP 107/68 08/18/24 07:34 Pulse Ox 95 08/18/24 07:34 FiO2 Intake & Output 08/17/24 08/18/24 08/18/24 18:59 06:59 18:59 Weight 107.955 kg - Exam GENERAL: The patient is alert and oriented x3, not in any acute distress. Well developed, well nourished. HEENT: Pupils are round and equally reacting to light. EOMI. No scleral icterus. No conjunctival pallor. Normocephalic, atraumatic. No pharyngeal erythema. No thyromegaly. CARDIOVASCULAR: S1 and S2 present. No murmurs, rubs, or gallops. PULMONARY: Chest is clear to auscultation, no wheezing , no crackles. ABDOMEN: Soft, nontender, nondistended, normoactive bowel sounds. No palpable organomegaly. MUSCULOSKELETAL: No joint swelling or deformity. EXTREMITIES: No cyanosis, clubbing, or pedal edema. NEUROLOGICAL: Gross neurological examination did not reveal any focal deficits. SKIN: No rashes. no petechiae. 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 She is mostly wheelchair-bound sometimes use a walker. History of right breast cancer status postlumpectomy in 2022 s/p radiotherapy Plan: Continue with ceftriaxone and Zithromax. Follow-up culture results Continue with bronchodilator and breathing treatment Continue with oxygen treatment as needed Pulmonary team consult Will order CT of the left hip to rule out fracture given history of trauma Labs and medication were reviewed.. Continue same treatment. Continue with symptomatic treatment. Resume home medication. Monitor labs and vitals. DVT and GI prophylaxis. Further recommendations as per clinical course of the patient DVT prophylaxis: Subcutaneous h Lovenox GI Prophylaxis: Pepcid PT/OT: Pending Prognosis is guarded
--- NOTE | 2024-08-19 07:09 | XR ---
EXAMINATION TYPE: XR chest 1V DATE OF EXAM: 08/19/2024 COMPARISON: 08/17/2024 HISTORY: Shortness of breath TECHNIQUE: Single frontal view of the chest is obtained. FINDINGS: The focal opacity in the right lower lung zone is unchanged. The left lung remains clear. There is no pneumothorax. Heart and pulmonary vasculature are normal. IMPRESSION: No change in the right lower lung zone infiltrate. No new abnormality [facility], , 08/19/2024 7:06 AM
--- NOTE | 2024-08-19 10:50 | P.PN ---
Subjective This is a pleasant 78 years old female with past medical history of multiple medical problems as below Patient presents because she fell few weeks ago and presents this time because of left hip pain with difficulty walking for about 1 week. Patient states that about a week ago she was going from her restroom back to her bedroom where she fell, she denies dizziness, syncope. Patient also complaining from left hip pain about 7-8/10 in severity, increased with movement, her pain was very bad yesterday that is why she decided to come to the emergency room. [place] like shooting pain increasing by movement Also patient complaining from shortness of breath. With cough and phlegm but no chest pain She has low appetite but no nausea vomiting, she had diarrhea about 3 to 4 days ago but now stopped No headache dizziness weakness numbness today. She denies smoking alcohol or illicit drugs Vitals are stable, oxygen is slightly on the low side 90% on room air Labs including CBC, BMP, liver enzymes, INR are unremarkable proBNP is 1270 Influenza A and type B, RSV, SARS (coronavirus) are undetected hip and pelvis x-ray: No acute osseous abnormality of the left hip Chest x-ray: Right lower lobe infiltrate 08/18 Patient complaining from left hip pain but CT of the hip is negative for acute fracture She still have some shortness of breath and coughing but no chest pain She is still treated for large lower lobe pneumonia with Zithromax and ceftriaxone. Procalcitonin is negative We are going to repeat chest x-ray tomorrow morning Remains on nystatin for lower abdominal and groin candidiasis 08/19 Patient with minimal respiratory symptoms Oxygen saturation is improving slightly, 96% room air Repeat chest x-ray from today showing persistent right lower lobe infiltrate, I reviewed his x-ray by myself and agree Patient on Zithromax and ceftriaxone Oral Lasix is on hold Pro- Calcitonin it is within the reference range 0.12 We will consult pulmonary service Her left hip pain is better, skin rash of the skin folds of the abdomen is also better Review of systems CONSTITUTIONAL: No fever, no malaise, no fatigue. HEENT: No recent visual problems or hearing problems. Denied any sore throat. HEMATOLOGICAL: Denies any bleeding or petechiae. GENITOURINARY: Denies any burning micturition, frequency, or urgency. MUSCULOSKELETAL/RHEUMATOLOGICAL: Denies any joint pain, swelling, or any muscle pain. ENDOCRINE: Denies any polyuria or polydipsia. Active Medications Generic Name Dose Route Start Last Admin Trade Name Freq PRN Reason Stop Dose Admin Hydrocodone Bitart/Acetaminophen 1 each 08/18/24 12:27 08/19/24 03:36 Hydrocodone/Apap 10-325mg 1 Each Tab PO 1 each Q6H PRN Administration Pain Albuterol Sulfate 2.5 mg 08/17/24 07:34 Albuterol Nebulized 2.5 Mg/3 Ml INHALATION RT-Q6H PRN Shortness Of Breath Allopurinol 300 mg 08/18/24 09:00 08/19/24 08:43 Allopurinol 300 Mg Tab PO 300 mg DAILY LAVELLE Administration Ceftriaxone Sodium 2 gm/ 50 mls @ 100 mls/hr 08/18/24 09:00 08/19/24 08:44 Sodium Chloride IVPB 08/21/24 09:29 100 mls/hr Q24HR LAVELLE Administration Protocol Magnesium Oxide 400 mg 08/17/24 09:00 08/19/24 08:44 Magnesium Oxide 400 Mg Tab PO 400 mg BID LAVELLE Administration Methocarbamol 500 mg 08/17/24 21:00 08/18/24 20:21 Methocarbamol 500 Mg Tab PO 500 mg HS LAVELLE Administration Miscellaneous Information 1 each 08/17/24 07:30 Pneumonia Protocol Utilized 1 Each Misc PO ONCE PRN Per Protocol Nystatin 1 applic 08/17/24 16:00 08/19/24 08:46 Nystatin 100,000 Unit/Gm Oint 30 Gm Tube TOPICAL 08/24/24 15:59 1 applic TID LAVELLE Administration Protocol Pregabalin 200 mg 08/17/24 09:00 08/19/24 08:43 Pregabalin 100 Mg Cap PO 200 mg BID LAVELLE Administration Sodium Chloride 10 ml 08/17/24 09:00 08/19/24 08:44 Sodium Chloride 0.9% Flush 10 Ml Syringe IV 10 ml BID LAVELLE Administration Objective - Vital Signs Vital signs: Vital Signs Temp 97.5 F L 08/18/24 07:34 Pulse 59 L 08/18/24 07:34 Resp 17 08/18/24 07:34 BP 107/68 08/18/24 07:34 Pulse Ox 95 08/18/24 07:34 FiO2 Intake & Output 08/17/24 08/18/24 08/18/24 18:59 06:59 18:59 Weight 107.955 kg - Exam GENERAL: The patient is alert and oriented x3, not in any acute distress. Well developed, well nourished. HEENT: Pupils are round and equally reacting to light. EOMI. No scleral icterus. No conjunctival pallor. Normocephalic, atraumatic. No pharyngeal erythema. No thyromegaly. CARDIOVASCULAR: S1 and S2 present. No murmurs, rubs, or gallops. PULMONARY: Chest is clear to auscultation, no wheezing , no crackles. ABDOMEN: Soft, nontender, nondistended, normoactive bowel sounds. No palpable organomegaly. MUSCULOSKELETAL: No joint swelling or deformity. EXTREMITIES: No cyanosis, clubbing, or pedal edema. NEUROLOGICAL: Gross neurological examination did not reveal any focal deficits. SKIN: No rashes. no petechiae. 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 She is mostly wheelchair-bound sometimes use a walker. History of right breast cancer status postlumpectomy in 2022 s/p radiotherapy Plan: Continue with ceftriaxone and Zithromax. Follow-up culture results Continue with bronchodilator and breathing treatment Continue with oxygen treatment as needed Pulmonary team consult Repeat chest x-ray reviewed Labs and medication were reviewed.. Continue same treatment. Continue with symptomatic treatment. Resume home medication. Monitor labs and vitals. DVT and GI prophylaxis. Further recommendations as per clinical course of the patient DVT prophylaxis: Subcutaneous h Lovenox GI Prophylaxis: Pepcid PT/OT: Pending Prognosis is guarded
[2024-08-20] MEDS: MAGNESIUM HYDROXIDE 2,400 MG/30 ML CUP PO PRN (08:21)
--- NOTE | 2024-08-20 08:52 | P.PN ---
Subjective Progress Note Date: 08/20/24 This is an 78-year-old female who originally presented to the emergency department with complaints of hip pain. Patient reported she had fallen a few weeks ago and has had hip pain and difficulty walking since. Patient also complained of shortness of breath with cough and phlegm on admission. Chest x-ray on admission showed right lower lobe infiltrate. CT of the hip was negative for any acute fracture. Patient was started on Zithromax and ceftriaxone for pneumonia. Patient seen this morning laying in bed. She reports her hip is feeling better. She also reports her breathing is starting to feel better. Vital signs are stable. Pulmonology was consulted yesterday, however have not seen patient yet. Objective - Vital Signs Vital signs: Vital Signs Temp 97.7 F 08/20/24 07:28 Pulse 65 08/20/24 07:28 Resp 17 08/20/24 07:28 BP 118/74 08/20/24 07:28 Pulse Ox 95 08/20/24 07:28 FiO2 Intake & Output 08/19/24 08/20/24 08/20/24 18:59 06:59 18:59 Output Total 300 Balance -300 Output: Urine 300 - Constitutional General appearance: Present: cooperative, no acute distress - EENT Eyes: Present: PERRLA - Neck Neck: Present: normal ROM. Absent: lymphadenopathy, rigidity - Respiratory Respiratory: bilateral: rhonchi, wheezing - Cardiovascular Rhythm: regular Heart sounds: normal: S1, S2 - Gastrointestinal General gastrointestinal: Present: soft. Absent: tenderness - Integumentary Integumentary: Present: normal, normal turgor - Musculoskeletal Musculoskeletal: Present: generalized weakness - Psychiatric Psychiatric: Present: A&O x's 3 - Labs CBC & Chem 7: 08/18/24 03:12 08/18/24 03:12 Labs: Microbiology - Last 24 Hours (Table) 08/18/24 07:54 Gram Stain - Final Sputum Sputum Culture - Final 08/17/24 09:13 Blood Culture - Preliminary Blood Assessment and Plan (1) Left hip pain Current Visit: Yes Status: Acute Code(s): M25.552 - PAIN IN LEFT HIP SNOMED Code(s): 29559322 (2) Pneumonia Current Visit: Yes Status: Acute Code(s): J18.9 - PNEUMONIA, UNSPECIFIED OR GANISM SNOMED Code(s): 140164582 (3) Immobility Current Visit: No Status: Acute Code(s): Z74.09 - OTHER REDUCED MOBILITY SNOMED Code(s): 008503854 (4) Lumbar degenerative disc disease Current Visit: No Status: Acute Code(s): M51.36 - OTHER INTERVERTEBRAL DISC DEGENERATION, LUMBAR REGION SNOMED Code(s): 64494628 (5) Chronic low back pain Current Visit: No Status: Acute Code(s): M54.50 - LOW BACK PAIN, UNSPECIFIED; G89.29 - OTHER CHRONIC PAIN SNOMED Code(s): 262740241 Plan: Appreciate pulmonology consult. Check CBC and CMP in the morning. Patient seen and evaluated by nurse practitioner, physician in agreement with plan
[2024-08-20 09:02] LABS: Basophils # (A) 0.04 X 10*3/uL (0.00-0.10); Basophils % (A) 0.7 %; Eosinophils # (A) 0.25 X 10*3/uL (0.04-0.35); Eosinophils % (A) 4.2 %; HGB 13.2 g/dL (12.0-15.0); Lymphocytes # (A) 1.85 X 10*3/uL (0.90-5.00); MCH 34.6 pg (27.0-32.0); Monocytes # (A) 0.72 X 10*3/uL (0.20-1.00); Monocytes % (A) 12.1 %; NRBC Per 100 WBC 0 X 10*3/uL (0.00-0.01); Neutrophils # (A) 3.08 X 10*3/uL (1.80-7.70); Neutrophils % (A) 51.7 %; Platelet Count 209 X 10*3/uL (140-440); RBC 3.81 X 10*6/uL (4.10-5.20); RDW 14.6 % (11.5-14.5); WBC 5.96 X 10*3/uL (4.50-10.00)
[2024-08-20 09:12] LABS: BUN/Creat Ratio 14.14 Ratio (12.00-20.00); Blood Urea Nitrogen 9.9 mg/dL (9.0-27.0); Calcium 8.2 mg/dL (8.7-10.3); Carbon Dioxide 24.8 mmol/L (21.6-31.8); Chloride 103 mmol/L (96-109); Glucose 110 mg/dL (70-110); Potassium 3.7 mmol/L (3.5-5.5); Sodium 140 mmol/L (135-145)
--- NOTE | 2024-08-20 10:39 | P.CNPUL ---
History of Present Illness Consult date: 08/19/24 Reason for consult: dyspnea, hypoxemia, pneumonia Chief complaint: Fall and left hip pain History of present illness: 78-year-old female who came into the hospital with several week history of progressive left hip pain and difficulty in ambulation thought to be related to fall, in addition patient started having cough shortness of breath and sputum production. Primary history significant for gout, hypertension hypertensive cardiovascular disease, osteoporosis, bronchial asthma, vitamin D deficiency DVT, dementia, PE, sleep apnea and sleep disordered breathing patient is a non-smoker. Admitted x- ray significant for right lower lobe infiltrate, however left hip x-ray no acute osseous abnormality seen patient has a duplex ultrasound lower extremity no evidence of DVT seen hip CT no acute trauma to the left hip was noted osteoarthritis of left hip however seen disc disease of the lower lumbar spine seen repeat checks x-ray however continue to show infiltrate Review of Systems All systems: negative Past Medical History Past Medical History: Cancer, Deep Vein Thrombosis (DVT), GERD/Reflux, Hyperlipidemia, Memory Impairment, Osteoarthritis (OA), Pulmonary Embolus (PE), Sleep Apnea/CPAP/BIPAP Additional Past Medical History / Comment(s): Chronic lower back pain, L3-L4 herniated disc, L sided sciatica, bilateral foot drop-wears braces, uses walker prn but states mostly in wheelchair.., Hx R breast cancer with lumpectomy/radiation 2022, bronchitis, sinus problems., hemorrhoid, wears pull- ups for urine leakage., 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 History of Any Multi-Drug Resistant Organisms: None Reported Past Surgical History: Back Surgery, Breast Surgery, Cholecystectomy, Tonsillectomy, Tubal Ligation Additional Past Surgical History / Comment(s): RIGHT MASTECTOMY. 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 BACK SURGERY X2, pain clinic procedures. Past Anesthesia/Blood Transfusion Reactions: No Reported Reaction Past Psychological History: No Psychological Hx Reported Additional Psychological History / Comment(s): . Smoking Status: Never smoker Past Alcohol Use History: None Reported Past Drug Use History: None Reported - Past Family History Father Additional Family Medical History / Comment(s): Father at the age of 53 yrs from "broken heart" 6 weeks after the of his son. Mother Family Medical History: Deep Vein Thrombosis (DVT) Additional Family Medical History / Comment(s): Mother at the age of 61 pt believes from a brain tumor. Blood clot x2. Medications and Allergies Home Medications Medication Instructions Recorded Confirmed Type allopurinoL [Zyloprim] 300 mg PO DAILY 05/29/19 08/17/24 History Furosemide [Lasix] 20 mg PO DAILY 12/18/20 08/17/24 History HYDROcodone/APAP 10-325MG [[place] 1 tab PO Q6H PRN 12/29/23 08/17/24 History 10-325] Pregabalin [Lyrica] 200 mg PO BID 12/29/23 08/17/24 History D3 (Unknown Dose) 1 tab PO BID 01/20/24 08/17/24 History Empagliflozin/Metformin HCl 1 tab PO BID 08/17/24 08/17/24 History [Synjardy 5-500 mg Tablet] Multivitamins, Thera [Multivitamin 1 tab PO DAILY 08/17/24 08/17/24 History (formulary)] methocarbamoL [Robaxin] 500 mg PO HS 08/17/24 08/17/24 History Allergies Allergy/AdvReac Type Severity Reaction Status Date / Time No Known Allergies Allergy Verified 08/17/24 08:42 Physical Exam Vitals: Vital Signs Temp Pulse Resp BP Pulse Ox 08/19/24 13:03 97.8 F 65 17 104/65 94 L 08/19/24 08:00 53 L 17 08/19/24 07:20 97.4 F L 53 L 17 92/58 96 08/19/24 00:46 97.6 F 65 18 150/63 96 08/18/24 19:32 98.5 F 63 17 106/56 96 Intake and Output 08/19/24 08/19/24 08/19/24 06:59 14:59 22:59 Output Total 450 Balance -450 Output: Urine 450 - Constitutional General appearance: average body habitus, cooperative, disheveled, mild distress - EENT Eyes: EOMI, PERRLA Ears: bilateral: normal - Neck Neck: normal ROM Carotids: bilateral: upstroke normal Thyroid: bilateral: normal size - Respiratory Respiratory: bilateral: CTA (Parpart), diminished (Basis) - Cardiovascular Rhythm: regular Heart sounds: normal: S1, S2 - Gastrointestinal General gastrointestinal: normal bowel sounds, soft - Integumentary Integumentary: normal turgor - Musculoskeletal Musculoskeletal: gait normal, generalized weakness, strength equal bilaterally - Psychiatric Psychiatric: A&O x's 3, appropriate affect, intact judgment & insight Results - Laboratory Findings CBC and BMP: 08/20/24 03:07 08/20/24 03:07 Abnormal lab findings: Abnormal Labs 08/17/24 08/17/24 08/18/24 04:51 04:51 03:12 RBC 4.06 L MCV 104.8 H 104.4 H MCH 34.7 H RDW 14.6 H Anion Gap Est GFR (CKD-EPI) Glucose 118 H Calcium Total Bilirubin 1.5 H AST 45 H 08/18/24 03:12 RBC MCV MCH RDW Anion Gap 12.30 H Est GFR (CKD-EPI) 57 L Glucose 114 H Calcium 8.6 L Total Bilirubin AST - Diagnostic Findings Chest x-ray: report reviewed, image reviewed (Persistent pneumonia on the left lower lobe) Assessment and Plan Assessment: Right lower lobe pneumonia Acute hypoxic respiratory failure Sleep disordered breathing and sleep apnea History of DVT PE Dyslipidemia GERD Chronic gouty arthritis Bilateral chronic foot drop Left hip pain and left lumbar pain Plan: Continue broad-spectrum antibiotics, increase activity as tolerated, blood culture and sputum culture negative Gram stain on sputum normal respiratory frantz Chest x-ray continue to show pneumonia will obtain CT scan of the chest without contrast COPD, not in exacerbation continue bronchodilator on IV steroids Status post mechanical fall and left hip pain and back pain due to degenerative joint disease osteoarthritis of lumbar vertebra, CT scan of the left hip negative for any acute fracture Hypertension dyslipidemia, continue expectant treatment Time with Patient: Greater than 30
--- NOTE | 2024-08-20 10:42 | P.PN ---
Subjective Progress Note Date: 08/20/24 Principal diagnosis: Right lower lobe pneumonia Acute hypoxic respiratory failure Sleep disordered breathing and sleep apnea History of DVT PE Dyslipidemia GERD Chronic gouty arthritis Bilateral chronic foot drop Left hip pain and left lumbar pain August 20, 2024, patient seen evaluate examined during rounds ongoing shortness of breath and better cough is present patient remains on broad- spectrum antibiotics for right lower lobe pneumonia, culture results reports reviewed so far has been negative, CT scan of the chest is being ordered for persistent right lower lobe infiltrate ammonia 78-year-old female who came into the hospital with several week history of progressive left hip pain and difficulty in ambulation thought to be related to fall, in addition patient started having cough shortness of breath and sputum production. Primary history significant for gout, hypertension hypertensive cardiovascular disease, osteoporosis, bronchial asthma, vitamin D deficiency DVT, dementia, PE, sleep apnea and sleep disordered breathing patient is a non-smoker. Admitted x- ray significant for right lower lobe infiltrate, however left hip x-ray no acute osseous abnormality seen patient has a duplex ultrasound lower extremity no evidence of DVT seen hip CT no acute trauma to the left hip was noted osteoarthritis of left hip however seen disc disease of the lower lumbar spine seen repeat checks x-ray however continue to show infiltrate Objective - Vital Signs Vital signs: Vital Signs Temp 97.7 F 08/20/24 07:28 Pulse 65 08/20/24 07:28 Resp 17 08/20/24 07:28 BP 118/74 08/20/24 07:28 Pulse Ox 95 08/20/24 07:28 FiO2 Intake & Output 08/19/24 08/20/24 08/20/24 18:59 06:59 18:59 Output Total 300 Balance -300 Output: Urine 300 Other: Voiding Method External Catheter - Exam - Constitutional General appearance: average body habitus, cooperative, disheveled, mild distress - EENT Eyes: EOMI, PERRLA Ears: bilateral: normal - Neck Neck: normal ROM Carotids: bilateral: upstroke normal Thyroid: bilateral: normal size - Respiratory Respiratory: bilateral: CTA (Parpart), diminished (Basis) - Cardiovascular Rhythm: regular Heart sounds: normal: S1, S2 - Gastrointestinal General gastrointestinal: normal bowel sounds, soft - Integumentary Integumentary: normal turgor - Musculoskeletal Musculoskeletal: gait normal, generalized weakness, strength equal bilaterally - Psychiatric Psychiatric: A&O x's 3, appropriate affect, intact judgment & insight - Labs CBC & Chem 7: 08/20/24 03:07 08/20/24 03:07 Labs: Abnormal Lab Results - Last 24 Hours (Table) 08/20/24 08/20/24 Range/Units 03:07 03:07 RBC 3.81 L (4.10-5.20) X 10*6/uL MCV 105.0 H (80.0-97.0) FL MCH 34.6 H (27.0-32.0) pg RDW 14.6 H (11.5-14.5) % Anion Gap 12.20 H (4.00-12.00) mmol/L Calcium 8.2 L (8.7-10.3) mg/dL Microbiology - Last 24 Hours (Table) 08/18/24 07:54 Gram Stain - Final Sputum Sputum Culture - Final 08/17/24 09:13 Blood Culture - Preliminary Blood Assessment and Plan Assessment: Right lower lobe pneumonia Acute hypoxic respiratory failure Sleep disordered breathing and sleep apnea History of DVT PE Dyslipidemia GERD Chronic gouty arthritis Bilateral chronic foot drop Left hip pain and left lumbar pain Plan: Continue broad-spectrum antibiotics, increase activity as tolerated, blood culture and sputum culture negative Gram stain on sputum normal respiratory frantz Chest x-ray continue to show pneumonia will obtain CT scan of the chest without contrast COPD, not in exacerbation continue bronchodilator on IV steroids Status post mechanical fall and left hip pain and back pain due to degenerative joint disease osteoarthritis of lumbar vertebra, CT scan of the left hip negative for any acute fracture Hypertension dyslipidemia, continue expectant treatment Time with Patient: Greater than 30
--- NOTE | 2024-08-20 13:01 | CT ---
EXAMINATION TYPE: CT chest wo con CT DLP: 561.7 mGycm, Automated exposure control for dose reduction was used. DATE OF EXAM: 08/20/2024 12:35 PM COMPARISON: Chest radiograph 08/19/2024, CT chest and pelvis 05/20/2021 CLINICAL INDICATION:Female, 78 years old with history of rll mass; PHH, rll mass TECHNIQUE: Multiple axial images were obtained through the chest without IV contrast. Lack of IV or o ral contrast limits evaluation of solid and hollow organ viscera. . Coronal and sagittal reformats re viewed. FINDINGS: LUNGS/ PLEURA: No pneumothorax. Trace right pleural effusion. Left midlung linear atelectasis and/or scarring. Few patchy right lower lobe groundglass opacities. Development of lateral right upper lobe 2.5 cm pulmonary nodule (series 201, image 21). Additional development of superior segment right low er lobe 2.9 cm pulmonary nodule (series 201, image 32). Additional smaller subcentimeter nodules in t he right lower lobe with exam including a right lower lobe 4 mm pulmonary nodule (series 205, image 4 4) and a right lower lobe 5 mm pulmonary nodule (series 205, image 39). AIRWAY: Patent and unremarkable.. HEART: Size within normal limits. No pericardial effusion. MEDIASTINUM: Enlarged mediastinal lymph nodes with examples including a subcarinal lymph node measuri ng 1.6 cm short axis and a right paratracheal lymph node measuring 2.5 cm (series 21, image 19). Thes e are new from prior exam. There is also bulkiness of the right pulmonary hilum but limited evaluatio n due to lack of intravenous contrast. VASCULATURE: No aortic aneurysm. Mild atherosclerotic calcification of the aorta and its branches. MUSCULOSKELETAL: No acute osseous abnormalities. Bilateral shoulder arthropathy. No aggressive osseou s lesions. Multilevel degenerative changes of the visualized spine. SOFT TISSUES/LYMPH NODES: No discrete axillary lymphadenopathy. Postsurgical changes from right maste ctomy with large organized fluid collection within the right anterior chest measuring 11.8 x 3.5 x 7. 6 cm. LOWER NECK: No significant findings. UPPER ABDOMEN: Postcholecystectomy changes with expected extra hepatic biliary ductal dilatation filemon uring at least 15 mm. There is surface nodularity with possible posterior notch sign of the liver. Marialuisa ramsayd evaluation of the liver due to lack of intravenous contrast. Paraesophageal collateral vessels. Collateral vessels in the gastrohepatic region. IMPRESSION: 1. Development of 2 large right lung pulmonary nodules with largest measuring up to 2.9 cm. Additiona l development of smaller subcentimeter right lung pulmonary nodules. Additionally development of medi astinal adenopathy with suspected right hilar adenopathy however evaluation is limited due to lack of intravenous contrast. Findings are highly suspicious for metastatic disease in the setting of prior breast cancer. 2. Postmastectomy changes of the right breast with development of a large fluid collection measuring up to 11.8 cm. May represent a seroma versus other etiologies. 3. Findings suspicious for hepatic cirrhosis with the morphology of the liver and esophageal and hiro rohepatic collateral vessels. 4. Trace right pleural effusion. 5. Additional patchy small ground glass opacities within the right lower lobe which may represent inf ectious/inflammatory bronchiolitis versus developing metastasis. [facility], , 08/20/2024 12:59 PM
[2024-08-21 08:37] LABS: HCT 40.2 % (37.2-46.3); HGB 13.3 g/dL (12.0-15.0); MCH 34.2 pg (27.0-32.0); MCHC 33.1 g/dL (32.0-37.0); MCV 103.3 FL (80.0-97.0); Mean Platelet Volume 10.8 FL (9.5-12.2); NRBC Per 100 WBC 0 X 10*3/uL (0.00-0.01); Platelet Count 216 X 10*3/uL (140-440); RBC 3.89 X 10*6/uL (4.10-5.20); RDW 14.4 % (11.5-14.5); WBC 5.35 X 10*3/uL (4.50-10.00)
[2024-08-21 08:47] LABS: ALT 22 U/L (8-44); AST 53 U/L (13-35); Albumin 3.2 g/dL (3.8-4.9); Albumin/Globulin Ratio 1.14 Ratio (1.60-3.17); Alkaline Phosphatase 91 U/L (41-126); BUN/Creat Ratio 14.43 Ratio (12.00-20.00); Blood Urea Nitrogen 10.1 mg/dL (9.0-27.0); Calcium 8.3 mg/dL (8.7-10.3); Carbon Dioxide 26.1 mmol/L (21.6-31.8); Chloride 104 mmol/L (96-109); Globulin 2.8 g/dL (1.6-3.3); Glucose 115 mg/dL (70-110); Potassium 3.7 mmol/L (3.5-5.5); Sodium 140 mmol/L (135-145); Total Bilirubin 0.5 mg/dL (0.3-1.2)
--- NOTE | 2024-08-21 09:15 | P.PN ---
Subjective Progress Note Date: 08/21/24 This is an 78-year-old female who originally presented to the emergency department with complaints of hip pain. Patient reported she had fallen a few weeks ago and has had hip pain and difficulty walking since. Patient also complained of shortness of breath with cough and phlegm on admission. Chest x-ray on admission showed right lower lobe infiltrate. CT of the hip was negative for any acute fracture. Patient was started on Zithromax and ceftriaxone for pneumonia. Patient seen this morning laying in bed. She reports her hip is feeling better. She also reports her breathing is starting to feel better. Vital signs are stable. Pulmonology was consulted yesterday, however have not seen patient yet. 08/21/24 Patient seen and evaluated sitting in chair at bedside this morning. She reports she is still coughing and bringing up some phlegm. Pulmonary ordered a chest CT yesterday which shows 2 lung nodules possible metastatic disease from breast cancer. Patient reports she would like to have this investigated, and is willing to do whatever treatment recommended. Objective - Vital Signs Vital signs: Vital Signs Temp 97.6 F 08/21/24 02:00 Pulse 64 08/21/24 02:00 Resp 18 08/20/24 14:00 BP 97/51 08/21/24 02:00 Pulse Ox 96 08/21/24 02:00 FiO2 Intake & Output 08/20/24 08/21/24 08/21/24 18:59 06:59 18:59 Intake Total 240 Output Total 400 Balance -160 Intake: Oral 240 Output: Urine 400 Other: Voiding Method External Catheter External Catheter External Catheter - Constitutional General appearance: Present: cooperative, no acute distress - EENT Eyes: Present: PERRLA - Neck Neck: Present: normal ROM. Absent: lymphadenopathy, rigidity - Respiratory Respiratory: bilateral: rhonchi, wheezing - Cardiovascular Rhythm: regular Heart sounds: normal: S1, S2 - Gastrointestinal General gastrointestinal: Present: soft. Absent: tenderness - Integumentary Integumentary: Present: normal, normal turgor - Musculoskeletal Musculoskeletal: Present: generalized weakness - Psychiatric Psychiatric: Present: A&O x's 3 - Labs CBC & Chem 7: 08/21/24 03:40 08/21/24 03:40 Labs: Abnormal Lab Results - Last 24 Hours (Table) 08/20/24 08/21/24 08/21/24 Range/Units 03:07 03:40 03:40 RBC 3.89 L (4.10-5.20) X 10*6/uL MCV 103.3 H (80.0-97.0) FL MCH 34.2 H (27.0-32.0) pg Anion Gap 12.20 H (4.00-12.00) mmol/L Glucose 115 H (70-110) mg/dL Calcium 8.2 L 8.3 L (8.7-10.3) mg/dL AST 53 H (13-35) U/L Total Protein 6.0 L (6.2-8.2) g/dL Albumin 3.2 L (3.8-4.9) g/dL Albumin/Globulin Ratio 1.14 L (1.60-3.17) Ratio Microbiology - Last 24 Hours (Table) 08/17/24 09:13 Blood Culture - Preliminary Blood 08/18/24 07:54 Gram Stain - Final Sputum Sputum Culture - Final Assessment and Plan (1) Left hip pain Current Visit: Yes Status: Acute Code(s): M25.552 - PAIN IN LEFT HIP SNOMED Code(s): 16169497 (2) Pneumonia Current Visit: Yes Status: Acute Code(s): J18.9 - PNEUMONIA, UNSPECIFIED ORGANISM SNOMED Code(s): 148358661 (3) Immobility Current Visit: No Status: Acute Code(s): Z74.09 - OTHER REDUCED MOBILITY SNOMED Code(s): 776521187 (4) Lumbar degenerative disc disease Current Visit: No Status: Acute Code(s): M51.36 - OTHER INTERVERTEBRAL DISC DEGENERATION, LUMBAR REGION SNOMED Code(s): 21028515 (5) Chronic low back pain Current Visit: No Status: Acute Code(s): M54.50 - LOW BACK PAIN, UNSPECIFIED; G89.29 - OTHER CHRONIC PAIN SNOMED Code(s): 746185726 (6) History of breast cancer Current Visit: No Status: Acute Code(s): Z85.3 - PERSONAL HISTORY OF MAL IGNANT NEOPLASM OF BREAST SNOMED Code(s): 638342893 Plan: Will consult oncology. Continue antibiotics. Continue to work with physical therapy Patient seen and evaluated by nurse practitioner, physician in agreement with plan
--- NOTE | 2024-08-21 10:08 | P.PN ---
Subjective Progress Note Date: 08/21/24 Principal diagnosis: Right-sided multiple pulmonary nodules suggestive of metastatic disease Mediastinal lymphadenopathy as above Right-sided breast cancer status postmastectomy Right lower lobe pneumonia Acute hypoxic respiratory failure Sleep disordered breathing and sleep apnea History of DVT PE Dyslipidemia GERD Chronic gouty arthritis Bilateral chronic foot drop Left hip pain and left lumbar pain August 21, 2024, patient seen evaluate examined during rounds labs reviewed medications and care plan discussed, CT scan of the chest without contrast performed patient noted to have trace pleural effusion along with basilar atelectasis patchy right lower lobe groundglass opacities were seen, right lateral 2.5 cm nodule and right lower 2.9 cm nodule seen, patient noted to have hilar adenopathy as well noted that primary service has consulted medical oncology given history of prior breast cancer. Patient remains on bronchodilators along with IV Rocephin August 20, 2024, patient seen evaluate examined during rounds ongoing shortness of breath and better cough is present patient remains on broad- spectrum antibiotics for right lower lobe pneumonia, culture results reports reviewed so far has been negative, CT scan of the chest is being ordered for per sistenfercho right lower lobe infiltrate ammonia 78-year-old female who came into the hospital with several week history of progressive left hip pain and difficulty in ambulation thought to be related to fall, in addition patient started having cough shortness of breath and sputum production. Primary history significant for gout, hypertension hypertensive cardiovascular disease, osteoporosis, bronchial asthma, vitamin D deficiency DVT, dementia, PE, sleep apnea and sleep disordered breathing patient is a non-smoker. Admitted x- ray significant for right lower lobe infiltrate, however left hip x-ray no acute osseous abnormality seen patient has a duplex ultrasound lower extremity no evidence of DVT seen hip CT no acute trauma to the left hip was noted osteoarthritis of left hip however seen disc disease of the lower lumbar spine seen repeat checks x-ray however continue to show infiltrate Objective - Vital Signs Vital signs: Vital Signs Temp 97.6 F 08/21/24 02:00 Pulse 64 08/21/24 02:00 Resp 18 08/20/24 14:00 BP 97/51 08/21/24 02:00 Pulse Ox 96 08/21/24 02:00 FiO2 Intake & Output 08/20/24 08/21/24 08/21/24 18:59 06:59 18:59 Intake Total 240 Output Total 400 Balance -160 Intake: Oral 240 Output: Urine 400 Other: Voiding Method External Catheter External Catheter External Catheter - Exam - Constitutional General appearance: average body habitus, cooperative, disheveled, mild distress - EENT Eyes: EOMI, PERRLA Ears: bilateral: normal - Neck Neck: normal ROM Carotids: bilateral: upstroke normal Thyroid: bilateral: normal size - Respiratory Respiratory: bilateral: CTA (Parpart), diminished (Basis) - Cardiovascular Rhythm: regular Heart sounds: normal: S1, S2 - Gastrointestinal General gastrointestinal: normal bowel sounds, soft - Integumentary Integumentary: normal turgor - Musculoskeletal Musculoskeletal: gait normal, generalized weakness, strength equal bilaterally - Psychiatric Psychiatric: A&O x's 3, appropriate affect, intact judgment & insight - Labs CBC & Chem 7: 08/21/24 03:40 08/21/24 03:40 Labs: Abnormal Lab Results - Last 24 Hours (Table) 08/21/24 08/21/24 Range/Units 03:40 03:40 RBC 3.89 L (4.10-5.20) X 10*6/uL MCV 103.3 H (80.0-97.0) FL MCH 34.2 H (27.0-32.0) pg Glucose 115 H (70-110) mg/dL Calcium 8.3 L (8.7-10.3) mg/dL AST 53 H (13-35) U/L Total Protein 6.0 L (6.2-8.2) g/dL Albumin 3.2 L (3.8-4.9) g/dL Albumin/Globulin Ratio 1.14 L (1.60-3.17) Ratio Microbiology - Last 24 Hours (Table) 08/17/24 09:13 Blood Culture - Preliminary Blood 08/18/24 07:54 Gram Stain - Final Sputum Sputum Culture - Final Assessment and Plan Assessment: Right-sided pulmonary nodule of 2.5 cm and 2.9 cm, likely secondary metastatic disease right upper lobe nodule is pleural-based next to lateral thoracic wall, right lower lobe nodule is within parenchyma however nodule is surrounded by lung tissue Likely mediastinal adenopathy, inflammatory or active versus metastatic, patient would likely need a PET scan as outpatient Right-sided mastectomy for history of breast cancer Right lower lobe pneumonia Acute hypoxic respiratory failure Sleep disordered breathing and sleep apnea History of DVT PE Dyslipidemia GERD Chronic gouty arthritis Bilateral chronic foot drop Left hip pain and left lumbar pain Plan: CT scan finding reviewed, awaiting recommendation from oncology service patient likely will CT-guided biopsy of right upper lobe nodule which is next to chest wall and pleural-based Continue broad-spectrum antibiotics, increase activity as tolerated, blood culture and sputum culture negative Gram stain on sputum normal respiratory frantz COPD, not in exacerbation continue bronchodilator on IV steroids Status post mechanical fall and left hip pain and back pain due to degenerative joint disease osteoarthritis of lumbar vertebra, CT scan of the left hip negative for any acute fracture Hypertension dyslipidemia, continue expectant treatment Time with Patient: Greater than 30
[2024-08-21] MEDS ORDERED: bisacodyL 5 MG TABLET.DR PO PRN (10:22)
[2024-08-21] MEDS: NA PHOS,M-B/NA PHOS,DI-BA 133 ML ENEMA RECTAL STA (11:38)
--- NOTE | 2024-08-21 14:23 | P.CONS ---
History of Present Illness - Reason for Consult Consult date: 08/21/24 possible met breast cancer Requesting physician: Angle Archibald - Chief Complaint pain, SOB - History of Present Illness Mrs. Jackson is an 78-year-old female patient of Dr. Chen with Hx of early- stage right breast cancer, diagnosed in 2000 in [place], treated with lumpe ctomy, axillary node dissection, adjuvant radiation and 5 years of tamoxifen. She was evaluated in [address] Chen and has followed with him since for labs and her Hx of breast cancer. She presented in May of 2019 with sudden onset paralysis of both legs and incontinent of urine and stool. She had surgery for herniated disc, complicated by DVT and PE. She had a laminectomy July 2019. April 2021 she had a skin lesion on the right breast, biopsy was positive for breast cancer. CT CAP was negative for metastatic disease. 07/21/2021 she had right mastectomy, sentinel lymph node biopsy. Pathology revealing grade 3, invasive carcinoma, T4b N0, ER/NM positive, HER2 negative. No adjuvant radiation. Started Arimidex June 2021. Mammograms in 2021 and 2022 were negative. She changed to exemestane in June 2023 however, she stopped it due to worsening muscle and joint pains. She started Fosamax for osteopenia October 2021. She continued on follow-up as directed, deciding to stop endocrine therapy August 2023 because it affected her quality of life. She was aware of the risk of local and systemic recurrence. She also stopped fosamax. Last seen Dec 2023, was changed to annual f/u. Patient presenting to the hospital due to persistent pain in the left hip. She fell a few weeks ago and was evaluated but, no acute intervention was needed. She also is reporting a cough and some shortness of breath. She had a CT of the chest showing right pulmonary nodules x 2 up to 2.9 cm, as well as mediastinal lymphadenopathy. We have been consulted because of the history of high risk breast cancer. Patient denies any fevers, sweats, difficulty swallowing, new or unusual chest pain, hemoptysis, nausea, vomiting, abdominal pain, acute changes in bowel or bladder habits. She is currently experiencing constipation though, she is getting treatment for the same. Hip CT reporting minimal osteoarthritis of the left hip, marked degenerative disc disease in the lower lumbar spine, large amount of stool in the rectum. Doppler of the bilateral lower extremities are negative for DVT chest x-ray no change in the right lower lung zone infiltrate no new abnormality. CBC, CMP overall unremarkable other than some macrocytosis. Review of Systems 14 point ROS is neg except as stated in HPI Past Medical History Past Medical History: Cancer, Deep Vein Thrombosis (DVT), GERD/Reflux, Hyperlipidemia, Memory Impairment, Osteoarthritis (OA), Pulmonary Embolus (PE), Sleep Apnea/CPAP/BIPAP Additional Past Medical History / Comment(s): Chronic lower back pain, L3-L4 herniated disc, L sided sciatica, bilateral foot drop-wears braces, uses walker prn but states mostly in wheelchair.., Hx R breast cancer with lumpectomy/radiation 2022, bronchitis, sinus problems., hemorrhoid, wears pull- ups for urine leakage., 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 History of Any Multi-Drug Resistant Organisms: None Reported Past Surgical History: Back Surgery, Breast Surgery, Cholecystectomy, Tonsill ectomy, Tubal Ligation Additional Past Surgical History / Comment(s): RIGHT MASTECTOMY. 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 BACK SURGERY X2, pain clinic procedures. Past Anesthesia/Blood Transfusion Reactions: No Reported Reaction Past Psychological History: No Psychological Hx Reported Additional Psychological History / Comment(s): . Smoking Status: Never smoker Past Alcohol Use History: None Reported Past Drug Use History: None Reported - Past Family History Father Additional Family Medical History / Comment(s): Father at the age of 53 yrs from "broken heart" 6 weeks after the of his son. Mother Family Medical History: Deep Vein Thrombosis (DVT) Additional Family Medical History / Comment(s): Mother at the age of 61 pt believes from a brain tumor. Blood clot x2. Medications and Allergies Home Medications Medication Instructions Recorded Confirmed Type allopurinoL [Zyloprim] 300 mg PO DAILY 05/29/19 08/17/24 History Furosemide [Lasix] 20 mg PO DAILY 12/18/20 08/17/24 History HYDROcodone/APAP 10-325MG [[place] 1 tab PO Q6H PRN 12/29/23 08/17/24 History 10-325] Pregabalin [Lyrica] 200 mg PO BID 12/29/23 08/17/24 History D3 (Unknown Dose) 1 tab PO BID 01/20/24 08/17/24 History Empagliflozin/Metformin HCl 1 tab PO BID 08/17/24 08/17/24 History [Synjardy 5-500 mg Tablet] Multivitamins, Thera [Multivitamin 1 tab PO DAILY 08/17/24 08/17/24 History (formulary)] methocarbamoL [Robaxin] 500 mg PO HS 08/17/24 08/17/24 History Allergies Allergy/AdvReac Type Severity Reaction Status Date / Time No Known Allergies Allergy Verified 08/17/24 08:42 Physical Exam Vitals: Vital Signs Temp Pulse Resp BP Pulse Ox 08/21/24 02:00 97.6 F 64 97/51 96 08/20/24 20:00 97.9 F 65 122/65 97 08/20/24 14:00 97.5 F L 56 L 18 110/68 95 08/20/24 12:05 68 124/81 97 Intake and Output 08/20/24 08/21/24 08/21/24 22:59 06:59 14:59 Intake Total 120 Output Total 400 Balance -280 Intake: Oral 120 Output: Urine 400 Other: Voiding Method External Catheter - Constitutional General appearance: cooperative, no acute distress, obese - EENT Eyes: anicteric sclerae, EOMI ENT: hearing grossly normal, normal oropharynx - Neck Neck: lymphadenopathy (left supraclavicular upt o 3 nodes palpable, 2-3cm, visible swelling ) - Respiratory Respiratory: bilateral: CTA - Cardiovascular Rhythm: regular Heart sounds: normal: S1, S2 Abnormal Heart Sounds: no systolic murmur, no diastolic murmur, no rub, no S3 Gallop, no S4 Gallop, no click, no other leg Peripheral Edema: bilateral: None - Gastrointestinal General gastrointestinal: no absent bowel sounds, no decreased bowel sounds, no distended, no hepatomegaly, no hyperactive bowel sounds, normal bowel sounds, no organomegaly, no rigid, no scaphoid, soft, no splenomegaly, no tenderness, no umbilical hernia, no ventral hernia - Integumentary Integumentary: normal - Neurologic Neurologic: CNII-XII intact - Musculoskeletal Musculoskeletal: strength equal bilaterally - Psychiatric Psychiatric: A&O x's 3, appropriate affect, intact judgment & insight Results CBC & Chem 7: 08/21/24 03:40 08/21/24 03:40 Labs: Abnormal Lab Results - Last 24 Hours (Table) 08/20/24 08/20/24 08/21/24 Range/Units 03:07 03:07 03:40 RBC 3.81 L 3.89 L (4.10-5.20) X 10*6/uL MCV 105.0 H 103.3 H (80.0-97.0) FL MCH 34.6 H 34.2 H (27.0-32.0) pg RDW 14.6 H (11.5-14.5) % Anion Gap 12.20 H (4.00-12.00) mmol/L Glucose (70-110) mg/dL Calcium 8.2 L (8.7-10.3) mg/dL AST (13-35) U/L Total Protein (6.2-8.2) g/dL Albumin (3.8-4.9) g/dL Albumin/Globulin Ratio (1.60-3.17) Ratio 08/21/24 Range/Units 03:40 RBC (4.10-5.20) X 10*6/uL MCV (80.0-97.0) FL MCH (27.0-32.0) pg RDW (11.5-14.5) % Anion Gap (4.00-12.00) mmol/L Glucose 115 H (70-110) mg/dL Calcium 8.3 L (8.7-10.3) mg/dL AST 53 H (13-35) U/L Total Protein 6.0 L (6.2-8.2) g/dL Albumin 3.2 L (3.8-4.9) g/dL Albumin/Globulin Ratio 1.14 L (1.60-3.17) Ratio Microbiology - Last 24 Hours (Table) 08/17/24 09:13 Blood Culture - Preliminary Blood 08/18/24 07:54 Gram Stain - Final Sputum Sputum Culture - Final CT scan - chest: report reviewed, image reviewed Assessment and Plan (1) Lung nodules Current Visit: Yes Status: Acute Priority: High Code(s): R91.8 - OTHER NONSPECIFIC ABNORMAL FINDING OF LUNG FIELD SNOMED Code(s): 156445977 (2) Lymphadenopathy Current Visit: Yes Status: Acute Priority: High Code(s): R59.1 - GENERALIZED ENLARGED LYMPH NODES SNOMED Code(s): 08273911 (3) History of breast cancer Current Visit: No Status: Chronic Priority: High Code(s): Z85.3 - PERSONAL HISTORY OF MALIGNANT NEOPLASM OF BREAST SNOMED Code(s): 880515276 Plan: Lung nodules, palpable lymphadenopathy -CT of the chest images reviewed. On exam palpable lymphadenopathy in the left supraclavicular area. -Case and imaging was reviewed with Interventional Radiologist. Plan for CT of the neck with contrast for them to evaluate to see if the lymphadenopathy in the left supraclavicular area is amenable to core biopsy. Pending their review and recommendations. If not amenable, will discuss with Pulmonary History of hormone receptor positive breast cancer -Diagnosis and treatment as stated in HPI -Reviewed with the patient the possibility of metastatic disease versus a new primary. Discussed with patient the need for biopsy for diagnosis. She is ag reeable to the same. Patient states that she is not sure though if she would want to pursue any aggressive treatments. Explained to patient that based on the pathology findings treatment options will be discussed at that time and she can decide. She will follow-up with Dr. Chen for results. -CA 15-3 and CA 27-29 ordered Doctor attests: I performed a history and physical examination of this patient, developed impression and plan of care. Discussed with dictator. I agree with dictators note, documented as a scribe.
--- NOTE | 2024-08-21 16:47 | US ---
EXAMINATION TYPE: US biopsy lymph node DATE OF EXAM: 08/21/2024 3:53 PM CLINICAL INDICATION:Female, 78 years old with history of malignancy COMPARISON: 08/20/2024 ATTENDING: Dr. Reed Campbell PROCEDURE: Informed consent was obtained. The risks and benefits of the procedure were discussed with the patien t. The site was marked. Timeout procedure was performed Ultrasound imaging demonstrates left shoulder lymph nodes. The patient was prepped, draped in the usual sterile fashion, and locally anesthetized with 1% lidoca ine. 3 x 18-gauge core needle biopsies were obtained.. Samples were sent to the pathology department for further analysis. Patient tolerated the procedure without incident and was sent home in stable condition. IMPRESSION: Successful ultrasound guided fine needle aspiration [facility] Diego Espinoza, , 08/21/2024 4:45 PM
--- NOTE | 2024-08-22 16:02 | P.PN ---
Subjective Progress Note Date: 08/22/24 Principal diagnosis: Pneumonia. Abnormal findings on CT of the chest, history of breast cancer In follow-up today patient states no discomfort in the neck after the lymph node biopsy. Her cough is improved, no fevers, nausea, chest pain. Objective - Vital Signs Vital signs: Vital Signs Temp 98.0 F 08/22/24 13:23 Pulse 65 08/22/24 13:23 Resp 17 08/22/24 13:23 BP 126/70 08/22/24 13:23 Pulse Ox 96 08/22/24 13:23 FiO2 Intake & Output 08/21/24 08/22/24 08/22/24 18:59 06:59 18:59 Intake Total 540 Balance 540 Intake: Oral 540 Other: Voiding Method Incontinent Incontinent Incontinent # Voids 2 2 # Bowel Movements 1 1 1 - Constitutional General appearance: Present: cooperative, no acute distress, obese - EENT Eyes: Present: anicteric sclerae, EOMI ENT: Present: hearing grossly normal - Respiratory Details: Respirations unlabored at rest - Cardiovascular Details: Skin warm, well-perfused - Neurologic Neurologic: Present: CNII-XII intact - Psychiatric Psychiatric: Present: A&O x's 3, appropriate affect, intact judgment & insight - Labs CBC & Chem 7: 08/21/24 03:40 08/21/24 03:40 Labs: Microbiology - Last 24 Hours (Table) 08/18/24 07:54 Legionella Culture - Preliminary Sputum Assessment and Plan (1) Lung nodules Current Visit: Yes Status: Acute Priority: High Code(s): R91.8 - OTHER NONSPECIFIC ABNORMAL FINDING OF LUNG FIELD SNOMED Code(s): 954390371 (2) Lymphadenopathy Current Visit: Yes Status: Acute Priority: High Code(s): R59.1 - GENERALIZED ENLARGED LYMPH NODES SNOMED Code(s): 51707643 (3) History of breast cancer Current Visit: No Status: Chronic Priority: High Code(s): Z85.3 - PERSONAL HISTORY OF MALIGNANT NEOPLASM OF BREAST SNOMED Code(s): 532070372 Plan: Lung nodules, palpable lymphadenopathy -CT of the chest images reviewed. On exam palpable lymphadenopathy in the left supraclavicular area. -Patient is status post core biopsies of the left supraclavicular lymphadenopathy. Pending pathology. History of hormone receptor positive breast cancer -Diagnosis and treatment as stated in consult -Previously reviewed with the patient the possibility of metastatic disease versus a new primary. Plans to meet with Dr. Chen to discuss biopsy results an d, if necessary, treatment options. Patient will be contacted with appointment date and time -CA 15-3 and CA 27-29 are within normal defined limits Doctor attests: I performed a history and physical examination of this patient, developed impression and plan of care. Discussed with dictator. I agree with dictators note, documented as a scribe.
--- NOTE | 2024-08-23 10:09 | P.PN ---
Subjective Progress Note Date: 08/23/24 Principal diagnosis: Right-sided multiple pulmonary nodules suggestive of metastatic disease Mediastinal lymphadenopathy as above Right-sided breast cancer status postmastectomy Right lower lobe pneumonia Acute hypoxic respiratory failure Sleep disordered breathing and sleep apnea History of DVT PE Dyslipidemia GERD Chronic gouty arthritis Bilateral chronic foot drop Left hip pain and left lumbar pain August 23, 2024, patient seen eval examined during rounds labs reviewed medications reviewed care plan discussed, patient remains afebrile, blood pressure stable 138/62, oxygen saturation 97% on room air biopsy results are still pending August 22, 2024 patient seen eval examined during rounds labs reviewed medications reviewed patient has a lymph node biopsy done results pending August 21, 2024, patient seen evaluate examined during rounds labs reviewed medi cations and care plan discussed, CT scan of the chest without contrast performed patient noted to have trace pleural effusion along with basilar atelectasis patchy right lower lobe groundglass opacities were seen, right lateral 2.5 cm nodule and right lower 2.9 cm nodule seen, patient noted to have hilar adenopathy as well noted that primary service has consulted medical oncology given history of prior breast cancer. Patient remains on bronchodilators along with IV Rocephin August 20, 2024, patient seen evaluate examined during rounds ongoing shortness of breath and better cough is present patient remains on broad- spectrum antibiotics for right lower lobe pneumonia, culture results reports reviewed so far has been negative, CT scan of the chest is being ordered for persistent right lower lobe infiltrate ammonia 78-year-old female who came into the hospital with several week history of progressive left hip pain and difficulty in ambulation thought to be related to fall, in addition patient started having cough shortness of breath and sputum production. Primary history significant for gout, hypertension hypertensive cardiovascular disease, osteoporosis, bronchial asthma, vitamin D deficiency DVT, dementia, PE, sleep apnea and sleep disordered breathing patient is a non-smoker. Admitted x- ray significant for right lower lobe infiltrate, however left hip x-ray no acute osseous abnormality seen patient has a duplex ultrasound lower extremity no evidence of DVT seen hip CT no acute trauma to the left hip was noted osteoarthritis of left hip however seen disc disease of the lower lumbar spine seen repeat checks x-ray however continue to show infiltrate Objective - Vital Signs Vital signs: Vital Signs Temp 97.7 F 08/23/24 07:14 Pulse 57 L 08/23/24 07:14 Resp 18 08/23/24 07:14 BP 138/62 08/23/24 07:14 Pulse Ox 97 08/23/24 07:14 FiO2 Intake & Output 08/22/24 08/23/24 08/23/24 18:59 06:59 18:59 Other: Voiding Method Incontinent Incontinent # Voids 1 3 # Bowel Movements 1 1 - Exam - Constitutional General appearance: average body habitus, cooperative, disheveled, mild distress - EENT Eyes: EOMI, PERRLA Ears: bilateral: normal - Neck Neck: normal ROM Carotids: bilateral: upstroke normal Thyroid: bilateral: normal size - Respiratory Respiratory: bilateral: CTA (Parpart), diminished (Basis) - Cardiovascular Rhythm: regular Heart sounds: normal: S1, S2 - Gastrointestinal General gastrointestinal: normal bowel sounds, soft - Integumentary Integumentary: normal turgor - Musculoskeletal Musculoskeletal: gait normal, generalized weakness, strength equal bilaterally - Psychiatric Psychiatric: A&O x's 3, appropriate affect, intact judgment & insight - Labs CBC & Chem 7: 08/21/24 03:40 08/21/24 03:40 Labs: Microbiology - Last 24 Hours (Table) 08/17/24 09:13 Blood Culture - Final Blood Assessment and Plan Assessment: Cervical lymphadenopathy, s/p lymph node biopsy Right-sided pulmonary nodule of 2.5 cm and 2.9 cm, likely secondary metastatic disease right upper lobe nodule is pleural-based next to lateral thoracic wall, right lower lobe nodule is within parenchyma however nodule is surrounded by lung tissue Likely mediastinal adenopathy, inflammatory or active versus metastatic, patient would likely need a PET scan as outpatient Right-sided mastectomy for history of breast cancer Right lower lobe pneumonia Acute hypoxic respiratory failure Sleep disordered breathing and sleep apnea History of DVT PE Dyslipidemia GERD Chronic gouty arthritis Bilateral chronic foot drop Left hip pain and left lumbar pain Plan: CT scan finding reviewed, awaiting recommendation from oncology service patient likely will CT-guided biopsy of right upper lobe nodule which is next to chest wall and pleural-based if lymph node biopsy comes back negative Continue broad-spectrum antibiotics, increase activity as tolerated, blood culture and sputum culture negative Gram stain on sputum normal respiratory frantz COPD, not in exacerbation continue bronchodilator on IV steroids Status post mechanical fall and left hip pain and back pain due to degenerative joint disease osteoarthritis of lumbar vertebra, CT scan of the left hip negative for any acute fracture Hypertension dyslipidemia, continue expectant treatment Time with Patient: Greater than 30
[2024-08-23 13:32] VITALS: BMI 43.5
[2024-08-23] MEDS ORDERED: BENZOCAINE/MENTHOL LOZENG 1 EACH LOZENGE MUCOUS MEM PRN (21:32)
[2024-08-23] MEDS: ACETAMINOPHEN TAB 325 MG TAB PO PRN (21:53)
[2024-08-23] MEDS: guaiFENesin SYRUP 100MG/5ML 200 MG/10 ML CUP PO PRN (21:53)
--- NOTE | 2024-08-24 09:23 | P.PN ---
Subjective Progress Note Date: 08/23/24 This is an 78-year-old female who originally presented to the emergency department with complaints of hip pain. Patient reported she had fallen a few weeks ago and has had hip pain and difficulty walking since. Patient also complained of shortness of breath with cough and phlegm on admission. Chest x- ray on admission showed right lower lobe infiltrate. CT of the hip was negative for any acute fracture. Patient was started on Zithromax and ceftriaxone for pneumonia. Patient seen this morning laying in bed. She reports her hip is feeling better. She also reports her breathing is starting to feel better. Vital signs are stable. Pulmonology was consulted yesterday, however have not seen patient yet. 08/21/24 Patient seen and evaluated sitting in chair at bedside this morning. She reports she is still coughing and bringing up some phlegm. Pulmonary ordered a chest CT yesterday which shows 2 lung nodules possible metastatic disease from breast cancer. Patient reports she would like to have this investigated, and is willing to do whatever treatment recommended. 08/23/2020 Patient seen and in follow-up today with pulmonary Dr. Brothers and oncology following awaiting on biopsy report which remains pending at this time. Patient reports she has been progressively becoming more weak at home and normally uses a walker although was able to get to the bathroom and back along with other be droom and back multiple times throughout the day and reports over the last few days has not been able to do so. Patient is afebrile with no reported chest pain or shortness of breath. Patient does report a cough and reports her phlegm is whitish. Patient reports initially they thought maybe she had a pneumonia and she feels she does not. Virology testing was all negative including influenza, Legionella, RSV, COVID and Pro-calcitonin 0.12. White count is normal and patient remains afebrile. Patient with significant weakness would recommend PT/OT therapy evaluation and working with the patient daily. If patient requires ECF, patient reports she would like to go to [facility]. Case management is consulted. Review of systems: Constitutional: No reports of fatigue, fever, or chills Cardiovascular: No reports of chest pain or palpitations Respiratory: No reports of shortness of breath, occasional cough GI: No reports of nausea, vomiting, or diarrhea : No reports of dysuria or retention Neurovascular: reports of generalized weakness All medications have been reviewed Physical exam: Gen: This is a 78-year-old female who is awake, alert and oriented x 2-3, baseline, well-developed, elderly appearing, morbidly obese HEENT: Head is atraumatic, normocephalic. Pupils equal, round. Sclerae is anicteric. NECK: Supple. No JVD. No lymphadenopathy. No thyromegaly. LUNGS: Diminished breath sounds bilaterally with some bronchial congestion noted and able to expectorate. Coarse rhonchi noted at the bases. No intercostal retractions. HEART: S1, S2 are muffled ABDOMEN: Soft. Obese bowel sounds are present. No masses. No tenderness. EXTREMITIES: No pedal edema. No calf tenderness. Chronic lower extremity edema noted, nonpitting NEUROLOGICAL: Patient is awake, alert and oriented x2-3. Cranial nerves 2 through 12 are grossly intact. Diffusely weak Assessment: Left hip pain status post falls, no fractures noted Possible pneumonia, community-acquired although felt less likely Gait dysfunction and immobility with generalized weakness History of degenerative disc disease Lung nodules noted on imaging, status post biopsy Lymphadenopathy Morbid obesity with a BMI of 43.5 Chronic low back pain History of previous breast cancer GI prophylaxis DVT prophylaxis No code Plan: Patient being followed by pulmonary Dr. Brothers with breathing treatments and is status post lymph node biopsy with oncology following as well Patient does have history of breast cancer follows with Dr. Chen in the outpatient setting and will follow-up once biopsy report has been resulted to discuss treatment plans moving forward Recommend PT/OT therapy evaluation as patient is significantly weak and reports has been having multiple falls and becoming progressively more weak over the last few days to weeks with inability to ambulate Case management consulted and patient would like to go to [facility] if needed Encouraged increase activity as tolerated Will await pathology report Due to multiple complex medical issues, overall prognosis is guarded The impression and plan of care has been dictated by Maria Del Rosario Oliver, Nurse Practitioner as directed. Dr. Sterling MD I have performed a history and examination and MDM of this patient, discussed the same with the dictator, and agree with the dictator's assessment and plan as written ,documented as a scribe. Based on total visit time, I have performed more than 50% of the visit. Objective - Vital Signs Vital signs: Vital Signs Temp 97.7 F 08/23/24 07:14 Pulse 57 L 08/23/24 07:14 Resp 18 08/23/24 07:14 BP 138/62 08/23/24 07:14 Pulse Ox 97 08/23/24 07:14 FiO2 Intake & Output 08/22/24 08/23/24 08/23/24 18:59 06:59 18:59 Other: Voiding Method Incontinent Incontinent # Voids 1 3 # Bowel Movements 1 1 - Labs CBC & Chem 7: 08/21/24 03:40 08/21/24 03:40 Labs: Microbiology - Last 24 Hours (Table) 08/17/24 09:13 Blood Culture - Final Blood
--- NOTE | 2024-08-24 14:33 | P.DS ---
Providers Date of admission: 08/17/24 07:31 Expected date of discharge: 08/24/24 Attending physician: John Hendrickson Consults: 08/19/24 10:34 Consult Physician Routine Consulting Provider: Andrey Brothers Consult Reason/Comments: Persistent right lower lobe infiltrate Do you want consulting provider notified?: Yes 08/21/24 08:16 Consult Physician Routine Consulting Provider: Finn Cisneros Consult Reason/Comments: hx of breast cancer, possible metastisis on CT scan of chest Do you want consulting provider notified?: Yes Primary care physician: John Hendrickson Hospital Course: Final diagnosis Left hip pain status post falls, no fractures noted Possible pneumonia, community-acquired although felt less likely Gait dysfunction and immobility with generalized weakness History of degenerative disc disease Lung nodules noted on imaging, status post biopsy Lymphadenopathy Morbid obesity with a BMI of 43.5 Chronic low back pain History of previous breast cancer GI prophylaxis DVT prophylaxis No code Discharge disposition Patient is being discharged in a stable condition with guarded prognosis to [facility]. Patient will follow-up with Dr. Hendrickson in the outpatient setting upon discharge. Patient is to follow-up with oncology outpatient once discharged from [facility] as scheduled. Patient is agreeable to withhold all oncological care and follow-up until discharged from extended care facility. Patient will follow with Dr. Chen in the outpatient setting on discharge from [facility]. Total time taken is greater than 35 minutes. Hospital course This is a 78-year-old female who was recently admitted with falls and generalized weakness with left hip pain being closely monitored. No fractures noted although patient has been progressively becoming more weak over the last few days to weeks and normally uses a walker and able to get around multiple times throughout the day in her home although was unable to and had some hip pain and brought to the ER for further evaluation. Patient was admitted with concerns of possible community-acquired pneumonia although unlikely and also noted to have some lung nodules and is status post biopsy at this time. Biopsy result is pending and patient will follow-up with Dr. Chen in the outpatient setting once discharged from [facility] to discuss results and any treatment plans moving forward. Patient is aware she is unable to receive any oncological care during [facility] stay. Patient was evaluated by physical therapy recommending rehab and patient is agreeable. Insurance authorization was obtained and patient has been accepted at [facility]. Please refer to other consultation notes for further HPI. Currently no reports of chest pain, shortness of breath, or palpitations. Patient is afebrile. No reports of nausea or vomiting and patient is tolerating diet. Patient will be going to [facility] today. Overall guarded prognosis. Physical exam: Gen: This is a 78-year-old female who is awake, alert and oriented x 3, well- developed, elderly appearing, morbidly obese HEENT: Head is atraumatic, normocephalic. Pupils equal, round. Sclerae is anicteric. NECK: Supple. No JVD. No lymphadenopathy. No thyromegaly. LUNGS: Diminished breath sounds bilaterally otherwise clear to auscultation. Some bronchial congestion noted although cleared with a cough on exam. No intercostal retractions. HEART: S1, S2 are muffled ABDOMEN: Soft. Obese. Bowel sounds are present. No masses. No tenderness. EXTREMITIES: No pedal edema. No calf tenderness. Generalized edema noted bilaterally NEUROLOGICAL: Patient is awake, alert and oriented x3. Cranial nerves 2 through 12 are grossly intact. Diffusely weak Please refer to medication reconciliation sheet for a list of medications. The impression and plan of care has been dictated by Maria Del Rosario Oliver, Nurse Practitioner as directed. Dr. Sterling MD I have performed a history and examination and MDM of this patient, discussed the same with the dictator, and agree with the dictator's assessment and plan as written ,documented as a scribe. Based on total visit time, I have performed more than 50% of the visit. Patient Condition at Discharge: Fair Plan - Discharge Summary Discharge Rx Participant: Yes New Discharge Prescriptions: New Benzocaine/Menthol Lozeng [Cepacol lozenge] 1 each MUCOUS MEM Q4HR PRN lozenge PRN Reason: Sore Throat Magnesium Oxide [Mag-Ox] 400 mg PO BID tab Magnesium Hydroxide [Milk of Magnesia] 2,400 mg PO DAILY PRN ml PRN Reason: Constipation Nystatin 100,000 Unit/gm Oint [Mycostatin Oint] 1 applic TOPICAL TID each guaiFENesin SYRUP 100MG/5ML [Robitussin] 200 mg PO Q6HR PRN ml PRN Reason: Cough Acetaminophen Tab [Tylenol] 650 mg PO Q6HR PRN tab PRN Reason: Fever And/ Or Pain bisacodyL [Dulcolax] 10 mg PO DAILY PRN tab PRN Reason: Constipation Albuterol Nebulized [Ventolin Nebulized] 2.5 mg INHALATION RT-Q6H PRN ml PRN Reason: Shortness Of Breath Continue allopurinoL [Zyloprim] 300 mg PO DAILY Furosemide [Lasix] 20 mg PO DAILY D3 (Unknown Dose) 1 tab PO BID methocarbamoL [Robaxin] 500 mg PO HS Empagliflozin/Metformin HCl [Synjardy 5-500 mg Tablet] 1 tab PO BID Pregabalin [Lyrica] 200 mg PO BID #6 cap Multivitamins, Thera [Multivitamin (formulary)] 1 tab PO DAILY HYDROcodone/APAP 10-325MG [[place] 10-325] 1 tab PO Q6H PRN #4 tab PRN Reason: Pain Discharge Medication List allopurinoL [Zyloprim] 300 mg PO DAILY 05/29/19 [History] Furosemide [Lasix] 20 mg PO DAILY 12/18/20 [History] D3 (Unknown Dose) 1 tab PO BID 01/20/24 [History] Empagliflozin/Metformin HCl [Synjardy 5-500 mg Tablet] 1 tab PO BID 08/17/24 [History] Multivitamins, Thera [Multivitamin (formulary)] 1 tab PO DAILY 08/17/24 [History] methocarbamoL [Robaxin] 500 mg PO HS 08/17/24 [History] Acetaminophen Tab [Tylenol] 650 mg PO Q6HR PRN tab 08/24/24 [Rx] Albuterol Nebulized [Ventolin Nebulized] 2.5 mg INHALATION RT-Q6H PRN ml 08/24/24 [Rx] Benzocaine/Menthol Lozeng [Cepacol lozenge] 1 each MUCOUS MEM Q4HR PRN lozenge 08/24/24 [Rx] HYDROcodone/APAP 10-325MG [[place] 10-325] 1 tab PO Q6H PRN #4 tab 08/24/24 [Rx] Magnesium Hydroxide [Milk of Magnesia] 2,400 mg PO DAILY PRN ml 08/24/24 [Rx] Magnesium Oxide [Mag-Ox] 400 mg PO BID tab 08/24/24 [Rx] Nystatin 100,000 Unit/gm Oint [Mycostatin Oint] 1 applic TOPICAL TID each 10/04/24 [Rx] Pregabalin [Lyrica] 200 mg PO BID #6 cap 08/24/24 [Rx] bisacodyL [Dulcolax] 10 mg PO DAILY PRN tab 08/24/24 [Rx] guaiFENesin SYRUP 100MG/5ML [Robitussin] 200 mg PO Q6HR PRN ml 08/24/24 [Rx] Follow up Appointment(s)/Referral(s): John Hendrickson MD [Primary Care Provider] - 1-2 days Andrey Brothers MD [STAFF PHYSICIAN] - 1 Week Monika Chen MD [STAFF PHYSICIAN] - 2 Weeks Activity/Diet/Wound Care/Special Instructions: Patient is going to [employer] activity as tolerated Continue elevating lower extremities while at rest Follow-up with oncology once discharged from [facility] regarding biopsy results Continue taking medications as prescribed Continue heart healthy diet Follow-up with pulmonary outpatient Discharge Disposition: TRANSFER TO SNF/ECF
[2024-08-24 15:04] LABS: Glucose,Whole Blood 130 mg/dL (70-110)
--- NOTE | 2024-08-24 15:34 | P.PN ---
Subjective Progress Note Date: 08/24/24 Principal diagnosis: Right-sided multiple pulmonary nodules suggestive of metastatic disease Mediastinal lymphadenopathy as above Right-sided breast cancer status postmastectomy Right lower lobe pneumonia Acute hypoxic respiratory failure Sleep disordered breathing and sleep apnea History of DVT PE Dyslipidemia GERD Chronic gouty arthritis Bilateral chronic foot drop Left hip pain and left lumbar pain August 24, 2024, patient seen eval examined during rounds labs reviewed medications reviewed patient is being ambulated with assistance, oxygen saturation 92% on 2 L, Apsey results are still pending August 23, 2024, patient seen eval examined during rounds labs reviewed medications reviewed care plan discussed, patient remains afebrile, blood pressure stable 138/62, oxygen saturation 97% on room air biopsy results are still pending August 22, 2024 patient seen eval examined during rounds labs reviewed medications reviewed patient has a lymph node biopsy done results pending August 21, 2024, patient seen evaluate examined during rounds labs reviewed medi cations and care plan discussed, CT scan of the chest without contrast performed patient noted to have trace pleural effusion along with basilar atelectasis patchy right lower lobe groundglass opacities were seen, right lateral 2.5 cm nodule and right lower 2.9 cm nodule seen, patient noted to have hilar adenopathy as well noted that primary service has consulted medical oncology given history of prior breast cancer. Patient remains on bronchodilators along with IV Rocephin August 20, 2024, patient seen evaluate examined during rounds ongoing shortness of breath and better cough is present patient remains on broad- spectrum antibiotics for right lower lobe pneumonia, culture results reports reviewed so far has been negative, CT scan of the chest is being ordered for persistent right lower lobe infiltrate ammonia 78-year-old female who came into the hospital with several week history of progressive left hip pain and difficulty in ambulation thought to be related to fall, in addition patient started having cough shortness of breath and sputum production. Primary history significant for gout, hypertension hypertensive cardiovascular disease, osteoporosis, bronchial asthma, vitamin D deficiency DVT, dementia, PE, sleep apnea and sleep disordered breathing patient is a non-smoker. Admitted x- ray significant for right lower lobe infiltrate, however left hip x-ray no acute osseous abnormality seen patient has a duplex ultrasound lower extremity no evidence of DVT seen hip CT no acute trauma to the left hip was noted osteoarthritis of left hip however seen disc disease of the lower lumbar spine seen repeat checks x-ray however continue to show infiltrate Objective - Vital Signs Vital signs: Vital Signs Temp 98.1 F 08/24/24 07:37 Pulse 70 08/24/24 07:37 Resp 22 08/24/24 07:37 BP 103/62 08/24/24 07:37 Pulse Ox 92 L 08/24/24 07:37 FiO2 Intake & Output 08/23/24 08/24/24 08/24/24 18:59 06:59 18:59 Intake Total 1080 Balance 1080 Weight 107.955 kg Intake: Oral 1080 Other: # Voids 1 4 1 # Bowel Movements 1 3 - Exam - Constitutional General appearance: average body habitus, cooperative, disheveled, mild distress - EENT Eyes: EOMI, PERRLA Ears: bilateral: normal - Neck Neck: normal ROM Carotids: bilateral: upstroke normal Thyroid: bilateral: normal size - Respiratory Respiratory: bilateral: CTA (Parpart), diminished (Basis) - Cardiovascular Rhythm: regular Heart sounds: normal: S1, S2 - Gastrointestinal General gastrointestinal: normal bowel sounds, soft - Integumentary Integumentary: normal turgor - Musculoskeletal Musculoskeletal: gait normal, generalized weakness, strength equal bilaterally - Psychiatric Psychiatric: A&O x's 3, appropriate affect, intact judgment & insight - Labs CBC & Chem 7: 08/21/24 03:40 08/21/24 03:40 Labs: Abnormal Lab Results - Last 24 Hours (Table) 08/20/24 Range/Units 16:52 POC Glucose (mg/dL) 130 H (70-110) mg/dL Assessment and Plan Assessment: Cervical lymphadenopathy, s/p lymph node biopsy Right-sided pulmonary nodule of 2.5 cm and 2.9 cm, likely secondary metastatic d isease right upper lobe nodule is pleural-based next to lateral thoracic wall, right lower lobe nodule is within parenchyma however nodule is surrounded by lung tissue Likely mediastinal adenopathy, inflammatory or active versus metastatic, patient would likely need a PET scan as outpatient Right-sided mastectomy for history of breast cancer Right lower lobe pneumonia Acute hypoxic respiratory failure Sleep disordered breathing and sleep apnea History of DVT PE Dyslipidemia GERD Chronic gouty arthritis Bilateral chronic foot drop Left hip pain and left lumbar pain Plan: CT scan finding reviewed, awaiting recommendation from oncology service patient likely will CT-guided biopsy of right upper lobe nodule which is next to chest wall and pleural-based if lymph node biopsy comes back negative Continue broad-spectrum antibiotics, increase activity as tolerated, blood culture and sputum culture negative Gram stain on sputum normal respiratory frantz COPD, not in exacerbation continue bronchodilator on IV steroids Status post mechanical fall and left hip pain and back pain due to degenerative joint disease osteoarthritis of lumbar vertebra, CT scan of the left hip negative for any acute fracture Hypertension dyslipidemia, continue expectant treatment Time with Patient: Greater than 30
[2024-08-24 16:46] VITALS: BP 99/62; PULSE 65; RESP 20; TEMP 97.6
== END 2024-08-24 19:48 | DRG 193 ==
LOC: EC 04:35 → 4SSUR 07:31
PROVIDERS: ADMIT Family Medicine; ATTEND Family Medicine
DX: J18.9 Pneumonia, unspecified organism (principal); J96.01 Acute respiratory failure with hypoxia; C78.01 Secondary malignant neoplasm of right lung; Z68.41 Body mass index [BMI] 40.0-44.9, adult; E66.01 Morbid (severe) obesity due to excess calories; F03.90 Unspecified dementia, unspecified severity, without behavioral disturbance, psychotic disturbance, mood disturbance, and anxiety; I11.9 Hypertensive heart disease without heart failure; B37.2 Candidiasis of skin and nail; D75.89 Other specified diseases of blood and blood-forming organs; G89.29 Other chronic pain; M51.26 Other intervertebral disc displacement, lumbar region; E78.5 Hyperlipidemia, unspecified; M25.552 Pain in left hip; G47.30 Sleep apnea, unspecified; M21.371 Foot drop, right foot; M21.372 Foot drop, left foot; K21.9 Gastro-esophageal reflux disease without esophagitis; M19.90 Unspecified osteoarthritis, unspecified site; K59.00 Constipation, unspecified; M1A.9XX0 Chronic gout, unspecified, without tophus (tophi); M51.360 Other intervertebral disc degeneration, lumbar region with discogenic back pain only; Z74.09 Other reduced mobility; W18.30XA Fall on same level, unspecified, initial encounter; Y92.009 Unspecified place in unspecified non-institutional (private) residence as the place of occurrence of the external cause; Z91.81 History of falling; Z86.718 Personal history of other venous thrombosis and embolism; Z86.711 Personal history of pulmonary embolism; Z85.3 Personal history of malignant neoplasm of breast; Z90.11 Acquired absence of right breast and nipple; Z79.899 Other long term (current) drug therapy; Z79.84 Long term (current) use of oral hypoglycemic drugs; Z92.3 Personal history of irradiation
CPT/HCPCS: 36415; 38505; 71045; 71046; 71250; 73502; 76942; 80048; 80053; 83880; 84145; 85025; 85027; 86300; 87040; 87070; 87205; 87449; 87636; 88305; 88341; 88342; 93970; 96361; 96374; 96376; 99285

== ENCOUNTER 2024-08-27 16:54 | Emergency (ER) | payer MEDICARE ==
[2024-08-27 17:02] VITALS: TEMP 98.4
--- NOTE | 2024-08-27 17:31 | ED ---
Recheck HPI - General Chief Complaint: Recheck/Abnormal Lab/Rx Stated Complaint: covid+ Time Seen by Provider: 08/27/24 17:28 Source: patient, EMS, RN notes reviewed Mode of arrival: EMS Limitations: no limitations - History of Present Illness Initial Comments: 78-year-old female presented to ER via EMS from [facility] for evaluation of elevated D-dimer. Patient had routine laboratory studies done and viral swabs taken. Patient is COVID-positive. Patient denies any shortness of breath or difficulty breathing. She does report a history of DVTs years ago from travel. Not currently on any blood thinning medications. No chest pain. Patient has no acute complaints. She is currently seen at [facility] for rehabilitation due to weak lower extremities. - Related Data Home Medications Medication Instructions Recorded Confirmed allopurinoL [Zyloprim] 300 mg PO DAILY 05/29/19 08/17/24 Furosemide [Lasix] 20 mg PO DAILY 12/18/20 08/17/24 Empagliflozin/Metformin HCl 1 tab PO BID 08/17/24 08/17/24 [Synjardy 5-500 mg Tablet] Multivitamins, Thera [Multivitamin 1 tab PO DAILY 08/17/24 08/17/24 (formulary)] methocarbamoL [Robaxin] 500 mg PO HS 08/17/24 08/17/24 Previous Rx's Medication Instructions Recorded Acetaminophen Tab [Tylenol] 650 mg PO Q6HR PRN tab 08/24/24 Albuterol Nebulized [Ventolin 2.5 mg INHALATION RT-Q6H PRN ml 08/24/24 Nebulized] Benzocaine/Menthol Lozeng [Cepacol 1 each MUCOUS MEM Q4HR PRN lozenge 08/24/24 lozenge] HYDROcodone/APAP 10-325MG [[place] 1 tab PO Q6H PRN #4 tab 08/24/24 10-325] Magnesium Hydroxide [Milk of 2,400 mg PO DAILY PRN ml 08/24/24 Magnesia] Magnesium Oxide [Mag-Ox] 400 mg PO BID tab 08/24/24 Nystatin 100,000 Unit/gm Oint 1 applic TOPICAL TID each 08/24/24 [Mycostatin Oint] Pregabalin [Lyrica] 200 mg PO BID #6 cap 08/24/24 bisacodyL [Dulcolax] 10 mg PO DAILY PRN tab 08/24/24 guaiFENesin SYRUP 100MG/5ML 200 mg PO Q6HR PRN ml 08/24/24 [Robitussin] Allergies Allergy/AdvReac Type Severity Reaction Status Date / Time No Known Allergies Allergy Verified 08/17/24 08:42 Review of Systems ROS Statement: Those systems with pertinent positive or pertinent negative responses have been documented in the HPI. ROS Other: All systems not noted in ROS Statement are negative. 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 History of Any Multi-Drug Resistant Organisms: None Reported Past Surgical History: Back Surgery, Breast Surgery, Cholecystectomy, Tonsillectomy, Tubal Ligation Additional Past Surgical History / Comment(s): RIGHT MASTECTOMY. 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 BACK SURGERY X2, pain clinic procedures. Past Anesthesia/Blood Transfusion Reactions: No Reported Reaction Past Psychological History: No Psychological Hx Reported Smoking Status: Never smoker Past Alcohol Use History: None Reported Past Drug Use History: None Reported - Past Family History Father Additional Family Medical History / Comment(s): Father at the age of 53 yrs from "broken heart" 6 weeks after the of his son. Mother Family Medical History: Deep Vein Thrombosis (DVT) Additional Family Medical History / Comment(s): Mother at the age of 61 pt believes from a brain tumor. Blood clot x2. General Exam Limitations: no limitations General appearance: alert, in no apparent distress Respiratory exam: Present: wheezes (LLL) Cardiovascular Exam: Present: regular rate, normal rhythm, normal heart sounds. Absent: systolic murmur, diastolic murmur, rubs, gallop, clicks Extremities exam: Present: normal inspection, full ROM, normal capillary refill. Absent: tenderness, pedal edema, joint swelling, calf tenderness Neurological exam: Present: alert, oriented X3, CN II-XII intact Skin exam: Present: warm, dry, intact, normal color. Absent: rash Course Vital Signs 08/27/24 08/27/24 08/27/24 16:57 18:36 19:34 Temperature 98.4 F Pulse Rate 67 81 72 Respiratory 18 18 20 Rate Blood Pressure 131/64 130/78 141/81 O2 Sat by Pulse 95 97 94 L Oximetry Medical Decision Making - Medical Decision Making Was pt. sent in by a medical professional or institution (, PA, CLAIMS SORTER, urgent care, hospital, or custodial...) When possible be specific @ -Patient sent by Stephanie due to elevated D-dimer. Did you speak to anyone other than the patient for history (EMS, parent, family, police, friend...)? What history was obtained from this source @ -No Did you review nursing and triage notes (agree or disagree)? Why? @ -I reviewed and agree with nursing and triage notes Were old charts reviewed (outside hosp., previous admission, EMS record, old EKG, old radiological studies, urgent care reports/EKG's, custodial records)? Report findings @ -No old charts were reviewed Differential Diagnosis (chest pain, altered mental status, abdominal pain women, abdominal pain men, vaginal bleeding, weakness, fever, dyspnea, syncope, headache, dizziness, GI bleed, back pain, seizure, CVA, palpatations, mental health, musculoskeletal)? @ -Differential Dyspnea:Coronary syndrome, arrhythmia, tamponade, asthma, COPD, pulmonary embolism, pneumonia, pneumothorax, pulmonary effusion, anaphylaxis, diabetic ketoacidosis, flailed chest, pulmonary contusion, diaphragmatic rupture, anemia, neuromuscular, this is not meant to be an all-inclusive list. EKG interpreted by me (3pts min.). @ -As above X-rays interpreted by me (1pt min.). @ -None done CT interpreted by me (1pt min.). @ -Chest CTA showing no evidence of pulmonary embolism. There is multiple right-sided pulmonary masses with pulmonary nodules concerning of malignancy with metastatic disease. Mild cardiomegaly. U/S interpreted by me (1pt. min.). @ -None done What testing was considered but not performed or refused? (CT, X-rays, U/S, labs)? Why? @ -None What meds were considered but not given or refused? Why? @ -None Did you discuss the management of the patient with other professionals (professionals i.e. , PA, CLAIMS SORTER, lab, RT, psych nurse, sexual assault social worker, family lawyer, teacher, electoral officer, field case manager)? Give summary @ -No Was smoking cessation discussed for >3mins.? @ -No Was critical care preformed (if so, how long)? @ -No Were there social determinants of health that impacted care today? How? (Homelessness, low income, unemployed, alcoholism, drug addiction, transportation, low edu. Level, literacy, decrease access to med. care, penitentiary, rehab)? @ -No Was there de-escalation of care discussed even if they declined (Discuss DNR or withdrawal of care, Hospice)? DNR status @ -No What co-morbidities impacted this encounter? (DM, HTN, Smoking, COPD, CAD, Cancer, CVA, ARF, Chemo, Hep., AIDS, mental health diagnosis, sleep apnea, morb id obesity)? @ -None Was patient admitted / discharged? Hospital course, mention meds given and rou te, prescriptions, significant lab abnormalities, going to OR and other pertinent info. @ -Discharge. 78-year-old female presenting to the [facility] for evaluation of elevated D-dimer. History and physical exam completed. Vitals normal limits. Patient in no signs of acute distress nontoxic-appearing. Wheezing in left lower lung. Otherwise exam unremarkable. Laboratory studies obtained showing a D-dimer of 1.26. Lactic of 2.6 for which patient received 1 L IV fluids. Troponin undetectable. COVID-positive. CTA negative for acute evidence of pulmonary embolism. Patient does have multiple right-sided lung masses for which she states she is following up with oncology and recent lymph node biopsy. Elevated D-dimer likely related to malignancy. Upon reevaluation, patient resting comfortably in exam room extremely eager for discharge. Results discussed with patient, all questions answered. Advise close follow-up with PCP and oncology for further evaluation and treatment. Return parameters discussed. Patient discharged stable condition back to [facility]. Patient verbal expressed understanding agree with care plan. Case discussed with ED attending Dr. Plunkett. Undiagnosed new problem with uncertain prognosis? @ -No Drug Therapy requiring intensive monitoring for toxicity (Heparin, Nitro, Insulin, Cardizem)? @ -No Were any procedures done? @ -No Diagnosis/symptom? @ -COVID-19/acute viral sinusitis/lung mass/elevated D-dimer Acute, or Chronic, or Acute on Chronic? @ -Acute Uncomplicated (without systemic symptoms) or Complicated (systemic symptoms)? @ -Complicated Side effects of treatment? @ -No Exacerbation, Progression, or Severe Exacerbation? @ -No Poses a threat to life or bodily function? How? (Chest pain, [place], [place], pneumonia, PE, COPD, DKA, ARF, appy, cholecystitis, CVA, Diverticulitis, Homicidal, Suicidal, threat to staff... and all critical care pts) @ -Yes, malignancy is life-threatening - Lab Data Result diagrams: 08/27/24 17:08 08/27/24 17:08 Lab Results 08/27/24 08/27/24 08/27/24 Range/Units 17:08 17:08 17:08 WBC 6.1 (3.8-10.6) k/uL RBC 4.22 (3.80-5.40) m/uL Hgb 14.0 (11.4-16.0) gm/dL Hct 44.8 (34.0-46.0) % MCV 106.2 H (80.0-100.0) fL MCH 33.3 (25.0-35.0) pg MCHC 31.3 (31.0-37.0) g/dL RDW 13.7 (11.5-15.5) % Plt Count 228 (150-450) k/uL MPV 7.4 Neutrophils % 85 % Lymphocytes % 11 % Monocytes % 2 % Eosinophils % 0 % Basophils % 0 % Neutrophils # 5.2 (1.3-7.7) k/uL Lymphocytes # 0.7 L (1.0-4.8) k/uL Monocytes # 0.1 (0-1.0) k/uL Eosinophils # 0.0 (0-0.7) k/uL Basophils # 0.0 (0-0.2) k/uL Macrocytosis Moderate PT 11.3 (10.0-12.5) sec INR 1.0 (<1.2) APTT 29.0 (22.0-30.0) sec D-Dimer 1.26 H (<0.60) mg/L FEU Sodium 136 L (137-145) mmol/L Potassium 4.4 (3.5-5.1) mmol/L Chloride 102 (98-107) mmol/L Carbon Dioxide 24 (22-30) mmol/L Anion Gap 10 mmol/L BUN 14 (7-17) mg/dL Creatinine 0.81 (0.52-1.04) mg/dL Est GFR (CKD-EPI)AfAm 80 (>60 ml/min/1.73 sqM) Est GFR (CKD-EPI)NonAf 69 (>60 ml/min/1.73 sqM) Glucose 147 H (74-99) mg/dL Lactic Ac Sepsis Rflx Plasma Lactic Acid Jamie (0.7-2.0) mmol/L Calcium 9.0 (8.4-10.2) mg/dL Total Bilirubin 0.8 (0.2-1.3) mg/dL AST 51 H (14-36) U/L ALT 21 (4-34) U/L Alkaline Phosphatase 105 (38-126) U/L Troponin I (0.000-0.034) ng/mL Total Protein 7.1 (6.3-8.2) g/dL Albumin 3.9 (3.5-5.0) g/dL Influenza Type A (PCR) (Not Detectd) Influenza Type B (PCR) (Not Detectd) RSV (PCR) (Not Detectd) SARS-CoV-2 (PCR) (Not Detectd) 08/27/24 08/27/24 08/27/24 Range/Units 17:08 17:08 17:08 WBC (3.8-10.6) k/uL RBC (3.80-5.40) m/uL Hgb (11.4-16.0) gm/dL Hct (34.0-46.0) % MCV (80.0-100.0) fL MCH (25.0-35.0) pg MCHC (31.0-37.0) g/dL RDW (11.5-15.5) % Plt Count (150-450) k/uL MPV Neutrophils % % Lymphocytes % % Monocytes % % Eosinophils % % Basophils % % Neutrophils # (1.3-7.7) k/uL Lymphocytes # (1.0-4.8) k/uL Monocytes # (0-1.0) k/uL Eosinophils # (0-0.7) k/uL Basophils # (0-0.2) k/uL Macrocytosis PT (10.0-12.5) sec INR (<1.2) APTT (22.0-30.0) sec D-Dimer (<0.60) mg/L FEU Sodium (137-145) mmol/L Potassium (3.5-5.1) mmol/L Chloride (98-107) mmol/L Carbon Dioxide (22-30) mmol/L Anion Gap mmol/L BUN (7-17) mg/dL Creatinine (0.52-1.04) mg/dL Est GFR (CKD-EPI)AfAm (>60 ml/min/1.73 sqM) Est GFR (CKD-EPI)NonAf (>60 ml/min/1.73 sqM) Glucose (74-99) mg/dL Lactic Ac Sepsis Rflx Plasma Lactic Acid Jamie 2.6 H* (0.7-2.0) mmol/L Calcium (8.4-10.2) mg/dL Total Bilirubin (0.2-1.3) mg/dL AST (14-36) U/L ALT (4-34) U/L Alkaline Phosphatase (38-126) U/L Troponin I <0.012 (0.000-0.034) ng/mL Total Protein (6.3-8.2) g/dL Albumin (3.5-5.0) g/dL Influenza Type A (PCR) Not Detected (Not Detectd) Influenza Type B (PCR) Not Detected (Not Detectd) RSV (PCR) Not Detected (Not Detectd) SARS-CoV-2 (PCR) Detected A (Not Detectd) 08/27/24 Range/Units 18:08 WBC (3.8-10.6) k/uL RBC (3.80-5.40) m/uL Hgb (11.4-16.0) gm/dL Hct (34.0-46.0) % MCV (80.0-100.0) fL MCH (25.0-35.0) pg MCHC (31.0-37.0) g/dL RDW (11.5-15.5) % Plt Count (150-450) k/uL MPV Neutrophils % % Lymphocytes % % Monocytes % % Eosinophils % % Basophils % % Neutrophils # (1.3-7.7) k/uL Lymphocytes # (1.0-4.8) k/uL Monocytes # (0-1.0) k/uL Eosinophils # (0-0.7) k/uL Basophils # (0-0.2) k/uL Macrocytosis PT (10.0-12.5) sec INR (<1.2) APTT (22.0-30.0) sec D-Dimer (<0.60) mg/L FEU Sodium (137-145) mmol/L Potassium (3.5-5.1) mmol/L Chloride (98-107) mmol/L Carbon Dioxide (22-30) mmol/L Anion Gap mmol/L BUN (7-17) mg/dL Creatinine (0.52-1.04) mg/dL Est GFR (CKD-EPI)AfAm (>60 ml/min/1.73 sqM) Est GFR (CKD-EPI)NonAf (>60 ml/min/1.73 sqM) Glucose (74-99) mg/dL Lactic Ac Sepsis Rflx Y Plasma Lactic Acid Jamie (0.7-2.0) mmol/L Calcium (8.4-10.2) mg/dL Total Bilirubin (0.2-1.3) mg/dL AST (14-36) U/L ALT (4-34) U/L Alkaline Phosphatase (38-126) U/L Troponin I (0.000-0.034) ng/mL Total Protein (6.3-8.2) g/dL Albumin (3.5-5.0) g/dL Influenza Type A (PCR) (Not Detectd) Influenza Type B (PCR) (Not Detectd) RSV (PCR) (Not Detectd) SARS-CoV-2 (PCR) (Not Detectd) - EKG Data -: EKG Interpreted by Nh EKG Comments: EKG taken at 17: 03 showing a sinus rhythm. No ST segment or T wave abnormalities. Ventricular rate 64, CA interval 194, QRS ration 89, QT/QTc 449/459. - Radiology Data Radiology results: report reviewed, image reviewed Disposition Clinical Impression: COVID-19, Acute viral sinusitis, Lung mass, Elevated d-dimer Disposition: HOME SELF-CARE Condition: Stable Additional Instructions: Follow-up with oncology and PCP as scheduled. Return to the ER for any new or worsening concerns. Is patient prescribed a controlled substance at d/c from ED?: No Referrals: John Hendrickson MD [STAFF PHYSICIAN] - 1-2 days Monika Chen MD [STAFF PHYSICIAN] - 1-2 days Time of Disposition: 19:11
[2024-08-27 18:01] LABS: Basophils % (A) 0 %; Eosinophils % (A) 0 %; HCT 44.8 % (34.0-46.0); Lymphocytes # (A) 0.7 k/uL (1.0-4.8); Lymphocytes % (A) 11 %; MCH 33.3 pg (25.0-35.0); MCHC 31.3 g/dL (31.0-37.0); MCV 106.2 fL (80.0-100.0); Macrocytosis Moderate; Mean Platelet Volume 7.4; Monocytes # (A) 0.1 k/uL (0-1.0); Monocytes % (A) 2 %; Neutrophils # (A) 5.2 k/uL (1.3-7.7); Neutrophils % (A) 85 %; Platelet Count 228 k/uL (150-450); RBC 4.22 m/uL (3.80-5.40); RDW 13.7 % (11.5-15.5); WBC 6.1 k/uL (3.8-10.6)
[2024-08-27 18:05] LABS: ALT 21 U/L (4-34); AST 51 U/L (14-36); African American GFR (CKD) 80 (>60 ml/min/1.73 sqM); Albumin 3.9 g/dL (3.5-5.0); Alkaline Phosphatase 105 U/L (38-126); Anion Gap 10 mmol/L; Blood Urea Nitrogen 14 mg/dL (7-17); Carbon Dioxide 24 mmol/L (22-30); Chloride 102 mmol/L (98-107); Glucose 147 mg/dL (74-99); Non-African American GFR(CKD) 69 (>60 ml/min/1.73 sqM); Potassium 4.4 mmol/L (3.5-5.1); Sodium 136 mmol/L (137-145); Total Bilirubin 0.8 mg/dL (0.2-1.3); Total Protein 7.1 g/dL (6.3-8.2)
[2024-08-27] MEDS: SODIUM CHLORIDE 0.9% 1,000 ML IV STA (18:15)
[2024-08-27 18:42] LABS: Prothrombin Time 11.3 sec (10.0-12.5)
--- NOTE | 2024-08-27 19:00 | CT ---
EXAMINATION TYPE: CT chest angio for PE CT DLP: 600.5 mGycm, Automated exposure control for dose reduction was used. DATE OF EXAM: 08/27/2024 6:30 PM COMPARISON: Chest radiograph from same day. Multiple CTs of the chest with most recent on . CLINICAL INDICATION: Female, 78 years old with history of elevated d dimer; Elevated D-dimer. TECHNIQUE/CONTRAST: CTA scan of the thorax is performed with IV Contrast, patient injected with 100 cc mL of Isovue 370, MIP images are created and reviewed these are created on a separate workstation.. FINDINGS: Pulmonary Artery: There is no evidence for a filling defect within the pulmonary vasculature to sugge st acute pulmonary embolism. The pulmonary artery is of normal size. Lungs/Pleura: Right upper lung mass measuring 31 x 27 mm as well as right lower lung mass r 34 x 29 m m additional pulmonary nodules are also present. No evidence of focal consolidation, pleural effusion or pneumothorax. Airway: Large airways are patent. Heart: The heart is mildly enlarged for size. Vasculature: No evidence of aortic aneurysm. Mediastinum: Enlarged lymph nodes including right low paratracheal measuring up to 15 mm in short axi s, right upper paratracheal measuring 10 mm in short axis. Right subcarinal measuring 14 mm in short axis. Musculoskeletal: No acute osseous abnormalities Soft Tissues/lymph nodes: Right low neck lymph node measuring 10 mm, right subpectoral lymph node jone suring up to 9 mm in short axis. Lower neck: No significant findings. Upper Abdomen: Right breast implant appears intact. Cholecystectomy clips. Increased haziness to the gastrohepatic ligament IMPRESSION: 1. No evidence of pulmonary embolism. 2. Multiple right-sided pulmonary masses and pulmonary nodules concerning for malignancy with metasta tic disease to the right low neck, and mediastinal lymph nodes.. Correlate with clinical history. Onc ologic workup recommended. 3. Mild cardiomegaly. [facility], , 08/27/2024 6:58 PM
[2024-08-27 19:36] VITALS: BP 141/81; PULSE 72; RESP 20
== END 2024-08-27 19:34 | disposition home or self-care (01) ==
LOC: EC 16:54
CPT/HCPCS: 36415; 71275; 80053; 83605; 84484; 85025; 85379; 85610; 85730; 87636; 93005; 96360; 99284